=== PATIENT | male | born 1945 | race Caucasian/White ===

== ENCOUNTER → 2016-06-16 | Outpatient (CLI) | payer MEDICARE ==
[2016-06-16 16:15] LABS: HSV I IgG Interp POSITIVE (NEGATIVE); HSV II IgG Interp NEGATIVE (NEGATIVE)
== END | disposition home or self-care (01) ==
LOC: LABWHC1 08:23
PROVIDERS: ATTEND Internal Medicine Infectious Disease
DX: B02.31 Zoster conjunctivitis (principal)
CPT/HCPCS: 36415; 86644; 86645; 86695; 86696; 86787

== ENCOUNTER → 2018-08-13 | Outpatient (CLI) | payer MEDICARE ==
--- NOTE | 2018-08-13 22:18 | CT ---
EXAMINATION TYPE: CT abdomen pelvis w con DATE OF EXAM: 08/13/2018 COMPARISON: None. HISTORY: Epigastric pain. CT DLP: 1599 mGycm, Automated Exposure Control for Dose Reduction was Utilized. CONTRAST: CT scan of the abdomen and pelvis is performed with oral and with IV Contrast, patient injected with 80ml mL of Isovue 300. FINDINGS: LUNG BASES: There is patchy bibasilar linear scarring and/or atelectasis identified. There is small t o tiny pericardial effusion and cardiomegaly noted. LIVER/GB: Cholecystectomy clips are seen. PANCREAS: No significant abnormality is seen. SPLEEN: No significant abnormality is seen. ADRENALS: There is nonspecific 2.0 cm left adrenal mass axial image 31. This is noted stable in size from CT chest January 19, 2012 this presumed benign in etiology. KIDNEYS: There is a 8.4 cm simple appearing partially exophytic renal cyst lower pole of the left kid theo. Symmetric cortical medullary uptake and excretion from both kidneys are seen without hydronephro sis identified bilaterally. BOWEL: The oral contrast does not reach colonic level making evaluation of distal bowel suboptimal. T here are surgical sutures at the diaphragmatic hiatus redemonstrated. There is no suspicious small or large bowel dilatation seen. Normal-appearing appendix is seen from cecum. Some diverticula are seen in the left and sigmoid colon with redundant sigmoid colon into the abdomen. No CT evidence for acut e diverticulitis. PROSTATE/SEMINAL VESICLES: Enlarged prostate gland consistent with BPH is present. LYMPH NODES: No greater than 1cm abdominal or pelvic lymph nodes are appreciated. OSSEOUS STRUCTURES: Moderate narrowing of both hip joints. Levoconvex scoliosis centered at L3 level. Slight grade 1 retrolisthesis of L3 on L4 with moderate disc space narrowing. Multilevel facet arthr opathy in the lower lumbar spine is present. OTHER: Mild calcified plaque of the aorta extends into branch vessels. IMPRESSION: No significant finding is seen to account for patient's clinical symptoms of epigastric pain.
== END | disposition home or self-care (01) ==
LOC: RADCTMAIN 15:41
DX: R10.13 Epigastric pain (principal)
CPT/HCPCS: 82565; 84520; 74177; 36415; Q9967

== ENCOUNTER → 2018-10-25 | Day surgery (SDC) | payer MEDICARE ==
[2018-10-24 09:34] VITALS: BMI 29.5
[~2018-10-25] MED LIST: LIDOCAINE 1% 20 ML VIAL (10MG/ML) FOR IV START INTRADERMA ONE; LIDOCAINE 1% INJ 10MG/ML (20 ML MDV) ONE; PROPOFOL 10 MG/ML 20 ML VIAL IV ONE
[2018-10-25] MEDS: LACTATED RINGERS 1,000 ML IV SCH ×2 (11:31→11:54)
[2018-10-25 11:44] VITALS: TEMP 98.2
--- NOTE | 2018-10-25 12:52 | P.PCN ---
Date of Procedure: 10/25/18 Description of Procedure: Brief history: Patient is a pleasant scheduled for an elective upper endoscopy as well as colonoscopy as a part of evaluation of abdominal pain, GERD and history of colon polyps. Patient reports diffuse abdominal pain. He also has a history of vagotomy, pyloroplasty and hiatal hernia repair. Reports intermittent dysphagia at the level of the hiatal hernia repair. Previously underwent colonoscopies with Dr. Dawn with last in 2016 with polyps removed. Procedure performed: Esophagogastroduodenoscopy Colonoscopy Estimated blood loss: Minimal. Preoperative diagnosis: Abdominal pain, GERD, history of colon polyps, last colonoscopy 3 years ago significant for 3 polyps resected Anesthesia: [facility] – [place] Procedure: After informed consent was obtained from the patient was brought into the endoscopy unit and IV sedation was administered by anesthesia under continuous monitoring. Initially upper endoscopy was done. The Olympus GF 190 video endoscope was inserted inserted into the mouth and esophagus intubated without any difficulty and was gradually advanced into the stomach and duodenum and carefully examined. The small bowel appeared normal with biopsies taken. The scope was then withdrawn into the stomach which was adequately insufflated with air and carefully examined. Anatomy was consistent with prior history of pyloroplasty. There was some mild diffuse erythema which was randomly biopsied. The scope was then withdrawn into the esophagus. The GE junction was located at 44 cm from the incisors and biopsies were taken. The esophagus appeared normal ulcerations. Patient tolerated the procedure well.. The scope was then withdrawn into the stomach adequately insufflated with air and upon careful examination the antrum and body, cardia and fundus appeared normal. The scope was then withdrawn into the esophagus. The GE junction was located at 40 cm to the incisors. It appeared regular with no erythema erosions or ulcerations. Rest of the esophagus appeared normal. Patient tolerated the procedure well. At this time the patient continued to remain sedation. Initial digital rectal examination was normal. Olympus CF 190 video colonoscope was then inserted into the rectum and gradually advanced to the cecum without any difficulty. Careful examination was performed as the scope was gradually being withdrawn. The prep was excellent. The cecum, ascending colon, transverse colon, descending colon, sigmoid colon and rectum appeared normal. 2 sessile transverse colon polyps measuring 4 mm removed with cold snare polypectomy. One diminutive 1 mm descending colon polyp removed with cold forcep polypectomy. Mild left-sided d iverticulosis. Mild internal hemorrhoids. Retroflexion was performed in the rectum and no lesions were noted. Patient tolerated the procedure well. Impression: 1. Mild gastritis, biopsied. Pyloroplasty. Duodenal biopsies. GE junction biopsies. 2. 2 small polyps removed from transverse colon with cold snare. One diminutive descending polyp removed with cold forcep. Diverticulosis. Internal hemorrhoids. Recommendations: Findings of this examination were discussed with the patient as well as his . Okay to resume diet. Await pathology from polypectomy. Anticipate repeat colonoscopy in 3-5 years pending pathology from polypectomy.
[2018-10-25 13:07] VITALS: PULSE 56
[2018-10-25 13:22] VITALS: BP 182/71; RESP 16
== END | disposition home or self-care (01) ==
LOC: ORWHC2ENDO 11:09
PROVIDERS: ATTEND Internal Medicine
DX: K29.50 Unspecified chronic gastritis without bleeding (principal); Z12.11 Encounter for screening for malignant neoplasm of colon; K21.9 Gastro-esophageal reflux disease without esophagitis; D12.3 Benign neoplasm of transverse colon; D12.4 Benign neoplasm of descending colon; K57.30 Diverticulosis of large intestine without perforation or abscess without bleeding; K64.8 Other hemorrhoids; Z86.010 Personal history of colon polyps; Z88.1 Allergy status to other antibiotic agents; Z88.8 Allergy status to other drugs, medicaments and biological substances; Z91.048 Other nonmedicinal substance allergy status; I25.10 Atherosclerotic heart disease of native coronary artery without angina pectoris; Z95.5 Presence of coronary angioplasty implant and graft; Z85.6 Personal history of leukemia
CPT/HCPCS: 88305; 45385; 43239; J2001; J2704

== ENCOUNTER → 2019-08-19 | Outpatient (CLI) | payer MEDICARE ==
--- NOTE | 2019-08-19 12:03 | FL ---
EXAMINATION TYPE: FL barium swallow w video DATE OF EXAM: 08/19/2019 MODIFIED SWALLOW / DEGLUTITION STUDY CLINICAL HISTORY: Dysphagia. Throat discomfort. History of hiatal hernia repair surgery. TECHNIQUE: Deglutition study is performed utilizing thin liquid barium, honey and nectar thick liqui d barium, barium thick applesauce, and barium coated cracker. There is total of 1 minute 37 seconds o f fluoroscopic time utilized during procedure. Zero spot images saved to PACS. COMPARISON: None. FINDINGS: The oral and pharyngeal phases show satisfactory initiation and propagation with all modali ties tested. Satisfactory mastication is seen with solid modalities tested. There is no evidence of penetration or aspiration with any modality tested. No significant pharyngeal residue was appreciate d. IMPRESSION: No penetration or aspiration observed. Please refer to speech therapist notes for furthe r details if necessary.
== END | disposition home or self-care (01) ==
LOC: RADFLMAIN 10:24
PROVIDERS: ATTEND Otolaryngology Facial Plastic Surgery
DX: R07.0 Pain in throat (principal)
CPT/HCPCS: 74230

== ENCOUNTER → 2019-08-21 | Outpatient (CLI) | payer MEDICARE ==
--- NOTE | 2019-08-21 10:35 | FL ---
EXAMINATION TYPE: FL barium swallow DATE OF EXAM: 08/21/2019 CLINICAL INDICATION: 73-year-old male R07.0, throat pain and sensation of solid foods getting stuck i n the lower chest. Prior hiatal hernia repair in 1970. COMPARISON: Correlation CT 08/13/2018 Total Fluoroscopy Time: 2 minutes 9 seconds Total images: 38 FINDINGS: The swallowing mechanism is normal and hypopharyngeal anatomy is preserved. There is some anterior en dplate spondylosis at C5-C6 causing mild impression onto the posterior wall of the hypopharynx and up per cervical esophagus. The thoracic portion has a normal course and caliber. Moderate tertiary peristaltic contractions are demonstrated throughout. When the patient is supine, secondary stripping waves are blunted to absent resulting in prolonged pooling of contrast in the esophagus with episodes of intraesophageal reflux. The mucosa is normal and no persistent filling defect is encountered. Surgical clips are present at the GE junction with a recurrent small hiatal hernia. Only mild gastroe sophageal reflux could be elicited during the course of the exam. IMPRESSION: 1. Presbyesophagus with tertiary peristaltic contractions, blunted to absent secondary stripping wave s, and prolonged pooling of contrast in the esophagus when the patient is supine. Episodes of intraes ophageal reflux are demonstrated. 2. Prior surgical change but with a recurrent small hiatal hernia. Only mild gastroesophageal reflux was elicited during the course of the exam.
== END | disposition home or self-care (01) ==
LOC: RADUSWWP 09:37
PROVIDERS: ATTEND Otolaryngology Facial Plastic Surgery
DX: K22.8 Other specified diseases of esophagus (principal); K21.9 Gastro-esophageal reflux disease without esophagitis; K44.9 Diaphragmatic hernia without obstruction or gangrene
CPT/HCPCS: 74220

== ENCOUNTER → 2019-09-17 | Outpatient (CLI) | payer MEDICARE ==
--- NOTE | 2019-09-17 10:14 | CT ---
EXAMINATION TYPE: CT sinus wo con DATE OF EXAM: 09/17/2019 COMPARISON: None HISTORY: chronic sinus drainage, throat discomfort CT DLP: 705.9 mGycm. Automated Exposure Control for Dose Reduction was Utilized. TECHNIQUE: CT scan of the sinuses is performed without contrast, axial images are obtained, coronal r eformatted images are also reviewed. FINDINGS: The paranasal sinuses including the frontal, ethmoid, sphenoid, and maxillary sinuses bila terally are well-aerated without abnormal opacification. The prior antrostomy at the level of the un cinate processes of the maxillary sinuses. Mucoperiosteal thickening present within the ethmoid air c ells Visualized portion of mastoid air cells show no abnormal opacification. The globes are intact bilate rally. The calvarium shows lucent foci thought likely to be normal variants. IMPRESSION: The sinuses are remarkable for chronic sinusitis change in the ethmoid air cells. Lucent lesions within the calvarium show nonaggressive appearance, no cortical disruption.
== END | disposition home or self-care (01) ==
LOC: RADCTMAIN 08:05
PROVIDERS: ATTEND Otolaryngology Facial Plastic Surgery
DX: J32.9 Chronic sinusitis, unspecified (principal)
CPT/HCPCS: 70486

== ENCOUNTER → 2019-10-16 | Outpatient (CLI) | payer MEDICARE | END | disposition home or self-care (01) | LOC: CPPFTMAIN 11:48 | PROVIDERS: ATTEND Internal Medicine Critical Care Medicine | DX: R06.00 Dyspnea, unspecified (principal); R94.2 Abnormal results of pulmonary function studies | CPT/HCPCS: 94060; 94726; 94729 ==

== ENCOUNTER → 2020-03-13 | Outpatient (CLI) | payer MEDICARE ==
--- NOTE | 2020-03-13 18:42 | US ---
EXAMINATION TYPE: US groin LT DATE OF EXAM: 03/13/2020 COMPARISON: NONE CLINICAL HISTORY: R10.33 Periumbilical pain. Left groin pain. No ultrasound evidence of left groin hernia. IMPRESSION: 1. Ultrasound left groin demonstrates no diagnostic evidence of solid or cystic mass. No diagnostic e vidence of hernia.
--- NOTE | 2020-03-13 18:46 | US ---
EXAMINATION TYPE: US scrotum with doppler. Grayscale and color Doppler Duplex imaging performed of ramirez melgoza scrotum. DATE OF EXAM: 03/13/2020 COMPARISON: NONE CLINICAL HISTORY: N50.819 testicular pain. EXAM MEASUREMENTS: TESTICLES: Right Testicle: 2.8 x 1.6 x 2.1 cm Left Testicle: 2.9 x 2.1 x 2.6 cm EPIDIDYMIS HEAD: Right Epididymis: 0.8 cm Left Epididymis: 0.4 cm Doppler performed to assess for testicular vascularity; good bilateral color flow and waveforms are s een. There is no evidence of testicular torsion. Presence of hydroceles: left measuring 2.3 x 1.2 x 1.0 Presence of varicoceles: no IMPRESSION: 1. There is a small left hydrocele.
== END | disposition home or self-care (01) ==
LOC: RADUSWWP 15:27
PROVIDERS: ATTEND Family Medicine
DX: N43.3 Hydrocele, unspecified (principal); N50.819 Testicular pain, unspecified
CPT/HCPCS: 76870; 93975

== ENCOUNTER → 2020-06-04 | Outpatient (CLI) | payer MEDICARE ==
--- NOTE | 2020-06-04 15:47 | US ---
EXAMINATION TYPE: US venous doppler duplex LE LT DATE OF EXAM: 06/04/2020 3:31 PM COMPARISON: NONE CLINICAL HISTORY: LEFT LEG I80.9. Left leg swelling and Left lateral thigh pain 2 weeks post meniscus repair. SIDE PERFORMED: Left TECHNIQUE: The lower extremity deep venous system is examined utilizing real time linear array sonog damián with graded compression, doppler sonography and color-flow sonography. VESSELS IMAGED: Common Femoral Vein Deep Femoral Vein Greater Saphenous Vein * Femoral Vein Popliteal Vein Small Saphenous Vein * Proximal Calf Veins (* superficial vessels) Left Leg: Negative for DVT. Thin fluid area seen left lateral thigh at patient's area of pain size = 12.7 long x 0.6cm A/P. IMPRESSION: 1. Left lower extremity ultrasound negative for deep venous thrombosis. 2. Some superficial soft tissue edema is evident
== END | disposition home or self-care (01) ==
LOC: RADUSWWP 15:02
PROVIDERS: ATTEND Orthopaedic Surgery
DX: R60.0 Localized edema (principal)

== ENCOUNTER → 2020-09-23 | Outpatient (CLI) | payer MEDICARE ==
[2020-09-23 12:39] LABS: African American GFR (CKD) >90 (>60 ml/min/1.73 sqM); Blood Urea Nitrogen 24 mg/dL (9-20); Non-African American GFR(CKD) 79 (>60 ml/min/1.73 sqM)
--- NOTE | 2020-09-23 14:17 | CT ---
EXAMINATION TYPE: CT abdomen pelvis w con DATE OF EXAM: 09/23/2020 COMPARISON: 08/13/2018 HISTORY: Chronic abdominal pain CT DLP: 1242.90 mGycm CONTRAST: CT scan of the abdomen and pelvis is performed with Oral Contrast and with IV Contrast, patient injec tamela with 100 ml mL of Isovue 300. FINDINGS: LUNG BASES-: Pleural-based nodular density left lower lobe persists and appears slightly larger in si ze and currently measures 6.8 mm versus 6.7 mm. No infiltrate. There is evidence of cardiomegaly with small pericardial effusion. LIVER/GB: No calcified gallstones. No space occupying hepatic lesion. Biliary tree is of normal ca liber. PANCREAS: No inflammation. No distinct mass. SPLEEN: No splenic enlargement. No lesion seen. ADRENALS: Left adrenal nodule measuring 1.7 cm. No thickening. KIDNEYS/BLADDER: No hydronephrosis. No nephrolithiasis. Large cyst lower pole left kidney measuring 8.5 x 2.7 cm. Urinary bladder grossly unremarkable. BOWEL: Normal appendix. Normal bowel caliber. No inflammation. GENITAL ORGANS: No gross abnormality. LYMPH NODES: No greater than 1cm abdominal or pelvic lymph nodes are appreciated. AORTA: No significant abnormality. OSSEOUS STRUCTURES: No significant abnormality is seen. OTHER: No significant additional abnormality is seen. IMPRESSION: 1. No acute process to account for the patient's symptoms.
== END | disposition home or self-care (01) ==
LOC: RADCTMAIN 11:50
PROVIDERS: ATTEND Internal Medicine Hematology & Oncology
DX: G89.29 Other chronic pain (principal); R10.9 Unspecified abdominal pain; E27.8 Other specified disorders of adrenal gland
CPT/HCPCS: 82565; 84520; 74177; 36415; Q9967

== ENCOUNTER → 2020-10-20 | Outpatient (CLI) | payer MEDICARE ==
--- NOTE | 2020-10-21 06:48 | CT ---
EXAMINATION TYPE: CT chest wo con DATE OF EXAM: 10/20/2020 COMPARISON: Chest CT January 19, 2012. CT abdomen and pelvis September 23, 2020 HISTORY: f/u nodules, recent abnormal CT. CT DLP: 678 mGycm. Automated Exposure Control for Dose Reduction was Utilized. TECHNIQUE: CT scan of the thorax is performed without IV contrast. FINDINGS: LUNGS: Persistent mild to moderate posterolateral pleural thickening left lower lung with nodularity measuring up to 1.1 x 0.9 cm axial image 40 and 9 x 8 mm just inferior to this axial image 42. Mild t o moderate bibasilar linear scarring and/or atelectasis. All findings new from 2012 CT. Upper lungs r emain clear. No pleural effusion or pneumothorax seen bilaterally. MEDIASTINUM: Lack of IV contrast is noted to limit evaluation for mediastinal and especially hilar ad enopathy. There are no definitive greater than 1 cm mediastinal lymph nodes. At least moderate paiz ry artery calcification is present. Small to moderate size pericardial effusion redemonstrated measu ring up to 2.7 cm thickness axial image 45 for reference. Heart size less prominent on current study. OTHER: Surgical changes epigastric region redemonstrated. Scoliotic curvature with mild multilevel sp urring of the spine again seen. Cholecystectomy clips redemonstrated. IMPRESSION: 1. Persistent posterior lateral left basilar pleural thickening with nodularity could reflect rounded scarring, atelectasis, or nodular thickening however true pulmonary nodule not excluded. Consider PE T CT follow-up to further evaluate, findings new from 2012 study. 2. Small to moderate-sized pericardial effusion slightly more prominent than recent CT, clinical yoselyn elation is advised. Improved cardiomegaly noted.
== END | disposition home or self-care (01) ==
LOC: RADCTMAIN 16:03
PROVIDERS: ATTEND Family Medicine
DX: R91.1 Solitary pulmonary nodule (principal); J98.11 Atelectasis
CPT/HCPCS: 71250

== ENCOUNTER 2020-11-10 11:28 | Day surgery (SDC) | payer MEDICARE ==
[2020-11-05 12:15] VITALS: BMI 29.3
[~2020-11-10 11:28] MED LIST changes: +LACTATED RINGERS 1,000 ML IV SCH; -LIDOCAINE 1% 20 ML VIAL (10MG/ML) FOR IV START INTRADERMA ONE; -LIDOCAINE 1% INJ 10MG/ML (20 ML MDV) ONE; -PROPOFOL 10 MG/ML 20 ML VIAL IV ONE
[2020-11-10 12:27] VITALS: TEMP 97.6
[2020-11-10] MEDS ORDERED: LIDOCAINE 1% INJ 10MG/ML (20 ML MDV) ONE (12:30)
[2020-11-10] MEDS ORDERED: PROPOFOL 10 MG/ML 20 ML VIAL IV ONE (12:30)
[2020-11-10] MEDS ORDERED: LABETALOL 5 MG/ML VIAL MDV ONE (12:30)
--- NOTE | 2020-11-10 12:38 | P.GSHP ---
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 Patient has had upper abdominal and lower abdominal pain. Patient with increasing anemia recently. Last colonoscopy 9 years ago. No family history of colon cancer. No rectal bleeding or melena. No change in bowel habits. Past Medical History Past Medical History: Coronary Artery Disease (CAD), Cancer, GERD/Reflux, Hypertension, Skin Disorder Additional Past Medical History / Comment(s): Hx. of CML, Hx. of Shingles cornea L eye, Cysts L kidney. SOB, hiatal hernia, hx skin cancer History of Any Multi-Drug Resistant Organisms: None Reported Past Surgical History: Cholecystectomy, Heart Catheterization With Stent, Hernia Repair, Orthopedic Surgery Additional Past Surgical History / Comment(s): Thyroid surgery, Vasectomy, mult R ankle surgery, Sinus surgery, Basal cell R shoulder, Pyloroplasty & Vagotomy, Hemorrhoidectomy, left Cataract surgery , bx. of inner thigh, repair hiatal hernia, total 3 cardiac stents Past Anesthesia/Blood Transfusion Reactions: No Reported Reaction Date of Last Stent Placement:: 04/13/2005 Smoking Status: Never smoker - Past Family History Mother Family Medical History: Cancer, Pulmonary Embolus Father Family Medical History: Cancer Brother(s) Family Medical History: Cancer Medications and Allergies Home Medications Medication Instructions Recorded Confirmed Type Ascorbic Acid [Vitamin C] 1,000 mg PO DAILY 10/24/18 11/05/20 History Aspirin 81 mg PO DAILY 10/24/18 11/05/20 History Cholecalciferol (Vitamin D3) 2,000 unit PO DAILY 10/24/18 11/05/20 History [Vitamin D3] Cranberry Fruit Extract [Cranberry] 200 mg PO DAILY 10/24/18 11/05/20 History Fish Oil/Dha/Epa [Fish Oil 1,200 1 each PO DAILY 10/24/18 11/05/20 History mg Fish Oil] Losartan [Cozaar] 50 mg PO DAILY 10/24/18 11/05/20 History Metoprolol Tartrate [Lopressor] 25 mg PO BID 10/24/18 11/05/20 History Nitroglycerin Sl Tabs [Nitrostat] 0.4 mg SUBLINGUAL Q5M PRN 10/24/18 11/05/20 History Omeprazole [PriLOSEC] 40 mg PO DAILY 10/24/18 11/05/20 History Ubidecarenone [Co Q-10] 100 mg PO DAILY 10/24/18 11/05/20 History valACYclovir [Valtrex] 500 mg PO TID 10/24/18 11/05/20 History Cardiocentrum 2 tab PO DAILY 11/05/20 11/05/20 History Cetirizine HCl [Zyrtec] 10 mg PO DAILY 11/05/20 11/05/20 History Dasatinib [Sprycel] 100 mg PO 0300 11/05/20 11/05/20 History Dicyclomine [Bentyl] 10 mg PO BID 11/05/20 11/05/20 History Docusate [Colace] 100 mg PO BID 11/05/20 11/05/20 History Allergies Allergy/AdvReac Type Severity Reaction Status Date / Time adhesive tape Allergy Rash/Hives Verified 10/25/18 11:37 amoxicillin [From Augmentin] Allergy Rash/Hives Verified 10/25/18 11:37 budesonide [From Symbicort] Allergy Vision Verified 11/05/20 12:00 issues ciprofloxacin Allergy Muscle Verified 11/05/20 12:00 aches clavulanic acid Allergy Rash/Hives Verified 11/05/20 12:00 [From Augmentin] doxycycline Allergy Rectal Verified 11/05/20 12:00 Bleeding enalapril Allergy Cough Verified 11/05/20 12:00 fluticasone Allergy Irregular Verified 11/05/20 12:00 [From Advair Diskus] heart rate formoterol [From Symbicort] Allergy Vision Verified 11/05/20 12:00 issues mold Allergy Rash/Hives Verified 11/05/20 12:00 salmeterol Allergy Irregular Verified 11/05/20 12:00 [From Advair Diskus] heart rate [id number] Reductase Allergy Muscle Verified 11/05/20 12:00 Inhibitor aches Cotton material Allergy itching, Uncoded 11/05/20 12:00 hives tasinga Allergy pancreatiti Uncoded 11/05/20 12:00 s Surgical - Exam Vital Signs Temp Pulse Resp BP Pulse Ox 97.6 F 71 15 175/81 100 11/10/20 12:25 11/10/20 12:25 11/10/20 12:25 11/10/20 12:25 11/10/20 12:25 Physical exam: General: Well-developed, well-nourished HEENT: Normocephalic, sclerae nonicteric Abdomen: Nontender, nondistended Extremities: No edema Neuro: Alert and oriented Assessment and Plan (1) Colon cancer screening Narrative/Plan: Will proceed with upper and lower endoscopy Current Visit: Yes Status: Acute Code(s): Z12.11 - ENCOUNTER FOR SCREENING FOR MALIGNANT NEOPLASM OF COLON SNOMED Code(s): 256139487
--- NOTE | 2020-11-10 13:12 | P.PCN ---
Date of Procedure: 11/10/20 Procedure(s) Performed: PREOPERATIVE DIAGNOSIS: Anemia, pain, screening POSTOPERATIVE DIAGNOSIS: Gastritis PROCEDURE: 1. EGD with biopsy 2. Colonoscopy with snare polypectomy ANESTHESIA: MAC SURGEON: Sammy Mas M.D. SPECIMENS: Antrum ENDOSCOPIC PROCEDURE: The patient was on the endoscopy table in the left decubitus position. The Olympus gastroscope was inserted into the oropharynx and passed under direct visualization to the region of the third portion of the duodenum. From that point the scope was slowly withdrawn inspecting all surfaces carefully. There were no neoplastic inflammatory or polypoid lesions throughout the duodenum. The pylorus was widely patent. The stomach was carefully inspected. There was mild diffuse gastritis present. There was a small amount of old blood within the stomach however no identifiable source was seen. A biopsy of the antrum took place to rule out H. pylori. Retroflexion revealed a normal hiatus. The esophagus was then carefully examined. There were no neoplastic inflammatory or polypoid lesions throughout the visualized esophagus. The patient was kept on the endoscopy table in the left decubitus position. The Olympus colonoscope was inserted into the anus and passed under direct visualization to the base of the cecum. The appendiceal orifice was visualized. From that point the scope was slowly withdrawn inspecting all surfaces carefully. There were no neoplastic inflammatory or polypoid lesions throughout the cecum. In the ascending colon a small polyp was seen and removed using the snare with cautery technique. The remainder of the ascending transverse descending and sigmoid and rectum appeared normal. The patient's prep was slightly suboptimal limiting our visualization slightly. The patient had extensive diverticulosis throughout the colon. Digital rectal examination was normal. The patient was taken to the recovery room in stable condition per anesthesia guidelines. RECOMMENDATIONS: Resume diet. Await biopsy results. Definite etiology for pain not seen on today's study. Patient's gastritis could be partially explaining his pain and recent anemia.
[2020-11-10 13:18] VITALS: RESP 16
[2020-11-10 13:38] VITALS: BP 135/75; PULSE 73
== END 2020-11-10 14:17 | disposition home or self-care (01) ==
LOC: ORWHC2ENDO 11:28
PROVIDERS: ATTEND Surgery
DX: D12.2 Benign neoplasm of ascending colon (principal); D50.9 Iron deficiency anemia, unspecified; K57.30 Diverticulosis of large intestine without perforation or abscess without bleeding; I10 Essential (primary) hypertension; I25.10 Atherosclerotic heart disease of native coronary artery without angina pectoris; K21.9 Gastro-esophageal reflux disease without esophagitis; K29.50 Unspecified chronic gastritis without bleeding; Z79.82 Long term (current) use of aspirin; Z85.828 Personal history of other malignant neoplasm of skin; Z88.0 Allergy status to penicillin; Z88.1 Allergy status to other antibiotic agents; Z88.8 Allergy status to other drugs, medicaments and biological substances; Z90.49 Acquired absence of other specified parts of digestive tract; Z95.5 Presence of coronary angioplasty implant and graft; Z98.890 Other specified postprocedural states
CPT/HCPCS: 88305; 45385; 43239; J2001; J2704

== ENCOUNTER → 2020-12-25 | Outpatient (CLI) | payer MEDICARE ==
--- NOTE | 2020-12-25 15:32 | US ---
EXAMINATION TYPE: US scrotum with doppler. Grayscale and color Doppler Duplex imaging performed of t he scrotum. DATE OF EXAM: 12/25/2020 COMPARISON: NONE CLINICAL HISTORY: N50.819 Testicular pain, unspecified. Right Testicular pain for the past 2 years EXAM MEASUREMENTS: TESTICLES: Right Testicle: 3.1 x 2.1 x 1.3 cm Left Testicle: 3.5 x 2.3 x 1.2 cm EPIDIDYMIS HEAD: Right Epididymis: 0.8 x 0.8 x 0.4 cm Left Epididymis: 0.9 x 0.8 x 1.0 cm Doppler performed to assess for testicular vascularity; good bilateral color flow and waveforms are s een. There is no evidence of testicular torsion. Presence of hydroceles: Left Presence of varicoceles: No Left Epididymis: anchoic area 0.4 x 0.4 x 0.4cm IMPRESSION: Left epididymal head cyst. Small left hydrocele.
== END | disposition home or self-care (01) ==
LOC: RADUSWWP 14:32
PROVIDERS: ATTEND Family Medicine
DX: N50.811 Right testicular pain (principal); N43.3 Hydrocele, unspecified; N50.3 Cyst of epididymis
CPT/HCPCS: 76870; 93975

== ENCOUNTER → 2021-04-21 | Outpatient (CLI) | payer MEDICARE ==
--- NOTE | 2021-04-21 13:00 | CT ---
EXAMINATION TYPE: CT chest w con DATE OF EXAM: 04/21/2021 COMPARISON: CT dated 10/20/2020 HISTORY: Lung Nodule CT DLP: 564 mGycm Automated exposure control for dose reduction was used. TECHNIQUE: CT scan of the chest is performed with IV Contrast, patient injected with 100 ml mL of Isovue 300. FINDINGS: Redemonstration of the previously seen pleural-based nodules at the posterior aspect of the left lung base measuring 8 x 11 mm superiorly and 8 x 8 mm inferiorly, unchanged since August 2018 CT scan, cons istent with benign nodules and requiring no further follow-up. Newly seen cluster of faint groundglass micronodules at the posterior aspect of the right upper lobe, measuring up to 6 mm and predominantly centrilobular in location, probably inflammatory/infectious i n etiology. Stable bilateral basal minimal reticulations/subtle fibrotic changes and areas of septal thickening. Grossly unremarkable lungs otherwise. Patent central airways. No pleural effusion. No gross cardiomeg lani. Persistent moderate pericardial effusion not significantly improved compared to the previous CT scan. Persistent arterial atherosclerotic calcifications also including the coronary arteries. No pathologically enlarged lymph nodes in the chest. Surgical clips are seen at the gastroesophageal junction. Previous cholecystectomy. Stable tiny hypodensities in the left hepatic lobe likely represe nting cysts. Unchanged left adrenal lesion likely representing an adenoma. Demineralized bones. No ag gressive bone lesion. IMPRESSION: 1. Stable left lung base pleural-based nodules since 2019 CT scan consistent with benign nodules and requiring no further follow-up. 2. Newly seen cluster of faint micronodules measuring up to 6 mm at the posterior aspect of the right upper lobe as described above, possibly inflammatory/infectious in etiology, please correlate clinic ally. Precautionary follow-up CT scan in 2-3 months is advised. 3. Persistent moderate pericardial effusion, not improved compared to the previous CT scan. Other inc idental findings as described above.
== END | disposition home or self-care (01) ==
LOC: RADCTMAIN 09:46
PROVIDERS: ATTEND Internal Medicine Critical Care Medicine
DX: R91.8 Other nonspecific abnormal finding of lung field (principal); I31.3 Pericardial effusion (noninflammatory)
CPT/HCPCS: 82565; 84520; 71260; 36415; Q9967

== ENCOUNTER → 2021-12-06 | Outpatient (CLI) | payer MEDICARE ==
[2021-12-06 15:58] LABS: ALT 30 U/L (10-49); AST 28 U/L (14-35); Alkaline Phosphatase 69 U/L (41-126)
[2021-12-06 15:59] LABS: HCT 31.7 % (39.6-50.0); HGB 10.1 g/dL (13.0-17.0); MCH 32.9 pg (27.0-32.0); MCHC 31.9 g/dL (32.0-37.0); MCV 103.3 fL (80.0-97.0); Mean Platelet Volume 9.4 fL (9.5-12.2); NRBC Per 100 WBC 0 /100 WBCS (0.0-0.0); Platelet Count 218 X 10*3/uL (140-440); RBC 3.07 X 10*6/uL (4.40-5.60); WBC 8.31 X 10*3/uL (4.50-10.00)
== END | disposition home or self-care (01) ==
LOC: LABWHC1 09:04
PROVIDERS: ATTEND Internal Medicine Interventional Cardiology
DX: I10 Essential (primary) hypertension (principal); I25.10 Atherosclerotic heart disease of native coronary artery without angina pectoris
CPT/HCPCS: 36415; 84075; 84450; 84460; 85027

== ENCOUNTER → 2022-02-03 | Outpatient (CLI) | payer MEDICARE ==
[2022-02-03 15:09] LABS: HCT 29.6 % (39.6-50.0); HGB 9.7 g/dL (13.0-17.0); MCH 33.1 pg (27.0-32.0); MCHC 32.8 g/dL (32.0-37.0); NRBC Per 100 WBC 0 /100 WBCS (0.0-0.0); Platelet Count 282 X 10*3/uL (140-440); RBC 2.93 X 10*6/uL (4.40-5.60); RDW 14.9 % (11.5-14.5); WBC 7.68 X 10*3/uL (4.50-10.00)
[2022-02-03 15:41] LABS: African American GFR (CKD) 78.1 (60.0-200.0); Anion Gap 9.3 mmol/L (10.00-18.00); Carbon Dioxide 24.1 mmol/L (20.0-27.5); Non-African American GFR(CKD) 67.4 (60.0-200.0)
== END | disposition home or self-care (01) ==
LOC: LABPAT 10:53
PROVIDERS: ATTEND Internal Medicine Interventional Cardiology
DX: Z01.812 Encounter for preprocedural laboratory examination (principal); I35.0 Nonrheumatic aortic (valve) stenosis; I25.118 Atherosclerotic heart disease of native coronary artery with other forms of angina pectoris
CPT/HCPCS: 80051; 82565; 84443; 84520; 85027

== ENCOUNTER 2022-02-09 06:09 | Day surgery (SDC) | payer MEDICARE ==
[2022-02-04 15:06] VITALS: BMI 29.8
[~2022-02-09 06:09] MED LIST changes: +ALPRAZolam 0.25 MG TAB PO PRN; +ALPRAZolam 0.5 MG TAB PO PRN; -LACTATED RINGERS 1,000 ML IV SCH; +NITROGLYCERIN SL TABS 0.4 MG TAB SUBLINGUAL PRN; +SODIUM CHLORIDE 0.9% 1,000 ML in EMPTY BAG 1 BAG IV SCH
[2022-02-09 06:39] VITALS: TEMP 98.2
[2022-02-09] MEDS ORDERED: ASPIRIN 325 MG TAB PO ONE (07:00)
[2022-02-09] MEDS ORDERED: VERAPAMIL 2.5 MG/ML 2 ML AMP ONE (07:14)
[2022-02-09] MEDS ORDERED: HEPARIN SODIUM 1,000 UN/ML (10ML VL) ONE (07:33)
[2022-02-09] MEDS ORDERED: MIDAZOLAM 2 MG/2 ML VIAL IV ONE ×3 (07:39→12:47)
[2022-02-09] MEDS ORDERED: fentaNYL (PF) 50 MCG/ML 2 ML AMP ONE ×2 (07:40→12:30)
[2022-02-09] MEDS ORDERED: LIDOCAINE 1% INJ 10MG/ML (30 ML VIAL-PF) SQ ONE (07:41)
[2022-02-09] MEDS ORDERED: fentaNYL (PF) 50 MCG/ML 2 ML AMP IV ONE ×2 (07:42→12:47)
[2022-02-09] MEDS ORDERED: VERAPAMIL SYRINGE (5 MG/10 ML) INTRAARTER ONE (07:44)
[2022-02-09] MEDS ORDERED: HEPARIN SODIUM 1,000 UN/ML (10ML VL) IV ONE (07:47)
[2022-02-09] MEDS ORDERED: IOPAMIDOL-370 100ML BTL INJ ONE (08:01)
--- NOTE | 2022-02-09 09:06 | CC ---
CARDIAC CATHETERIZATION REPORT DATE OF PROCEDURE: 02/09/2022 PROCEDURE: Coronary angiography. PERFORMED BY: Dr. Artie Wells. Moderate conscious sedation time was 20 minutes. Patient was administered Versed. Oxygen saturation, hemodynamics, and EKG were monitored closely. CLINICAL INFORMATION: Mr. Ventura Miller is a 76-year-old gentleman with a history of CAD, prior PCI of LAD and circumflex in 2004 and 2005. He has aortic stenosis, moderate to severe with chronic myeloid leukemia, hypertension, hyperlipidemia, and also atqym-tz-mrmukrqe sized pericardial effusion. He is under the care of oncologist and hemoglobin runs about 9.5 to 10.5. He has been having symptoms of increasing shortness of breath with a worsening gradient across aortic valve and therefore he was brought in for a coronary angiography and also transesophageal echo. Risks, benefits, options, and rationale were explained. PROCEDURE NOTE: Under local anesthesia and strict aseptic precautions, a 6-Kyrgyz introducer was placed in the right radial artery. Using standard Lorraine catheters, I performed coronary angiography and I did not cross the aortic valve and left ventricular pressures were not measured. The sheath was taken out and TR band applied as per protocol with saturation in the fingers of the right hand of 96%. The patient tolerated the procedure well without complication. CORONARY ANGIOGRAPHY FINDINGS: RIGHT CORONARY ARTERY: Small nondominant vessel, minor irregularities, limited amount of myocardium being supplied by it, no significant disease. LEFT MAIN CORONARY ARTERY: Short, patent, disease-free vessel that bifurcates into LAD and circumflex. LEFT ANTERIOR DESCENDING CORONARY ARTERY: Good-caliber vessel extends along the anterior wall. The mid LAD at the site of stenting, in fact there were 2 stents. Both the areas look widely patent with brisk flow. No evidence of any significant stenosis. The flow appears to be brisk and it gives off septal and diagonal branches, runs all the way to the apex, curves over the apex to supply the inferoapical portion of left ventricle. The LAD therefore has [id number] calcification. Widely patent vessel at the site of stenting without any stenosis and opacified septal and diagonal branches have minor irregularities. LEFT POSTERIOR CIRCUMFLEX CORONARY ARTERY: This is technically a dominant vessel, has about a 40% stenosis in the proximal portion with calcification at the site of stenting, but the flow is brisk and it gives off an obtuse marginal branch that again subdivides into 2 branches, has minor irregularities, no more than 40% to 45% narrowing. The circumflex itself in the proximal portion of the site of stenting has some haziness calcification, but I do not think the narrowing is more than 50%. The obtuse marginal branch circumflex runs in the AV groove and distally it bifurcates into 2 branches. In between the 2 branches, there appears to be an area of about 40% to 45% narrowing of the circumflex. The PDA is of good caliber, fair distribution, no significant disease. PLV has mildly diffuse disease and is smaller. Circumflex therefore has about a 40% to 50% proximal lesion, distal branch lesion of about 40% to 50%, but no critical stenosis. Left ventriculogram was not performed and aortic valve was not crossed. FINAL IMPRESSION: This patient has a left-dominant system 40% to 45% circumflex disease in the proximal portion and another 40% in the distal portion. Obtuse marginal has a 40% narrowing. LAD that was stented before is widely patent with good flow. RCA is nondominant. RECOMMENDATIONS: Before coronary anatomy findings, no intervention is necessary. I will await the results of transesophageal echo and make further recommendations. If he does indeed have significant aortic stenosis, he will be a good candidate for percutaneous aortic valve implant. Discussed the findings and thoughts in detail with the patient and . He will be discharged after transesophageal echo, and I will see him in the office next week. JASWINDER / CORY: [id number] /
[2022-02-09] MEDS ORDERED: IV FLUID CONTINUATION 400 ML IV ONE (12:40)
[2022-02-09] MEDS ORDERED: BENZOCAINE SPRAY 1 CAN TOPICAL ONE (12:48)
[2022-02-09 12:57] VITALS: RESP 16
--- NOTE | 2022-02-09 13:36 | P.PCN ---
Date of Procedure: 02/09/22 Operative Findings: TRANSESOPHAGEAL ECHOCARDIOGRAM LICENSED NUCLEAR CONTROL ROOM OPERATOR: LIBRADO JOHNSON MD, RPVI INDICATION: Aortic stenosis SEDATION: Conscious sedation COMPLICATION: None LEVEL OF SEDATION Moderate to severe elevation of 15 minutes PROCEDURE DESCRIPTION: After obtaining an informed consent, the patient was brought to transesophageal echocardiogram room. Pulse oximetry and heart monitors were attached to the patient. The patient throat was sprayed using lidocaine. The patient was turned into left lateral position. After that a bite guard was placed. After an appropriate conscious sedation was initiated, the transesophageal echocardiogram was advanced through a bite guard into the mid esophagus. A 2-D echocardiogram images, color Doppler images, continuous wave images, pulse-wave images, of various cardiac structure were performed. After that the transesophageal echocardiogram probe was advanced into the stomach and fixed to obtain transgastric view was. The probe was brought into the mid esophagus. Inter-atrial septum was interrogated using 2D images, color Doppler images, and then contrast study. After that transesophageal echocardiogram was withdrawn out and upon withdrawing the descending thoracic aorta all the way up to the arch was evaluated. FINDING: The left ventricular dimension and systolic function appeared to be within normal limits. The right ventricular dimension and systolic function appeared to be within normal limits. Both atria are dilated. The left atrial appendage appeared to be free from any thrombus. The interatrial septum appears to be intact. The aortic valve is trileaflet valve and appeared to be thickened and calcified was evidence of severe aortic stenosis and mean gradient of 42 peak a 73 mmHg. The mitral valve appeared to be mildly thickened was moderate MR. There is mild tricuspid regurgitation seen. There is a small pericardial effusion identified as well. CONCLUSION: 1. Severe aortic stenosis with a mean gradient of 42 mmHg and peak systolic velocity of above 4 m/s. Aortic valve is trileaflet valve 2. Moderate mitral regurgitation with thickened anterior and posterior mitral leaflet 3. Normal left ventricular dimension and systolic from 4. Normal right ventricular dimension and systolic function 5. Intact interatrial septum. Intact left atrial appendage 6. Small pericardial effusion identified
[2022-02-09 14:21] VITALS: BP 116/60; PULSE 77
== END 2022-02-09 15:22 | disposition home or self-care (01) ==
LOC: CATHCVL 06:09
PROVIDERS: ATTEND Internal Medicine Interventional Cardiology
DX: I25.10 Atherosclerotic heart disease of native coronary artery without angina pectoris (principal); I08.0 Rheumatic disorders of both mitral and aortic valves; I31.39 Other pericardial effusion (noninflammatory); I10 Essential (primary) hypertension; E78.5 Hyperlipidemia, unspecified; C92.10 Chronic myeloid leukemia, BCR/ABL-positive, not having achieved remission; Z79.899 Other long term (current) drug therapy
CPT/HCPCS: 93312; 93320; 93325; 93454; C1769 ×2; C1894; J2250; J2001; J3010; J1644; Q9967

== ENCOUNTER 2022-02-13 19:48 | Inpatient (IN) | payer MEDICARE ==
[2022-02-13] MEDS ORDERED: ACETAMINOPHEN TAB 325 MG TAB PO STA (21:20)
--- NOTE | 2022-02-13 21:22 | ED ---
Fever HPI - General Chief Complaint: Fever Stated Complaint: Fever post heart cath Time Seen by Provider: 02/13/22 21:00 Source: patient, family, RN notes reviewed Mode of arrival: ambulatory Limitations: no limitations - History of Present Illness Initial Comments: This is a 76-year-old male who presents to the emergency department for a fever and weakness. 4 days ago, the patient had a cardiac catheterization, however no stents were placed. Additionally, the patient is being treated for CML with a daily chemotherapy pill (Sprycel). Dr. Arellano is his provider. His states that he does have a history of kidney stones, and several weeks ago when he provided a urine sample, the urine was the color of milk. He was subsequently put on an antibiotic, however his cannot recall the name of this. The fever and weakness largely started this morning. He has an associated cough and overall feels unwell. Denies any chest pain, difficulty breathing, or sick contacts. Also reports centralized abdominal pain but denies any nausea or vomiting. Denies any chills, sore throat, dyspnea, chest pain, palpitations, nausea, vomiting, diarrhea, back pain, or headaches. MD Complaint: fever, malaise Context: recent procedure, on immunosuppressant(s) Associated Symptoms: nasal congestion, cough, abdominal pain Treatments Prior to Arrival: Acetaminophen - Related Data Home Medications Medication Instructions Recorded Confirmed Ascorbic Acid [Vitamin C] 1,000 mg PO DAILY 10/24/18 02/09/22 Aspirin 81 mg PO DAILY 10/24/18 02/09/22 Cholecalciferol (Vitamin D3) 2,000 unit PO DAILY 10/24/18 02/09/22 [Vitamin D3] Cranberry Fruit Extract [Cranberry] 200 mg PO DAILY 10/24/18 02/09/22 Fish Oil/Dha/Epa [Fish Oil 1,200 1 each PO DAILY 10/24/18 02/09/22 mg Fish Oil] Losartan [Cozaar] 50 mg PO DAILY 10/24/18 02/09/22 Metoprolol Tartrate [Lopressor] 25 mg PO BID 10/24/18 02/09/22 Nitroglycerin Sl Tabs [Nitrostat] 0.4 mg SUBLINGUAL Q5M PRN 10/24/18 02/09/22 Omeprazole [PriLOSEC] 40 mg PO DAILY 10/24/18 02/09/22 Ubidecarenone [Co Q-10] 100 mg PO DAILY 10/24/18 02/09/22 valACYclovir HCL [Valtrex] 500 mg PO TID 10/24/18 02/09/22 Cardiocentrum 2 tab PO DAILY 11/05/20 02/09/22 Cetirizine HCl [Zyrtec] 10 mg PO DAILY 11/05/20 02/09/22 Dasatinib [Sprycel] 100 mg PO 0300 11/05/20 02/09/22 Dicyclomine [Bentyl] 10 mg PO BID 11/05/20 02/09/22 Docusate [Colace] 100 mg PO BID 11/05/20 02/09/22 Albuterol Inhaler [Ventolin Hfa 1 - 2 puff INHALATION Q6H PRN 02/09/22 02/09/22 Inhaler] Fluticasone/Vilanterol [Breo 1 inhalation INHALATION QID PRN 02/09/22 02/09/22 Ellipta 200-25 Mcg Inhaler] Allergies Allergy/AdvReac Type Severity Reaction Status Date / Time adhesive tape Allergy Rash/Hives,"paper Verified 02/13/22 19:57 tape is ok" amoxicillin [From Augmentin] Allergy Rash/Hives Verified 02/13/22 19:57 budesonide [From Symbicort] Allergy Vision Verified 02/13/22 19:57 issues ciprofloxacin Allergy Muscle Verified 02/13/22 19:57 aches clavulanic acid Allergy Rash/Hives Verified 02/13/22 19:57 [From Augmentin] doxycycline Allergy Rectal Verified 02/13/22 19:57 Bleeding enalapril Allergy Cough Verified 02/13/22 19:57 fluticasone Allergy Irregular Verified 02/13/22 19:57 [From Advair Diskus] heart rate formoterol [From Symbicort] Allergy Vision Verified 02/13/22 19:57 issues mold Allergy Rash/Hives Verified 02/13/22 19:57 salmeterol Allergy Irregular Verified 02/13/22 19:57 [From Advair Diskus] heart rate Gscjxcp-TDR-VdO Reductase Allergy Muscle Verified 02/13/22 19:57 Inhibitor aches [Ffbsncr-Irl-Scb Reductase Inhibitor] Cotton material Allergy itching, Uncoded 02/13/22 19:57 hives tasinga Allergy pancreatiti Uncoded 02/13/22 19:57 s Review of Systems ROS Statement: Those systems with pertinent positive or pertinent negative responses have been documented in the HPI. ROS Other: All systems not noted in ROS Statement are negative. Past Medical History Past Medical History: Coronary Artery Disease (CAD), Cancer, GERD/Reflux, Hypertension, Skin Disorder Additional Past Medical History / Comment(s): Hx. of CML, Hx. of Shingles L eye, Cysts on L kidney. History of Any Multi-Drug Resistant Organisms: None Reported Past Surgical History: Cholecystectomy, Heart Catheterization With Stent, Hernia Repair, Orthopedic Surgery Additional Past Surgical History / Comment(s): Thyroid surgery,Vasectomy, R ankle surgery, Sinus surgery, Basal cell R shoulder, Pyloroplasty & Vagotomy, Hemorrhoidectomy, Cataract surgery & bx. of inner thigh. Past Anesthesia/Blood Transfusion Reactions: No Reported Reaction Date of Last Stent Placement:: 2005 Past Psychological History: No Psychological Hx Reported Smoking Status: Former smoker Past Alcohol Use History: None Reported Past Drug Use History: None Reported - Past Family History Mother Family Medical History: Cancer, Pulmonary Embolus Father Family Medical History: Cancer Brother(s) Family Medical History: Cancer Son(s) Family Medical History: Cancer General Exam Limitations: no limitations General appearance: alert, other (drowsy) Head exam: Present: other (Ecchymosis to the nose and underneath the bilateral eyes due to recent biopsy on the nose.) ENT exam: Present: normal exam, mucous membranes moist, TM's normal bilaterally, normal external ear exam Neck exam: Present: normal inspection. Absent: tenderness, meningismus, lymphadenopathy Respiratory exam: Present: normal lung sounds bilaterally. Absent: respiratory distress, wheezes, rales, rhonchi, stridor Cardiovascular Exam: Present: regular rate, normal rhythm, normal heart sounds. Absent: systolic murmur, diastolic murmur, rubs, gallop, clicks GI/Abdominal exam: Present: soft, normal bowel sounds. Absent: distended, tenderness, guarding, rebound, rigid Back exam: Absent: CVA tenderness (R), CVA tenderness (L) Neurological exam: Present: alert, oriented X3, CN II-XII intact Psychiatric exam: Present: normal affect, normal mood Skin exam: Present: warm, dry, intact, normal color. Absent: rash Course Vital Signs 02/13/22 02/13/22 02/13/22 19:57 21:02 23:00 Temperature 100.3 F H 100 F H Pulse Rate 82 77 77 Respiratory 16 18 16 Rate Blood Pressure 139/69 153/64 136/70 O2 Sat by Pulse 98 98 98 Oximetry Medical Decision Making - Medical Decision Making This is a 76-year-old male who presents to the emergency department for fevers and weakness. Patient noted to be febrile on arrival and was subsequently given a dose of Tylenol. Lab work reveals a mildly elevated BNP and was otherwise nonactionable. Patient is negative for Covid, influenza, and RSV. Chest x-ray obtained, my interpretation reveals an opacity to the left lower lobe, suspicious of pneumonia. Due to the abdominal pain and history of kidney stones, computed tomography scan of the abdomen and pelvis was obtained. My interpretation of this reveals no ureteral calculi or bowel wall thickening. The radiologist makes note of bilateral perinephric fat stranding and minimal fat stranding around the mid and proximal sigmoid colon without a clear diagnosis of diverticulitis. Because the patient is immunocompromised with the CML and daily chemotherapy, will admit to medicine for management of the pneumonia. Pneumonia protocol initiated with ceftriaxone and azithromycin. Blood and sputum cultures obtained prior to medication administration. This case was discussed in detail with the attending ED physician. Presentation, findings, and treatment plan discussed in detail as well. - Lab Data Result diagrams: 02/13/22 21:20 02/13/22 21:20 Lab Results 02/13/22 02/13/22 02/13/22 Range/Units 21:20 21:20 21:20 WBC 6.1 (3.8-10.6) k/uL RBC 3.04 L (4.30-5.90) m/uL Hgb 10.6 L (13.0-17.5) gm/dL Hct 29.7 L (39.0-53.0) % MCV 97.7 (80.0-100.0) fL MCH 34.8 (25.0-35.0) pg MCHC 35.7 (31.0-37.0) g/dL RDW 15.0 (11.5-15.5) % Plt Count 217 (150-450) k/uL MPV 7.3 Neutrophils % 71 % Lymphocytes % 20 % Monocytes % 6 % Eosinophils % 1 % Basophils % 1 % Neutrophils # 4.4 (1.3-7.7) k/uL Lymphocytes # 1.2 (1.0-4.8) k/uL Monocytes # 0.4 (0-1.0) k/uL Eosinophils # 0.1 (0-0.7) k/uL Basophils # 0.0 (0-0.2) k/uL PT 10.8 (9.0-12.0) sec INR 1.0 (<1.2) APTT 24.2 (22.0-30.0) sec Sodium 138 (137-145) mmol/L Potassium 4.2 (3.5-5.1) mmol/L Chloride 109 H (98-107) mmol/L Carbon Dioxide 21 L (22-30) mmol/L Anion Gap 8 mmol/L BUN 18 (9-20) mg/dL Creatinine 1.00 (0.66-1.25) mg/dL Est GFR (CKD-EPI)AfAm 84 (>60 ml/min/1.73 sqM) Est GFR (CKD-EPI)NonAf 72 (>60 ml/min/1.73 sqM) Glucose 123 H (74-99) mg/dL Plasma Lactic Acid Quinton (0.7-2.0) mmol/L Calcium 9.0 (8.4-10.2) mg/dL Total Bilirubin 0.5 (0.2-1.3) mg/dL AST 32 (17-59) U/L ALT 26 (4-49) U/L Alkaline Phosphatase 86 (38-126) U/L Troponin I (0.000-0.034) ng/mL NT-Pro-B Natriuret Pep pg/mL Total Protein 7.0 (6.3-8.2) g/dL Albumin 4.1 (3.5-5.0) g/dL Amylase 43 (30-110) U/L Lipase 29 (23-300) U/L Urine Color Urine Appearance (Clear) Urine pH (5.0-8.0) Ur Specific [place] (1.001-1.035) Urine Protein (Negative) Urine Glucose (UA) (Negative) Urine Ketones (Negative) Urine Blood (Negative) Urine Nitrite (Negative) Urine Bilirubin (Negative) Urine Urobilinogen (<2.0) mg/dL Ur Leukocyte Esterase (Negative) Influenza Type A (PCR) (Not Detectd) Influenza Type B (PCR) (Not Detectd) RSV (PCR) (Not Detectd) SARS-CoV-2 (PCR) (Not Detectd) 02/13/22 02/13/22 02/13/22 Range/Units 21:20 21:20 21:20 WBC (3.8-10.6) k/uL RBC (4.30-5.90) m/uL Hgb (13.0-17.5) gm/dL Hct (39.0-53.0) % MCV (80.0-100.0) fL MCH (25.0-35.0) pg MCHC (31.0-37.0) g/dL RDW (11.5-15.5) % Plt Count (150-450) k/uL MPV Neutrophils % % Lymphocytes % % Monocytes % % Eosinophils % % Basophils % % Neutrophils # (1.3-7.7) k/uL Lymphocytes # (1.0-4.8) k/uL Monocytes # (0-1.0) k/uL Eosinophils # (0-0.7) k/uL Basophils # (0-0.2) k/uL PT (9.0-12.0) sec INR (<1.2) APTT (22.0-30.0) sec Sodium (137-145) mmol/L Potassium (3.5-5.1) mmol/L Chloride (98-107) mmol/L Carbon Dioxide (22-30) mmol/L Anion Gap mmol/L BUN (9-20) mg/dL Creatinine (0.66-1.25) mg/dL Est GFR (CKD-EPI)AfAm (>60 ml/min/1.73 sqM) Est GFR (CKD-EPI)NonAf (>60 ml/min/1.73 sqM) Glucose (74-99) mg/dL Plasma Lactic Acid Quinton 0.7 (0.7-2.0) mmol/L Calcium (8.4-10.2) mg/dL Total Bilirubin (0.2-1.3) mg/dL AST (17-59) U/L ALT (4-49) U/L Alkaline Phosphatase (38-126) U/L Troponin I <0.012 (0.000-0.034) ng/mL NT-Pro-B Natriuret Pep 1120 pg/mL Total Protein (6.3-8.2) g/dL Albumin (3.5-5.0) g/dL Amylase (30-110) U/L Lipase (23-300) U/L Urine Color Urine Appearance (Clear) Urine pH (5.0-8.0) Ur Specific [place] (1.001-1.035) Urine Protein (Negative) Urine Glucose (UA) (Negative) Urine Ketones (Negative) Urine Blood (Negative) Urine Nitrite (Negative) Urine Bilirubin (Negative) Urine Urobilinogen (<2.0) mg/dL Ur Leukocyte Esterase (Negative) Influenza Type A (PCR) (Not Detectd) Influenza Type B (PCR) (Not Detectd) RSV (PCR) (Not Detectd) SARS-CoV-2 (PCR) (Not Detectd) 02/13/22 02/13/22 Range/Units 21:29 23:13 WBC (3.8-10.6) k/uL RBC (4.30-5.90) m/uL Hgb (13.0-17.5) gm/dL Hct (39.0-53.0) % MCV (80.0-100.0) fL MCH (25.0-35.0) pg MCHC (31.0-37.0) g/dL RDW (11.5-15.5) % Plt Count (150-450) k/uL MPV Neutrophils % % Lymphocytes % % Monocytes % % Eosinophils % % Basophils % % Neutrophils # (1.3-7.7) k/uL Lymphocytes # (1.0-4.8) k/uL Monocytes # (0-1.0) k/uL Eosinophils # (0-0.7) k/uL Basophils # (0-0.2) k/uL PT (9.0-12.0) sec INR (<1.2) APTT (22.0-30.0) sec Sodium (137-145) mmol/L Potassium (3.5-5.1) mmol/L Chloride (98-107) mmol/L Carbon Dioxide (22-30) mmol/L Anion Gap mmol/L BUN (9-20) mg/dL Creatinine (0.66-1.25) mg/dL Est GFR (CKD-EPI)AfAm (>60 ml/min/1.73 sqM) Est GFR (CKD-EPI)NonAf (>60 ml/min/1.73 sqM) Glucose (74-99) mg/dL Plasma Lactic Acid Quinton (0.7-2.0) mmol/L Calcium (8.4-10.2) mg/dL Total Bilirubin (0.2-1.3) mg/dL AST (17-59) U/L ALT (4-49) U/L Alkaline Phosphatase (38-126) U/L Troponin I (0.000-0.034) ng/mL NT-Pro-B Natriuret Pep pg/mL Total Protein (6.3-8.2) g/dL Albumin (3.5-5.0) g/dL Amylase (30-110) U/L Lipase (23-300) U/L Urine Color Yellow Urine Appearance Clear (Clear) Urine pH 6.0 (5.0-8.0) Ur Specific [place] 1.019 (1.001-1.035) Urine Protein Trace H (Negative) Urine Glucose (UA) Negative (Negative) Urine Ketones Negative (Negative) Urine Blood Negative (Negative) Urine Nitrite Negative (Negative) Urine Bilirubin Negative (Negative) Urine Urobilinogen <2.0 (<2.0) mg/dL Ur Leukocyte Esterase Negative (Negative) Influenza Type A (PCR) Not Detected (Not Detectd) Influenza Type B (PCR) Not Detected (Not Detectd) RSV (PCR) Not Detected (Not Detectd) SARS-CoV-2 (PCR) Not Detected (Not Detectd) - EKG Data -: EKG Interpreted by Pa EKG Comments: Sinus rhythm with frequent PVCs. Ventricular rate 78 bpm, MT interval 193 ms, QRS duration 101 ms, QTC 387 ms. - Radiology Data Radiology results: report reviewed, image reviewed Disposition Clinical Impression: Pneumonia, Immunocompromised state, CML (chronic myeloid leukemia) Disposition: ADMITTED IP TO THIS HOSP Referrals: Rodolfo Healy MD [Primary Care Provider] - 1-2 days
[2022-02-13 21:33] LABS: Basophils % (A) 1 %; Eosinophils # (A) 0.1 k/uL (0-0.7); Eosinophils % (A) 1 %; HCT 29.7 % (39.0-53.0); HGB 10.6 gm/dL (13.0-17.5); Lymphocytes # (A) 1.2 k/uL (1.0-4.8); Lymphocytes % (A) 20 %; MCH 34.8 pg (25.0-35.0); MCHC 35.7 g/dL (31.0-37.0); MCV 97.7 fL (80.0-100.0); Mean Platelet Volume 7.3; Monocytes # (A) 0.4 k/uL (0-1.0); Monocytes % (A) 6 %; Neutrophils # (A) 4.4 k/uL (1.3-7.7); Neutrophils % (A) 71 %; Platelet Count 217 k/uL (150-450); RBC 3.04 m/uL (4.30-5.90); WBC 6.1 k/uL (3.8-10.6)
[2022-02-13 21:43] LABS: Albumin 4.1 g/dL (3.5-5.0); Potassium 4.2 mmol/L (3.5-5.1); Total Bilirubin 0.5 mg/dL (0.2-1.3)
[2022-02-13 21:48] LABS: Partial Thromboplastin Time 24.2 sec (22.0-30.0); Prothrombin Time 10.8 sec (9.0-12.0)
--- NOTE | 2022-02-13 21:58 | XR ---
EXAMINATION TYPE: XR chest 2V DATE OF EXAM: 02/13/2022 9:37 PM COMPARISON: CT chest 04/21/2021 TECHNIQUE: XR chest 2V . CLINICAL INDICATION:Male, 76 years old with history of Weakness; FINDINGS: Lungs/Pleura: Patchy airspace opacity in the medial left lower lobe. Right lung is clear. No pneumoth orax or sizable pleural effusion. Pulmonary vascularity: Mild pulmonary vascular congestion. Heart/mediastinum: Cardiomediastinal silhouette is enlarged and stable. Atherosclerotic calcificatio ns are seen in the aorta. Musculoskeletal: Multiple level degenerative disc disease changes seen throughout the spine. IMPRESSION: 1 Left lower lobe airspace opacity concerning for acute infectious process such as pneumonia. 2. Cardiomegaly with mild pulmonary vascular congestion.
--- NOTE | 2022-02-13 23:14 | CT ---
EXAMINATION TYPE: CT abdomen pelvis wo con DATE OF EXAM: 02/13/2022 COMPARISON: 09/23/2020 HISTORY: upper abd pain after heart cath CT DLP: 801.9 mGycm Automated exposure control for dose reduction was used. Images obtained from the diaphragm to the floor the pelvis without contrast. There is some mild subsegmental atelectasis at the posterior lung bases. There is some minimal nodula r infiltrate adjacent to the pleura in the left lower lobe. No pleural effusion. Heart size is enlarg ed. There is small pericardial effusion. There are clips from surgery at the gastroesophageal junctio n. The liver is intact. There are clips from cholecystectomy. Spleen is intact. No pancreatic mass. There is no adrenal mass. There is some bilateral perinephric fat stranding. There is 9 cm cortical c yst lower pole left kidney. No retroperitoneal adenopathy. Bladder distends smoothly. No inguinal her nikita. There are multiple sigmoid diverticula. There is minimal stranding around the mid sigmoid colon. Appendix is small and medial and appears normal. The lumbar vertebrae have fairly normal alignment. No compression fracture. There is disc space narro wing at L3-4 with spur formation. There is a slight lumbar levoscoliosis. The hip joints are intact. There is mild acetabular spurring. The ureters are not dilated. No hydronephrosis. IMPRESSION: Mild pericardial effusion without change. Mild subsegmental atelectasis at the lung bases which is mo stly new compared to old exam. Normal appendix. Minimal stranding around the mid and proximal sigmoid colon also present on the old exam and not brunilda rly sigmoid diverticulitis. No significant wall thickening. There is also some minimal fluid in the r ight side in the paracolic gutter. Bilateral perinephric fat stranding appears increased compared to old exam and could relate to previo us episode of obstruction or inflammation.
[2022-02-13 23:41] LABS: Appearance,Urine Clear (Clear); Bilirubin,Urine Negative (Negative); Blood,Urine Negative (Negative); Color,Urine Yellow; Glucose,Urine (UA) Negative (Negative); Ketones,Urine Negative (Negative); Leukocyte Esterase,Urine Negative (Negative); Nitrite,Urine Negative (Negative); Protein,Urine Trace (Negative); Specific Gravity,Urine 1.019 (1.001-1.035); Urobilinogen,Urine <2.0 mg/dL (<2.0)
[2022-02-13] MEDS ORDERED: PNEUMONIA PROTOCOL UTILIZED 1 EACH MISC PO PRN (23:56)
[2022-02-14] MEDS ORDERED: AZITHROMYCIN 500 MG in SODIUM CHLORIDE 0.9% 250 ML IVPB ONE ×2
[2022-02-14] MEDS ORDERED: NALOXONE 0.4 MG/ML 1 ML VIAL IV PRN (00:13)
--- NOTE | 2022-02-14 04:45 | P.HPIM ---
History of Present Illness H&P Date: 02/14/22 Chief Complaint: fever 76 year old male with CML , CAD , aortic valve stenosis patient coming in with complaint of fever and generalized weakness, he reports having left heart cath 4 days ago , no stents deployed , however he does have 3 stents in the past. he was also recently treated for UTI about a month ago . currently he reports unchanged cough productive of clear sputum, denies any runny nose, chest pain or SOB. he denies any changes in urinary or bowel habits. however he did report vague, dull achy abd pain extending across his upper abd. no recent travel , trauma , known sick contact. he recently had surgical removal of basal cell cancer over the left side of his nose. workup in the ED CT abd showig mild pericardial effusion unchanged , atelactesis CXR showed mild pulmonary vascular congestion , left lower lobe opacity blood work overall unremarkable subclinical fever in the ED Review of Systems Pertinent positives as noted in HPI. All other systems were reviewed and are negative Past Medical History Past Medical History: Coronary Artery Disease (CAD), Cancer, GERD/Reflux, Hypertension, Skin Disorder Additional Past Medical History / Comment(s): Hx. of CML, Hx. of Shingles L eye, Cysts on L kidney. History of Any Multi-Drug Resistant Organisms: None Reported Past Surgical History: Cholecystectomy, Heart Catheterization With Stent, Hernia Repair, Orthopedic Surgery Additional Past Surgical History / Comment(s): Thyroid surgery,Vasectomy, R ankle surgery, Sinus surgery, Basal cell R shoulder, Pyloroplasty & Vagotomy, Hemorrhoidectomy, Cataract surgery & bx. of inner thigh. Past Anesthesia/Blood Transfusion Reactions: No Reported Reaction Date of Last Stent Placement:: 2005 Past Psychological History: No Psychological Hx Reported Smoking Status: Former smoker Past Alcohol Use History: None Reported Past Drug Use History: None Reported - Past Family History Mother Family Medical History: Cancer, Pulmonary Embolus Father Family Medical History: Cancer Brother(s) Family Medical History: Cancer Son(s) Family Medical History: Cancer Medications and Allergies Home Medications Medication Instructions Recorded Confirmed Type Ascorbic Acid [Vitamin C] 1,000 mg PO DAILY 10/24/18 02/09/22 History Aspirin 81 mg PO DAILY 10/24/18 02/09/22 History Cholecalciferol (Vitamin D3) 2,000 unit PO DAILY 10/24/18 02/09/22 History [Vitamin D3] Cranberry Fruit Extract [Cranberry] 200 mg PO DAILY 10/24/18 02/09/22 History Fish Oil/Dha/Epa [Fish Oil 1,200 1 each PO DAILY 10/24/18 02/09/22 History mg Fish Oil] Losartan [Cozaar] 50 mg PO DAILY 10/24/18 02/09/22 History Metoprolol Tartrate [Lopressor] 25 mg PO BID 10/24/18 02/09/22 History Nitroglycerin Sl Tabs [Nitrostat] 0.4 mg SUBLINGUAL Q5M PRN 10/24/18 02/09/22 History Omeprazole [PriLOSEC] 40 mg PO DAILY 10/24/18 02/09/22 History Ubidecarenone [Co Q-10] 100 mg PO DAILY 10/24/18 02/09/22 History valACYclovir HCL [Valtrex] 500 mg PO TID 10/24/18 02/09/22 History Cardiocentrum 2 tab PO DAILY 11/05/20 02/09/22 History Cetirizine HCl [Zyrtec] 10 mg PO DAILY 11/05/20 02/09/22 History Dasatinib [Sprycel] 100 mg PO 0300 11/05/20 02/09/22 History Dicyclomine [Bentyl] 10 mg PO BID 11/05/20 02/09/22 History Docusate [Colace] 100 mg PO BID 11/05/20 02/09/22 History Albuterol Inhaler [Ventolin Hfa 1 - 2 puff INHALATION Q6H PRN 02/09/22 02/09/22 History Inhaler] Fluticasone/Vilanterol [Breo 1 inhalation INHALATION QID PRN 02/09/22 02/09/22 History Ellipta 200-25 Mcg Inhaler] Allergies Allergy/AdvReac Type Severity Reaction Status Date / Time adhesive tape Allergy Rash/Hives,"paper Verified 02/13/22 19:57 tape is ok" amoxicillin [From Augmentin] Allergy Rash/Hives Verified 02/13/22 19:57 budesonide [From Symbicort] Allergy Vision Verified 02/13/22 19:57 issues ciprofloxacin Allergy Muscle Verified 02/13/22 19:57 aches clavulanic acid Allergy Rash/Hives Verified 02/13/22 19:57 [From Augmentin] doxycycline Allergy Rectal Verified 02/13/22 19:57 Bleeding enalapril Allergy Cough Verified 02/13/22 19:57 fluticasone Allergy Irregular Verified 02/13/22 19:57 [From Advair Diskus] heart rate formoterol [From Symbicort] Allergy Vision Verified 02/13/22 19:57 issues mold Allergy Rash/Hives Verified 02/13/22 19:57 salmeterol Allergy Irregular Verified 02/13/22 19:57 [From Advair Diskus] heart rate Szicqhy-UVW-IwB Reductase Allergy Muscle Verified 02/13/22 19:57 Inhibitor aches [Jwgrqeb-Ypy-Qvb Reductase Inhibitor] Cotton material Allergy itching, Uncoded 02/13/22 19:57 hives tasinga Allergy pancreatiti Uncoded 02/13/22 19:57 s Physical Exam Vitals: Vital Signs Temp Pulse Resp BP Pulse Ox 02/14/22 04:00 76 16 123/60 98 02/14/22 02:00 16 02/13/22 23:00 100 F H 77 16 136/70 98 02/13/22 21:02 77 18 153/64 98 02/13/22 19:57 100.3 F H 82 16 139/69 98 Intake and Output 02/13/22 02/13/22 02/14/22 14:59 22:59 06:59 Other: Weight 96.162 kg Constitutional: No acute distress, conversant, pleasant Eyes: Anicteric sclerae, moist conjunctiva, Pupils equal round reactive to light ENMT: NC/ healing wound over left side of the nose, with echymosis over bilateral cheeks Oropharynx clear, no erythema, or exudates Neck: Supple, no masses, or JVD No carotid bruits No thyromegaly Lungs: Clear to auscultation Clear to percussion Normal respiratory effort, no accessory muscle use Cardiovascular: Heart regular in rate and rhythm, systolic murmurs, no gallops, or rubs No peripheral edema Abdominal: Soft Nontender, no guarding, rebound or rigidity Abdomen moving with respiration Normoactive bowel sounds No hepatomegaly, No splenomegaly No palpable mass No abdominal wall hernia noted Skin: Normal temperature, tone, texture, turgor No induration No subcutaneous nodules No rash, lesions No ulcers Extremities: No digital cyanosis No clubbing Pedal pulses intact and symmetrical Radial pulses intact and symmetrical No calf tenderness Psychiatric: Alert and oriented to person, place and time Appropriate affect fair judgement Neuro Muscles Strength 5/5 in all 4 extremities Sensation to light touch grossly present throughout Cranial nerves II-XII grossly intact Lymphatics: no palpable cervical or supraclavicular lymph nodes Results CBC & Chem 7: 02/13/22 21:20 02/13/22 21:20 Labs: Abnormal Lab Results - Last 24 Hours (Table) 02/13/22 02/13/22 02/13/22 Range/Units 21:20 21:20 23:13 RBC 3.04 L (4.30-5.90) m/uL Hgb 10.6 L (13.0-17.5) gm/dL Hct 29.7 L (39.0-53.0) % Chloride 109 H (98-107) mmol/L Carbon Dioxide 21 L (22-30) mmol/L Glucose 123 H (74-99) mg/dL Urine Protein Trace H (Negative) Assessment and Plan Assessment: community acquired pneumonia follow up cultures rocephine and azithro tylenol for fever follow up cultures urinary legionella ag respiratory viral panel negative CT chest abd, showed stable pericardial effusion , atelactesis , and perinephric fat stranding CXR mild pulmonary vascular congestion , left lower lobe opacity chronic conditions CML h/o CAD s/p 3 stents , recent left heart cath no stent needed recent removal of basal cell cancer left nose aortic valve stenosis , continue OP follow up with cardiology full code DVT PPX heparin sc tid
[2022-02-14] MEDS: HEPARIN SODIUM,PORCINE/PF 5,000 UNIT/0.5 ML SYRINGE SQ SCH ×2 (07:04→15:58)
[2022-02-14] MEDS: AZITHROMYCIN 500 MG TAB PO SCH (08:25)
[2022-02-14] MEDS: ACETAMINOPHEN TAB 325 MG TAB PO PRN ×2 (08:32→19:31)
[2022-02-14] MEDS ORDERED: PANTOPRAZOLE 40 MG/10 ML VIAL IV SCH (09:00)
[2022-02-14] MEDS: HYDROcodone/APAP 5-325MG 1 EACH TAB PO PRN (09:21)
[2022-02-14] MEDS: ONDANSETRON 4 MG/2 ML VIAL IVP PRN ×2 (09:21→19:27)
--- NOTE | 2022-02-14 12:19 | P.PN ---
Progress Note - Text Progress Note Date: 02/14/22 Hospitalist Interval Note Patient seen and examined at bedside. Vital signs reviewed General: non toxic, no distress, appears at stated age Derm: warm, dry Head: atraumatic, normocephalic, symmetric Eyes: EOMI, no lid lag, anicteric sclera Mouth: no lip lesion, mucus membranes moist Cardiovascular: S1S2 reg, no murmur, positive posterior tibial pulse bilateral, Lungs: CTA bilateral, no rhonchi, no rales , no accessory muscle use Abdominal: soft, mild tender to palpation in the epigastric region, no guarding, no appreciable organomegaly Ext: no gross muscle atrophy, no edema, no contractures Neuro: CN II-XI grossly intact, no focal neuro deficits Psych: Alert, oriented, appropriate affect Assessment/Plan: community acquired pneumonia follow up cultures rocephine and azithro tylenol for fever follow up cultures urinary legionella ag respiratory viral panel negative CT chest abd, showed stable pericardial effusion , atelactesis , and perinephric fat stranding CXR mild pulmonary vascular congestion , left lower lobe opacity chronic conditions CML h/o CAD s/p 3 stents , recent left heart cath no stent needed recent removal of basal cell cancer left nose aortic valve stenosis , continue OP follow up with cardiology full code DVT PPX heparin sc tid This is an update note for patient , for full note on 02/14/22 at 2:36. There is no charge associated with this note.
[2022-02-15] MEDS: HEPARIN SODIUM,PORCINE/PF 5,000 UNIT/0.5 ML SYRINGE SQ SCH ×4 (00:10→23:42)
[2022-02-15] MEDS ORDERED: VANCOMYCIN IV PER PHARMACY 1 EACH MISC MISCELLANE PRN (07:51)
[2022-02-15] MEDS ORDERED: ALBUTEROL NEBULIZED 2.5 MG/3 ML INHALATION PRN (07:55)
[2022-02-15] MEDS ORDERED: NON FORMULARY DRUG (Fluticasone/Vilanterol [Breo Ellipta 200-25 Mcg Inhaler] 1 EACH Blst.W INHALATION PRN (07:55)
[2022-02-15] MEDS ORDERED: VANCOMYCIN 1,750 MG in SODIUM CHLORIDE 0.9% 500 ML 500 ML IVPB ONE (08:30)
[2022-02-15] MEDS ORDERED: CHOLECALCIFEROL 25 MCG (1000 IU) TABLET PO SCH (09:00)
[2022-02-15] MEDS ORDERED: NON FORMULARY DRUG (Omeprazole 40 MG Capsule.Dr) PO SCH (09:00)
[2022-02-15] MEDS: CHOLECALCIFEROL 25 MCG (1000 IU) TABLET PO SCH (09:47)
[2022-02-15] MEDS: METOPROLOL TARTRATE 25 MG TAB PO SCH ×2 (09:47→20:37)
[2022-02-15] MEDS: DOCUSATE 100 MG CAP PO SCH ×2 (09:47→20:37)
[2022-02-15] MEDS: PANTOPRAZOLE 40 MG TABLET PO SCH (09:47)
[2022-02-15] MEDS: ASPIRIN 81 MG PO SCH (09:47)
[2022-02-15] MEDS: AZITHROMYCIN 500 MG TAB PO SCH (09:47)
[2022-02-15] MEDS: ACETAMINOPHEN TAB 325 MG TAB PO PRN (11:11)
--- NOTE | 2022-02-15 12:00 | P.PN ---
Subjective Progress Note Date: 02/15/22 Principal diagnosis: fevers Hospital Course: 76-year-old male with history of CML, coronary artery disease, aortic valve stenosis presented with fever and generalized weakness 4 days after left heart cath. He did not have any stents deployed during that time. In the ED, patient was febrile. CT abdomen and pelvis showed mild pericardial effusion with no scott nge, minimal stranding around mid and proximal sigmoid colon, Bilateral perinephric fat stranding. Chest x-ray showed left lower lobe opacity and concerning for pneumonia, mild vascular congestion. Blood cultures came back positive for MSSA. ID consulted, VICENTE ordered. Oncology and cardiology also consulted. Subjective: Patient seen and examined at bedside. No acute events overnight. He remains intermittently febrile. He denies any worsening chest pain, shortness of breath, abdominal pain, nausea, vomiting, diarrhea, constipation, or urinary complaints. He does have chills at the moment. Pertinent positives and negatives as discussed above, a complete review of systems was performed and all other systems are negative. Vitals Signs Reviewed. General: non toxic, no distress, appears at stated age Derm: warm, dry Head: atraumatic, normocephalic, symmetric Eyes: EOMI, no lid lag, anicteric sclera Mouth: no lip lesion, mucus membranes moist Cardiovascular: S1S2 reg, systolic murmur Lungs: CTA bilateral, no rhonchi, no rales , no accessory muscle use Abdominal: soft, mild tender to palpation in the epigastric region, no guarding, no appreciable organomegaly Ext: no gross muscle atrophy, no edema, no contractures Neuro: CN II-XI grossly intact, no focal neuro deficits Psych: Alert, oriented, appropriate affect Assessment and Plan: MSSA bacteremia Community acquired pneumonia -Repeat blood cultures pending -Continue ceftriaxone and azithromycin, ID consulted -Concern for endocarditis given recent heart cath -VICENTE pending, cardiology consulted Acute kidney injury, nonoliguric -Continue to monitor urine output -Likely prerenal -Echo pending, consider fluids if normal systolic function and worsening renal function Chronic conditions CML - oncology consulted, patient is currently on immunotherapy h/o CAD s/p 3 stents , recent left heart cath no stent needed recent removal of basal cell cancer left nose Aortic valve stenosis DVT PPX heparin sc tid Full code Anticipated discharge place: Pending clinical course Anticipated discharge time: Pending clinical course Objective - Vital Signs Vital signs: Vital Signs Temp 98.8 F 02/15/22 05:00 Pulse 74 02/15/22 05:00 Resp 16 02/15/22 05:00 BP 113/61 02/15/22 05:00 Pulse Ox 98 02/15/22 07:33 FiO2 Intake & Output 02/14/22 02/15/22 02/15/22 18:59 06:59 18:59 Intake Total 540 Balance 540 Weight 96.162 kg Intake: Oral 540 - Labs CBC & Chem 7: 02/13/22 21:20 02/15/22 08:22 Labs: Abnormal Lab Results - Last 24 Hours (Table) 02/15/22 Range/Units 08:22 Creatinine 1.42 H (0.66-1.25) mg/dL Microbiology - Last 24 Hours (Table) 02/14/22 00:15 Blood Culture Gram Stain - Preliminary Blood Blood Culture - Preliminary Presumptive Staph aureus 02/13/22 23:59 Blood Culture Gram Stain - Preliminary Blood Blood Culture - Preliminary Staphylococcus aureus 02/13/22 23:59 Blood Culture - Final Blood 02/14/22 00:15 Blood Culture - Final Blood
[2022-02-15 12:21] VITALS: BMI 29.5
--- NOTE | 2022-02-15 14:03 | P.CRDCN ---
History of Present Illness Consult date: 02/15/22 Reason for Consult (text): VICENTE History of present illness: History of present illness: This is a 76-year-old male patient of Dr. Wells with past medical history of coronary artery disease with previous PCI of the LAD and left circumflex in 200 5, aortic stenosis, chronic myeloleukemia, hypertension, hyperlipidemia, pericardial effusion and outflow tract obstruction. Patient was brought in the hospital February 09 and underwent cardiac catheterization with Dr. SUNI Wells which revealed left dominant system, 40-45% circumflex disease in the proximal portion and another 40% in the distal portion. Obtuse marginal has a 40% narrowing. LAD that was stented before is widely patent with good flow. RCA is nondominant. He subsequently underwent VICENTE with Dr. Morton which revealed severe aortic stenosis with mean gradient of 42 mmHg and peak systolic velocity of above 4M/S. Aortic valve trileaflet. Moderate mitral regurgitation. Patient was discharged home following procedures in stable condition. On 02/13, patient presented to the emergency center due to fever, weakness, fatigue and abdominal discomfort. Patient has been febrile up to 103.3 fever and found to be bacteremic and infectious disease is following. We have been asked to see the patient for VICENTE. EKG is sinus rhythm with frequent PVCs CT of the abdomen and pelvis without contrast revealed mild pericardial effusion without change. Mild subsegmental atelectasis at the lung bases mostly new. Minimal stranding around the mid and proximal sigmoid colon also present p reviously. Minimal perinephric fat stranding appears to be increased could relate to previous episode of obstruction or inflammation. Chest x-ray reveals left lower lobe airspace opacities concerning for infection. Cardiomegaly with mild pulmonary vascular congestion. WBC 6.1, hemoglobin 10.6, platelet count 217. Sodium 138, potassium 4.2, chloride 109, CO2 21, BUN 18 creatinine 1 and repeat creatinine today of 1.42. Liver function tests within normal limits. Troponin negative 1. ProBNP 1120. Influenza A, influenza B, RSV and Covid not detected. 2 blood cultures positive for staph aureus Echocardiogram 01/21/2022 revealed moderate to severe aortic stenosis with mean of 39, mild to moderate mitral regurgitation, moderate tricuspid regurgitation, RVSP 70. Lexiscan stress test 11/19/2021 shows revealed no ischemia Review Of Systems: Constitutional: Documented fever, reports chills. Reports weakness, Reports fatigue Reports lethargy. EENT: No headache. No dizziness. Lungs: No shortness of breath, cough, no sputum production. No wheezing. Cardiovascular: No chest pain, no lower extremity edema. No palpitations. No paroxysmal nocturnal dyspnea. No orthopnea. No lightheadedness or dizziness. No syncopal episodes. Abdominal: No abdominal pain. No nausea, vomiting. No diarrhea. No constipation. No bloody or tarry stools. Reports loss of appetite. Genitourinary: No dysuria.. No urinary retention. Musculoskeletal: No myalgias. Reports muscle weakness. Integumentary: No wounds, no lesions. No rash or pruritus. No unusual bruising. Neurologic: No aphasia. No facial droop. No change in mentation. No head injury. No headache. No paralysis. No paresthesia. Psychiatric: No depression. No anxiety. Endocrine: No abnormal blood sugars. Physical examination: Gen: This is a 76-year-old male. VS: Reviewed HEENT: Head is atraumatic, normocephalic. Pupils equal, round. Sclerae is anicteric. NECK: Supple. No JVD. No lymphadenopathy. No thyromegaly. LUNGS: Clear to auscultation. No wheezes or rhonchi. No intercostal retractions. HEART: Regular rate and rhythm. Systolic murmur right sternal border. ABDOMEN: Soft. Bowel sounds are present. No masses. No tenderness. EXTREMITIES: No pedal edema. No calf tenderness. NEUROLOGICAL: Patient is awake, alert and oriented x3. Cranial nerves 2 through 12 are grossly intact. Assessment: Sepsis secondary to Staph aureus bacteremia rule out endocarditis Possible left lower lobe pneumonia Acute kidney injury Known history of severe aortic stenosis Coronary artery disease status post PCI of the LAD and circumflex CML Hypertension Hyperlipidemia Chronic pericardial effusion Plan: Continue current treatment plan per infectious disease We will wait on the advice of infectious disease regarding scheduling patient for VICENTE. If Dr. Lynne believes this is necessary, VICENTE will be scheduled for tomorrow and patient will be made nothing by mouth tonight. Continue patient's cardiac medications including aspirin 81 mg daily, Lopressor 25 mg twice daily Losartan is on hold Further recommendations to follow based upon clinical course Thank you kindly for this consultation. Nurse practitioner note has been reviewed, I agree with documented findings and plan of care. Patient was seen and examined. Past Medical History Past Medical History: Coronary Artery Disease (CAD), Cancer, GERD/Reflux, Hypertension, Skin Disorder Additional Past Medical History / Comment(s): Hx. of CML, Hx. of Shingles L eye, Cysts on L kidney. History of Any Multi-Drug Resistant Organisms: None Reported Past Surgical History: Cholecystectomy, Heart Catheterization With Stent, Hernia Repair, Orthopedic Surgery Additional Past Surgical History / Comment(s): Thyroid surgery,Vasectomy, R ankle surgery, Sinus surgery, Basal cell R shoulder, Pyloroplasty & Vagotomy, Hemorrhoidectomy, Cataract surgery & bx. of inner thigh. Past Anesthesia/Blood Transfusion Reactions: No Reported Reaction Date of Last Stent Placement:: 2021 Past Psychological History: No Psychological Hx Reported Smoking Status: Former smoker Past Alcohol Use History: None Reported Additional Past Alcohol Use History / Comment(s): Quit in 1966 Past Drug Use History: None Reported - Past Family History Mother Family Medical History: Cancer, Pulmonary Embolus Father Family Medical History: Cancer Brother(s) Family Medical History: Cancer Son(s) Family Medical History: Cancer Medications and Allergies Home Medications Medication Instructions Recorded Confirmed Type Ascorbic Acid [Vitamin C] 1,000 mg PO DAILY 10/24/18 02/14/22 History Aspirin 81 mg PO DAILY 10/24/18 02/14/22 History Cholecalciferol (Vitamin D3) 2,000 unit PO DAILY 10/24/18 02/14/22 History [Vitamin D3] Losartan [Cozaar] 50 mg PO DAILY 10/24/18 02/14/22 History Metoprolol Tartrate [Lopressor] 25 mg PO BID 10/24/18 02/14/22 History Nitroglycerin Sl Tabs [Nitrostat] 0.4 mg SUBLINGUAL Q5M PRN 10/24/18 02/14/22 History Omeprazole [PriLOSEC] 40 mg PO DAILY 10/24/18 02/14/22 History Ubidecarenone [Co Q-10] 100 mg PO DAILY 10/24/18 02/14/22 History valACYclovir HCL [Valtrex] 500 mg PO TID 10/24/18 02/14/22 History Cardiocentrum 2 tab PO DAILY 11/05/20 02/14/22 History Dasatinib [Sprycel] 100 mg PO 0300 11/05/20 02/14/22 History Docusate [Colace] 100 mg PO BID 11/05/20 02/14/22 History Albuterol Inhaler [Ventolin Hfa 1 - 2 puff INHALATION Q6H PRN 02/09/22 02/14/22 History Inhaler] Fluticasone/Vilanterol [Breo 1 inhalation INHALATION QID PRN 02/09/22 02/14/22 History Ellipta 200-25 Mcg Inhaler] Cranberry Fruit [Cranberry] 465 mg PO DAILY 02/14/22 02/14/22 History Furosemide [Lasix] 40 mg PO DAILY PRN 02/14/22 02/14/22 History Prosymbiotic 1 tab PO BID 02/14/22 02/14/22 History Quercetin 800 mg PO BID 02/14/22 02/14/22 History Zinc Gluconate [Zinc] 50 mg PO DAILY 02/14/22 02/14/22 History Allergies Allergy/AdvReac Type Severity Reaction Status Date / Time adhesive tape Allergy Rash/Hives,"paper Verified 02/13/22 19:57 tape is ok" amoxicillin [From Augmentin] Allergy Rash/Hives Verified 02/13/22 19:57 atorvastatin [From Lipitor] Allergy Muscle Verified 02/14/22 08:22 Aches budesonide [From Symbicort] Allergy Vision Verified 02/13/22 19:57 issues ciprofloxacin Allergy Muscle Verified 02/13/22 19:57 aches clavulanic acid Allergy Rash/Hives Verified 02/13/22 19:57 [From Augmentin] doxycycline Allergy Rectal Verified 02/13/22 19:57 Bleeding enalapril Allergy Cough Verified 02/13/22 19:57 ezetimibe [From Vytorin] Allergy Muscle Verified 02/14/22 08:23 Aches fluticasone Allergy Irregular Verified 02/13/22 19:57 [From Advair Diskus] heart rate formoterol [From Symbicort] Allergy Vision Verified 02/13/22 19:57 issues mold Allergy Rash/Hives Verified 02/13/22 19:57 salmeterol Allergy Irregular Verified 02/13/22 19:57 [From Advair Diskus] heart rate simvastatin [From Vytorin] Allergy Muscle Verified 02/14/22 08:23 Aches Wzxdiqw-BVF-FpG Reductase Allergy Muscle Verified 02/13/22 19:57 Inhibitor aches [Xjmvowz-Bwp-Lwj Reductase Inhibitor] Cotton material Allergy itching, Uncoded 02/13/22 19:57 hives tasinga Allergy pancreatiti Uncoded 02/13/22 19:57 s Physical Exam Vitals: Vital Signs Temp Pulse Pulse Resp BP BP Pulse Ox 02/15/22 07:33 98 02/15/22 05:00 98.8 F 74 16 113/61 95 02/14/22 23:56 94 L 02/14/22 22:37 98.3 F 02/14/22 20:53 101.3 F H 69 16 107/53 94 L 02/14/22 20:28 103.3 F H 71 17 108/53 93 L 02/14/22 19:35 101.0 F H 75 18 116/73 94 L 02/14/22 14:27 73 18 123/67 99 02/14/22 12:38 100.6 F H 65 16 116/57 95 02/14/22 12:24 70 16 100 Intake and Output 02/14/22 02/15/22 02/15/22 22:59 06:59 14:59 Intake Total 540 Balance 540 Intake: Oral 540 Other: Weight 96.162 kg Results 02/13/22 21:20 02/15/22 08:22 Comprehensive Metabolic Panel 02/15/22 Range/Units 08:22 Creatinine 1.42 H (0.66-1.25) mg/dL Current Medications Generic Name Dose Route Start Last Admin Trade Name Freq PRN Reason Stop Dose Admin Acetaminophen 650 mg 02/14/22 00:13 02/15/22 11:11 Acetaminophen Tab 325 Mg Tab PO 650 mg Q6HR PRN Administration Mild Pain or Fever > 100.5 Hydrocodone Bitart/Acetaminophen 1 each 02/14/22 00:13 02/14/22 09:21 Hydrocodone/Apap 5-325mg 1 Each Tab PO 1 each Q4HR PRN Administration Moderate Pain (Scale 4 to 6) Albuterol Sulfate 2.5 mg 02/15/22 07:55 Albuterol Nebulized 2.5 Mg/3 Ml INHALATION RT-Q6H PRN Shortness Of Breath Aspirin 81 mg 02/15/22 09:00 02/15/22 09:47 Aspirin 81 Mg PO 81 mg DAILY JACOB Administration Cholecalciferol 50 mcg 12/13/22 10:00 02/15/22 09:47 Cholecalciferol 25 Mcg (1000 Iu) Tablet PO 50 mcg DAILY JACOB Administration Docusate Sodium 100 mg 02/15/22 09:00 02/15/22 09:47 Docusate 100 Mg Cap PO 100 mg BID AJCOB Administration Heparin Sodium (Porcine) 5,000 unit 02/14/22 08:00 02/15/22 09:46 Heparin Sodium,Porcine/Pf 5,000 Unit/0.5 Ml Syringe SQ 5,000 unit Q8HR JACOB Administration Ceftriaxone Sodium 2 gm/ 50 mls @ 100 mls/hr 02/14/22 09:00 02/14/22 08:25 Sodium Chloride IVPB 02/17/22 09:29 100 mls/hr Q24HR JACOB Administration Protocol Metoprolol Tartrate 25 mg 02/15/22 09:00 02/15/22 09:47 Metoprolol Tartrate 25 Mg Tab PO 25 mg BID JACOB Administration Miscellaneous Information 1 each 02/13/22 23:56 Pneumonia Protocol Utilized 1 Each Misc PO ONCE PRN Per Protocol Naloxone HCl 0.2 mg 02/14/22 00:13 Naloxone 0.4 Mg/Ml 1 Ml Vial IV Q2M PRN Opioid Reversal Non-Formulary Medication 1 inhalation 02/15/22 07:55 Fluticasone/Vilanterol [Breo Ellipta 200-25 Mcg Inhaler] INHALATION QID PRN Shortness Of Breath Ondansetron HCl 4 mg 02/14/22 00:13 02/14/22 19:27 Ondansetron 4 Mg/2 Ml Vial IVP 4 mg Q8HR PRN Administration Nausea And Vomiting Pantoprazole Sodium 40 mg 02/15/22 07:30 02/15/22 09:47 Pantoprazole 40 Mg Tablet PO 40 mg [id number] JACOB Administration Intake and Output 02/14/22 02/15/22 02/15/22 22:59 06:59 14:59 Intake Total 540 Balance 540 Intake: Oral 540 Other: Weight 96.162 kg 02/13/22 21:20 02/15/22 08:22
[2022-02-15] MEDS: ONDANSETRON 4 MG/2 ML VIAL IVP PRN (14:07)
[2022-02-15] MEDS: HYDROcodone/APAP 5-325MG 1 EACH TAB PO PRN (15:30)
--- NOTE | 2022-02-15 23:31 | P.CONS ---
History of Present Illness - Reason for Consult Consult date: 02/15/22 Staphylococcus aureus bacteremia Requesting physician: Titus Greene - Chief Complaint weakness and not feeling well x few days - History of Present Illness Patient is a 76-year-old male with multiple comorbidities including coronary artery disease CML cholecystitis patient was brought into the ER for evaluation of fever and generalized weakness in this patient who recently did have a heart cath for despite visiting his hospital but no stents were deployed patient has been complaining of generalized weakness predominantly no energy patient denies having any headache or URI symptoms no chest pain or shortness of breath he did have some occasional cough but no sputum production denies any choking on the food he did have some nausea but no vomiting no abdominal pain or any diarrhea with the symptoms the patient was evaluated by ER physician on arrival to the ER the patient did have a fever of 100.3 and subsequently he did spike a fever of 103.3 F patient was not hypoxic or need for supplemental oxygen he did have a normal white count kidney function has been normal liver enzymes are normal urine is negative influenza COVID and RSV PCR negative p atient did have a chest x-ray concerning for possible left lower lobe opacity he also have a CT of abdominal pelvis did not show any acute abnormality patient was started on Rocephin and Zithromax subsequently blood culture came back positive with gram-positive cocci vancomycin was added infectious disease was consulted for further management of antibiotic therapy Review of Systems Positive point has been mentioned in the HPI rest of the systems are negative Past Medical History Past Medical History: Coronary Artery Disease (CAD), Cancer, GERD/Reflux, Hypertension, Skin Disorder Additional Past Medical History / Comment(s): Hx. of CML, Hx. of Shingles L eye, Cysts on L kidney. History of Any Multi-Drug Resistant Organisms: None Reported Past Surgical History: Cholecystectomy, Heart Catheterization With Stent, Hernia Repair, Orthopedic Surgery Additional Past Surgical History / Comment(s): Thyroid surgery,Vasectomy, R ankle surgery, Sinus surgery, Basal cell R shoulder, Pyloroplasty & Vagotomy, Hemorrhoidectomy, Cataract surgery & bx. of inner thigh. Past Anesthesia/Blood Transfusion Reactions: No Reported Reaction Date of Last Stent Placement:: 2021 Past Psychological History: No Psychological Hx Reported Smoking Status: Former smoker Past Alcohol Use History: None Reported Additional Past Alcohol Use History / Comment(s): Quit in 1966 Past Drug Use History: None Reported - Past Family History Mother Family Medical History: Cancer, Pulmonary Embolus Father Family Medical History: Cancer Brother(s) Family Medical History: Cancer Son(s) Family Medical History: Cancer Medications and Allergies Home Medications Medication Instructions Recorded Confirmed Type Ascorbic Acid [Vitamin C] 1,000 mg PO DAILY 10/24/18 02/14/22 History Aspirin 81 mg PO DAILY 10/24/18 02/14/22 History Cholecalciferol (Vitamin D3) 2,000 unit PO DAILY 10/24/18 02/14/22 History [Vitamin D3] Losartan [Cozaar] 50 mg PO DAILY 10/24/18 02/14/22 History Metoprolol Tartrate [Lopressor] 25 mg PO BID 10/24/18 02/14/22 History Nitroglycerin Sl Tabs [Nitrostat] 0.4 mg SUBLINGUAL Q5M PRN 10/24/18 02/14/22 History Omeprazole [PriLOSEC] 40 mg PO DAILY 10/24/18 02/14/22 History Ubidecarenone [Co Q-10] 100 mg PO DAILY 10/24/18 02/14/22 History valACYclovir HCL [Valtrex] 500 mg PO TID 10/24/18 02/14/22 History Cardiocentrum 2 tab PO DAILY 11/05/20 02/14/22 History Docusate [Colace] 100 mg PO BID 11/05/20 02/14/22 History Albuterol Inhaler [Ventolin Hfa 1 - 2 puff INHALATION Q6H PRN 02/09/22 02/14/22 History Inhaler] Fluticasone/Vilanterol [Breo 1 inhalation INHALATION QID PRN 02/09/22 02/14/22 History Ellipta 200-25 Mcg Inhaler] Cranberry Fruit [Cranberry] 465 mg PO DAILY 02/14/22 02/14/22 History Furosemide [Lasix] 40 mg PO DAILY PRN 02/14/22 02/14/22 History Prosymbiotic 1 tab PO BID 02/14/22 02/14/22 History Quercetin 800 mg PO BID 02/14/22 02/14/22 History Zinc Gluconate [Zinc] 50 mg PO DAILY 02/14/22 02/14/22 History ceFAZolin [Kefzol] 2 gm IVP Q8HR #42 each 02/19/22 Rx Pantoprazole [Protonix] 40 mg PO DAILY #30 tab 02/22/22 Rx Allergies Allergy/AdvReac Type Severity Reaction Status Date / Time adhesive tape Allergy Rash/Hives,"paper Verified 02/13/22 19:57 tape is ok" amoxicillin [From Augmentin] Allergy Rash/Hives Verified 02/13/22 19:57 atorvastatin [From Lipitor] Allergy Muscle Verified 02/14/22 08:22 Aches budesonide [From Symbicort] Allergy Vision Verified 02/13/22 19:57 issues ciprofloxacin Allergy Muscle Verified 02/13/22 19:57 aches clavulanic acid Allergy Rash/Hives Verified 02/13/22 19:57 [From Augmentin] doxycycline Allergy Rectal Verified 02/13/22 19:57 Bleeding enalapril Allergy Cough Verified 02/13/22 19:57 ezetimibe [From Vytorin] Allergy Muscle Verified 02/14/22 08:23 Aches fluticasone Allergy Irregular Verified 02/13/22 19:57 [From Advair Diskus] heart rate formoterol [From Symbicort] Allergy Vision Verified 02/13/22 19:57 issues mold Allergy Rash/Hives Verified 02/13/22 19:57 salmeterol Allergy Irregular Verified 02/13/22 19:57 [From Advair Diskus] heart rate simvastatin [From Vytorin] Allergy Muscle Verified 02/14/22 08:23 Aches Hozaqij-[id number]-CxA Reductase Allergy Muscle Verified 02/13/22 19:57 Inhibitor aches [Lkfanoi-Taz-Rnb Reductase Inhibitor] nilotinib [From Tasigna] AdvReac Pancreatiti Verified 02/17/22 10:05 s Cotton material Allergy itching, Uncoded 02/13/22 19:57 hives Physical Exam Vitals: Vital Signs Temp Pulse Pulse Resp BP BP Pulse Ox 02/15/22 07:33 98 02/15/22 05:00 98.8 F 74 16 113/61 95 02/14/22 23:56 94 L 02/14/22 22:37 98.3 F 02/14/22 20:53 101.3 F H 69 16 107/53 94 L 02/14/22 20:28 103.3 F H 71 17 108/53 93 L 02/14/22 19:35 101.0 F H 75 18 116/73 94 L 02/14/22 14:27 73 18 123/67 99 02/14/22 12:38 100.6 F H 65 16 116/57 95 02/14/22 12:24 70 16 100 Intake and Output 02/14/22 02/15/22 02/15/22 22:59 06:59 14:59 Intake Total 540 Balance 540 Intake: Oral 540 Other: Weight 96.162 kg GENERAL DESCRIPTION: elderly male lying in bed, no distress. No tachypnea or accessory muscle of respiration use. HEENT: Shows Pallor , no scleral icterus. Oral mucous membrane is dry. No pharyngeal erythema or thrush NECK: Trachea central, no thyromegaly. LUNGS: Unlabored breathing. decreased breath sound at the base. No wheeze or crackle. HEART: S1, S2, regular rate and rhythm. No loud murmur ABDOMEN: Soft, no tenderness , guarding or rigidity, no organomegaly EXTREMITIES: No edema of feet. SKIN: No rash, no masses palpable. NEUROLOGICAL: The patient is awake, alert, oriented x3, mood and affect normal. Results CBC & Chem 7: 02/20/22 06:12 02/20/22 05:16 Labs: Abnormal Lab Results - Last 24 Hours (Table) 02/15/22 Range/Units 08:22 Creatinine 1.42 H (0.66-1.25) mg/dL Microbiology - Last 24 Hours (Table) 02/13/22 23:59 Blood Culture Gram Stain - Preliminary Blood Blood Culture - Preliminary Staphylococcus aureus 02/14/22 00:15 Blood Culture Gram Stain - Preliminary Blood 02/13/22 23:59 Blood Culture - Final Blood 02/14/22 00:15 Blood Culture - Final Blood Assessment and Plan (1) Bacteremia Status: Acute Code(s): R78.81 - BACTEREMIA SNOMED Code(s): 4567681 Plan: 1patient presented to hospital with fever and generalized weakness now with evidence of MSSA bacteremia question of endovascular source patient did have a loud systolic murmur, CT abdominal pelvis did not show significant intra abdominal pathology and did not mention any consolidation at the lung bases with the x-ray was suspicious of. 2patient benefit from VICENTE this was discussed with the cardiology team 3blood cultures will be repeated document clearance of bacteremia 4check inflammatory markers 5discontinue Rocephin and vancomycin 6start the patient on cefazolin 2 g every 8 hours patient to have a penicillin allergy cannot use naficillin We will follow on clinical condition and cultures to further adjust medication if needed Thank you for this consultation will follow this patient along with you Time with Patient: Greater than 30
[2022-02-16] MEDS: PANTOPRAZOLE 40 MG TABLET PO SCH (08:41)
[2022-02-16] MEDS: ASPIRIN 81 MG PO SCH (08:41)
[2022-02-16] MEDS: METOPROLOL TARTRATE 25 MG TAB PO SCH ×2 (08:41→21:43)
[2022-02-16] MEDS: DOCUSATE 100 MG CAP PO SCH ×2 (08:41→21:43)
[2022-02-16] MEDS: CHOLECALCIFEROL 25 MCG (1000 IU) TABLET PO SCH (08:41)
[2022-02-16] MEDS: HEPARIN SODIUM,PORCINE/PF 5,000 UNIT/0.5 ML SYRINGE SQ SCH ×3 (08:43→23:50)
[2022-02-16] MEDS ORDERED: VANCOMYCIN 1,500 MG in SODIUM CHLORIDE 0.9% 500 ML 500 ML IVPB SCH (09:00)
[2022-02-16 09:16] LABS: African American GFR (CKD) 67.2 (60.0-200.0); Anion Gap 7.7 mmol/L (10.00-18.00); BUN/Creat Ratio 24.83 Ratio (12.00-20.00); Blood Urea Nitrogen 29.8 mg/dL (9.0-27.0); Calcium 8.6 mg/dL (8.7-10.3); Carbon Dioxide 20.3 mmol/L (20.0-27.5); Potassium 4.3 mmol/L (3.5-5.5)
--- NOTE | 2022-02-16 09:26 | P.PN ---
Subjective Progress Note Date: 02/16/22 History of present illness: This is a 76-year-old male patient of Dr. Wells with past medical history of c oronary artery disease with previous PCI of the LAD and left circumflex in 2004, aortic stenosis, chronic myeloleukemia, hypertension, hyperlipidemia, pericardial effusion and outflow tract obstruction. Patient was brought in the hospital February 09 and underwent cardiac catheterization with Dr. SUNI Wells which revealed left dominant system, 40-45% circumflex disease in the proximal portion and another 40% in the distal portion. Obtuse marginal has a 40% narrowing. LAD that was stented before is widely patent with good flow. RCA is nondominant. He subsequently underwent VICENTE with Dr. Morton which revealed severe aortic stenosis with mean gradient of 42 mmHg and peak systolic velocity of abo ve 4M/S. Aortic valve trileaflet. Moderate mitral regurgitation. Patient was discharged home following procedures in stable condition. On 02/13, patient presented to the emergency center due to fever, weakness, fatigue and abdominal discomfort. Patient has been febrile up to 103.3 fever and found to be bacteremic and infectious disease is following. We have been asked to see the patient for VICENTE. EKG is sinus rhythm with frequent PVCs CT of the abdomen and pelvis without contrast revealed mild pericardial effusion without change. Mild subsegmental atelectasis at the lung bases mostly new. Minimal stranding around the mid and proximal sigmoid colon also present previously. Minimal perinephric fat stranding appears to be increased could relate to previous episode of obstruction or inflammation. Chest x-ray reveals left lower lobe airspace opacities concerning for infection. Cardiomegaly with mild pulmonary vascular congestion. WBC 6.1, hemoglobin 10.6, platelet count 217. Sodium 138, potassium 4.2, chloride 109, CO2 21, BUN 18 creatinine 1 and repeat creatinine today of 1.42. Liver function tests within normal limits. Troponin negative 1. ProBNP 1120. Influenza A, influenza B, RSV and Covid not detected. 2 blood cultures positive for staph aureus Echocardiogram 01/21/2022 revealed moderate to severe aortic stenosis with mean of 39, mild to moderate mitral regurgitation, moderate tricuspid regurgitation, RVSP 70. Lexiscan stress test 11/19/2021 shows revealed no ischemia 02/16 Patient states he is feeling a little bit better today. He states less fevers and chills. Patient states that he does not wanT to undergo VICENTE today. Discussed with patient that if he changes his mind, we will be available to perform a VICENTE when and if he is ready. Physical examination: Gen: This is a 76-year-old male. VS: Reviewed HEENT: Head is atraumatic, normocephalic. Pupils equal, round. Sclerae is anicteric. NECK: Supple. No JVD. No lymphadenopathy. No thyromegaly. LUNGS: Clear to auscultation. No wheezes or rhonchi. No intercostal retractions. HEART: Regular rate and rhythm. Systolic murmur right sternal border. ABDOMEN: Soft. Bowel sounds are present. No masses. No tenderness. EXTREMITIES: No pedal edema. No calf tenderness. NEUROLOGICAL: Patient is awake, alert and oriented x3. Cranial nerves 2 through 12 are grossly intact. Assessment: Sepsis secondary to Staph aureus bacteremia rule out endocarditis Possible left lower lobe pneumonia Acute kidney injury Known history of severe aortic stenosis Coronary artery disease status post PCI of the LAD and circumflex CML Hypertension Hyperlipidemia Chronic pericardial effusion Plan: Continue current treatment plan per infectious disease Patient refuses to undergo VICENTE at this time. Continue patient's cardiac medications including aspirin 81 mg daily, Lopressor 25 mg twice daily Losartan is on hold Cardiology we will sign off and follow on an as-needed basis. If placed stent changes his mind and would like to undergo VICENTE, please reconsult. Nurse practitioner note has been reviewed, I agree with documented findings and plan of care. Patient was seen and examined. Objective - Vital Signs Vital signs: Vital Signs Temp 97.9 F 02/16/22 05:47 Pulse 76 02/16/22 05:47 Resp 22 02/16/22 05:47 BP 111/47 02/16/22 05:47 Pulse Ox 95 02/16/22 05:47 FiO2 Intake & Output 02/15/22 02/16/22 02/16/22 18:59 06:59 18:59 Weight 96.162 kg Other: # Voids 2 - Labs CBC & Chem 7: 02/13/22 21:20 02/16/22 06:01 Labs: Abnormal Lab Results - Last 24 Hours (Table) 02/15/22 Range/Units 08:22 Creatinine 1.42 H (0.66-1.25) mg/dL Microbiology - Last 24 Hours (Table) 02/14/22 00:15 Blood Culture Gram Stain - Preliminary Blood Blood Culture - Preliminary Presumptive Staph aureus 02/13/22 23:59 Blood Culture Gram Stain - Preliminary Blood Blood Culture - Preliminary Staphylococcus aureus
[2022-02-16 09:52] LABS: Basophils # (A) 0.04 X 10*3/uL (0.00-0.10); Basophils % (A) 0.6 %; Eosinophils # (A) 0.01 X 10*3/uL (0.04-0.35); Eosinophils % (A) 0.1 %; HCT 24.6 % (39.6-50.0); HGB 8.5 g/dL (13.0-17.0); Immature Grans, Automated 0.3 %; Lymphocytes # (A) 2.24 X 10*3/uL (0.90-5.00); Lymphocytes % (A) 33.5 %; MCH 34.3 pg (27.0-32.0); MCHC 34.6 g/dL (32.0-37.0); MCV 99.2 fL (80.0-97.0); Mean Platelet Volume 10.1 fL (9.5-12.2); Monocytes # (A) 0.79 X 10*3/uL (0.20-1.00); Monocytes % (A) 11.8 %; NRBC Per 100 WBC 0 /100 WBCS (0.0-0.0); Neutrophils # (A) 3.58 X 10*3/uL (1.80-7.70); Neutrophils % (A) 53.7 %; Platelet Count 159 X 10*3/uL (140-440); RBC 2.48 X 10*6/uL (4.40-5.60); RDW 15.3 % (11.5-14.5); WBC 6.68 X 10*3/uL (4.50-10.00)
--- NOTE | 2022-02-16 17:45 | P.PN ---
Subjective Progress Note Date: 02/16/22 (delayed charting seen at approx 11:30) Patient is a 76-year-old male with history of CML, coronary artery disease, aortic valve stenosis presented with fever and generalized weakness 4 days after left heart cath. He did not have any stents deployed during that time. In the ED, his T-max was 100.3. CT abdomen and pelvis showed mild pericardial effusion with no change, minimal stranding around mid and proximal sigmoid colon, Bilateral perinephric fat stranding. Chest x-ray showed left lower lobe opacity and concerning for pneumonia, mild vascular congestion. He was admitted and was started on IV antibiotics. Blood cultures came back positive for MSSA. ID consulted and recommended starting patient on Cefazolin, and recommended VICENTE. Oncology and cardiology also consulted. Patient refused VICENTE as he just had one done and does not feel necessarily look at him at more risk secondary to his pneumonia. Patient seen and examined at bedside with present. He is feeling much bett er today. He denies any shortness of breath or cough. His fatigue and lower extremity cramping has gotten better. General: nontoxic, no distress, appears at stated age Derm: warm, dry Head: atraumatic, normocephalic, symmetric Eyes: EOMI, no lid lag, anicteric sclera Mouth: no lip lesion, mucus membranes moist Cardiovascular: S1S2 reg, grade 3 systolic ejection murmur, positive posterior tibial pulse bilateral, Lungs: CTA bilateral, no rhonchi, no rales , no accessory muscle use Abdominal: soft, nontender to palpation, no guarding, no appreciable organomegaly Ext: no gross muscle atrophy, trace edema, no contractures Neuro: CN II-XI grossly intact, no focal neuro deficits Psych: Alert, oriented, appropriate affect Assessment and Plan: MSSA bacteremia Community acquired pneumonia Severe aortic stenosis Small pericardial effusion -Repeat blood cultures negative to date -Infectious disease recommendations appreciated: Continue with cefalozin -Patient has refused VICENTE. Discussed with him and his that should his repeat blood cultures turn positive I would highly recommend this, they're willing to reconsider at that time -Cardiology signed off Acute kidney injury, nonoliguric, improved -Continue to monitor urine output -Likely prerenal Chronic conditions CML - oncology consulted, patient is currently on immunotherapy h/o CAD s/p 3 stents , recent left heart cath no stent needed recent removal of basal cell cancer left nose Aortic valve stenosis DVT PPX heparin sc tid Full code Anticipated discharge place: 1-2 days Anticipated discharge time: Home Active Medications Generic Name Dose Route Start Last Admin Trade Name Freq PRN Reason Stop Dose Admin Acetaminophen 650 mg 02/14/22 00:13 02/15/22 11:11 Acetaminophen Tab 325 Mg Tab PO 650 mg Q6HR PRN Administration Mild Pain or Fever > 100.5 Hydrocodone Bitart/Acetaminophen 1 each 02/14/22 00:13 02/15/22 15:30 Hydrocodone/Apap 5-325mg 1 Each Tab PO 1 each Q4HR PRN Administration Moderate Pain (Scale 4 to 6) Albuterol Sulfate 2.5 mg 02/15/22 07:55 Albuterol Nebulized 2.5 Mg/3 Ml INHALATION RT-Q6H PRN Shortness Of Breath Aspirin 81 mg 02/15/22 09:00 02/16/22 08:41 Aspirin 81 Mg PO 81 mg DAILY JACOB Administration Cholecalciferol 50 mcg 02/15/22 10:00 02/16/22 08:41 Cholecalciferol 25 Mcg (1000 Iu) Tablet PO 50 mcg DAILY JACOB Administration Docusate Sodium 100 mg 02/15/22 09:00 02/16/22 08:41 Docusate 100 Mg Cap PO 100 mg BID JACOB Administration Heparin Sodium (Porcine) 5,000 unit 02/14/22 08:00 02/16/22 16:30 Heparin Sodium,Porcine/Pf 5,000 Unit/0.5 Ml Syringe SQ 5,000 unit Q8HR JACOB Administration Cefazolin Sodium 2 gm/ Sodium 50 mls @ 100 mls/hr 02/15/22 16:00 02/16/22 16:31 Chloride IVPB 100 mls/hr Q8HR JACOB Administration Protocol Metoprolol Tartrate 25 mg 02/15/22 09:00 02/16/22 08:41 Metoprolol Tartrate 25 Mg Tab PO 25 mg BID JACOB Administration Miscellaneous Information 1 each 02/13/22 23:56 Pneumonia Protocol Utilized 1 Each Misc PO ONCE PRN Per Protocol Naloxone HCl 0.2 mg 02/14/22 00:13 Naloxone 0.4 Mg/Ml 1 Ml Vial IV Q2M PRN Opioid Reversal Non-Formulary Medication 1 inhalation 02/15/22 07:55 Fluticasone/Vilanterol [Breo Ellipta 200-25 Mcg Inhaler] INHALATION QID PRN Shortness Of Breath Ondansetron HCl 4 mg 02/14/22 00:13 02/15/22 14:07 Ondansetron 4 Mg/2 Ml Vial IVP 4 mg Q8HR PRN Administration Nausea And Vomiting Pantoprazole Sodium 40 mg 02/15/22 07:30 02/16/22 08:41 Pantoprazole 40 Mg Tablet PO 40 mg [id number] JACOB Administration Objective - Vital Signs Vital signs: Vital Signs Temp 97.7 F 02/16/22 11:28 Pulse 68 02/16/22 11:28 Resp 16 02/16/22 11:28 BP 119/63 02/16/22 11:28 Pulse Ox 98 02/16/22 11:28 FiO2 Intake & Output 02/15/22 02/16/22 02/16/22 18:59 06:59 18:59 Weight 96.162 kg Other: # Voids 2 - Labs CBC & Chem 7: 02/16/22 06:01 02/16/22 06:01 Labs: Abnormal Lab Results - Last 24 Hours (Table) 02/16/22 02/16/22 Range/Units 06:01 06:01 RBC 2.48 L (4.40-5.60) X 10*6/uL Hgb 8.5 L (13.0-17.0) g/dL Hct 24.6 L (39.6-50.0) % MCV 99.2 H (80.0-97.0) fL MCH 34.3 H (27.0-32.0) pg RDW 15.3 H (11.5-14.5) % Eosinophils # 0.01 L (0.04-0.35) X 10*3/uL Anion Gap 7.70 L (10.00-18.00) mmol/L BUN 29.8 H (9.0-27.0) mg/dL Est GFR (CKD-EPI)NonAf 58.0 L (60.0-200.0) BUN/Creatinine Ratio 24.83 H (12.00-20.00) Ratio Glucose 132 H (70-110) mg/dL Calcium 8.6 L (8.7-10.3) mg/dL Microbiology - Last 24 Hours (Table) 02/14/22 00:15 Blood Culture Gram Stain - Final Blood Blood Culture - Final Staphylococcus aureus 02/13/22 23:59 Blood Culture Gram Stain - Final Blood Blood Culture - Final Staphylococcus aureus 02/15/22 08:22 Blood Culture - Preliminary Blood No Growth after 24 hours 02/15/22 08:25 Blood Culture - Preliminary Blood No Growth after 24 hours
--- NOTE | 2022-02-16 19:33 | P.CONS ---
History of Present Illness - Reason for Consult Consult date: 02/15/22 CML, bacteremic Requesting physician: Titus Greene - Chief Complaint Fever, progressive weakness - History of Present Illness Mister Miller is a pleasant 76-year-old male patient of Dr. 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 Patient is currently admitted with fever post cardiac catheterization in the right wrist. His blood cultures are currently positive for staph aureus. Infectious diseases consult. Patient states he is feeling pretty terrible today. General complaints, denies nausea or vomiting but has no appetite, no chest pain cough or shortness of breath, in general he is weak. He has complaints of right hip pain, started this past week its progressive and down the leg, especially worse with flexion. He is also noted urinary incontinence for 2 days before admit. Below is hematological history. Pt initially seen at [facility] in 2010 for a mild anemia, with Hgb in the 13-14 range, w/u was negative, and he was followed with observation till 09/13, after which he continued f/u with his PCP, Dr Elkins. Since early 2014, it was noted that all his cell lines were showing an increase on serial blood draws. WBC/plt on 02/19/14 were 12.9/257, and on 04/23/14 were 25.3, and 446. His Hgb has been in the 14-15 range compared to his baseline of 13-13.5. 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 However the increase in counts was too persistent to be explained by the same. His WBC d ifferential had also shown a left shift. He was thus referred for further evaluation. 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 His BCR-ABL was positive, confirming CML. Started tasigna 06/10/14, but was admitted to [facility] on 06/17/14 with pancreatitis, that appeared to be drug induced. Tasigna was stopped, and he improved with co nservative management, with discharge on 06/19/14. He continued to have GI discomfort and nausea with slow resolution. His GI complaints did resolve. He was started on Sprycel in 08/18. BCR-ABL PCR had shown a slow upward trend early 2015, then stabilized by 02/18. PCR testing was consistently above 1% so, BM Bx done 03/09/16, revealed no evidence of progression. H ehas remained on sprycel since. Review of Systems 10 point review of systems is negative except as stated in HPI Past Medical History Past Medical History: Coronary Artery Disease (CAD), Cancer, GERD/Reflux, Hypertension, Skin Disorder Additional Past Medical History / Comment(s): Hx. of CML, Hx. of Shingles L eye, Cysts on L kidney. History of Any Multi-Drug Resistant Organisms: None Reported Past Surgical History: Cholecystectomy, Heart Catheterization With Stent, Hernia Repair, Orthopedic Surgery Additional Past Surgical History / Comment(s): Thyroid surgery,Vasectomy, R ankle surgery, Sinus surgery, Basal cell R shoulder, Pyloroplasty & Vagotomy, Hemorrhoidectomy, Cataract surgery & bx. of inner thigh. Past Anesthesia/Blood Transfusion Reactions: No Reported Reaction Date of Last Stent Placement:: 2021 Past Psychological History: No Psychological Hx Reported Smoking Status: Former smoker Past Alcohol Use History: None Reported Additional Past Alcohol Use History / Comment(s): Quit in 1966 Past Drug Use History: None Reported - Past Family History Mother Family Medical History: Cancer, Pulmonary Embolus Father Family Medical History: Cancer Brother(s) Family Medical History: Cancer Son(s) Family Medical History: Cancer Medications and Allergies Home Medications Medication Instructions Recorded Confirmed Type Ascorbic Acid [Vitamin C] 1,000 mg PO DAILY 10/24/18 02/14/22 History Aspirin 81 mg PO DAILY 10/24/18 02/14/22 History Cholecalciferol (Vitamin D3) 2,000 unit PO DAILY 10/24/18 02/14/22 History [Vitamin D3] Losartan [Cozaar] 50 mg PO DAILY 10/24/18 02/14/22 History Metoprolol Tartrate [Lopressor] 25 mg PO BID 10/24/18 02/14/22 History Nitroglycerin Sl Tabs [Nitrostat] 0.4 mg SUBLINGUAL Q5M PRN 10/24/18 02/14/22 History Omeprazole [PriLOSEC] 40 mg PO DAILY 10/24/18 02/14/22 History Ubidecarenone [Co Q-10] 100 mg PO DAILY 10/24/18 02/14/22 History valACYclovir HCL [Valtrex] 500 mg PO TID 10/24/18 02/14/22 History Cardiocentrum 2 tab PO DAILY 11/05/20 02/14/22 History Dasatinib [Sprycel] 100 mg PO 0300 11/05/20 02/14/22 History Docusate [Colace] 100 mg PO BID 11/05/20 02/14/22 History Albuterol Inhaler [Ventolin Hfa 1 - 2 puff INHALATION Q6H PRN 02/09/22 02/14/22 History Inhaler] Fluticasone/Vilanterol [Breo 1 inhalation INHALATION QID PRN 02/09/22 02/14/22 History Ellipta 200-25 Mcg Inhaler] Cranberry Fruit [Cranberry] 465 mg PO DAILY 02/14/22 02/14/22 History Furosemide [Lasix] 40 mg PO DAILY PRN 02/14/22 02/14/22 History Prosymbiotic 1 tab PO BID 02/14/22 02/14/22 History Quercetin 800 mg PO BID 02/14/22 02/14/22 History Zinc Gluconate [Zinc] 50 mg PO DAILY 02/14/22 02/14/22 History Allergies Allergy/AdvReac Type Severity Reaction Status Date / Time adhesive tape Allergy Rash/Hives,"paper Verified 02/13/22 19:57 tape is ok" amoxicillin [From Augmentin] Allergy Rash/Hives Verified 02/13/22 19:57 atorvastatin [From Lipitor] Allergy Muscle Verified 02/14/22 08:22 Aches budesonide [From Symbicort] Allergy Vision Verified 02/13/22 19:57 issues ciprofloxacin Allergy Muscle Verified 02/13/22 19:57 aches clavulanic acid Allergy Rash/Hives Verified 02/13/22 19:57 [From Augmentin] doxycycline Allergy Rectal Verified 02/13/22 19:57 Bleeding enalapril Allergy Cough Verified 02/13/22 19:57 ezetimibe [From Vytorin] Allergy Muscle Verified 02/14/22 08:23 Aches fluticasone Allergy Irregular Verified 02/13/22 19:57 [From Advair Diskus] heart rate formoterol [From Symbicort] Allergy Vision Verified 02/13/22 19:57 issues mold Allergy Rash/Hives Verified 02/13/22 19:57 salmeterol Allergy Irregular Verified 02/13/22 19:57 [From Advair Diskus] heart rate simvastatin [From Vytorin] Allergy Muscle Verified 02/14/22 08:23 Aches [id number]-ZPD-EuU Reductase Allergy Muscle Verified 02/13/22 19:57 Inhibitor aches [Psqxgzz-Opr-Rqn Reductase Inhibitor] Cotton material Allergy itching, Uncoded 02/13/22 19:57 hives tasinga Allergy pancreatiti Uncoded 02/13/22 19:57 s Physical Exam Vitals: Vital Signs Temp Pulse Pulse Resp BP BP Pulse Ox 02/15/22 16:00 97.8 F 02/15/22 12:49 100.3 F H 77 18 112/63 94 L 02/15/22 07:33 98 02/15/22 05:00 98.8 F 74 16 113/61 95 02/14/22 23:56 94 L 02/14/22 22:37 98.3 F 02/14/22 20:53 101.3 F H 69 16 107/53 94 L 02/14/22 20:28 103.3 F H 71 17 108/53 93 L 02/14/22 19:35 101.0 F H 75 18 116/73 94 L Intake and Output 02/15/22 02/15/22 02/15/22 06:59 14:59 22:59 Intake Total 540 Balance 540 Intake: Oral 540 Other: Weight 96.162 kg - Constitutional General appearance: average body habitus, cooperative, no acute distress - EENT Eyes: anicteric sclerae, EOMI ENT: hearing grossly normal, normal oropharynx - Neck Neck: no lymphadenopathy - Respiratory Respiratory: bilateral: CTA - Cardiovascular Rhythm: regular Heart sounds: normal: S1, S2 Abnormal Heart Sounds: no systolic murmur, no diastolic murmur, no rub, no S3 Gallop, no S4 Gallop, no click, no other leg Peripheral Edema: bilateral: None - Gastrointestinal General gastrointestinal: no absent bowel sounds, no decreased bowel sounds, no distended, no hepatomegaly, no hyperactive bowel sounds, normal bowel sounds, no organomegaly, no rigid, no scaphoid, soft, no splenomegaly, no tenderness, no umbilical hernia, no ventral hernia - Integumentary Integumentary: normal - Neurologic Neurologic: CNII-XII intact - Musculoskeletal Right lower extremity/Right hip pain reported, no pain with palpation of the superior iliac crest, sacrum or lumbar spine. Musculoskeletal: generalized weakness - Psychiatric Psychiatric: A&O x's 3, appropriate affect, intact judgment & insight Results CBC & Chem 7: 02/16/22 06:01 02/16/22 06:01 Labs: Abnormal Lab Results - Last 24 Hours (Table) 02/15/22 Range/Units 08:22 Creatinine 1.42 H (0.66-1.25) mg/dL Microbiology - Last 24 Hours (Table) 02/14/22 00:15 Blood Culture Gram Stain - Preliminary Blood Blood Culture - Preliminary Presumptive Staph aureus 02/13/22 23:59 Blood Culture Gram Stain - Preliminary Blood Blood Culture - Preliminary Staphylococcus aureus 02/13/22 23:59 Blood Culture - Final Blood 02/14/22 00:15 Blood Culture - Final Blood Chest x-ray: report reviewed CT scan - abdomen: report reviewed CT scan - pelvis: report reviewed Assessment and Plan (1) CML (chronic myeloid leukemia) Current Visit: Yes Status: Chronic Priority: Low Code(s): C92.10 - CHRONIC MYELOID LEUK, BCR/ABL-POSITIVE, NOT ACHIEVE REMIS SNOMED Code(s): 47611553 Plan: Agree with treatment of bacteremia. Hold Sprycel. Hold Sprycel until seen in the office by Dr. Arellano. Patient's verbalized understanding the plan. Doctor attests: I performed a history and physical examination of this patient, developed impression and plan of care. Discussed with dictator. I agree with dictators note, documented as a scribe.
[2022-02-17 09:04] LABS: African American GFR (CKD) >90 (>60 ml/min/1.73 sqM); Anion Gap 5 mmol/L; Blood Urea Nitrogen 21 mg/dL (9-20); Calcium 8.7 mg/dL (8.4-10.2); Carbon Dioxide 23 mmol/L (22-30); Chloride 110 mmol/L (98-107); Glucose 119 mg/dL (74-99); Non-African American GFR(CKD) 84 (>60 ml/min/1.73 sqM); Potassium 4.6 mmol/L (3.5-5.1); Sodium 138 mmol/L (137-145)
[2022-02-17 09:17] LABS: HCT 27.2 % (39.0-53.0); HGB 9.2 gm/dL (13.0-17.5); MCH 33.5 pg (25.0-35.0); MCV 98.6 fL (80.0-100.0); Macrocytosis Slight; Mean Platelet Volume 8.2; Platelet Count 200 k/uL (150-450); Poikilocytosis Slight; RBC 2.76 m/uL (4.30-5.90); RDW 15.3 % (11.5-15.5); WBC 4.1 k/uL (3.8-10.6)
[2022-02-17] MEDS: ACETAMINOPHEN TAB 325 MG TAB PO PRN (09:24)
[2022-02-17] MEDS: CHOLECALCIFEROL 25 MCG (1000 IU) TABLET PO SCH (09:25)
[2022-02-17] MEDS: METOPROLOL TARTRATE 25 MG TAB PO SCH ×2 (09:25→20:28)
[2022-02-17] MEDS: LOSARTAN 50 MG TAB PO SCH (09:25)
[2022-02-17] MEDS: HEPARIN SODIUM,PORCINE/PF 5,000 UNIT/0.5 ML SYRINGE SQ SCH ×3 (09:25→20:29)
[2022-02-17] MEDS: DOCUSATE 100 MG CAP PO SCH ×2 (09:25→20:28)
[2022-02-17] MEDS: PANTOPRAZOLE 40 MG TABLET PO SCH (09:25)
[2022-02-17] MEDS: ASPIRIN 81 MG PO SCH (09:25)
[2022-02-17 10:31] LABS: African American GFR (CKD) 91.8 (60.0-200.0); Non-African American GFR(CKD) 79.2 (60.0-200.0)
--- NOTE | 2022-02-17 13:35 | P.PN ---
Subjective Progress Note Date: 02/17/22 Patient is a 76-year-old male with history of CML, coronary artery disease, aortic valve stenosis presented with fever and generalized weakness 4 days after left heart cath. He did not have any stents deployed during that time. In the ED, his T-max was 100.3. CT abdomen and pelvis showed mild pericardial effusion with no change, minimal stranding around mid and proximal sigmoid colon, Bilate ral perinephric fat stranding. Chest x-ray showed left lower lobe opacity and concerning for pneumonia, mild vascular congestion. He was admitted and was started on IV antibiotics. Blood cultures came back positive for MSSA. ID consulted and recommended starting patient on Cefazolin, and recommended VICENTE. Oncology and cardiology also consulted. Patient refused VICENTE as he just had one done and does not feel necessarily as just had one completed and feel it is more risk secondary to his pneumonia. Patient seen and examined at bedside. No chest pain, no shortness of breath, feeling much better, eating and drinking well per son. General: nontoxic, no distress, appears at stated age Derm: warm, dry Head: atraumatic, normocephalic, symmetric Eyes: EOMI, no lid lag, anicteric sclera Mouth: no lip lesion, mucus membranes moist Cardiovascular: S1S2 reg, grade 3 systolic ejection murmur, positive posterior tibial pulse bilateral, Lungs: CTA bilateral, no rhonchi, no rales , no accessory muscle use Abdominal: soft, nontender to palpation, no guarding, no appreciable organomegaly Ext: no gross muscle atrophy, trace edema, no contractures Neuro: CN II-XI grossly intact, no focal neuro deficits Psych: Alert, oriented, appropriate affect Assessment and Plan: MSSA bacteremia Community acquired pneumonia Severe aortic stenosis Small pericardial effusion -Repeat blood cultures negative to date (48 hours) -Infectious disease recommendations appreciated: Continue with cefalozin, ? need for iV abx on discharge, awaiting call back from Dr. Bojorquez -Patient has refused VICENTE, doubt endocarditis with how rapidly blood cultures cleared. -Cardiology signed off Acute kidney injury, nonoliguric, improved -Continue to monitor urine output -Likely prerenal Chronic conditions CML - oncology consulted, patient is currently on immunotherapy, being held during treatment of infection h/o CAD s/p 3 stents , recent left heart cath no stent needed recent removal of basal cell cancer left nose Aortic valve stenosis DVT PPX heparin sc tid Full code Anticipated discharge place: in AM Anticipated discharge time: Home with home health Active Medications Acetaminophen (Acetaminophen Tab 325 Mg Tab) 650 mg PO Q6HR PRN PRN Reason: Mild Pain or Fever > 100.5 Last Admin: 02/17/22 09:24 Dose: 650 mg Hydrocodone Bitart/Acetaminophen (Hydrocodone/Apap 5-325mg 1 Each Tab) 1 each PO Q4HR PRN PRN Reason: Moderate Pain (Scale 4 to 6) Last Admin: 02/15/22 15:30 Dose: 1 each Albuterol Sulfate (Albuterol Nebulized 2.5 Mg/3 Ml) 2.5 mg INHALATION RT-Q6H PRN PRN Reason: Shortness Of Breath Aspirin (Aspirin 81 Mg) 81 mg PO DAILY [facility] Last Admin: 02/17/22 09:25 Dose: 81 mg Cholecalciferol (Cholecalciferol 25 Mcg (1000 Iu) Tablet) 50 mcg PO DAILY [facility] Last Admin: 02/17/22 09:25 Dose: 50 mcg Docusate Sodium (Docusate 100 Mg Cap) 100 mg PO BID [facility] Last Admin: 02/17/22 09:25 Dose: 100 mg Heparin Sodium (Porcine) (Heparin Sodium,Porcine/Pf 5,000 Unit/0.5 Ml Syringe) 5,000 unit SQ Q8HR [facility] Last Admin: 02/17/22 09:25 Dose: 5,000 unit Cefazolin Sodium 2 gm/ Sodium (Chloride) 50 mls @ 100 mls/hr IVPB Q8HR [facility]; Protocol Last Admin: 02/17/22 09:24 Dose: 100 mls/hr Losartan Potassium (Losartan 50 Mg Tab) 50 mg PO DAILY [facility] Last Admin: 02/17/22 09:25 Dose: 50 mg Metoprolol Tartrate (Metoprolol Tartrate 25 Mg Tab) 25 mg PO BID [facility] Last Admin: 02/17/22 09:25 Dose: 25 mg Miscellaneous Information (Pneumonia Protocol Utilized 1 Each Misc) 1 each PO ONCE PRN PRN Reason: Per Protocol Naloxone HCl (Naloxone 0.4 Mg/Ml 1 Ml Vial) 0.2 mg IV Q2M PRN PRN Reason: Opioid Reversal Non-Formulary Medication (Fluticasone/Vilanterol [Breo Ellipta 200-25 Mcg Inhaler]) 1 inhalation INHALATION QID PRN PRN Reason: Shortness Of Breath Ondansetron HCl (Ondansetron 4 Mg/2 Ml Vial) 4 mg IVP Q8HR PRN PRN Reason: Nausea And Vomiting Last Admin: 02/15/22 14:07 Dose: 4 mg Pantoprazole Sodium (Pantoprazole 40 Mg Tablet) 40 mg PO AC-[id number] JACOB Last Admin: 02/17/22 09:25 Dose: 40 mg Objective - Vital Signs Vital signs: Vital Signs Temp 97.8 F 02/17/22 11:09 Pulse 69 02/17/22 11:09 Resp 18 02/17/22 11:09 BP 140/73 02/17/22 11:09 Pulse Ox 98 02/17/22 11:09 FiO2 Intake & Output 02/16/22 02/17/22 02/17/22 18:59 06:59 18:59 Output Total 5 600 Balance -5 -600 Weight 96.162 kg Output: Urine 5 600 Other: Voiding Method Toilet Toilet # Bowel Movements 1 - Labs CBC & Chem 7: 02/17/22 08:23 02/17/22 08:23 Labs: Abnormal Lab Results - Last 24 Hours (Table) 02/17/22 02/17/22 Range/Units 08:23 08:23 RBC 2.76 L (4.30-5.90) m/uL Hgb 9.2 L (13.0-17.5) gm/dL Hct 27.2 L (39.0-53.0) % Chloride 110 H (98-107) mmol/L BUN 21 H (9-20) mg/dL Glucose 119 H (74-99) mg/dL Microbiology - Last 24 Hours (Table) 02/15/22 08:22 Blood Culture - Preliminary Blood No Growth after 48 hours 02/15/22 08:25 Blood Culture - Preliminary Blood No Growth after 48 hours 02/16/22 06:01 Blood Culture - Preliminary Blood No Growth after 24 hours 02/13/22 18:02 Sputum Culture - Preliminary Sputum 02/14/22 00:15 Blood Culture Gram Stain - Final Blood Blood Culture - Final Staphylococcus aureus 02/13/22 23:59 Blood Culture Gram Stain - Final Blood Blood Culture - Final Staphylococcus aureus
--- NOTE | 2022-02-17 16:53 | P.PN ---
Subjective Progress Note Date: 02/16/22 Principal diagnosis: MSSA bacteremia Patient is a 76-year-old male with multiple comorbidities including coronary artery disease CML cholecystitis patient was brought into the ER for evaluation of fever and generalized weakness, patient did have evidence of MSSA bacteremia. on today's evaluation that is 02/16/2022, the patient denies having any fever or chills, the patient is feeling better currently breathing comfortably. No chest pain or shortness of breath occasional cough no nausea no vomiting no abdominal pain or diarrhea Objective - Vital Signs Vital signs: Vital Signs Temp 97.7 F 02/16/22 11:28 Pulse 68 02/16/22 11:28 Resp 16 02/16/22 11:28 BP 119/63 02/16/22 11:28 Pulse Ox 98 02/16/22 11:28 FiO2 Intake & Output 02/15/22 02/16/22 02/16/22 18:59 06:59 18:59 Weight 96.162 kg Other: # Voids 2 - Exam GENERAL DESCRIPTION: An elderly male lying in bed in no distress RESPIRATORY SYSTEM: Unlabored breathing , decreased breath sounds at bases HEART: S1 S2 regular rate and rhythm , loud systolic murmur ABDOMEN: Soft , no tenderness EXTREMITIES: No edema feet - Labs CBC & Chem 7: 02/17/22 08:23 02/17/22 08:23 Labs: Abnormal Lab Results - Last 24 Hours (Table) 02/16/22 02/16/22 Range/Units 06:01 06:01 RBC 2.48 L (4.40-5.60) X 10*6/uL Hgb 8.5 L (13.0-17.0) g/dL Hct 24.6 L (39.6-50.0) % MCV 99.2 H (80.0-97.0) fL MCH 34.3 H (27.0-32.0) pg RDW 15.3 H (11.5-14.5) % Eosinophils # 0.01 L (0.04-0.35) X 10*3/uL Anion Gap 7.70 L (10.00-18.00) mmol/L BUN 29.8 H (9.0-27.0) mg/dL Est GFR (CKD-EPI)NonAf 58.0 L (60.0-200.0) BUN/Creatinine Ratio 24.83 H (12.00-20.00) Ratio Glucose 132 H (70-110) mg/dL Calcium 8.6 L (8.7-10.3) mg/dL Microbiology - Last 24 Hours (Table) 02/14/22 00:15 Blood Culture Gram Stain - Final Blood Blood Culture - Final Staphylococcus aureus 02/13/22 23:59 Blood Culture Gram Stain - Final Blood Blood Culture - Final Staphylococcus aureus 02/15/22 08:22 Blood Culture - Preliminary Blood No Growth after 24 hours 02/15/22 08:25 Blood Culture - Preliminary Blood No Growth after 24 hours Assessment and Plan (1) Bacteremia Current Visit: Yes Status: Acute Code(s): R78.81 - BACTEREMIA SNOMED Code(s): 8469393 Plan: 1patient presented to hospital with fever and generalized weakness now with evidence of MSSA bacteremia question of endovascular source patient did have a loud systolic murmur, CT abdominal pelvis did not show significant intra abdominal pathology and did not mention any consolidation at the lung bases with the x-ray was suspicious of. 2patient benefit from VICENTE however the patient has refused as he did have a VICENTE 3blood cultures has been repeated document clearance of bacteremia 4patient to continue with cefazolin 2 g every 8 hours patient to have a penicillin allergy cannot use naficillin Time with Patient: Less than 30
--- NOTE | 2022-02-17 16:55 | P.PN ---
Subjective Progress Note Date: 02/17/22 Principal diagnosis: MSSA bacteremia Patient is a 76-year-old male with multiple comorbidities including coronary artery disease CML cholecystitis patient was brought into the ER for evaluation of fever and generalized weakness, patient did have evidence of MSSA bacteremia. on today's evaluation that is 02/17/2022, the patient continues to be afebrile, the patient is breathing comfortably on room air. No chest pain or shortness of breath occasional cough no nausea no vomiting no abdominal pain or diarrhea, the patient did have hardware in his right ankle area currently no pain swelling or redness to the right ankle area patient denies having any pain to the c ervical thoracic or lumbar spine and currently with no open wound Objective - Vital Signs Vital signs: Vital Signs Temp 97.8 F 02/17/22 11:09 Pulse 69 02/17/22 11:09 Resp 18 02/17/22 11:09 BP 140/73 02/17/22 11:09 Pulse Ox 98 02/17/22 11:09 FiO2 Intake & Output 02/16/22 02/17/22 02/17/22 18:59 06:59 18:59 Output Total 5 600 Balance -5 -600 Weight 96.162 kg Output: Urine 5 600 Other: Voiding Method Toilet Toilet # Bowel Movements 1 - Exam GENERAL DESCRIPTION: An elderly male lying in bed in no distress RESPIRATORY SYSTEM: Unlabored breathing , decreased breath sounds at bases HEART: S1 S2 regular rate and rhythm , loud systolic murmur ABDOMEN: Soft , no tenderness EXTREMITIES: No edema feet, right ankle incision is intact and there is no swelling no redness no tenderness Patient did not have any tenderness to cervical thoracic or lumbar spine No open wound or cellulitis - Labs CBC & Chem 7: 02/17/22 08:23 02/17/22 08:23 Labs: Abnormal Lab Results - Last 24 Hours (Table) 02/17/22 02/17/22 Range/Units 08:23 08:23 RBC 2.76 L (4.30-5.90) m/uL Hgb 9.2 L (13.0-17.5) gm/dL Hct 27.2 L (39.0-53.0) % Chloride 110 H (98-107) mmol/L BUN 21 H (9-20) mg/dL Glucose 119 H (74-99) mg/dL Microbiology - Last 24 Hours (Table) 02/15/22 08:22 Blood Culture - Preliminary Blood No Growth after 48 hours 02/15/22 08:25 Blood Culture - Preliminary Blood No Growth after 48 hours 02/16/22 06:01 Blood Culture - Preliminary Blood No Growth after 24 hours 02/13/22 18:02 Sputum Culture - Preliminary Sputum 02/14/22 00:15 Blood Culture Gram Stain - Final Blood Blood Culture - Final Staphylococcus aureus 02/13/22 23:59 Blood Culture Gram Stain - Final Blood Blood Culture - Final Staphylococcus aureus Assessment and Plan (1) Bacteremia Current Visit: Yes Status: Acute Code(s): R78.81 - BACTEREMIA SNOMED Co de(s): 5942770 Plan: 1patient presented to hospital with fever and generalized weakness now with evidence of MSSA bacteremia question of endovascular source patient did have a loud systolic murmur, CT abdominal pelvis did not show significant intra abdominal pathology and did not mention any consolidation at the lung bases with the x-ray was suspicious of. 2patient recently did have VICENTE 3 days before this hospitalization and was negative 3blood cultures has been repeated which are negative so far, we will obtain a tagged WBC scan , to see it will localize at any spot that may need further workup for the source of infection 4patient to continue with cefazolin 2 g every 8 hours and monitor clinical course closely Time with Patient: Less than 30
[2022-02-18] MEDS: HEPARIN SODIUM,PORCINE/PF 5,000 UNIT/0.5 ML SYRINGE SQ SCH ×3 (07:59→20:06)
[2022-02-18] MEDS: LOSARTAN 50 MG TAB PO SCH (08:02)
[2022-02-18] MEDS: METOPROLOL TARTRATE 25 MG TAB PO SCH ×2 (08:02→20:05)
[2022-02-18] MEDS: ASPIRIN 81 MG PO SCH (08:02)
[2022-02-18] MEDS: DOCUSATE 100 MG CAP PO SCH ×2 (08:02→20:05)
[2022-02-18] MEDS: PANTOPRAZOLE 40 MG TABLET PO SCH (08:02)
[2022-02-18] MEDS: CHOLECALCIFEROL 25 MCG (1000 IU) TABLET PO SCH (08:02)
[2022-02-18 09:40] LABS: HCT 24.7 % (39.6-50.0); MCH 32.8 pg (27.0-32.0); MCHC 32.4 g/dL (32.0-37.0); MCV 101.2 fL (80.0-97.0); NRBC Per 100 WBC 0 /100 WBCS (0.0-0.0); Platelet Count 183 X 10*3/uL (140-440); RBC 2.44 X 10*6/uL (4.40-5.60); RDW 15.1 % (11.5-14.5); WBC 4.22 X 10*3/uL (4.50-10.00)
[2022-02-18 09:50] LABS: African American GFR (CKD) 83.8 (60.0-200.0); Anion Gap 9.7 mmol/L (10.00-18.00); BUN/Creat Ratio 21.6 Ratio (12.00-20.00); Blood Urea Nitrogen 21.6 mg/dL (9.0-27.0); Calcium 8.7 mg/dL (8.7-10.3); Carbon Dioxide 22.3 mmol/L (20.0-27.5); Non-African American GFR(CKD) 72.3 (60.0-200.0); Potassium 4.2 mmol/L (3.5-5.5)
--- NOTE | 2022-02-18 16:08 | P.PN ---
Subjective Progress Note Date: 02/18/22 (delayed charting ) Patient is a 76-year-old male with history of CML, coronary artery disease, a ortic valve stenosis presented with fever and generalized weakness 4 days after left heart cath. He did not have any stents deployed during that time. In the ED, his T-max was 100.3. CT abdomen and pelvis showed mild pericardial effusion with no change, minimal stranding around mid and proximal sigmoid colon, Bilateral perinephric fat stranding. Chest x-ray showed left lower lobe opacity and concerning for pneumonia, mild vascular congestion. He was admitted and was started on IV antibiotics. Blood cultures came back positive for MSSA. ID consulted and recommended starting patient on Cefazolin, and recommended VICENTE. Oncology and cardiology also consulted. Patient refused VICENTE as he just had one done and does not feel necessarily as just had one completed and feel it is more risk secondary to his pneumonia.Infectious disease recommend tagged WBC scan to rule out other sources of infection. Patient seen and examined at bedside. Feeling well. Has already received nuclear tracer. No complaints currently. The patient that he will be here through Monday to obtain insurance authorization for antibiotics and a termination of midline versus PICC line. General: nontoxic, no distress, appears at stated age Derm: warm, dry Head: atraumatic, normocephalic, symmetric Eyes: EOMI, no lid lag, anicteric sclera Mouth: no lip lesion, mucus membranes moist Cardiovascular: S1S2 reg, grade 3 systolic ejection murmur, positive posterior tibial pulse bilateral, Lungs: CTA bilateral, no rhonchi, no rales , no accessory muscle use Abdominal: soft, nontender to palpation, no guarding, no appreciable organomegaly Ext: no gross muscle atrophy, trace edema, no contractures Neuro: CN II-XI grossly intact, no focal neuro deficits Psych: Alert, oriented, appropriate affect Assessment and Plan: MSSA bacteremia Community acquired pneumonia Severe aortic stenosis Small pericardial effusion -Repeat blood cultures negative to date (>48 hours) -Infectious disease recommendations appreciated: Continue with cefalozin, Will need 2 or 6 weeks abx on discharge depending on results of tagged WBC scan -Patient has refused VICENTE, doubt endocarditis with how rapidly blood cultures cleared. -Cardiology signed off Acute kidney injury, nonoliguric, improved -Continue to monitor urine output -Likely prerenal Chronic conditions CML - oncology consulted, patient is currently on immunotherapy, being held during treatment of infection h/o CAD s/p 3 stents , recent left heart cath no stent needed recent removal of basal cell cancer left nose Aortic valve stenosis DVT prophylaxis: Heparin Discussed with: Patient, family, nursing Anticipated discharge: on 02/21/[address]: home A total of [35] minutes was spent on the care of this complex patient more than 50% of the time was spent in counseling and care coordination. Active Medications Generic Name Dose Route Start Last Admin Trade Name Freq PRN Reason Stop Dose Admin Acetaminophen 650 mg 02/14/22 00:13 02/17/22 09:24 Acetaminophen Tab 325 Mg Tab PO 650 mg Q6HR PRN Administration Mild Pain or Fever > 100.5 Hydrocodone Bitart/Acetaminophen 1 each 02/14/22 00:13 02/15/22 15:30 Hydrocodone/Apap 5-325mg 1 Each Tab PO 1 each Q4HR PRN Administration Moderate Pain (Scale 4 to 6) Albuterol Sulfate 2.5 mg 02/15/22 07:55 Albuterol Nebulized 2.5 Mg/3 Ml INHALATION RT-Q6H PRN Shortness Of Breath Aspirin 81 mg 02/15/22 09:00 02/18/22 08:02 Aspirin 81 Mg PO 81 mg DAILY JACOB Administration Cholecalciferol 50 mcg 02/15/22 10:00 02/18/22 08:02 Cholecalciferol 25 Mcg (1000 Iu) Tablet PO 50 mcg DAILY JACOB Administration Docusate Sodium 100 mg 02/15/22 09:00 02/18/22 08:02 Docusate 100 Mg Cap PO 100 mg BID JACOB Administration Heparin Sodium (Porcine) 5,000 unit 02/14/22 08:00 02/18/22 15:40 Heparin Sodium,Porcine/Pf 5,000 Unit/0.5 Ml Syringe SQ Not Given Q8HR JACOB Cefazolin Sodium 2 gm/ Sodium 50 mls @ 100 mls/hr 02/15/22 16:00 02/18/22 08:02 Chloride IVPB 100 mls/hr Q8HR JACOB Administration Protocol Losartan Potassium 50 mg 02/17/22 09:00 02/18/22 08:02 Losartan 50 Mg Tab PO 50 mg DAILY JACOB Administration Metoprolol Tartrate 25 mg 02/15/22 09:00 02/18/22 08:02 Metoprolol Tartrate 25 Mg Tab PO 25 mg BID JACOB Administration Miscellaneous Information 1 each 02/13/22 23:56 Pneumonia Protocol Utilized 1 Each Misc PO ONCE PRN Per Protocol Naloxone HCl 0.2 mg 02/14/22 00:13 Naloxone 0.4 Mg/Ml 1 Ml Vial IV Q2M PRN Opioid Reversal Non-Formulary Medication 1 inhalation 02/15/22 07:55 Fluticasone/Vilanterol [Breo Ellipta 200-25 Mcg Inhaler] INHALATION QID PRN Shortness Of Breath Ondansetron HCl 4 mg 02/14/22 00:13 02/15/22 14:07 Ondansetron 4 Mg/2 Ml Vial IVP 4 mg Q8HR PRN Administration Nausea And Vomiting Pantoprazole Sodium 40 mg 02/15/22 07:30 02/18/22 08:02 Pantoprazole 40 Mg Tablet PO 40 mg AC-BRKFST AJCOB Administration Objective - Vital Signs Vital signs: Vital Signs Temp 98.0 F 02/18/22 12:37 Pulse 63 02/18/22 12:37 Resp 18 02/18/22 12:37 BP 161/72 02/18/22 12:37 Pulse Ox 98 02/18/22 12:37 FiO2 Intake & Output 02/17/22 02/18/22 02/18/22 18:59 06:59 18:59 Intake Total 700 Balance 700 Weight 96.162 kg Intake: Intake, IV Titration 100 Amount ceFAZolin 2 gm In Sodium 100 Chloride 0.9% 50 ml @ 100 mls/hr IVPB Q8HR [facility] Rx# :[id number] Oral 600 Other: Voiding Method Toilet Toilet # Voids 4 3 # Bowel Movements 1 - Labs CBC & Chem 7: 02/18/22 05:09 02/18/22 05:09 Labs: Abnormal Lab Results - Last 24 Hours (Table) 02/18/22 02/18/22 Range/Units 05:09 05:09 WBC 4.22 L (4.50-10.00) X 10*3/uL RBC 2.44 L (4.40-5.60) X 10*6/uL Hgb 8.0 L (13.0-17.0) g/dL Hct 24.7 L (39.6-50.0) % MCV 101.2 H (80.0-97.0) fL MCH 32.8 H (27.0-32.0) pg RDW 15.1 H (11.5-14.5) % Anion Gap 9.70 L (10.00-18.00) mmol/L BUN/Creatinine Ratio 21.60 H (12.00-20.00) Ratio Microbiology - Last 24 Hours (Table) 02/15/22 08:25 Blood Culture - Preliminary Blood No Growth after 72 hours 02/15/22 08:22 Blood Culture - Preliminary Blood No Growth after 72 hours 02/13/22 18:02 Gram Stain - Preliminary Sputum Sputum Culture - Preliminary 02/16/22 06:01 Blood Culture - Preliminary Blood No Growth after 48 hours 02/17/22 05:32 Blood Culture - Preliminary Blood No Growth after 24 hours
--- NOTE | 2022-02-18 16:19 | NM ---
EXAMINATION TYPE: NM WBC whole body DATE OF EXAM: 02/18/2022 COMPARISON: 10/22/2021 HISTORY: Bacteremia TECHNIQUE: Following administration of 13.9 mCi Tc99m Ceretec. Images obtained 3 hours post injecti on. FINDINGS: Normal physiological tracer activity is noted in the liver and spleen and in the bone marrow of the a xial and appendicular skeleton. Injection site is noted on the left antecubital fossa. No abnormal radiotracer accumulation is evident. IMPRESSION: Normal white blood cell scan. No evidence for abnormal tracer activity.
--- NOTE | 2022-02-18 20:04 | P.PN ---
Subjective Progress Note Date: 02/18/22 Principal diagnosis: MSSA bacteremia Patient is a 76-year-old male with multiple comorbidities including coronary artery disease CML cholecystitis patient was brought into the ER for evaluation of fever and generalized weakness, patient did have evidence of MSSA bacteremia. on today's evaluation that is 02/18/2022, the patient remains to be afebrile, the patient is breathing comfortably on room air. No chest pain or shortness of breath occasional cough no nausea no vomiting no abdominal pain or diarrhea, overall feeling better no new symptoms Objective - Vital Signs Vital signs: Vital Signs Temp 97.6 F 02/18/22 04:27 Pulse 69 02/18/22 04:27 Resp 18 02/18/22 04:27 BP 129/75 02/18/22 04:27 Pulse Ox 95 02/18/22 04:27 FiO2 Intake & Output 02/17/22 02/18/22 02/18/22 18:59 06:59 18:59 Intake Total 700 Balance 700 Weight 96.162 kg Intake: Intake, IV Titration 100 Amount ceFAZolin 2 gm In Sodium 100 Chloride 0.9% 50 ml @ 100 mls/hr IVPB Q8HR [facility] Rx# :[id number] Oral 600 Other: Voiding Method Toilet Toilet # Voids 4 3 # Bowel Movements 1 - Exam GENERAL DESCRIPTION: An elderly male lying in bed in no distress RESPIRATORY SYSTEM: Unlabored breathing , decreased breath sounds at bases HEART: S1 S2 regular rate and rhythm , loud systolic murmur ABDOMEN: Soft , no tenderness EXTREMITIES: No edema feet, right ankle incision is intact and there is no swelling no redness no tenderness Patient did not have any tenderness to cervical thoracic or lumbar spine No open wound or cellulitis - Labs CBC & Chem 7: 02/18/22 05:09 02/18/22 05:09 Labs: Abnormal Lab Results - Last 24 Hours (Table) 02/18/22 02/18/22 Range/Units 05:09 05:09 WBC 4.22 L (4.50-10.00) X 10*3/uL RBC 2.44 L (4.40-5.60) X 10*6/uL Hgb 8.0 L (13.0-17.0) g/dL Hct 24.7 L (39.6-50.0) % MCV 101.2 H (80.0-97.0) fL MCH 32.8 H (27.0-32.0) pg RDW 15.1 H (11.5-14.5) % Anion Gap 9.70 L (10.00-18.00) mmol/L BUN/Creatinine Ratio 21.60 H (12.00-20.00) Ratio Microbiology - Last 24 Hours (Table) 02/15/22 08:25 Blood Culture - Preliminary Blood No Growth after 72 hours 02/15/22 08:22 Blood Culture - Preliminary Blood No Growth after 72 hours 02/13/22 18:02 Gram Stain - Preliminary Sputum Sputum Culture - Preliminary 02/16/22 06:01 Blood Culture - Preliminary Blood No Growth after 48 hours 02/17/22 05:32 Blood Culture - Preliminary Blood No Growth after 24 hours Assessment and Plan (1) Bacteremia Current Visit: Yes Status: Acute Code(s): R78.81 - BACTEREMIA SNOMED Code(s): 1963380 Plan: 1patient presented to hospital with fever and generalized weakness now with evidence of MSSA bacteremia question of endovascular source patient did have a loud systolic murmur, CT abdominal pelvis did not show significant intra abdominal pathology and did not mention any consolidation at the lung bases with the x-ray was suspicious of. 2patient recently did have VICENTE 3 days before this hospitalization and was negative 3blood cultures has been repeated which are negative so far, tagged WBC scan completed today 02/18/2022 and was normal 4patient to continue with cefazolin 2 g every 8 hours with a plan for midline 2 weeks of IV cefazolin and a close outpatient follow-up, will be planning on repeating his cultures after completion of his antibiotics to make sure no evidence of any recurrence of his bacteremia that may need further workup at that point Time with Patient: Less than 30
[2022-02-19] MEDS: CHOLECALCIFEROL 25 MCG (1000 IU) TABLET PO SCH (09:23)
[2022-02-19] MEDS: DOCUSATE 100 MG CAP PO SCH ×2 (09:23→19:47)
[2022-02-19] MEDS: HEPARIN SODIUM,PORCINE/PF 5,000 UNIT/0.5 ML SYRINGE SQ SCH ×3 (09:23→19:51)
[2022-02-19] MEDS: METOPROLOL TARTRATE 25 MG TAB PO SCH ×2 (09:23→19:47)
[2022-02-19] MEDS: PANTOPRAZOLE 40 MG TABLET PO SCH (09:23)
[2022-02-19] MEDS: ASPIRIN 81 MG PO SCH (09:23)
[2022-02-19] MEDS: LOSARTAN 50 MG TAB PO SCH (09:23)
--- NOTE | 2022-02-19 11:42 | P.PN ---
Subjective Progress Note Date: 02/19/22 Principal diagnosis: MSSA bacteremia Patient is a 76-year-old male with multiple comorbidities including coronary artery disease CML cholecystitis patient was brought into the ER for evaluation of fever and generalized weakness, patient did have evidence of MSSA bacteremia. on today's evaluation that is 02/19/2022, the patient continues to be afebrile, the patient is breathing comfortably on room air, the patient denies chest pain or shortness of breath , the patient did have occasional cough no nausea no vomiting no abdominal pain or diarrhea, Objective - Vital Signs Vital signs: Vital Signs Temp 97.6 F 02/19/22 08:40 Pulse 63 02/19/22 08:40 Resp 18 02/19/22 08:40 BP 157/74 02/19/22 08:40 Pulse Ox 98 02/19/22 08:40 FiO2 Intake & Output 02/18/22 02/19/22 02/19/22 18:59 06:59 18:59 Intake Total 650 Balance 650 Intake: Intake, IV Titration 50 Amount ceFAZolin 2 gm In Sodium 50 Chloride 0.9% 50 ml @ 100 mls/hr IVPB Q8HR [facility] Rx# :[id number] Oral 600 Other: Voiding Method Toilet # Voids 3 3 - Exam GENERAL DESCRIPTION: An elderly male lying in bed in no distress RESPIRATORY SYSTEM: Unlabored breathing , decreased breath sounds at bases HEART: S1 S2 regular rate and rhythm , loud systolic murmur ABDOMEN: Soft , no tenderness EXTREMITIES: No edema feet, right ankle incision is intact and there is no swelling no redness no tenderness Patient did not have any tenderness to cervical thoracic or lumbar spine No open wound or cellulitis - Labs CBC & Chem 7: 02/18/22 05:09 02/18/22 05:09 Labs: Abnormal Lab Results - Last 24 Hours (Table) 02/18/22 Range/Units 05:09 Anion Gap 9.70 L (10.00-18.00) mmol/L BUN/Creatinine Ratio 21.60 H (12.00-20.00) Ratio Microbiology - Last 24 Hours (Table) 02/13/22 18:02 Gram Stain - Final Sputum Sputum Culture - Final 02/16/22 06:01 Blood Culture - Preliminary Blood No Growth after 72 hours 02/17/22 05:32 Blood Culture - Preliminary Blood No Growth after 48 hours 02/15/22 08:25 Blood Culture - Preliminary Blood No Growth after 72 hours 02/15/22 08:22 Blood Culture - Preliminary Blood No Growth after 72 hours Assessment and Plan (1) Bacteremia Current Visit: Yes Status: Acute Code(s): R78.81 - BACTEREMIA SNOMED Code(s): 3123836 Plan: 1patient presented to hospital with fever and generalized weakness now with evidence of MSSA bacteremia question of endovascular source patient did have a loud systolic murmur, CT abdominal pelvis did not show significant intra abdomi nal pathology and did not mention any consolidation at the lung bases with the x-ray was suspicious of. 2patient recently did have VICENTE 3 days before this hospitalization and was negative 3blood cultures has been repeated which are negative so far, tagged WBC scan completed today 02/18/2022 and was normal 4patient to continue with cefazolin 2 g every 8 hours with a plan for midline and 2 weeks of IV cefazolin on discharge and close outpatient follow-up prescription was provided to the RN, once outpatient medical range he'll be able to go home from ID standpoint Time with Patient: Less than 30
--- NOTE | 2022-02-19 13:58 | P.PN ---
Subjective Progress Note Date: 02/19/22 Patient is a 76-year-old male with history of CML, coronary artery disease, aortic valve stenosis presented with fever and generalized weakness 4 days after left heart cath. He did not have any stents deployed during that time. In the ED, his T-max was 100.3. CT abdomen and pelvis showed mild pericardial effusion with no change, minimal stranding around mid and proximal sigmoid colon, Bilate ral perinephric fat stranding. Chest x-ray showed left lower lobe opacity and concerning for pneumonia, mild vascular congestion. He was admitted and was started on IV antibiotics. Blood cultures came back positive for MSSA. ID consulted and recommended starting patient on Cefazolin, and recommended VICENTE. Oncology and cardiology also consulted. Patient refused VICENTE as he just had one done and does not feel necessarily as just had one completed and feel it is more risk secondary to his pneumonia.Infectious disease recommend tagged WBC scan to rule out other sources of infection, which came back negative. Midline 2 weeks of IV abx. Patient seen and examined at bedside. Doing well, no diarrhea, at bedside and all questions answered. General: nontoxic, no distress, appears at stated age Derm: warm, dry Head: atraumatic, normocephalic, symmetric Eyes: EOMI, no lid lag, anicteric sclera Mouth: no lip lesion, mucus membranes moist Cardiovascular: S1S2 reg, grade 3 systolic ejection murmur, positive posterior tibial pulse bilateral, Lungs: CTA bilateral, no rhonchi, no rales , no accessory muscle use Abdominal: soft, nontender to palpation, no guarding, no appreciable organomegaly Ext: no gross muscle atrophy, trace edema, no contractures Neuro: CN II-XI grossly intact, no focal neuro deficits Psych: Alert, oriented, appropriate affect Assessment and Plan: MSSA bacteremia Community acquired pneumonia Severe aortic stenosis Small pericardial effusion -Repeat blood cultures negative to date (>48 hours) -Infectious disease recommendations appreciated: discussed with Dr. Bojorquez Continue with cefalozin, Will need 2 weeks abx on discharge depending on results of tagged WBC scan - midine on monday -Patient has refused VICENTE, doubt endocarditis with how rapidly blood cultures cleared. -Cardiology signed off Acute kidney injury, nonoliguric, improved -Continue to monitor urine output -Likely prerenal Chronic conditions CML - oncology consulted, patient is currently on immunotherapy, being held during treatment of infection h/o CAD s/p 3 stents , recent left heart cath no stent needed recent removal of basal cell cancer left nose Aortic valve stenosis DVT prophylaxis: Heparin Discussed with: Patient, family, nursing Anticipated discharge: on 02/21/[address]: home A total of 30 minutes was spent on the care of this complex patient more than 50% of the time was spent in counseling and care coordination. Active Medications Generic Name Dose Route Start Last Admin Trade Name Freq PRN Reason Stop Dose Admin Acetaminophen 650 mg 02/14/22 00:13 02/17/22 09:24 Acetaminophen Tab 325 Mg Tab PO 650 mg Q6HR PRN Administration Mild Pain or Fever > 100.5 Hydrocodone Bitart/Acetaminophen 1 each 02/14/22 00:13 02/15/22 15:30 Hydrocodone/Apap 5-325mg 1 Each Tab PO 1 each Q4HR PRN Administration Moderate Pain (Scale 4 to 6) Albuterol Sulfate 2.5 mg 02/15/22 07:55 Albuterol Nebulized 2.5 Mg/3 Ml INHALATION RT-Q6H PRN Shortness Of Breath Aspirin 81 mg 02/15/22 09:00 02/19/22 09:23 Aspirin 81 Mg PO 81 mg DAILY JACOB Administration Cholecalciferol 50 mcg 02/15/22 10:00 02/19/22 09:23 Cholecalciferol 25 Mcg (1000 Iu) Tablet PO 50 mcg DAILY JACOB Administration Docusate Sodium 100 mg 02/15/22 09:00 02/19/22 09:23 Docusate 100 Mg Cap PO 100 mg BID JACOB Administration Heparin Sodium (Porcine) 5,000 unit 02/14/22 08:00 02/19/22 09:23 Heparin Sodium,Porcine/Pf 5,000 Unit/0.5 Ml Syringe SQ Not Given Q8HR JACOB Cefazolin Sodium 2 gm/ Sodium 50 mls @ 100 mls/hr 02/15/22 16:00 02/19/22 09:23 Chloride IVPB 100 mls/hr Q8HR JACOB Administration Protocol Losartan Potassium 50 mg 02/17/22 09:00 02/19/22 09:23 Losartan 50 Mg Tab PO 50 mg DAILY JACOB Administration Metoprolol Tartrate 25 mg 02/15/22 09:00 02/19/22 09:23 Metoprolol Tartrate 25 Mg Tab PO 25 mg BID JACOB Administration Miscellaneous Information 1 each 02/13/22 23:56 Pneumonia Protocol Utilized 1 Each Misc PO ONCE PRN Per Protocol Naloxone HCl 0.2 mg 02/14/22 00:13 Naloxone 0.4 Mg/Ml 1 Ml Vial IV Q2M PRN Opioid Reversal Non-Formulary Medication 1 inhalation 02/15/22 07:55 Fluticasone/Vilanterol [Breo Ellipta 200-25 Mcg Inhaler] INHALATION QID PRN Shortness Of Breath Ondansetron HCl 4 mg 02/14/22 00:13 02/15/22 14:07 Ondansetron 4 Mg/2 Ml Vial IVP 4 mg Q8HR PRN Administration Nausea And Vomiting Pantoprazole Sodium 40 mg 02/15/22 07:30 02/19/22 09:23 Pantoprazole 40 Mg Tablet PO 40 mg AC-BRKFST JACOB Administration Objective - Vital Signs Vital signs: Vital Signs Temp 98.0 F 02/19/22 12:40 Pulse 61 02/19/22 12:40 Resp 16 02/19/22 12:40 BP 161/79 02/19/22 12:40 Pulse Ox 100 02/19/22 12:40 FiO2 Intake & Output 02/18/22 02/19/22 02/19/22 18:59 06:59 18:59 Intake Total 650 Balance 650 Intake: Intake, IV Titration 50 Amount ceFAZolin 2 gm In Sodium 50 Chloride 0.9% 50 ml @ 100 mls/hr IVPB Q8HR [facility] Rx# :[id number] Oral 600 Other: Voiding Method Toilet Toilet # Voids 3 3 - Labs CBC & Chem 7: 02/18/22 05:09 02/18/22 05:09 Labs: Microbiology - Last 24 Hours (Table) 02/15/22 08:22 Blood Culture - Preliminary Blood No Growth after 96 hours 02/15/22 08:25 Blood Culture - Preliminary Blood No Growth after 96 hours 02/13/22 18:02 Gram Stain - Final Sputum Sputum Culture - Final 02/16/22 06:01 Blood Culture - Preliminary Blood No Growth after 72 hours 02/17/22 05:32 Blood Culture - Preliminary Blood No Growth after 48 hours
[2022-02-20] MEDS: CHOLECALCIFEROL 25 MCG (1000 IU) TABLET PO SCH (09:18)
[2022-02-20] MEDS: PANTOPRAZOLE 40 MG TABLET PO SCH (09:18)
[2022-02-20] MEDS: METOPROLOL TARTRATE 25 MG TAB PO SCH ×2 (09:18→20:04)
[2022-02-20] MEDS: ASPIRIN 81 MG PO SCH (09:18)
[2022-02-20] MEDS: LOSARTAN 50 MG TAB PO SCH (09:18)
[2022-02-20] MEDS: DOCUSATE 100 MG CAP PO SCH ×2 (09:18→20:04)
[2022-02-20] MEDS: HEPARIN SODIUM,PORCINE/PF 5,000 UNIT/0.5 ML SYRINGE SQ SCH ×3 (09:19→20:04)
[2022-02-20 09:33] LABS: Basophils # (A) 0.04 X 10*3/uL (0.00-0.10); Basophils % (A) 0.8 %; Eosinophils # (A) 0.09 X 10*3/uL (0.04-0.35); Eosinophils % (A) 1.9 %; HGB 8.4 g/dL (13.0-17.0); Immature Grans, Automated 0.8 %; Lymphocytes # (A) 1.95 X 10*3/uL (0.90-5.00); Lymphocytes % (A) 41.2 %; MCH 33.5 pg (27.0-32.0); MCHC 32.3 g/dL (32.0-37.0); MCV 103.6 fL (80.0-97.0); Mean Platelet Volume 9.6 fL (9.5-12.2); Monocytes # (A) 0.45 X 10*3/uL (0.20-1.00); Monocytes % (A) 9.5 %; NRBC Per 100 WBC 0 /100 WBCS (0.0-0.0); Neutrophils # (A) 2.16 X 10*3/uL (1.80-7.70); Neutrophils % (A) 45.8 %; Platelet Count 250 X 10*3/uL (140-440); RBC 2.51 X 10*6/uL (4.40-5.60); Reticulocyte % 1.95 % (0.10-1.80); WBC 4.73 X 10*3/uL (4.50-10.00)
[2022-02-20 10:08] LABS: % Iron Saturation 22.54 (15.00-50.00); African American GFR (CKD) 96.8 (60.0-200.0); Albumin 3.5 g/dL (3.8-4.9); Albumin/Globulin Ratio 1.6 (1.60-3.17); BUN/Creat Ratio 15.28 Ratio (12.00-20.00); Blood Urea Nitrogen 13.2 mg/dL (9.0-27.0); Carbon Dioxide 23.8 mmol/L (20.0-27.5); Globulin 2.2 g/dL (1.6-3.3); Non-African American GFR(CKD) 83.5 (60.0-200.0); Potassium 4.6 mmol/L (3.5-5.5); Total Bilirubin 0.2 mg/dL (0.30-1.20); Total Protein 5.7 g/dL (6.2-8.2)
--- NOTE | 2022-02-20 11:22 | P.PN ---
Subjective Progress Note Date: 02/20/22 Patient is a 76-year-old male with history of CML, coronary artery disease, aortic valve stenosis presented with fever and generalized weakness 4 days after left heart cath. He did not have any stents deployed during that time. In the ED, his T-max was 100.3. CT abdomen and pelvis showed mild pericardial effusion with no change, minimal stranding around mid and proximal sigmoid colon, Bilate ral perinephric fat stranding. Chest x-ray showed left lower lobe opacity and concerning for pneumonia, mild vascular congestion. He was admitted and was started on IV antibiotics. Blood cultures came back positive for MSSA. ID consulted and recommended starting patient on Cefazolin, and recommended VICENTE. Oncology and cardiology also consulted. Patient refused VICENTE as he just had one done and does not feel necessarily as just had one completed and feel it is more risk secondary to his pneumonia.Infectious disease recommend tagged WBC scan to rule out other sources of infection, which came back negative. Midline 2 weeks of IV abx. Patient seen and examined at bedside. No complaints currently, other than recurrent blood draws. Denies any chest pain, shortness of breath. General: nontoxic, no distress, appears at stated age Derm: warm, dry Head: atraumatic, normocephalic, symmetric Eyes: EOMI, no lid lag, anicteric sclera Mouth: no lip lesion, mucus membranes moist Cardiovascular: S1S2 reg, grade 3 systolic ejection murmur, positive posterior tibial pulse bilateral, Lungs: CTA bilateral, no rhonchi, no rales , no accessory muscle use Neuro: CN II-XI grossly intact, no focal neuro deficits Psych: Alert, oriented, appropriate affect Assessment and Plan: MSSA bacteremia Community acquired pneumonia Severe aortic stenosis Small pericardial effusion -Repeat blood cultures negative to date -Infectious disease recommendations appreciated: dcefalozin, Will need 2 weeks abx on discharge - midine on monday -Patient has refused VICENTE, doubt endocarditis with how rapidly blood cultures cleared. -Cardiology signed off Acute kidney injury, nonoliguric, improved -Continue to monitor urine output -Likely prerenal Chronic conditions CML - oncology consulted, patient is currently on immunotherapy, being held during treatment of infection h/o CAD s/p 3 stents , recent left heart cath no stent needed recent removal of basal cell cancer left nose Aortic valve stenosis DVT prophylaxis: Heparin Discussed with: Patient, nursing Anticipated discharge: on 02/21/[address]: home A total of 30 minutes was spent on the care of this complex patient more than 50% of the time was spent in counseling and care coordination. Active Medications Generic Name Dose Route Start Last Admin Trade Name Freq PRN Reason Stop Dose Admin Acetaminophen 650 mg 02/14/22 00:13 02/17/22 09:24 Acetaminophen Tab 325 Mg Tab PO 650 mg Q6HR PRN Administration Mild Pain or Fever > 100.5 Hydrocodone Bitart/Acetaminophen 1 each 02/14/22 00:13 02/15/22 15:30 Hydrocodone/Apap 5-325mg 1 Each Tab PO 1 each Q4HR PRN Administration Moderate Pain (Scale 4 to 6) Albuterol Sulfate 2.5 mg 02/15/22 07:55 Albuterol Nebulized 2.5 Mg/3 Ml INHALATION RT-Q6H PRN Shortness Of Breath Aspirin 81 mg 02/15/22 09:00 02/20/22 09:18 Aspirin 81 Mg PO 81 mg DAILY JACOB Administration Cholecalciferol 50 mcg 02/15/22 10:00 02/20/22 09:18 Cholecalciferol 25 Mcg (1000 Iu) Tablet PO 50 mcg DAILY JACOB Administration Docusate Sodium 100 mg 02/15/22 09:00 02/20/22 09:18 Docusate 100 Mg Cap PO 100 mg BID JACOB Administration Heparin Sodium (Porcine) 5,000 unit 02/14/22 08:00 02/20/22 09:19 Heparin Sodium,Porcine/Pf 5,000 Unit/0.5 Ml Syringe SQ Not Given Q8HR JACOB Cefazolin Sodium 2 gm/ Sodium 50 mls @ 100 mls/hr 02/15/22 16:00 02/20/22 09:18 Chloride IVPB 100 mls/hr Q8HR JACOB Administration Protocol Losartan Potassium 50 mg 02/17/22 09:00 02/20/22 09:18 Losartan 50 Mg Tab PO 50 mg DAILY JACOB Administration Metoprolol Tartrate 25 mg 02/15/22 09:00 02/20/22 09:18 Metoprolol Tartrate 25 Mg Tab PO 25 mg BID JACOB Administration Miscellaneous Information 1 each 02/13/22 23:56 Pneumonia Protocol Utilized 1 Each Misc PO ONCE PRN Per Protocol Naloxone HCl 0.2 mg 02/14/22 00:13 Naloxone 0.4 Mg/Ml 1 Ml Vial IV Q2M PRN Opioid Reversal Non-Formulary Medication 1 inhalation 02/15/22 07:55 Fluticasone/Vilanterol [Breo Ellipta 200-25 Mcg Inhaler] INHALATION QID PRN Shortness Of Breath Ondansetron HCl 4 mg 02/14/22 00:13 02/15/22 14:07 Ondansetron 4 Mg/2 Ml Vial IVP 4 mg Q8HR PRN Administration Nausea And Vomiting Pantoprazole Sodium 40 mg 02/15/22 07:30 02/20/22 09:18 Pantoprazole 40 Mg Tablet PO 40 mg AC-BRKFST JACOB Administration Objective - Vital Signs Vital signs: Vital Signs Temp 97.7 F 02/20/22 08:17 Pulse 64 02/20/22 08:17 Resp 16 02/20/22 08:17 BP 151/75 02/20/22 08:17 Pulse Ox 99 02/20/22 08:17 FiO2 Intake & Output 02/19/22 02/20/22 02/20/22 18:59 06:59 18:59 Intake Total 100 650 Balance 100 650 Intake: Intake, IV Titration 100 50 Amount ceFAZolin 2 gm In Sodium 100 50 Chloride 0.9% 50 ml @ 100 mls/hr IVPB Q8HR [facility] Rx# :[id number] Oral 600 Other: Voiding Method Toilet Toilet # Voids 2 - Labs CBC & Chem 7: 02/20/22 06:12 02/20/22 05:16 Labs: Abnormal Lab Results - Last 24 Hours (Table) 02/19/22 02/20/22 02/20/22 Range/Units 05:09 05:16 06:12 RBC 2.51 L (4.40-5.60) X 10*6/uL Hgb 8.4 L (13.0-17.0) g/dL Hct 26.0 L (39.6-50.0) % MCV 103.6 H (80.0-97.0) fL MCH 33.5 H (27.0-32.0) pg RDW 15.0 H (11.5-14.5) % Retic Count 1.95 H (0.10-1.80) % Anion Gap 9.00 L (10.00-18.00) mmol/L Glucose 116 H (70-110) mg/dL Iron 59 L (65-175) ug/dL Transferrin 186.0 L (204.0-354.0) mg/dL Total Bilirubin 0.20 L (0.30-1.20) mg/dL AST 54 H (14-35) U/L C-Reactive Protein 4.20 H (0.00-0.80) mg/dL Total Protein 5.7 L (6.2-8.2) g/dL Albumin 3.5 L (3.8-4.9) g/dL Microbiology - Last 24 Hours (Table) 02/15/22 08:22 Blood Culture - Preliminary Blood No Growth after 120 hours 02/15/22 08:25 Blood Culture - Preliminary Blood No Growth after 120 hours 02/16/22 06:01 Blood Culture - Preliminary Blood No Growth after 96 hours 02/17/22 05:32 Blood Culture - Preliminary Blood No Growth after 72 hours 02/13/22 18:02 Gram Stain - Final Sputum Sputum Culture - Final
--- NOTE | 2022-02-20 21:39 | P.PN ---
Subjective Progress Note Date: 02/20/22 Principal diagnosis: MSSA bacteremia Patient is a 76-year-old male with multiple comorbidities including coronary artery disease CML cholecystitis patient was brought into the ER for evaluation of fever and generalized weakness, patient did have evidence of MSSA bacteremia. on today's evaluation that is 02/20/2022, the patient remains to be afebrile, the patient is breathing comfortably on room air, the patient denies chest pain or shortness of breath , the patient did have occasional cough but not bringing up any sputum, the patient denies nausea no vomiting no abdominal pain or diarrhea, Objective - Vital Signs Vital signs: Vital Signs Temp 97.7 F 02/20/22 08:17 Pulse 64 02/20/22 08:17 Resp 16 02/20/22 08:17 BP 151/75 02/20/22 08:17 Pulse Ox 99 02/20/22 08:17 FiO2 Intake & Output 02/19/22 02/20/22 02/20/22 18:59 06:59 18:59 Intake Total 100 650 Balance 100 650 Intake: Intake, IV Titration 100 50 Amount ceFAZolin 2 gm In Sodium 100 50 Chloride 0.9% 50 ml @ 100 mls/hr IVPB Q8HR [facility] Rx# :[id number] Oral 600 Other: Voiding Method Toilet Toilet # Voids 2 - Exam GENERAL DESCRIPTION: An elderly male lying in bed in no distress RESPIRATORY SYSTEM: Unlabored breathing , decreased breath sounds at bases HEART: S1 S2 regular rate and rhythm , loud systolic murmur ABDOMEN: Soft , no tenderness EXTREMITIES: No edema feet, right ankle incision is intact and there is no swelling no redness no tenderness Patient did not have any tenderness to cervical thoracic or lumbar spine No open wound or cellulitis - Labs CBC & Chem 7: 02/20/22 06:12 02/20/22 05:16 Labs: Abnormal Lab Results - Last 24 Hours (Table) 02/19/22 02/20/22 02/20/22 Range/Units 05:09 05:16 06:12 RBC 2.51 L (4.40-5.60) X 10*6/uL Hgb 8.4 L (13.0-17.0) g/dL Hct 26.0 L (39.6-50.0) % MCV 103.6 H (80.0-97.0) fL MCH 33.5 H (27.0-32.0) pg RDW 15.0 H (11.5-14.5) % Retic Count 1.95 H (0.10-1.80) % Anion Gap 9.00 L (10.00-18.00) mmol/L Glucose 116 H (70-110) mg/dL Iron 59 L (65-175) ug/dL Transferrin 186.0 L (204.0-354.0) mg/dL Total Bilirubin 0.20 L (0.30-1.20) mg/dL AST 54 H (14-35) U/L C-Reactive Protein 4.20 H (0.00-0.80) mg/dL Total Protein 5.7 L (6.2-8.2) g/dL Albumin 3.5 L (3.8-4.9) g/dL Microbiology - Last 24 Hours (Table) 02/15/22 08:22 Blood Culture - Preliminary Blood No Growth after 120 hours 02/15/22 08:25 Blood Culture - Preliminary Blood No Growth after 120 hours 02/16/22 06:01 Blood Culture - Preliminary Blood No Growth after 96 hours 02/17/22 05:32 Blood Culture - Preliminary Blood No Growth after 72 hours 02/13/22 18:02 Gram Stain - Final Sputum Sputum Culture - Final Assessment and Plan (1) Bacteremia Current Visit: Yes Status: Acute Code(s): R78.81 - BACTEREMIA SNOMED Code(s): 1368110 Plan: 1patient presented to hospital with fever and generalized weakness now with evidence of MSSA bacteremia question of endovascular source patient did have a loud systolic murmur, CT abdominal pelvis did not show significant intra abdominal pathology and did not mention any consolidation at the lung bases with the x-ray was suspicious of. 2patient recently did have VICENTE 3 days before this hospitalization and was negative 3blood cultures has been repeated which are negative so far, tagged WBC scan completed today 02/18/2022 and was normal 4patient has shown clinical improvement the patient will continue with cefazolin 2 g every 8 hours with a plan for midline and 2 weeks of IV cefazolin on discharge and close outpatient follow-up Time with Patient: Less than 30
[2022-02-21 04:14] VITALS: TEMP 97.6
[2022-02-21] MEDS: HEPARIN SODIUM,PORCINE/PF 5,000 UNIT/0.5 ML SYRINGE SQ SCH (09:07)
[2022-02-21] MEDS: DOCUSATE 100 MG CAP PO SCH (09:13)
[2022-02-21] MEDS: LOSARTAN 50 MG TAB PO SCH (09:13)
[2022-02-21] MEDS: CHOLECALCIFEROL 25 MCG (1000 IU) TABLET PO SCH (09:13)
[2022-02-21] MEDS: ACETAMINOPHEN TAB 325 MG TAB PO PRN (09:13)
[2022-02-21] MEDS: ASPIRIN 81 MG PO SCH (09:13)
[2022-02-21] MEDS: PANTOPRAZOLE 40 MG TABLET PO SCH (09:13)
[2022-02-21] MEDS: METOPROLOL TARTRATE 25 MG TAB PO SCH (09:13)
[2022-02-21 12:22] VITALS: BP 168/81; PULSE 55; RESP 16
--- NOTE | 2022-02-21 14:46 | P.DS ---
Providers Date of admission: 02/14/22 00:14 Expected date of discharge: 02/21/22 Attending physician: Esther Kitchen MD Consults: 02/15/22 07:54 Consult Physician Urgent Consulting Provider: Vangie Bojorquez Consult Reason/Comments: staph auerus bacterermia, recent cath Do you want consulting provider notified?: Yes 02/15/22 08:04 Consult Physician Routine Consulting Provider: Berto Arellano Consult Reason/Comments: CML on immunotherapy, now bacteremic Do you want consulting provider notified?: Yes 02/15/22 10:48 Consult Physician Routine Consulting Provider: Audie Monreal Consult Reason/Comments: VICENTE scheduled Do you want consulting provider notified?: Yes Primary care physician: Rodolfo Healy [facility] Course: Discharge Diagnosis: MSSA bacteremia Community acquired pneumonia Severe aortic stenosis Small pericardial effusion Acute kidney injury, nonoliguric, improved CML h/o CAD s/p 3 stents , recent left heart cath no stent needed Recent removal of basal cell cancer left nose Aortic valve stenosis Hospital Course: Patient is a 76-year-old male with history of CML, coronary artery disease, aortic valve stenosis presented with fever and generalized weakness 4 days after left heart cath. He did not have any stents deployed during that time. In the ED, his T-max was 100.3. CT abdomen and pelvis showed mild pericardial effusion with no change, minimal stranding around mid and proximal sigmoid colon, Bilateral perinephric fat stranding. Chest x-ray showed left lower lobe opacity and concerning for pneumonia, mild vascular congestion. He was admitted and was started on IV antibiotics. Blood cultures came back positive for MSSA. ID consulted and recommended starting patient on Cefazolin, and recommended VICENTE. Oncology and cardiology also consulted. Patient refused VICENTE as he just had one done and does not feel necessarily as just had one completed and feel it is more risk secondary to his pneumonia. Infectious disease recommend tagged WBC scan to rule out other sources of infection, which came back negative. Midline 2 weeks of IV abx. He continued to well. He was discharged home in stable condition. Follow-up: He will complete 2 additional weeks of cefazolin, Dr. Bojorquez in 1 week, Dr. Arellano on 03/01, Dr. Healy in week, stay on probiotic while taking IV abx, off Spycel until infection is cleared. Patient seen and examined at bedside. Doing well. No complaints. No chest pain or shortness of breath. Vital signs reviewed and stable. General: nontoxic, no distress, appears at stated age Derm: warm, dry Head: atraumatic, normocephalic, symmetric Eyes: EOMI, no lid lag, anicteric sclera Mouth: no lip lesion, mucus membranes moist Cardiovascular: S1S2 reg, no murmur, positive posterior tibial pulse bilateral, Lungs: CTA bilateral, no rhonchi, no rales , no accessory muscle use Abdominal: soft, nontender to palpation, no guarding, no appreciable organomegaly Ext: no gross muscle atrophy, no edema, no contractures Neuro: CN II-XI grossly intact, no focal neuro deficits Psych: Alert, oriented, appropriate affect A total of 37 minutes of time were spent preparing this complex discharge summary. Patient was discharged on 02/21/22. Patient Condition at Discharge: Stable Plan - Discharge Summary Discharge Rx Participant: Yes New Discharge Prescriptions: New RX: ceFAZolin [Kefzol] 2 gm IVP Q8HR #42 each RX: Pantoprazole [Protonix] 40 mg PO AC-BRKFST tab Continue RX: valACYclovir HCL [Valtrex] 500 mg PO TID RX: Nitroglycerin Sl Tabs [Nitrostat] 0.4 mg SUBLINGUAL Q5M PRN PRN Reason: Pain RX: Metoprolol Tartrate [Lopressor] 25 mg PO BID RX: Losartan [Cozaar] 50 mg PO DAILY RX: Aspirin 81 mg PO DAILY RX: Ubidecarenone [Co Q-10] 100 mg PO DAILY RX: Omeprazole [PriLOSEC] 40 mg PO DAILY RX: Cholecalciferol (Vitamin D3) [Vitamin D3] 2,000 unit PO DAILY RX: Ascorbic Acid [Vitamin C] 1,000 mg PO DAILY RX: Docusate [Colace] 100 mg PO BID Cardiocentrum 2 tab PO DAILY RX: Albuterol Inhaler [Ventolin Hfa Inhaler] 1 - 2 puff INHALATION Q6H PRN PRN Reason: Shortness Of Breath RX: Fluticasone/Vilanterol [Breo Ellipta 200-25 Mcg Inhaler] 1 inhalation INHALATION QID PRN PRN Reason: Shortness Of Breath Quercetin 800 mg PO BID RX: Zinc Gluconate [Zinc] 50 mg PO DAILY RX: Cranberry Fruit [Cranberry] 465 mg PO DAILY RX: Furosemide [Lasix] 40 mg PO DAILY PRN PRN Reason: fluid retention Prosymbiotic 1 tab PO BID Discontinued Dasatinib [Sprycel] 100 mg PO 0300 Discharge Medication List RX: Ascorbic Acid [Vitamin C] 1,000 mg PO DAILY 10/24/18 [History] RX: Aspirin 81 mg PO DAILY 10/24/18 [History] RX: Cholecalciferol (Vitamin D3) [Vitamin D3] 2,000 unit PO DAILY 10/24/18 [History] RX: Losartan [Cozaar] 50 mg PO DAILY 10/24/18 [History] RX: Metoprolol Tartrate [Lopressor] 25 mg PO BID 10/24/18 [History] RX: Nitroglycerin Sl Tabs [Nitrostat] 0.4 mg SUBLINGUAL Q5M PRN 10/24/18 [History] RX: Omeprazole [PriLOSEC] 40 mg PO DAILY 10/24/18 [History] RX: Ubidecarenone [Co Q-10] 100 mg PO DAILY 10/24/18 [History] RX: valACYclovir HCL [Valtrex] 500 mg PO TID 10/24/18 [History] Cardiocentrum 2 tab PO DAILY 11/05/20 [History] RX: Docusate [Colace] 100 mg PO BID 11/05/20 [History] RX: Albuterol Inhaler [Ventolin Hfa Inhaler] 1 - 2 puff INHALATION Q6H PRN 02/09/22 [History] RX: Fluticasone/Vilanterol [Breo Ellipta 200-25 Mcg Inhaler] 1 inhalation INHALATION QID PRN 02/09/22 [History] Prosymbiotic 1 tab PO BID 02/14/22 [History] Quercetin 800 mg PO BID 02/14/22 [History] RX: Cranberry Fruit [Cranberry] 465 mg PO DAILY 02/14/22 [History] RX: Furosemide [Lasix] 40 mg PO DAILY PRN 02/14/22 [History] RX: Zinc Gluconate [Zinc] 50 mg PO DAILY 02/14/22 [History] RX: ceFAZolin [Kefzol] 2 gm IVP Q8HR #42 each 02/19/22 [Rx] RX: Pantoprazole [Protonix] 40 mg PO AC-BRKFST tab 02/21/22 [Rx] Follow up Appointment(s)/Referral(s): Berto Arellano MD [STAFF PHYSICIAN] - 03/01/22 1:15 pm Rodolfo Healy MD [Primary Care Provider] - 1-2 days [facility], [NON-STAFF] - 02/22/22 8:00 am [facility], [REFERRING] - 02/22/22 8:00 am ($50 weekly for medications $120 weekly for supplies) Vangie Bojorquez MD [STAFF PHYSICIAN] - 1 Week Activity/Diet/Wound Care/Special Instructions: Activity: as tolerated Diet: heart healthy Special Instructions: Take probiotic daily for the next 2 weeks while on antibiotics Off Sprycel until cleared by Dr. Bojorquez, Dr. Arellano is aware. Call Dr. Bojorquez office or come to the emergency department if issue develop with midline. Discharge Disposition: HOME WITH HOME HEALTH SERVICES
--- NOTE | 2022-02-25 22:08 | P.PN ---
Subjective Progress Note Date: 02/21/22 Principal diagnosis: MSSA bacteremia Patient is a 76-year-old male with multiple comorbidities including coronary artery disease CML cholecystitis patient was brought into the ER for evaluation of fever and generalized weakness, patient did have evidence of MSSA bacteremia. on today's evaluation that is 02/21/2022, the patient denies any fever or any chills, the patient is breathing comfortably on room air, the patient denies chest pain or shortness of breath , the patient did have occasional dry cough, the patient denies nausea no vomiting no abdominal pain or diarrhea, Objective - Vital Signs Vital signs: Vital Signs Temp 97.6 F 02/21/22 12:21 Pulse 55 L 02/21/22 12:21 Resp 16 02/21/22 12:21 BP 168/81 02/21/22 12:21 Pulse Ox 98 02/21/22 12:21 FiO2 Intake & Output 02/20/22 02/21/22 02/21/22 18:59 06:59 18:59 Intake Total 100 650 180 Balance 100 650 180 Intake: Intake, IV Titration 100 50 Amount ceFAZolin 2 gm In Sodium 100 50 Chloride 0.9% 50 ml @ 100 mls/hr IVPB Q8HR [facility] Rx# :[id number] Oral 600 180 Other: Voiding Method Toilet Toilet # Voids 2 - Exam GENERAL DESCRIPTION: An elderly male lying in bed in no distress RESPIRATORY SYSTEM: Unlabored breathing , decreased breath sounds at bases HEART: S1 S2 regular rate and rhythm , loud systolic murmur ABDOMEN: Soft , no tenderness EXTREMITIES: No edema feet, right ankle incision is intact and there is no swelling no redness no tenderness Patient did not have any tenderness to cervical thoracic or lumbar spine No open wound or cellulitis - Labs CBC & Chem 7: 02/20/22 06:12 02/20/22 05:16 Labs: Microbiology - Last 24 Hours (Table) 02/15/22 08:22 Blood Culture - Final Blood No Growth after 144 hours 02/15/22 08:25 Blood Culture - Final Blood No Growth after 144 hours 02/16/22 06:01 Blood Culture - Preliminary Blood No Growth after 120 hours 02/17/22 05:32 Blood Culture - Preliminary Blood No Growth after 96 hours Assessment and Plan (1) Bacteremia Status: Acute Code(s): R78.81 - BACTEREMIA SNOMED Code(s): 8576742 Plan: 1patient presented to hospital with fever and generalized weakness now with evidence of MSSA bacteremia question of endovascular source patient did have a loud systolic murmur, CT abdominal pelvis did not show significant intra abdominal pathology and did not mention any consolidation at the lung bases with the x-ray was suspicious of. 2patient recently did have VICENTE 3 days before this hospitalization and was negative 3blood cultures has been repeated which are negative so far, tagged WBC scan completed today 02/18/2022 and was normal 4patient has shown clinical improvement, plan is to finish a two-week course of cefazolin 2 g every 8 hours and close outpatient follow-up Time with Patient: Less than 30
--- NOTE | 2022-03-01 19:37 | CDI ---
Documentation Clarification Form Date: 03/01/2022 06:56:30 PM From: Kerri Yi RN, CCDS Admit Date: 02/14/2022 12:14:00 AM Patient Name: Ventura Miller Visit Number: [id number] Discharge Date: 02/21/2022 06:22:00 PM ATTENTION: The Clinical Documentation Specialists (CDI) and [facility] Coding Staff appreciate your assistance in clarifying documentation. Please respond to the clarification below the line at the bottom and electronically sign. The CDI & [facility] Coding staff will review the response and follow-up if needed. Please note: Queries are made part of the Legal Health Record. If you have any questions, please contact the author of this message via ITS. Dr. Kacie Avitia There is documentation of bacteremia. Bacteremia is considered a lab finding. Additional clarification regarding bacteremia is requested. 02/15 Cardiology consult: Sepsis secondary to Staph aureus bacteremia rule out endocarditis. Patient history/risk factors: Coronary artery disease Hypertension Cancer, CML Clinical Indicators: 76-year-old male present with fever and weakness. He had a cardiac catheterization however no stents were placed. He is also being treated for CML with daily chemotherapy. 02/13 Vital signs: 139/69 82 16 100.3 98 % RA 02/14 108/53 71 103.3 93 % RA 02/13 Labs: WBC 6.1 02/13 CXR: Left lower lobe airspace opacity concerning for acute infectious process such as pneumonia 02/14 Blood Culture: Staphylococcus aureus 02/21 ID Progress: Fever and generalized weakness now with evidence of MSSA bacteremia, 3 repeat blood cultures have been negative, tagged WBC scan 6 was normal Treatment: Vancomycin 1750 MG IVPB 02/15 PTD 02/15-02/16 Rocephin 2 GM 02/14-02/15, Cefazolin 2 GM IVPB Q 8 HRS 02/15-02/21 Zithromax 500MG PO Daily 02/14-02/15 Please provide additional clarification regarding the etiology/cause and/or clinical significance of the bacteremia: [ ] Bacteremia is related to sepsis [ X] Bacteremia is due to infectious process, please specify: __Pneumonia___ [ ] Other, please specify [ ] Unable to determine (Template Last Revised: May 2020) MTDD
== END 2022-02-21 18:22 | disposition home health service (06) | DRG 194 ==
LOC: EC 19:48 → 5NMEDONC 02-14 00:14
PROVIDERS: ADMIT Internal Medicine; ATTEND Internal Medicine
PROC: 05HA33Z Insertion of Infusion Device into Left Brachial Vein, Percutaneous Approach (ICD-10-PCS; principal; 2022-02-19)
DX: J18.9 Pneumonia, unspecified organism (principal); C92.10 Chronic myeloid leukemia, BCR/ABL-positive, not having achieved remission; D84.821 Immunodeficiency due to drugs; N17.9 Acute kidney failure, unspecified; I31.39 Other pericardial effusion (noninflammatory); R78.81 Bacteremia; R32 Unspecified urinary incontinence; I25.10 Atherosclerotic heart disease of native coronary artery without angina pectoris; D64.9 Anemia, unspecified; E78.5 Hyperlipidemia, unspecified; A49.01 Methicillin susceptible Staphylococcus aureus infection, unspecified site; I10 Essential (primary) hypertension; K21.9 Gastro-esophageal reflux disease without esophagitis; Z20.822 Contact with and (suspected) exposure to COVID-19; I49.3 Ventricular premature depolarization; I08.3 Combined rheumatic disorders of mitral, aortic and tricuspid valves; Z95.5 Presence of coronary angioplasty implant and graft; Z87.891 Personal history of nicotine dependence; Z87.442 Personal history of urinary calculi; Z87.440 Personal history of urinary (tract) infections; Z86.19 Personal history of other infectious and parasitic diseases; Z79.899 Other long term (current) drug therapy; Z79.82 Long term (current) use of aspirin; Z91.048 Other nonmedicinal substance allergy status; Z88.0 Allergy status to penicillin; Z88.8 Allergy status to other drugs, medicaments and biological substances; Z88.1 Allergy status to other antibiotic agents; Z85.828 Personal history of other malignant neoplasm of skin
CPT/HCPCS: 36410; 36415; 71046; 74176; 76937; 78306; 80048; 80053; 81003; 82150; 82565; 82607; 82728; 82746; 83540; 83550; 83605; 83690; 83880; 83921; 84484; 85025; 85027; 85045; 85610; 85652; 85730; 86140; 87040; 87070; 87077; 87186; 87205; 87636; 93005; 94760; 96365; 96366; 96367; 96375; 96376; 99285

== ENCOUNTER 2022-03-02 06:17 | Inpatient (IN) | payer MEDICARE ==
[2022-03-02 07:58] LABS: ALT 9 U/L (4-49); AST 23 U/L (17-59); African American GFR (CKD) >90 (>60 ml/min/1.73 sqM); Albumin 3.9 g/dL (3.5-5.0); Alkaline Phosphatase 72 U/L (38-126); Anion Gap 7 mmol/L; Blood Urea Nitrogen 21 mg/dL (9-20); Carbon Dioxide 24 mmol/L (22-30); Chloride 109 mmol/L (98-107); Glucose 117 mg/dL (74-99); Non-African American GFR(CKD) 90 (>60 ml/min/1.73 sqM); Potassium 4.4 mmol/L (3.5-5.1); Sodium 140 mmol/L (137-145); Total Bilirubin 0.4 mg/dL (0.2-1.3)
[2022-03-02 08:15] LABS: Partial Thromboplastin Time 24.9 sec (22.0-30.0); Prothrombin Time 10.3 sec (9.0-12.0)
[2022-03-02 08:16] LABS: Basophils % (A) 1 %; Eosinophils # (A) 0.1 k/uL (0-0.7); Eosinophils % (A) 1 %; HCT 30.1 % (39.0-53.0); HGB 10.1 gm/dL (13.0-17.5); Lymphocytes # (A) 1.7 k/uL (1.0-4.8); Lymphocytes % (A) 24 %; MCH 32.6 pg (25.0-35.0); MCHC 33.7 g/dL (31.0-37.0); MCV 96.9 fL (80.0-100.0); Mean Platelet Volume 7.6; Monocytes # (A) 0.4 k/uL (0-1.0); Monocytes % (A) 5 %; Neutrophils % (A) 69 %; Platelet Count 309 k/uL (150-450); Poikilocytosis Slight; RBC 3.11 m/uL (4.30-5.90); RDW 14.8 % (11.5-15.5); WBC 7.2 k/uL (3.8-10.6)
--- NOTE | 2022-03-02 08:28 | US ---
EXAMINATION TYPE: US venous doppler duplex UE RT DATE OF EXAM: 03/02/2022 COMPARISON: NONE CLINICAL HISTORY: Right lower arm swelling and pain SIDE PERFORMED: Right Right Arm: Negative for DVT, Grayscale, color doppler, spectral doppler imaging performed of the deep veins of the upper extremities. There is normal flow, compressibility and vascular waveforms. IMPRESSION: No evidence of deep vein thrombosis in the right upper extremity.
[2022-03-02] MEDS ORDERED: VANCOMYCIN 1,750 MG in SODIUM CHLORIDE 0.9% 500 ML 500 ML IVPB STA (10:40)
[2022-03-02] MEDS ORDERED: KETOROLAC 15 MG/ML 1 ML VIAL IVP STA (10:53)
--- NOTE | 2022-03-02 10:53 | ED ---
General Adult HPI - General Chief complaint: Extremity Problem,Nontraumatic Stated complaint: RT HAND SWELLING,PAIN Time Seen by Provider: 03/02/22 10:12 Source: patient Mode of arrival: ambulatory - History of Present Illness Initial comments: Patient is a 76-year-old male who presents to the emergency department for evaluation of right wrist swelling and pain. Patient underwent a cardiac catheterization with Dr. Wells on 02/09. Patient was discharged home in stable condition however on 02/13 patient presented to the emergency department with weakness, fever, fatigue, and abdominal discomfort. 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 Blood cultures were positive for MSSA.Patient was evaluated by infectious disease and started on Cefazolin. They did recommend VICENTE which patient refused. Patient was discharged with a midline anterior weeks of IV Cefazolin TID which he has been taking as directed. Patient woke up yesterday with swelling, redness, and pain in his right wrist. There is radiation up the forearm. He denies injury. He reports fevers at home, max Temp 100.6F. Patient has been taking Tylenol. He denies nausea, vomiting, weakness. - Related Data Home Medications Medication Instructions Recorded Confirmed Ascorbic Acid [Vitamin C] 1,000 mg PO DAILY 10/24/18 03/02/22 Aspirin 81 mg PO DAILY 10/24/18 03/02/22 Losartan [Cozaar] 50 mg PO DAILY 10/24/18 03/02/22 Metoprolol Tartrate [Lopressor] 25 mg PO BID 10/24/18 03/02/22 Nitroglycerin Sl Tabs [Nitrostat] 0.4 mg SL Q5M PRN 10/24/18 03/02/22 Omeprazole [PriLOSEC] 40 mg PO HS 10/24/18 03/02/22 Ubidecarenone [Co Q-10] 100 mg PO DAILY 10/24/18 03/02/22 Docusate [Colace] 100 mg PO BID 11/05/20 03/02/22 Albuterol Inhaler [Ventolin Hfa 1 - 2 puff INHALATION RT-QID PRN 02/09/22 1 05/03/21 Inhaler] Fluticasone/Vilanterol [Breo 1 puff INHALATION RT-QID PRN 02/09/22 03/02/22 Ellipta 200-25 Mcg Inhaler] Cranberry Fruit [Cranberry] 465 mg PO DAILY 02/14/22 03/02/22 Furosemide [Lasix] 40 mg PO DAILY PRN 02/14/22 03/02/22 Quercetin 800 mg PO BID 02/14/22 03/02/22 Zinc Gluconate [Zinc] 50 mg PO DAILY 02/14/22 03/02/22 Centrum Cardio 2 tab PO DAILY 03/02/22 03/02/22 Cholecalciferol [Vitamin D3 (25 50 mcg PO DAILY 03/02/22 03/02/22 Mcg = 1000 Iu)] Prosynbiotic 1 tab PO BID 03/02/22 03/02/22 ceFAZolin [Kefzol] 2 gm IVP Q8H 03/02/22 03/02/22 Previous Rx's Medication Instructions Recorded Pantoprazole [Protonix] 40 mg PO DAILY #30 tab 02/22/22 Allergies Allergy/AdvReac Type Severity Reaction Status Date / Time adhesive tape Allergy Rash/Hives,"paper Verified 03/02/22 11:45 tape is ok" amoxicillin [From Augmentin] Allergy Rash/Hives Verified 03/02/22 11:45 atorvastatin [From Lipitor] Allergy Muscle Verified 03/02/22 11:45 Aches budesonide [From Symbicort] Allergy Vision Verified 03/02/22 11:45 issues ciprofloxacin Allergy Muscle Verified 03/02/22 11:45 aches clavulanic acid Allergy Rash/Hives Verified 03/02/22 11:45 [From Augmentin] doxycycline Allergy Rectal Verified 03/02/22 11:45 Bleeding enalapril Allergy Cough Verified 03/02/22 11:45 ezetimibe [From Vytorin] Allergy Muscle Verified 03/02/22 11:45 Aches fluticasone Allergy Irregular Verified 03/02/22 11:45 [From Advair Diskus] heart rate formoterol [From Symbicort] Allergy Vision Verified 03/02/22 11:45 issues mold Allergy Rash/Hives Verified 03/02/22 11:45 salmeterol Allergy Irregular Verified 03/02/22 11:45 [From Advair Diskus] heart rate simvastatin [From Vytorin] Allergy Muscle Verified 03/02/22 11:45 Aches Aidsfby-IDD-MpX Reductase Allergy Muscle Verified 03/02/22 11:45 Inhibitor aches [Lozirpa-Okr-Hze Reductase Inhibitor] nilotinib [From Tasigna] AdvReac Pancreatiti Verified 03/02/22 11:45 s Cotton material Allergy itching, Uncoded 03/02/22 11:45 hives Review of Systems ROS Statement: Those systems with pertinent positive or pertinent negative responses have been documented in the HPI. ROS Other: All systems not noted in ROS Statement are negative. Past Medical History Past Medical History: Coronary Artery Disease (CAD), Cancer, GERD/Reflux, Hypertension, Skin Disorder Additional Past Medical History / Comment(s): Hx. of CML, Hx. of Shingles L eye, Cysts on L kidney. History of Any Multi-Drug Resistant Organisms: None Reported Past Surgical History: Cholecystectomy, Heart Catheterization With Stent, Hernia Repair, Orthopedic Surgery Additional Past Surgical History / Comment(s): Thyroid surgery,Vasectomy, R ankle surgery, Sinus surgery, Basal cell R shoulder, Pyloroplasty & Vagotomy, Hemorrhoidectomy, Cataract surgery & bx. of inner thigh. Past Anesthesia/Blood Transfusion Reactions: No Reported Reaction Date of Last Stent Placement:: 2005 Past Psychological History: No Psychological Hx Reported Smoking Status: Former smoker Past Alcohol Use History: None Reported Past Drug Use History: None Reported - Past Family History Mother Family Medical History: Cancer, Pulmonary Embolus Father Family Medical History: Cancer Brother(s) Family Medical History: Cancer Son(s) Family Medical History: Cancer General Exam General appearance: alert, in no apparent distress Head exam: Present: atraumatic, normocephalic, normal inspection Eye exam: Present: normal appearance, PERRL, EOMI. Absent: scleral icterus, conjunctival injection, periorbital swelling Respiratory exam: Present: normal lung sounds bilaterally. Absent: respiratory distress, wheezes, rales, rhonchi, stridor Cardiovascular Exam: Present: regular rate, normal rhythm, normal heart sounds. Absent: systolic murmur, diastolic murmur, rubs, gallop, clicks Right Shoulder Exam: Present: normal inspection, full ROM. Absent: tenderness, swelling Upper Arm exam: Present: full ROM, ecchymosis (pt states this is from blood draws at prior hospitalization ). Absent: normal inspection, tenderness, swelling Elbow exam: Present: normal inspection, full ROM. Absent: tenderness, swelling Forearm Wrist exam: Present: other (tenderness, swelling of wrist. Warm and erythema on dorsal wrist. No wounds or abrasions noted) Course Vital Signs 03/02/22 03/02/22 06:33 07:35 Temperature 97.7 F 98.1 F Pulse Rate 77 73 Respiratory 18 16 Rate Blood Pressure 161/86 169/81 O2 Sat by Pulse 96 97 Oximetry Medical Decision Making - Medical Decision Making Was pt. sent in by a medical professional or institution? No Did you speak to anyone other than the patient for history? Yes, . Did you review nursing and triage notes? Yes, symptoms consistent with nursing and triage notes. Were old charts reviewed? Yes, patient recently admitted for pneumonia and sepsis. Course discussed in HPI Differential Diagnosis? Musculoskeletal injury, cellulitis, DVT EKG interpreted by me (3pts min.)? NA X-rays interpreted by me (1pt min.)? Yes, right wrist and hand x-ray obtained interpreted by me which shows no acute osseous abnormality the right wrist. There are degenerative joint changes at the first carpometacarpal junction. Patient does not have anatomical snuffbox tenderness CT interpreted by me (1pt min.)? NA U/S interpreted by me (1pt. min.)? Yes, right upper extremity venous Doppler shows no evidence of deep venous thrombosis or other acute process What testing was considered but not performed? (CT, X-rays, U/S, labs)? Why? None What meds were considered but not given? Why? None Did you discuss the management of the patient with other professionals? Yes, I discussed the case with my attending Dr. Martinez. Did you reconcile home meds? No, they were not verified by pharmacy. Was smoking cessation discussed for >3mins.? NA Was critical care preformed (if so, how long)? No Were there social determinants of health that impacted care today? How? (Homelessness, low income, unemployed, alcoholism, drug addiction, transportation, low edu. Level, literacy, decrease access to med. care, half-way, rehab)? No Was there de-escalation of care discussed even if they declined? (Discuss DNR or withdrawal of care, Hospice)? No What co-morbidities impacted this encounter? (DM, HTN, Smoking, COPD, CAD, Cancer, CVA, Hep., AIDS, mental health diagnosis, sleep apnea, morbid obesity)? CML Was patient admitted / discharged? This is a Undiagnosed new problem with uncertain prognosis? @ -[none] Drug Therapy requiring intensive monitoring for toxicity (Heparin, Nitro, Insulin, Cardizem)? No Were any procedures done? No Diagnosis/symptom? @ -[default] Acute, or Chronic, or Acute on Chronic? @ -[default] Uncomplicated (without systemic symptoms) or Complicated (systemic symptoms)? @ -[default] Side effects of treatment? @ -[none] Exacerbation, Progression, or Severe Exacerbation] NA Poses a threat to life or bodily function? No - Lab Data Result diagrams: 03/02/22 07:37 03/02/22 07:37 Lab Results 03/02/22 03/02/22 03/02/22 Range/Units 07:37 07:37 07:37 WBC 7.2 (3.8-10.6) k/uL RBC 3.11 L (4.30-5.90) m/uL Hgb 10.1 L (13.0-17.5) gm/dL Hct 30.1 L (39.0-53.0) % MCV 96.9 (80.0-100.0) fL MCH 32.6 (25.0-35.0) pg MCHC 33.7 (31.0-37.0) g/dL RDW 14.8 (11.5-15.5) % Plt Count 309 (150-450) k/uL MPV 7.6 Neutrophils % 69 % Lymphocytes % 24 % Monocytes % 5 % Eosinophils % 1 % Basophils % 1 % Neutrophils # 5.0 (1.3-7.7) k/uL Lymphocytes # 1.7 (1.0-4.8) k/uL Monocytes # 0.4 (0-1.0) k/uL Eosinophils # 0.1 (0-0.7) k/uL Basophils # 0.0 (0-0.2) k/uL Poikilocytosis Slight PT 10.3 (9.0-12.0) sec INR 1.0 (<1.2) APTT 24.9 (22.0-30.0) sec Sodium 140 (137-145) mmol/L Potassium 4.4 (3.5-5.1) mmol/L Chloride 109 H (98-107) mmol/L Carbon Dioxide 24 (22-30) mmol/L Anion Gap 7 mmol/L BUN 21 H (9-20) mg/dL Creatinine 0.72 (0.66-1.25) mg/dL Est GFR (CKD-EPI)AfAm >90 (>60 ml/min/1.73 sqM) Est GFR (CKD-EPI)NonAf 90 (>60 ml/min/1.73 sqM) Glucose 117 H (74-99) mg/dL Calcium 9.0 (8.4-10.2) mg/dL Total Bilirubin 0.4 (0.2-1.3) mg/dL AST 23 (17-59) U/L ALT 9 (4-49) U/L Alkaline Phosphatase 72 (38-126) U/L Total Protein 7.0 (6.3-8.2) g/dL Albumin 3.9 (3.5-5.0) g/dL Disposition Clinical Impression: Right wrist pain, Swelling of right wrist Disposition: ADMITTED IP TO THIS [facility] Condition: Good Referrals: None,Stated [REFERRING] - 1-2 days
--- NOTE | 2022-03-02 11:06 | XR ---
EXAMINATION TYPE: XR hand complete RT DATE OF EXAM: 03/02/2022 COMPARISON: None HISTORY: Pain, swelling TECHNIQUE: 3 view right hand FINDINGS: Some degenerative joint changes at the first carpal metacarpal junction. No acute fractures or dislocations evident. Soft tissues appear normal. Follow up exams can be performed as clinically indicated. IMPRESSION: 1. Degenerative joint changes at the carpal metacarpal junction first digit
--- NOTE | 2022-03-02 11:08 | XR ---
EXAMINATION TYPE: XR wrist complete RT DATE OF EXAM: 03/02/2022 COMPARISON: None HISTORY: Pain, swelling TECHNIQUE: 4 view right wrist FINDINGS: Degenerative joint changes are at the first carpal metacarpal junction. Scaphoid trapezium joint space also is degenerative change. No acute fractures are evident. The soft tissues appear normal. If there is pain at the anatomic snuff box, nuclear medicine bone scan could be performed for additio nal evaluation. IMPRESSION: 1. No acute osseous abnormality right wrist. 2. Degenerative joint changes first carpal metacarpal junction
[2022-03-02] MEDS ORDERED: NALOXONE 0.4 MG/ML 1 ML VIAL IV PRN (11:32)
[2022-03-02] MEDS: SODIUM CHLORIDE 0.9% 1,000 ML IV SCH ×2 (11:43→23:13)
[2022-03-02] MEDS ORDERED: VILANTEROL INHALATION PRN (14:52)
[2022-03-02] MEDS ORDERED: [UNRECOGNIZED DRUG - OTHER] INHALATION PRN (14:52)
[2022-03-02] MEDS ORDERED: ALBUTEROL NEBULIZED 2.5 MG/3 ML INHALATION PRN (14:52)
[2022-03-02] MEDS ORDERED: NON FORMULARY DRUG (Cefazolin 2 GM/20 ML Each) IVP SCH (15:00)
--- NOTE | 2022-03-02 15:01 | P.HPIM ---
History of Present Illness H&P Date: 03/02/22 Chief Complaint: Right wrist swelling Patient is a 76-year-old male with history of recent MSSA bacteremia discharged on IV antibiotics, CML, coronary artery disease, aortic valve stenosis presenting with right wrist swelling and pain. His recent cardiac ca theterization prior to bacteremia also had a radial axis through the right side. He claims that he has been doing okay on IV cefazolin. However, yesterday he woke up at swelling, redness, pain in his right wrist. The pain was radiating up the forearm. Denies any new mechanical injury. He has had some fevers at home. He denies any chest pain, shortness of breath, abdominal pain, nausea, vomiting, diarrhea, constipation, or urinary complaints. In the ED, he was afebrile. His white count was 7.2, hemoglobin 10.1, platelets 309. His electrolytes were unremarkable. Hand and wrist x-ray showed degenerative joint changes, but no acute process. He was given a dose of vancomycin in the ED, and admitted for further workup. Right upper extremity venous Doppler did not show any signs of DVT. Patient seen and examined at bedside. Pertinent positives and negatives as discussed in HPI, a complete review of systems was performed and all other systems are negative. Vital signs reviewed General: nontoxic, no distress, appears at stated age Derm: warm, dry Head: atraumatic, normocephalic, symmetric Eyes: EOMI, no lid lag, anicteric sclera, pupils equal round reactive to light ENT: Nose and ears atraumatic Neck: No thyromegaly, supple Mouth: no lip lesion, mucus membranes moist Cardiovascular: S1S2 reg, no murmur, trace peripheral edema Lungs: clear to auscultation bilateral, no rhonchi, no rales, no wheeze, no accessory muscle use Abdominal: soft, nontender to palpation, no guarding, no appreciable organomegaly Ext: Right wrist synovitis, no overlying erythema, limited range of motion due to edema Neuro: CN II-XII grossly intact Psych: Alert, oriented, appropriate affect Assessment/Plan: Right wrist swelling -Differential includes cellulitis, gout flare, pseudogout, septic arthritis -ID consulted -Likely cellulitis given patient was on cefazolin at home -Given history of CML, possibly gout -We'll treat with oral steroids -Orthopedic surgery consulted History of recent MSSA bacteremia History of CML -Continue cefazolin -Currently holding CML therapy per oncology Coronary artery disease Aortic valve stenosis Hypertension -Continue home medications The patient is admitted with an anticipated greater than 2 midnight stay for evaluation of right wrist swelling. Surrogate decision-maker: CODE STATUS: Full code DVT prophylaxis: Subcu heparin Anticipated discharge date: Pending clinical course Anticipated discharge place: pending clinical course A total of 65 minutes was spent on the care of this complex patient more than 50% of the time was spent in counseling and care coordination. Past Medical History Past Medical History: Coronary Artery Disease (CAD), Cancer, GERD/Reflux, Hypertension, Skin Disorder Additional Past Medical History / Comment(s): Hx. of CML, Hx. of Shingles L eye, Cysts on L kidney. History of Any Multi-Drug Resistant Organisms: None Reported Past Surgical History: Cholecystectomy, Heart Catheterization With Stent, Hernia Repair, Orthopedic Surgery Additional Past Surgical History / Comment(s): Thyroid surgery,Vasectomy, R ankle surgery, Sinus surgery, Basal cell R shoulder, Pyloroplasty & Vagotomy, Hemorrhoidectomy, Cataract surgery & bx. of inner thigh. Past Anesthesia/Blood Transfusion Reactions: No Reported Reaction Date of Last Stent Placement:: 2005 Past Psychological History: No Psychological Hx Reported Smoking Status: Former smoker Past Alcohol Use History: None Reported Past Drug Use History: None Reported - Past Family History Mother Family Medical History: Cancer, Pulmonary Embolus Father Family Medical History: Cancer Brother(s) Family Medical History: Cancer Son(s) Family Medical History: Cancer Medications and Allergies Home Medications Medication Instructions Recorded Confirmed Type Ascorbic Acid [Vitamin C] 1,000 mg PO DAILY 10/24/18 03/02/22 History Aspirin 81 mg PO DAILY 10/24/18 03/02/22 History Losartan [Cozaar] 50 mg PO DAILY 10/24/18 03/02/22 History Metoprolol Tartrate [Lopressor] 25 mg PO BID 10/24/18 03/02/22 History Nitroglycerin Sl Tabs [Nitrostat] 0.4 mg SL Q5M PRN 10/24/18 03/02/22 History Omeprazole [PriLOSEC] 40 mg PO HS 10/24/18 03/02/22 History Ubidecarenone [Co Q-10] 100 mg PO DAILY 10/24/18 03/02/22 History Docusate [Colace] 100 mg PO BID 11/05/20 03/02/22 History Albuterol Inhaler [Ventolin Hfa 1 - 2 puff INHALATION RT-QID PRN 02/09/22 03/02/22 History Inhaler] Fluticasone/Vilanterol [Breo 1 puff INHALATION RT-QID PRN 02/09/22 03/02/22 History Ellipta 200-25 Mcg Inhaler] Cranberry Fruit [Cranberry] 465 mg PO DAILY 02/14/22 03/02/22 History Furosemide [Lasix] 40 mg PO DAILY PRN 02/14/22 03/02/22 History Quercetin 800 mg PO BID 02/14/22 03/02/22 History Zinc Gluconate [Zinc] 50 mg PO DAILY 02/14/22 03/02/22 History Pantoprazole [Protonix] 40 mg PO DAILY #30 tab 02/22/22 03/02/22 Rx Centrum Cardio 2 tab PO DAILY 03/02/22 03/02/22 History Cholecalciferol [Vitamin D3 (25 50 mcg PO DAILY 03/02/22 03/02/22 History Mcg = 1000 Iu)] Prosynbiotic 1 tab PO BID 03/02/22 03/02/22 History ceFAZolin [Kefzol] 2 gm IVP Q8H 03/02/22 03/02/22 History Allergies Allergy/AdvReac Type Severity Reaction Status Date / Time adhesive tape Allergy Rash/Hives,"paper Verified 03/02/22 11:45 tape is ok" amoxicillin [From Augmentin] Allergy Rash/Hives Verified 03/02/22 11:45 atorvastatin [From Lipitor] Allergy Muscle Verified 03/02/22 11:45 Aches budesonide [From Symbicort] Allergy Vision Verified 03/02/22 11:45 issues ciprofloxacin Allergy Muscle Verified 03/02/22 11:45 aches clavulanic acid Allergy Rash/Hives Verified 03/02/22 11:45 [From Augmentin] doxycycline Allergy Rectal Verified 03/02/22 11:45 Bleeding enalapril Allergy Cough Verified 03/02/22 11:45 ezetimibe [From Vytorin] Allergy Muscle Verified 03/02/22 11:45 Aches fluticasone Allergy Irregular Verified 03/02/22 11:45 [From Advair Diskus] heart rate formoterol [From Symbicort] Allergy Vision Verified 03/02/22 11:45 issues mold Allergy Rash/Hives Verified 03/02/22 11:45 salmeterol Allergy Irregular Verified 03/02/22 11:45 [From Advair Diskus] heart rate simvastatin [From Vytorin] Allergy Muscle Verified 03/02/22 11:45 Aches Hklwxoi-FGX-HtD Reductase Allergy Muscle Verified 03/02/22 11:45 Inhibitor aches [Oykorrg-Obj-Okn Reductase Inhibitor] nilotinib [From Tasigna] AdvReac Pancreatiti Verified 03/02/22 11:45 s Cotton material Allergy itching, Uncoded 03/02/22 11:45 hives Physical Exam Vitals: Vital Signs Temp Pulse Resp BP Pulse Ox 03/02/22 07:35 98.1 F 73 16 169/81 97 03/02/22 06:33 97.7 F 77 18 161/86 96 Intake and Output 03/02/22 03/02/22 03/02/22 06:59 14:59 22:59 Other: Weight 97.522 kg Results CBC & Chem 7: 03/02/22 07:37 03/02/22 07:37 Labs: Abnormal Lab Results - Last 24 Hours (Table) 03/02/22 03/02/22 Range/Units 07:37 07:37 RBC 3.11 L (4.30-5.90) m/uL Hgb 10.1 L (13.0-17.5) gm/dL Hct 30.1 L (39.0-53.0) % Chloride 109 H (98-107) mmol/L BUN 21 H (9-20) mg/dL Glucose 117 H (74-99) mg/dL
[2022-03-02 15:39] LABS: C Reactive Protein 0.5 mg/dL (<1.0)
[2022-03-02] MEDS: predniSONE 20 MG TAB PO SCH (15:53)
--- NOTE | 2022-03-02 17:24 | P.CNOR ---
History of Present Illness - HPI Consult date: 03/02/22 Requesting physician: Titus Greene Consult reason: other (right wrist synovitis, concern for gout/pseudogout, may need tap) History of present illness: Patient is a 76-year-old male with a past medical history of MSSA bacteremia, CML, CAD who presents to the emergency department earlier today with right wrist swelling and pain. Patient did undergo a cardiac catheterization by Dr. Wells on 02/09/2022. Patient presented back to the hospital on 02/13/2022 and was diagnosed with pneumonia. Patient has been on IV cefazolin over the past couple weeks since being discharged from the hospital. Patient was seen at bedside this morning lying in the semirecumbent position and says yesterday he had increased swelling and pain in the right wrist. Patient says he has had fevers at home. Patient says he does have movement in his right wrist, although he feels that it is limited. He does also note he has some increased swelling over the right wrist the past few days. Patient denies any trauma/injury to the right wrist. Patient denies chest pain, increasing shortness breath, nausea, vomiting, change in vision, loss of bowel/bladder control. Past Medical History Past Medical History: Coronary Artery Disease (CAD), Cancer, GERD/Reflux, Hypertension, Skin Disorder Additional Past Medical History / Comment(s): Hx. of CML, Hx. of Shingles L eye, Cysts on L kidney. History of Any Multi-Drug Resistant Organisms: None Reported Past Surgical History: Cholecystectomy, Heart Catheterization With Stent, Hernia Repair, Orthopedic Surgery Additional Past Surgical History / Comment(s): Thyroid surgery,Vasectomy, R ankle surgery, Sinus surgery, Basal cell R shoulder, Pyloroplasty & Vagotomy, Hemorrhoidectomy, Cataract surgery & bx. of inner thigh. Past Anesthesia/Blood Transfusion Reactions: No Reported Reaction Date of Last Stent Placement:: 2005 Past Psychological History: No Psychological Hx Reported Smoking Status: Former smoker Past Alcohol Use History: None Reported Past Drug Use History: None Reported - Past Family History Mother Family Medical History: Cancer, Pulmonary Embolus Father Family Medical History: Cancer Brother(s) Family Medical History: Cancer Son(s) Family Medical History: Cancer Medications and Allergies Home Medications Medication Instructions Recorded Confirmed Type Ascorbic Acid [Vitamin C] 1,000 mg PO DAILY 10/24/18 03/02/22 History Aspirin 81 mg PO DAILY 10/24/18 03/02/22 History Losartan [Cozaar] 50 mg PO DAILY 10/24/18 03/02/22 History Metoprolol Tartrate [Lopressor] 25 mg PO BID 10/24/18 03/02/22 History Nitroglycerin Sl Tabs [Nitrostat] 0.4 mg SL Q5M PRN 10/24/18 03/02/22 History Omeprazole [PriLOSEC] 40 mg PO HS 10/24/18 03/02/22 History Ubidecarenone [Co Q-10] 100 mg PO DAILY 10/24/18 03/02/22 History Docusate [Colace] 100 mg PO BID 11/05/20 03/02/22 History Albuterol Inhaler [Ventolin Hfa 1 - 2 puff INHALATION RT-QID PRN 02/09/22 03/02/22 History Inhaler] Fluticasone/Vilanterol [Breo 1 puff INHALATION RT-QID PRN 02/09/22 03/02/22 History Ellipta 200-25 Mcg Inhaler] Cranberry Fruit [Cranberry] 465 mg PO DAILY 02/14/22 03/02/22 History Furosemide [Lasix] 40 mg PO DAILY PRN 02/14/22 03/02/22 History Quercetin 800 mg PO BID 02/14/22 03/02/22 History Zinc Gluconate [Zinc] 50 mg PO DAILY 02/14/22 03/02/22 History Pantoprazole [Protonix] 40 mg PO DAILY #30 tab 02/22/22 03/02/22 Rx Centrum Cardio 2 tab PO DAILY 03/02/22 03/02/22 History Cholecalciferol [Vitamin D3 (25 50 mcg PO DAILY 03/02/22 03/02/22 History Mcg = 1000 Iu)] Prosynbiotic 1 tab PO BID 03/02/22 03/02/22 History ceFAZolin [Kefzol] 2 gm IVP Q8H 03/02/22 03/02/22 History Allergies Allergy/AdvReac Type Severity Reaction Status Date / Time adhesive tape Allergy Rash/Hives,"paper Verified 03/02/22 11:45 tape is ok" amoxicillin [From Augmentin] Allergy Rash/Hives Verified 03/02/22 11:45 atorvastatin [From Lipitor] Allergy Muscle Verified 03/02/22 11:45 Aches budesonide [From Symbicort] Allergy Vision Verified 03/02/22 11:45 issues ciprofloxacin Allergy Muscle Verified 03/02/22 11:45 aches clavulanic acid Allergy Rash/Hives Verified 03/02/22 11:45 [From Augmentin] doxycycline Allergy Rectal Verified 03/02/22 11:45 Bleeding enalapril Allergy Cough Verified 03/02/22 11:45 ezetimibe [From Vytorin] Allergy Muscle Verified 03/02/22 11:45 Aches fluticasone Allergy Irregular Verified 03/02/22 11:45 [From Advair Diskus] heart rate formoterol [From Symbicort] Allergy Vision Verified 03/02/22 11:45 issues mold Allergy Rash/Hives Verified 03/02/22 11:45 salmeterol Allergy Irregular Verified 03/02/22 11:45 [From Advair Diskus] heart rate simvastatin [From Vytorin] Allergy Muscle Verified 03/02/22 11:45 Aches Pvwqmco-XTI-TxG Reductase Allergy Muscle Verified 03/02/22 11:45 Inhibitor aches [Oggcnnt-Kkg-Jlz Reductase Inhibitor] nilotinib [From Tasigna] AdvReac Pancreatiti Verified 03/02/22 11:45 s Cotton material Allergy itching, Uncoded 03/02/22 11:45 hives Physical Examination Osteopathic Statement: *. No significant issues noted on an osteopathic structural exam other than those noted in the History and Physical/Consult. Inspection: Swelling present over the right wrist at the dorsum. There is some very minimal erythema along the right wrist. Negative for any ecchymosis/ulce rs. There is a midline present on the left upper extremity. Negative for any open fractures. Sensation: Sensation is equal, symmetric, bilaterally intact throughout the upper and lower extremities. Palpation: There is some mild tenderness to palpation over the dorsum in the right wrist. Nontender to palpation throughout rest of exam Range of motion: There is limited range of motion in flexion/extension of the right wrist, however patient is able to flex and extend the right wrist. Full range of motion in left wrist and flexion/extension. Motor: 4/5 in resisted flexion/extension of the right wrist. 5/5 in resisted right elbow flexion/extension. 5/5 in left wrist flexion/extension and left elbow flexion and extension Neurovascular status: Radial pulses intact, 2+ bilaterally. Cap refill under 3 seconds in digits upper extremities. Results - Labs Labs: Abnormal Lab Results - Last 24 Hours (Table) 03/02/22 03/02/22 03/02/22 Range/Units 07:37 07:37 07:37 RBC 3.11 L (4.30-5.90) m/uL Hgb 10.1 L (13.0-17.5) gm/dL Hct 30.1 L (39.0-53.0) % ESR (0-15) mm/hr Chloride 109 H (98-107) mmol/L BUN 21 H (9-20) mg/dL Glucose 117 H (74-99) mg/dL Uric Acid 3.0 L (3.5-8.5) mg/dL 03/02/22 Range/Units 07:37 RBC (4.30-5.90) m/uL Hgb (13.0-17.5) gm/dL Hct (39.0-53.0) % ESR 28 H (0-15) mm/hr Chloride (98-107) mmol/L BUN (9-20) mg/dL Glucose (74-99) mg/dL Uric Acid (3.5-8.5) mg/dL H & H 03/02/22 Range/Units 07:37 Hgb 10.1 L (13.0-17.5) gm/dL Hct 30.1 L (39.0-53.0) % Coagulation 03/02/22 Range/Units 07:37 INR 1.0 (<1.2) Result Diagrams: 03/02/22 07:37 03/02/22 07:37 - Diagnostic results Wrist/Hand x-ray: report reviewed, image reviewed (x-ray of the right wrist and right hand have been reviewed. There is CMCJ arthritis in the 1st digit right hand. Negative for any fractures/dislocations) Assessment and Plan Assessment: 1. Osteoarthritis first Carpometacarpal joint, right hand; cellulitis right wrist Plan: 1. Osteoarthritis first Carpometacarpal joint, right hand; cellulitis right wrist - x-ray of the right wrist and right hand have been reviewed. There is CMCJ arthritis in the 1st digit right hand. Negative for any fractures. Patient does present with some swelling and minimal erythema on exam, and does have good, but limited range of motion in the right wrist. At this time there is low suspicion for septic arthritis in the right hand, likely early stages of cellulitis. At this time we do not recommend any emergent/urgent orthopedic surgical intervention. We have ordered ESR and CRP for further evaluation. We'll continue to follow patient during his stay in hospital. We do recommend patient to continue to be on antibiotics. Pain medication as needed. 2. Appreciate medical management 3. Pain management - tylenol prn 4. DVT prophylaxis - Lovenox; aspirin 5. GI prophylaxis - Protonix; Colace 6. PT/OT - weightbearing as tolerated 7. Appreciate consult Patient seen and examined at beside and I agree with above. Low concern for septic arthritis at this time, able to passively and actively move the wrist with minimal pain. He does have signs of early cellulitis which appear to originate around the site of the heart cath site on the volar wrist. Recommend ice, IV antibiotics. -Oscar Hughes DO Orthopedic Surgeon Time with Patient: Less than 30
[2022-03-02] MEDS: LACTOBACILLUS ACIDOPH & BULGAR 1 EACH PACKET PO SCH (19:50)
[2022-03-02] MEDS: DOCUSATE 100 MG CAP PO SCH (19:50)
[2022-03-02] MEDS: METOPROLOL TARTRATE 25 MG TAB PO SCH (19:50)
[2022-03-02] MEDS ORDERED: PANTOPRAZOLE 40 MG TABLET PO SCH (21:00)
[2022-03-02] MEDS ORDERED: VANCOMYCIN 1,500 MG in SODIUM CHLORIDE 0.9% 500 ML 500 ML IVPB SCH (22:00)
--- NOTE | 2022-03-02 23:07 | P.CONS ---
History of Present Illness - Reason for Consult Consult date: 03/02/22 Possible right wrist cellulitis Requesting physician: Jodie Scott - Chief Complaint Right wrist pain and swelling x one day - History of Present Illness Patient is a 76-year-old male who was recently admitted at this facility and did have MSSA bacteremia patient did have extensive work-up including a WBC scan that was negative patient did clear his bacteremia he did get a midline and is currently getting cefazolin 2 g every 8 hours at home patient now presenting back to the hospital concerning for right wrist and hand area swelling redness and pain that apparently started last night patient described the pain to be more of a sharp in nature almost 7-8 out of 10 and worse with movement of the wrist joint patient denies having significant radiation of the pain currently do not have an open wound or any drainage patient did have a low-grade fever 100.8 F at home with the symptom the patient was brought into the ER on arrival to the ER the patient has been afebrile and no fever has been recorded subsequently patient did have a normal white count c reatinine was normal liver enzymes are normal patient did have a venous Doppler no evidence of DVT in the right upper extremity x-ray of the wrist and hand area no acute abnormality degenerative joint changes patient has been continued on cefazolin he did receive a dose of vancomycin in the ER infectious disease was consulted for further management of antibiotic therapy Review of Systems Positive point has been mentioned in the HPI rest of the systems are negative Past Medical History Past Medical History: Coronary Artery Disease (CAD), Cancer, GERD/Reflux, Hypertension, Skin Disorder Additional Past Medical History / Comment(s): Hx. of CML, Hx. of Shingles L eye, Cysts on L kidney. History of Any Multi-Drug Resistant Organisms: None Reported Past Surgical History: Cholecystectomy, Heart Catheterization With Stent, Hernia Repair, Orthopedic Surgery Additional Past Surgical History / Comment(s): Thyroid surgery,Vasectomy, R ankle surgery, Sinus surgery, Basal cell R shoulder, Pyloroplasty & Vagotomy, Hemorrhoidectomy, Cataract surgery & bx. of inner thigh. Past Anesthesia/Blood Transfusion Reactions: No Reported Reaction Date of Last Stent Placement:: 2005 Past Psychological History: No Psychological Hx Reported Smoking Status: Former smoker Past Alcohol Use History: None Reported Past Drug Use History: None Reported - Past Family History Mother Family Medical History: Cancer, Pulmonary Embolus Father Family Medical History: Cancer Brother(s) Family Medical History: Cancer Son(s) Family Medical History: Cancer Medications and Allergies Home Medications Medication Instructions Recorded Confirmed Type Ascorbic Acid [Vitamin C] 1,000 mg PO DAILY 10/24/18 03/02/22 History Aspirin 81 mg PO DAILY 10/24/18 03/02/22 History Losartan [Cozaar] 50 mg PO DAILY 10/24/18 03/02/22 History Metoprolol Tartrate [Lopressor] 25 mg PO BID 10/24/18 03/02/22 History Nitroglycerin Sl Tabs [Nitrostat] 0.4 mg SL Q5M PRN 10/24/18 03/02/22 History Omeprazole [PriLOSEC] 40 mg PO HS 10/24/18 03/02/22 History Ubidecarenone [Co Q-10] 100 mg PO DAILY 10/24/18 03/02/22 History Docusate [Colace] 100 mg PO BID 11/05/20 03/02/22 History Albuterol Inhaler [Ventolin Hfa 1 - 2 puff INHALATION RT-QID PRN 02/09/22 03/02/22 History Inhaler] Fluticasone/Vilanterol [Breo 1 puff INHALATION RT-QID PRN 02/09/22 03/02/22 History Ellipta 200-25 Mcg Inhaler] Cranberry Fruit [Cranberry] 465 mg PO DAILY 02/14/22 03/02/22 History Furosemide [Lasix] 40 mg PO DAILY PRN 02/14/22 03/02/22 History Quercetin 800 mg PO BID 02/14/22 03/02/22 History Zinc Gluconate [Zinc] 50 mg PO DAILY 02/14/22 03/02/22 History Pantoprazole [Protonix] 40 mg PO DAILY #30 tab 02/22/22 03/02/22 Rx Centrum Cardio 2 tab PO DAILY 03/02/22 03/02/22 History Cholecalciferol [Vitamin D3 (25 50 mcg PO DAILY 03/02/22 03/02/22 History Mcg = 1000 Iu)] Prosynbiotic 1 tab PO BID 03/02/22 03/02/22 History ceFAZolin [Kefzol] 2 gm IVP Q8H 03/02/22 03/02/22 History Allergies Allergy/AdvReac Type Severity Reaction Status Date / Time adhesive tape Allergy Rash/Hives,"paper Verified 03/02/22 11:45 tape is ok" amoxicillin [From Augmentin] Allergy Rash/Hives Verified 03/02/22 11:45 atorvastatin [From Lipitor] Allergy Muscle Verified 03/02/22 11:45 Aches budesonide [From Symbicort] Allergy Vision Verified 03/02/22 11:45 issues ciprofloxacin Allergy Muscle Verified 03/02/22 11:45 aches clavulanic acid Allergy Rash/Hives Verified 03/02/22 11:45 [From Augmentin] doxycycline Allergy Rectal Verified 03/02/22 11:45 Bleeding enalapril Allergy Cough Verified 03/02/22 11:45 ezetimibe [From Vytorin] Allergy Muscle Verified 03/02/22 11:45 Aches fluticasone Allergy Irregular Verified 03/02/22 11:45 [From Advair Diskus] heart rate formoterol [From Symbicort] Allergy Vision Verified 03/02/22 11:45 issues mold Allergy Rash/Hives Verified 03/02/22 11:45 salmeterol Allergy Irregular Verified 03/02/22 11:45 [From Advair Diskus] heart rate simvastatin [From Vytorin] Allergy Muscle Verified 03/02/22 11:45 Aches Rmjftoh-JJL-HmA Reductase Allergy Muscle Verified 03/02/22 11:45 Inhibitor aches [Djzpvpe-Fmg-Ylj Reductase Inhibitor] nilotinib [From Tasigna] AdvReac Pancreatiti Verified 03/02/22 11:45 s Cotton material Allergy itching, Uncoded 03/02/22 11:45 hives Physical Exam Vitals: Vital Signs Temp Pulse Resp BP Pulse Ox 03/02/22 07:35 98.1 F 73 16 169/81 97 03/02/22 06:33 97.7 F 77 18 161/86 96 Intake and Output 03/01/22 03/02/22 03/02/22 22:59 06:59 14:59 Other: Weight 97.522 kg GENERAL DESCRIPTION: Elderly male lying in bed, no distress. No tachypnea or accessory muscle of respiration use. HEENT: Shows Pallor , no scleral icterus. Oral mucous membrane is dry. No pharyngeal erythema or thrush NECK: Trachea central, no thyromegaly. LUNGS: Unlabored breathing. Clear to auscultation anteriorly. No wheeze or crackle. HEART: S1, S2, regular rate and rhythm. No loud murmur ABDOMEN: Soft, no tenderness , guarding or rigidity, no organomegaly EXTREMITIES: Right wrist dorsum did have minimal swelling is very tender to touch especially at the wrist joint SKIN: No rash, no masses palpable. NEUROLOGICAL: The patient is awake, alert, oriented x3, mood and affect normal. Results CBC & Chem 7: 03/02/22 07:37 03/02/22 07:37 Labs: Abnormal Lab Results - Last 24 Hours (Table) 03/02/22 03/02/22 Range/Units 07:37 07:37 RBC 3.11 L (4.30-5.90) m/uL Hgb 10.1 L (13.0-17.5) gm/dL Hct 30.1 L (39.0-53.0) % Chloride 109 H (98-107) mmol/L BUN 21 H (9-20) mg/dL Glucose 117 H (74-99) mg/dL Assessment and Plan (1) Right wrist pain Status: Acute Code(s): M25.531 - PAIN IN RIGHT WRIST SNOMED Code(s): 01306295 (2) Swelling of right wrist Status: Acute Code(s): M25.431 - EFFUSION, RIGHT WRIST SNOMED Code(s): 221315059 Plan: 1patient presented to hospital with right wrist pain swelling redness question of possible inflammatory arthritis clinically not behaving as cellulitis with no significant redness was noticed patient not running any fever and white count is normal. 2we will obtain CRP sed rate and uric acid level. 3Marked area of the swelling and may benefit from light Hardeep wrap 4continue with the cefazolin 2 g every 8 hours while awaiting further work-up to be completed We will follow on clinical condition and cultures to further adjust medication if needed Thank you for this consultation will follow this patient along with you Time with Patient: Greater than 30
[2022-03-03 07:46] VITALS: RESP 18
[2022-03-03] MEDS: METOPROLOL TARTRATE 25 MG TAB PO SCH (07:59)
[2022-03-03] MEDS: predniSONE 20 MG TAB PO SCH (07:59)
[2022-03-03] MEDS: LACTOBACILLUS ACIDOPH & BULGAR 1 EACH PACKET PO SCH (08:00)
[2022-03-03] MEDS: DOCUSATE 100 MG CAP PO SCH (08:00)
[2022-03-03] MEDS ORDERED: ASPIRIN 81 MG PO SCH (09:00)
[2022-03-03] MEDS ORDERED: ASCORBIC ACID 500 MG TAB PO SCH (09:00)
[2022-03-03] MEDS ORDERED: LOSARTAN 50 MG TAB PO SCH (09:00)
[2022-03-03] MEDS ORDERED: CHOLECALCIFEROL 25 MCG (1000 IU) TABLET PO SCH (09:00)
[2022-03-03] MEDS ORDERED: ENOXAPARIN 40 MG/0.4 ML SYRINGE SQ SCH (09:00)
--- NOTE | 2022-03-03 09:14 | P.PN ---
Subjective Progress Note Date: 03/03/22 Principal diagnosis: right wrist synovitis concern for gout/pseudogout Patient seen and examined this morning. Patient was sitting at the edge of bed and had just finished his breakfast. Patient states that he is feeling great this morning, that there has been improvement in his range of motion of his right wrist. He is able to perform flexion and extension exercises with his wrist and hand. Patient does report that he has some weakness when picking up his coffee cup. He states that he notices since the dose of Daptomycin there has been decreased edema and redness to his right wrist. Patient has been afebrile, denies any nausea/vomiting, or chest pain. Objective - Vital Signs Vital signs: Vital Signs Temp 97.7 F 03/03/22 07:10 Pulse 53 L 03/03/22 07:10 Resp 18 03/03/22 07:10 BP 140/71 03/03/22 07:10 Pulse Ox 98 03/03/22 07:10 FiO2 Intake & Output 03/02/22 03/03/22 03/03/22 18:59 06:59 18:59 Intake Total 1550 Balance 1550 Weight 97.522 kg Intake: Intake, IV Titration 950 Amount Sodium Chloride 0.9% 1, 900 000 ml @ 75 mls/hr IV . [id number] JACOB Rx#:[id number] ceFAZolin 2 gm In Sodium 50 Chloride 0.9% 50 ml @ 100 mls/hr IVPB Q8HR JACOB Rx# :[id number] Oral 600 Other: Voiding Method Toilet # Voids 1 3 - Exam Physical Examination General: The patient is awake and alert, in no acute distress Skin: Skin is warm and dry with no obvious rashes or lesions. Edema and Erythema that was present to right wrist has improved. Eye: Pupils are equal, round and reactive to light, extra-ocular movements are intact; there is normal conjunctiva bilaterally. Neck: The neck is supple, there is no tenderness and ROM intact. Cardiovascular: There is a regular rate and rhythm. No murmur, rub or gallop is appreciated. Respiratory: Lungs are clear to auscultation, respirations are non-labored, breath sounds are equal. Gastrointestinal: Soft, non-distended, non-tender abdomen. Back: There is no tenderness to palpation in the midline, paralumbar, parathoracic or buttocks region. There is no obvious deformity . Musculoskeletal: FROM. Muscle strength in all major muscle groups of bilateral upper extremities 5/5, bilateral lower extremities 5/5. Neurological: CN 2-12 intact. There are no obvious motor or sensory deficits. Movement and coordination equal and intact. Sensory exam to light touch intact C5-T1 and intact from L2-S1. Reflexes 2/4 in bilateral upper and lower extremities. Negative Hoffmans, babinski, and clonus signs. Psychiatric: Cooperative, appropriate mood & affect, normal judgment. - Labs CBC & Chem 7: 03/02/22 07:37 03/02/22 07:37 Labs: Abnormal Lab Results - Last 24 Hours (Table) 03/02/22 03/02/22 Range/Units 07:37 07:37 ESR 28 H (0-15) mm/hr Uric Acid 3.0 L (3.5-8.5) mg/dL Assessment and Plan Assessment: Osteoarthritis first Carpometacarpal joint right hand Cellulitis right wrist Plan: Appreciate medical management Continue with antibiotic therapy Pain management - tylenol prn Ice and Elevate DVT prophylaxis - Lovenox; aspirin GI prophylaxis - Protonix; Colace PT/OT - weightbearing as tolerated Appreciate consult, we will be signing off at this time. Patient may follow up in office as needed. Please feel free to contact for any questions or concerns. *I reviewed and discussed this case with my attending Dr. Hughes, whom has reviewed this chart and films and is in agreement with assessment and plan of care as outlined above. I have personally seen and examined the patient, performed the documentation and the assessment and plan as written. Number of minutes spent on the visit: 15m.
[2022-03-03] MEDS: SODIUM CHLORIDE 0.9% 1,000 ML IV SCH (13:39)
[2022-03-03 14:20] VITALS: BP 152/76; PULSE 61; TEMP 97.6
--- NOTE | 2022-03-03 15:23 | P.DS ---
Providers Date of admission: 03/02/22 12:11 Expected date of discharge: 03/03/22 Attending physician: Kacie Avitia DO Consults: 03/02/22 12:08 Consult Physician Stat Consulting Provider: Vangie Bojorquez Consult Reason/Comments: possible right wrist cellulitis, on IV cefazolin at home for bacteremia Do you want consulting provider notified?: Yes 03/02/22 14:53 Consult Physician Urgent Consulting Provider: Oscar Hughes Consult Reason/Comments: right wrist synovitis, concern for gout/pseudogout, may need tap Do you want consulting provider notified?: Yes Primary care physician: [facility] Course: 76-year-old male with history of recent MSSA bacteremia with negative work up including WBC scan, was discharged on IV cefazolin, hx of CML, coronary artery disease, aortic valve stenosis and insufficiency presenting with right wrist redness, swelling and pain. He had recent cardiac catheterization prior to danial teremia through right radial axis. The pain was radiating up the forearm. Denies any new mechanical injury. He has had some fevers at home. He denies any chest pain, shortness of breath, abdominal pain, nausea, vomiting, diarrhea, constipation, or urinary complaints. In the ED, he was afebrile. His white count was 7.2, hemoglobin 10.1, platelets 309. His electrolytes were unremarkable. Hand and wrist x-ray showed degenerative joint changes, but no acute process. He was given a dose of vancomycin in the ED, and admitted for further workup. Right upper extremity venous Doppler did not show any signs of DVT. He was resumed on cefazolin upon admission, but continued to be afebrile, uric acid came back low. Redness, swelling and pain improved significantly. He will be discharged home in a stable condition. Patient was seen and examined on the day of discharge 03/03 Time for discharge 35 minutes. Patient Condition at Discharge: Good Plan - Discharge Summary Discharge Rx Participant: No New Discharge Prescriptions: No Action Nitroglycerin Sl Tabs [Nitrostat] 0.4 mg SL Q5M PRN PRN Reason: Pain Metoprolol Tartrate [Lopressor] 25 mg PO BID Losartan [Cozaar] 50 mg PO DAILY Aspirin 81 mg PO DAILY Ubidecarenone [Co Q-10] 100 mg PO DAILY Omeprazole [PriLOSEC] 40 mg PO HS Ascorbic Acid [Vitamin C] 1,000 mg PO DAILY Pantoprazole [Protonix] 40 mg PO DAILY #30 tab Prosynbiotic 1 tab PO BID ceFAZolin [Kefzol] 2 gm IVP Q8H Docusate [Colace] 100 mg PO BID Albuterol Inhaler [Ventolin Hfa Inhaler] 1 - 2 puff INHALATION RT-QID PRN PRN Reason: Shortness Of Breath Fluticasone/Vilanterol [Breo Ellipta 200-25 Mcg Inhaler] 1 puff INHALATION RT-QID PRN PRN Reason: Shortness Of Breath Quercetin 800 mg PO BID Zinc Gluconate [Zinc] 50 mg PO DAILY Cranberry Fruit [Cranberry] 465 mg PO DAILY Furosemide [Lasix] 40 mg PO DAILY PRN PRN Reason: fluid retention Cholecalciferol [Vitamin D3 (25 Mcg = 1000 Iu)] 50 mcg PO DAILY Centrum Cardio 2 tab PO DAILY Discharge Medication List Ascorbic Acid [Vitamin C] 1,000 mg PO DAILY 10/24/18 [History] Aspirin 81 mg PO DAILY 10/24/18 [History] Losartan [Cozaar] 50 mg PO DAILY 10/24/18 [History] Metoprolol Tartrate [Lopressor] 25 mg PO BID 10/24/18 [History] Nitroglycerin Sl Tabs [Nitrostat] 0.4 mg SL Q5M PRN 10/24/18 [History] Omeprazole [PriLOSEC] 40 mg PO HS 10/24/18 [History] Ubidecarenone [Co Q-10] 100 mg PO DAILY 10/24/18 [History] Docusate [Colace] 100 mg PO BID 11/05/20 [History] Albuterol Inhaler [Ventolin Hfa Inhaler] 1 - 2 puff INHALATION RT-QID PRN 02/09/22 [History] Fluticasone/Vilanterol [Breo Ellipta 200-25 Mcg Inhaler] 1 puff INHALATION RT- QID PRN 02/09/22 [History] Cranberry Fruit [Cranberry] 465 mg PO DAILY 02/14/22 [History] Furosemide [Lasix] 40 mg PO DAILY PRN 02/14/22 [History] Quercetin 800 mg PO BID 02/14/22 [History] Zinc Gluconate [Zinc] 50 mg PO DAILY 02/14/22 [History] Pantoprazole [Protonix] 40 mg PO DAILY #30 tab 02/22/22 [Rx] Centrum Cardio 2 tab PO DAILY 03/02/22 [History] Cholecalciferol [Vitamin D3 (25 Mcg = 1000 Iu)] 50 mcg PO DAILY 03/02/22 [History] Prosynbiotic 1 tab PO BID 03/02/22 [History] ceFAZolin [Kefzol] 2 gm IVP Q8H 03/02/22 [History] Follow up Appointment(s)/Referral(s): [facility], [NON-STAFF] - 1 Week None,Stated [REFERRING] - 1-2 days [facility], [REFERRING] - 1 Week
--- NOTE | 2022-03-03 19:58 | P.PN ---
Subjective Progress Note Date: 03/03/22 Principal diagnosis: Right wrist tenosynovitis Patient is a 76-year-old male who was recently admitted at this facility and did have MSSA bacteremia patient did have extensive work-up including a WBC scan that was negative patient did clear his bacteremia he did get a midline and is currently getting cefazolin 2 g every 8 hours at home patient now presenting back to the hospital concerning for right wrist and hand area swelling with initial concern for possible cellulitis. On today's evaluation that is 03/03/2022, the patient denies having any fever and oriented, patient right wrist pain and swelling has much improved almost resolved, patient denies having any chest pain or shortness of breath or cough no nausea no vomiting no abdominal pain no diarrhea feeling better wants to go home Objective - Vital Signs Vital signs: Vital Signs Temp 97.7 F 03/03/22 07:10 Pulse 53 L 03/03/22 07:10 Resp 18 03/03/22 07:10 BP 140/71 03/03/22 07:10 Pulse Ox 98 03/03/22 07:10 FiO2 Intake & Output 03/02/22 03/03/22 03/03/22 18:59 06:59 18:59 Intake Total 1550 Balance 1550 Weight 97.522 kg Intake: Intake, IV Titration 950 Amount Sodium Chloride 0.9% 1, 900 000 ml @ 75 mls/hr IV . [id number] [facility] Rx#:[id number] ceFAZolin 2 gm In Sodium 50 Chloride 0.9% 50 ml @ 100 mls/hr IVPB Q8HR JACOB Rx# :[id number] Oral 600 Other: Voiding Method Toilet # Voids 1 3 - Exam GENERAL DESCRIPTION: An elderly male lying in bed in no distress RESPIRATORY SYSTEM: Unlabored breathing , decreased breath sounds at bases HEART: S1 S2 regular rate and rhythm , ABDOMEN: Soft , no tenderness EXTREMITIES: Right wrist currently with no swelling redness or tenderness - Labs CBC & Chem 7: 03/02/22 07:37 03/02/22 07:37 Labs: Abnormal Lab Results - Last 24 Hours (Table) 03/02/22 03/02/22 Range/Units 07:37 07:37 ESR 28 H (0-15) mm/hr Uric Acid 3.0 L (3.5-8.5) mg/dL Microbiology - Last 24 Hours (Table) 03/02/22 07:30 Blood Culture - Preliminary Blood No Growth after 24 hours 03/02/22 07:20 Blood Culture - Preliminary Blood No Growth after 24 hours Assessment and Plan (1) Right wrist pain Status: Acute Code(s): M25.531 - PAIN IN RIGHT WRIST SNOMED Code(s): 99834437 Plan: 1patient presented to hospital with right wrist pain swelling redness question of possible inflammatory arthritis clinically not behaving as cellulitis with no significant redness was noticed patient not running any fever and white count is normal. Patient seemed to have shown significant improvement with steroids and should be continued in the outpatient setting 2patient tocontinue with the cefazolin 2 g every 8 hours to finish his course of treatment For his previous bacteremia and a close outpatient follow-up Time with Patient: Less than 30
== END 2022-03-03 17:09 | disposition home or self-care (01) | DRG 554 ==
LOC: SUPCPDRO 06:17 → EC 06:17 → 5NMEDONC 12:11
PROVIDERS: ADMIT Internal Medicine; ATTEND Internal Medicine
DX: M18.11 Unilateral primary osteoarthritis of first carpometacarpal joint, right hand (principal); L03.113 Cellulitis of right upper limb; C92.10 Chronic myeloid leukemia, BCR/ABL-positive, not having achieved remission; M65.841 Other synovitis and tenosynovitis, right hand; K21.9 Gastro-esophageal reflux disease without esophagitis; E11.9 Type 2 diabetes mellitus without complications; F10.20 Alcohol dependence, uncomplicated; F17.210 Nicotine dependence, cigarettes, uncomplicated; I10 Essential (primary) hypertension; I25.10 Atherosclerotic heart disease of native coronary artery without angina pectoris; Z79.82 Long term (current) use of aspirin; Z79.899 Other long term (current) drug therapy; Z86.19 Personal history of other infectious and parasitic diseases; Z88.1 Allergy status to other antibiotic agents; Z91.048 Other nonmedicinal substance allergy status; Z90.49 Acquired absence of other specified parts of digestive tract; Z98.49 Cataract extraction status, unspecified eye; Z87.19 Personal history of other diseases of the digestive system; Z87.01 Personal history of pneumonia (recurrent); Z88.8 Allergy status to other drugs, medicaments and biological substances
CPT/HCPCS: 36415; 80053; 84550; 85025; 85610; 85652; 85730; 86140; 87040; 96361; 96365; 96366; 96367; 96375; 99285

== ENCOUNTER 2022-03-06 20:06 | Emergency (ER) | payer MEDICARE ==
[2022-03-06 20:35] VITALS: BP 157/79; PULSE 78; RESP 18; TEMP 99.4
[2022-03-06 21:27] LABS: Basophils % (A) 1 %; Eosinophils # (A) 0.1 k/uL (0-0.7); Eosinophils % (A) 1 %; HCT 27.1 % (39.0-53.0); HGB 9.3 gm/dL (13.0-17.5); Lymphocytes # (A) 0.7 k/uL (1.0-4.8); Lymphocytes % (A) 17 %; MCH 33.1 pg (25.0-35.0); MCHC 34.2 g/dL (31.0-37.0); MCV 96.7 fL (80.0-100.0); Mean Platelet Volume 7.7; Monocytes # (A) 0.4 k/uL (0-1.0); Monocytes % (A) 9 %; Neutrophils # (A) 3.1 k/uL (1.3-7.7); Neutrophils % (A) 71 %; Platelet Count 197 k/uL (150-450); Poikilocytosis Slight; RDW 14.1 % (11.5-15.5); WBC 4.3 k/uL (3.8-10.6)
[2022-03-06 21:45] LABS: ALT 8 U/L (4-49); AST 22 U/L (17-59); African American GFR (CKD) >90 (>60 ml/min/1.73 sqM); Albumin 3.7 g/dL (3.5-5.0); Alkaline Phosphatase 65 U/L (38-126); Anion Gap 3 mmol/L; Blood Urea Nitrogen 18 mg/dL (9-20); Calcium 8.7 mg/dL (8.4-10.2); Carbon Dioxide 29 mmol/L (22-30); Chloride 107 mmol/L (98-107); Glucose 116 mg/dL (74-99); Magnesium 1.8 mg/dL (1.6-2.3); Non-African American GFR(CKD) 84 (>60 ml/min/1.73 sqM); Potassium 3.9 mmol/L (3.5-5.1); Sodium 139 mmol/L (137-145); Total Bilirubin 0.4 mg/dL (0.2-1.3); Total Protein 6.5 g/dL (6.3-8.2)
[2022-03-06 21:47] LABS: Partial Thromboplastin Time 24.9 sec (22.0-30.0); Prothrombin Time 10.9 sec (9.0-12.0)
--- NOTE | 2022-03-06 21:48 | XR ---
EXAMINATION TYPE: XR chest 2V DATE OF EXAM: 03/06/2022 COMPARISON: 02/13/2022 HISTORY: Weakness TECHNIQUE: FINDINGS: Heart is enlarged. No heart failure. Lungs are clear of consolidation. There are no hilar m asses. Costophrenic angles are clear. Bony thorax is intact. IMPRESSION: Cardiomegaly. No active cardiopulmonary disease.
[2022-03-06] MEDS ORDERED: OSELTAMIVIR 75 MG CAP PO STA (22:49)
--- NOTE | 2022-03-06 22:52 | ED ---
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 He has been hospitalized multiple times recently for fever. First time he was diagnosed with pneumonia and bacteremia. Patient then had a heart cath with VICENTE and required to be hospitalized again for right wrist swelling. He has a midline in his left arm and is on antibiotics for his bacteremia. reports that tomorrow is his last dose. Today the patient began developing sinus congestion and fevers. They're told that anytime the patient has fevers he needs to come into the emergency room. He denies any ear pain or sore throat. No chest pain. No cough. Denies rashes. Did take 2 Tylenol before coming into the emergency room. No other alleviating, filenet admin modifying factors - Related Data Home Medications Medication Instructions Recorded Confirmed Ascorbic Acid [Vitamin C] 1,000 mg PO DAILY 10/24/18 03/02/22 Aspirin 81 mg PO DAILY 10/24/18 03/02/22 Losartan [Cozaar] 50 mg PO DAILY 10/24/18 03/02/22 Metoprolol Tartrate [Lopressor] 25 mg PO BID 10/24/18 03/02/22 Nitroglycerin Sl Tabs [Nitrostat] 0.4 mg SL Q5M PRN 10/24/18 03/02/22 Omeprazole [PriLOSEC] 40 mg PO HS 10/24/18 03/02/22 Ubidecarenone [Co Q-10] 100 mg PO DAILY 10/24/18 03/02/22 Docusate [Colace] 100 mg PO BID 11/05/20 03/02/22 Albuterol Inhaler [Ventolin Hfa 1 - 2 puff INHALATION RT-QID PRN 02/09/22 03/02/22 Inhaler] Fluticasone/Vilanterol [Breo 1 puff INHALATION RT-QID PRN 02/09/22 03/02/22 Ellipta 200-25 Mcg Inhaler] Cranberry Fruit [Cranberry] 465 mg PO DAILY 02/14/22 03/02/22 Furosemide [Lasix] 40 mg PO DAILY PRN 02/14/22 03/02/22 Quercetin 800 mg PO BID 02/14/22 03/02/22 Zinc Gluconate [Zinc] 50 mg PO DAILY 02/14/22 03/02/22 Centrum Cardio 2 tab PO DAILY 03/02/22 03/02/22 Cholecalciferol [Vitamin D3 (25 50 mcg PO DAILY 03/02/22 03/02/22 Mcg = 1000 Iu)] Prosynbiotic 1 tab PO BID 03/02/22 03/02/22 ceFAZolin [Kefzol] 2 gm IVP Q8H 03/02/22 03/02/22 Previous Rx's Medication Instructions Recorded Pantoprazole [Protonix] 40 mg PO DAILY #30 tab 02/22/22 Oseltamivir [Tamiflu] 75 mg PO Q12HR #10 cap 03/06/22 Allergies Allergy/AdvReac Type Severity Reaction Status Date / Time adhesive tape Allergy Rash/Hives,"paper Verified 03/02/22 11:45 tape is ok" amoxicillin [From Augmentin] Allergy Rash/Hives Verified 03/02/22 11:45 atorvastatin [From Lipitor] Allergy Muscle Verified 03/02/22 11:45 Aches budesonide [From Symbicort] Allergy Vision Verified 03/02/22 11:45 issues ciprofloxacin Allergy Muscle Verified 03/02/22 11:45 aches clavulanic acid Allergy Rash/Hives Verified 03/06/22 20:35 [From Augmentin] doxycycline Allergy Rectal Verified 03/06/22 20:35 Bleeding enalapril Allergy Cough Verified 03/06/22 20:35 ezetimibe [From Vytorin] Allergy Muscle Verified 03/06/22 20:35 Aches fluticasone Allergy Irregular Verified 03/06/22 20:35 [From Advair Diskus] heart rate formoterol [From Symbicort] Allergy Vision Verified 03/06/22 20:35 issues mold Allergy Rash/Hives Verified 03/06/22 20:35 salmeterol Allergy Irregular Verified 03/06/22 20:35 [From Advair Diskus] heart rate simvastatin [From Vytorin] Allergy Muscle Verified 03/06/22 20:35 Aches [id number]-JsC Reductase Allergy Muscle Verified 03/06/22 20:35 Inhibitor aches [Syeaznm-Zfh-Loz Reductase Inhibitor] nilotinib [From Tasigna] AdvReac Pancreatiti Verified 03/02/22 11:45 s Cotton material Allergy itching, Uncoded 03/02/22 11:45 hives Review of Systems ROS Statement: Those systems with pertinent positive or pertinent negative responses have been documented in the HPI. ROS Other: All systems not noted in ROS Statement are negative. Past Medical History Past Medical History: Coronary Artery Disease (CAD), Cancer, GERD/Reflux, Hypertension, Skin Disorder Additional Past Medical History / Comment(s): Hx. of CML, Hx. of Shingles L eye, Cysts on L kidney. History of Any Multi-Drug Resistant Organisms: None Reported Past Surgical History: Cholecystectomy, Heart Catheterization With Stent, Hernia Repair, Orthopedic Surgery Additional Past Surgical History / Comment(s): Thyroid surgery,Vasectomy, R ankle surgery, Sinus surgery, Basal cell R shoulder, Pyloroplasty & Vagotomy, Hemorrhoidectomy, Cataract surgery & bx. of inner thigh. Past Anesthesia/Blood Transfusion Reactions: No Reported Reaction Date of Last Stent Placement:: 2005 Past Psychological History: No Psychological Hx Reported Smoking Status: Former smoker Past Alcohol Use History: None Reported Past Drug Use History: None Reported - Past Family History Mother Family Medical History: Cancer, Pulmonary Embolus Father Family Medical History: Cancer Brother(s) Family Medical History: Cancer Son(s) Family Medical History: Cancer General Exam Limitations: no limitations General appearance: alert, in no apparent distress Head exam: Present: atraumatic, normocephalic, normal inspection Eye exam: Present: normal appearance, PERRL, EOMI. Absent: scleral icterus, conjunctival injection, periorbital swelling ENT exam: Present: normal exam, mucous membranes moist Neck exam: Present: normal inspection. Absent: tenderness, meningismus, lymphadenopathy Respiratory exam: Present: normal lung sounds bilaterally. Absent: respiratory distress, wheezes, rales, rhonchi, stridor Cardiovascular Exam: Present: regular rate, normal rhythm, normal heart sounds. Absent: systolic murmur, diastolic murmur, rubs, gallop, clicks GI/Abdominal exam: Present: soft, normal bowel sounds. Absent: distended, tenderness, guarding, rebound, rigid Extremities exam: Present: full ROM, normal capillary refill, other (Some swelling to the right lower extremity which is chronic for the patient due to reconstruction of the ankle. He has a midline in the left upper extremity without redness, warmth or swelling). Absent: tenderness, pedal edema, joint swelling, calf tenderness Back exam: Present: normal inspection Neurological exam: Present: alert, oriented X3, CN II-XII intact Psychiatric exam: Present: normal affect, normal mood Skin exam: Present: warm, dry, intact, normal color. Absent: rash Course Vital Signs 03/06/22 20:30 Temperature 99.4 F Pulse Rate 78 Respiratory 18 Rate Blood Pressure 157/79 O2 Sat by Pulse 96 Oximetry EKG Findings - EKG Comments: EKG Findings:: EKG demonstrates sinus rhythm with a rate of 76. FL interval 182. QRS 99. QTC 399. No acute ST segment elevations or depressions. EKG interpreted by myself Medical Decision Making - Medical Decision Making Was pt. sent in by a medical professional or institution? @ -No Did you speak to anyone other than the patient for history? @ -No Did you review nursing and triage notes? @ -Yes and I agree Were old charts reviewed? @ -Reviewed the patient's previous inpatient admissions which include his diagnosis of bacteremia and infectious disease consults. Differential Diagnosis? @ -Differential Fever: Pneumonia, viral URI, endocarditis, myocarditis, pericarditis, otitis, sinusitis, peritonsillar Abscess, retropharyngeal Abscess, epiglottitis, peritonitis, appendicitis, Laya cystitis, diverticulitis, hepatitis, colitis, UTI, PID, TOA, pyelonephritis, prostatitis, epididymitis, meningitis, encephalitis, pulmonary embolism, CVA, thyroid storm, pancreatitis, adrenal crisis, cavernous sinus thrombosis, this is not meant to be an all-inclusive list. EKG interpreted by me (3pts min.)? @ -Yes X-rays interpreted by me (1pt min.)? @ -Yes CT interpreted by me (1pt min.)? @ -No U/S interpreted by me (1pt. min.)? @ -No What testing was considered but not performed? (CT, X-rays, U/S, labs)? Why? @None What meds were considered but not given? Why? @ -No Did you discuss the management of the patient with other professionals? @ No Did you reconcile home meds? @ No Was smoking cessation discussed for >3mins.? @ No Was critical care preformed (if so, how long)? @ No Were there social determinants of health that impacted care today? How? (Homelessness, low income, unemployed, alcoholism, drug addiction, transportation, low edu. Level, literacy, decrease access to med. care, fpc, rehab)? @No Was there de-escalation of care discussed even if they declined? (Discuss DNR or withdrawal of care, Hospice)? @ No What co-morbidities impacted this encounter? (DM, HTN, Smoking, COPD, CAD, Cancer, CVA, Hep., AIDS, mental health diagnosis, sleep apnea, morbid obesity)? @CML on chemotherapy Was patient admitted / discharged? @Discharged. Upon arrival patient was placed into room 26. A thorough history and physical exam was performed. IV access is established and laboratory studies are conducted. Patient reports to sinusitis and therefore I did swab him. Patient is positive for influenza A. As there is a reason for the patient to have a fever I feel that the patient is stable for discharge home on Tamiflu. He is to continue his remaining antibiotics as directed. Follow up with his doctor in the outpatient setting return for any new or worsening symptoms. Patient was discharged home in stable condition Undiagnosed new problem with uncertain prognosis? @ -No Drug Therapy requiring intensive monitoring for toxicity (Heparin, Nitro, Insulin, Cardizem)? @ -No Were any procedures done? @ -No Diagnosis/symptom? @ -Acute pyrexia due to influenza A Acute, or Chronic, or Acute on Chronic? @ -Acute Uncomplicated (without systemic symptoms) or Complicated (systemic symptoms)? @ -Complicated Side effects of treatment? @ -Nausea and vomiting Exacerbation, Progression, or Severe Exacerbation] @ -No Poses a threat to life or bodily function? @ -No - Lab Data Result diagrams: 03/06/22 21:11 03/06/22 21:11 Lab Results 03/06/22 03/06/22 03/06/22 Range/Units 21:11 21:11 21:11 WBC 4.3 (3.8-10.6) k/uL RBC 2.80 L (4.30-5.90) m/uL Hgb 9.3 L (13.0-17.5) gm/dL Hct 27.1 L (39.0-53.0) % MCV 96.7 (80.0-100.0) fL MCH 33.1 (25.0-35.0) pg MCHC 34.2 (31.0-37.0) g/dL RDW 14.1 (11.5-15.5) % Plt Count 197 (150-450) k/uL MPV 7.7 Neutrophils % 71 % Lymphocytes % 17 % Monocytes % 9 % Eosinophils % 1 % Basophils % 1 % Neutrophils # 3.1 (1.3-7.7) k/uL Lymphocytes # 0.7 L (1.0-4.8) k/uL Monocytes # 0.4 (0-1.0) k/uL Eosinophils # 0.1 (0-0.7) k/uL Basophils # 0.0 (0-0.2) k/uL Poikilocytosis Slight PT 10.9 (9.0-12.0) sec INR 1.0 (<1.2) APTT 24.9 (22.0-30.0) sec Sodium 139 (137-145) mmol/L Potassium 3.9 (3.5-5.1) mmol/L Chloride 107 (98-107) mmol/L Carbon Dioxide 29 (22-30) mmol/L Anion Gap 3 mmol/L BUN 18 (9-20) mg/dL Creatinine 0.86 (0.66-1.25) mg/dL Est GFR (CKD-EPI)AfAm >90 (>60 ml/min/1.73 sqM) Est GFR (CKD-EPI)NonAf 84 (>60 ml/min/1.73 sqM) Glucose 116 H (74-99) mg/dL Plasma Lactic Acid Quinton (0.7-2.0) mmol/L Calcium 8.7 (8.4-10.2) mg/dL Magnesium 1.8 (1.6-2.3) mg/dL Total Bilirubin 0.4 (0.2-1.3) mg/dL AST 22 (17-59) U/L ALT 8 (4-49) U/L Alkaline Phosphatase 65 (38-126) U/L Troponin I (0.000-0.034) ng/mL NT-Pro-B Natriuret Pep pg/mL Total Protein 6.5 (6.3-8.2) g/dL Albumin 3.7 (3.5-5.0) g/dL Urine Color Urine Appearance (Clear) Urine pH (5.0-8.0) Ur Specific Douglas (1.001-1.035) Urine Protein (Negative) Urine Glucose (UA) (Negative) Urine Ketones (Negative) Urine Blood (Negative) Urine Nitrite (Negative) Urine Bilirubin (Negative) Urine Urobilinogen (<2.0) mg/dL Ur Leukocyte Esterase (Negative) Coronavirus (PCR) (Not Detectd) Influenza Type A RNA (Not Detectd) Influenza Type B (PCR) (Not Detectd) 03/06/22 03/06/22 03/06/22 Range/Units 21:11 21:11 21:11 WBC (3.8-10.6) k/uL RBC (4.30-5.90) m/uL Hgb (13.0-17.5) gm/dL Hct (39.0-53.0) % MCV (80.0-100.0) fL MCH (25.0-35.0) pg MCHC (31.0-37.0) g/dL RDW (11.5-15.5) % Plt Count (150-450) k/uL MPV Neutrophils % % Lymphocytes % % Monocytes % % Eosinophils % % Basophils % % Neutrophils # (1.3-7.7) k/uL Lymphocytes # (1.0-4.8) k/uL Monocytes # (0-1.0) k/uL Eosinophils # (0-0.7) k/uL Basophils # (0-0.2) k/uL Poikilocytosis PT (9.0-12.0) sec INR (<1.2) APTT (22.0-30.0) sec Sodium (137-145) mmol/L Potassium (3.5-5.1) mmol/L Chloride (98-107) mmol/L Carbon Dioxide (22-30) mmol/L Anion Gap mmol/L BUN (9-20) mg/dL Creatinine (0.66-1.25) mg/dL Est GFR (CKD-EPI)AfAm (>60 ml/min/1.73 sqM) Est GFR (CKD-EPI)NonAf (>60 ml/min/1.73 sqM) Glucose (74-99) mg/dL Plasma Lactic Acid Quinton 0.7 (0.7-2.0) mmol/L Calcium (8.4-10.2) mg/dL Magnesium (1.6-2.3) mg/dL Total Bilirubin (0.2-1.3) mg/dL AST (17-59) U/L ALT (4-49) U/L Alkaline Phosphatase (38-126) U/L Troponin I <0.012 (0.000-0.034) ng/mL NT-Pro-B Natriuret Pep 897 pg/mL Total Protein (6.3-8.2) g/dL Albumin (3.5-5.0) g/dL Urine Color Urine Appearance (Clear) Urine pH (5.0-8.0) Ur Specific Douglas (1.001-1.035) Urine Protein (Negative) Urine Glucose (UA) (Negative) Urine Ketones (Negative) Urine Blood (Negative) Urine Nitrite (Negative) Urine Bilirubin (Negative) Urine Urobilinogen (<2.0) mg/dL Ur Leukocyte Esterase (Negative) Coronavirus (PCR) (Not Detectd) Influenza Type A RNA (Not Detectd) Influenza Type B (PCR) (Not Detectd) 03/06/22 03/06/22 03/06/22 Range/Units 21:11 21:11 22:40 WBC (3.8-10.6) k/uL RBC (4.30-5.90) m/uL Hgb (13.0-17.5) gm/dL Hct (39.0-53.0) % MCV (80.0-100.0) fL MCH (25.0-35.0) pg MCHC (31.0-37.0) g/dL RDW (11.5-15.5) % Plt Count (150-450) k/uL MPV Neutrophils % % Lymphocytes % % Monocytes % % Eosinophils % % Basophils % % Neutrophils # (1.3-7.7) k/uL Lymphocytes # (1.0-4.8) k/uL Monocytes # (0-1.0) k/uL Eosinophils # (0-0.7) k/uL Basophils # (0-0.2) k/uL Poikilocytosis PT (9.0-12.0) sec INR (<1.2) APTT (22.0-30.0) sec Sodium (137-145) mmol/L Potassium (3.5-5.1) mmol/L Chloride (98-107) mmol/L Carbon Dioxide (22-30) mmol/L Anion Gap mmol/L BUN (9-20) mg/dL Creatinine (0.66-1.25) mg/dL Est GFR (CKD-EPI)AfAm (>60 ml/min/1.73 sqM) Est GFR (CKD-EPI)NonAf (>60 ml/min/1.73 sqM) Glucose (74-99) mg/dL Plasma Lactic Acid Quinton (0.7-2.0) mmol/L Calcium (8.4-10.2) mg/dL Magnesium (1.6-2.3) mg/dL Total Bilirubin (0.2-1.3) mg/dL AST (17-59) U/L ALT (4-49) U/L Alkaline Phosphatase (38-126) U/L Troponin I (0.000-0.034) ng/mL NT-Pro-B Natriuret Pep pg/mL Total Protein (6.3-8.2) g/dL Albumin (3.5-5.0) g/dL Urine Color Yellow Urine Appearance Clear (Clear) Urine pH 6.5 (5.0-8.0) Ur Specific Douglas 1.020 (1.001-1.035) Urine Protein Trace H (Negative) Urine Glucose (UA) Negative (Negative) Urine Ketones Negative (Negative) Urine Blood Negative (Negative) Urine Nitrite Negative (Negative) Urine Bilirubin Negative (Negative) Urine Urobilinogen <2.0 (<2.0) mg/dL Ur Leukocyte Esterase Negative (Negative) Coronavirus (PCR) Not Detected (Not Detectd) Influenza Type A RNA Detected H (Not Detectd) Influenza Type B (PCR) Not Detected (Not Detectd) Disposition Clinical Impression: Fever, Influenza A Disposition: HOME SELF-CARE Condition: Stable Instructions (If sedation given, give patient instructions): Influenza (ED) Additional Instructions: Please take the Tamiflu as directed. Follow up with your primary care doctor and return for any new or worsening symptoms Prescriptions: Oseltamivir [Tamiflu] 75 mg PO Q12HR #10 cap Is patient prescribed a controlled substance at d/c from ED?: No Referrals: Rodolfo Healy MD [Primary Care Provider] - 1-2 days Time of Disposition: 23:05
[2022-03-06 23:01] LABS: Appearance,Urine Clear (Clear); Bilirubin,Urine Negative (Negative); Blood,Urine Negative (Negative); Color,Urine Yellow; Glucose,Urine (UA) Negative (Negative); Ketones,Urine Negative (Negative); Leukocyte Esterase,Urine Negative (Negative); Nitrite,Urine Negative (Negative); PH, Urine 6.5 (5.0-8.0); Protein,Urine Trace (Negative); Urobilinogen,Urine <2.0 mg/dL (<2.0)
== END 2022-03-06 23:26 | disposition home or self-care (01) ==
LOC: EC 20:06
DX: J10.1 Influenza due to other identified influenza virus with other respiratory manifestations (principal); I25.10 Atherosclerotic heart disease of native coronary artery without angina pectoris; K21.9 Gastro-esophageal reflux disease without esophagitis; I10 Essential (primary) hypertension; Z87.891 Personal history of nicotine dependence; Z91.048 Other nonmedicinal substance allergy status; Z88.0 Allergy status to penicillin; Z88.1 Allergy status to other antibiotic agents; Z88.8 Allergy status to other drugs, medicaments and biological substances; Z79.82 Long term (current) use of aspirin; Z79.899 Other long term (current) drug therapy; Z20.822 Contact with and (suspected) exposure to COVID-19
CPT/HCPCS: 36415; 71046; 80053; 81003; 83605; 83735; 83880; 84484; 85025; 85610; 85730; 87502; 87635; 93005; 99285

== ENCOUNTER → 2022-03-22 | Outpatient (CLI) | payer MEDICARE ==
[2022-03-22 10:35] LABS: Basophils # (A) 0.07 X 10*3/uL (0.00-0.10); Basophils % (A) 0.9 %; Eosinophils # (A) 0.09 X 10*3/uL (0.04-0.35); Eosinophils % (A) 1.1 %; HCT 33.7 % (39.6-50.0); HGB 10.7 g/dL (13.0-17.0); Immature Grans, Automated 0.4 %; Lymphocytes # (A) 4.64 X 10*3/uL (0.90-5.00); Lymphocytes % (A) 58.1 %; MCH 32.4 pg (27.0-32.0); MCHC 31.8 g/dL (32.0-37.0); MCV 102.1 fL (80.0-97.0); Mean Platelet Volume 9.8 fL (9.5-12.2); Monocytes # (A) 0.49 X 10*3/uL (0.20-1.00); Monocytes % (A) 6.1 %; NRBC Per 100 WBC 0 /100 WBCS (0.0-0.0); Neutrophils # (A) 2.67 X 10*3/uL (1.80-7.70); Neutrophils % (A) 33.4 %; Platelet Count 274 X 10*3/uL (140-440); WBC 7.99 X 10*3/uL (4.50-10.00)
[2022-03-22 12:12] LABS: Erythrocyte Sedimentation Rate 6 mm/Hr (0-20)
[2022-03-24 09:43] LABS: African American GFR (CKD) 74.7 (60.0-200.0); BUN/Creat Ratio 21.73 Ratio (12.00-20.00); Blood Urea Nitrogen 23.9 mg/dL (9.0-27.0); C Reactive Protein <0.30 mg/dL (0.00-0.80); Calcium 9.3 mg/dL (8.7-10.3); Carbon Dioxide 20.2 mmol/L (20.0-27.5); Chloride 108 mmol/L (96-109); Glucose 99 mg/dL (70-110); Non-African American GFR(CKD) 64.4 (60.0-200.0); Potassium 4.7 mmol/L (3.5-5.5); Sodium 143 mmol/L (135-145)
== END | disposition home or self-care (01) ==
LOC: LABWHC1 07:25
PROVIDERS: ATTEND Internal Medicine Infectious Disease
DX: B95.61 Methicillin susceptible Staphylococcus aureus infection as the cause of diseases classified elsewhere (principal); I50.9 Heart failure, unspecified
CPT/HCPCS: 36415; 80048; 85025; 85652; 86140; 87040

== ENCOUNTER 2022-06-23 17:40 | Emergency (ER) | payer MEDICARE ==
[2022-06-23 17:53] VITALS: TEMP 97.8
[2022-06-23] MEDS ORDERED: LABETALOL 5 MG/ML VIAL MDV IVP STA (19:22)
--- NOTE | 2022-06-23 19:27 | ED ---
Recheck HPI - General Chief Complaint: Recheck/Abnormal Lab/Rx Stated Complaint: High Blood Pressure Time Seen by Provider: 06/23/22 19:11 Source: patient, RN notes reviewed Mode of arrival: wheelchair Limitations: no limitations - History of Present Illness Initial Comments: This is a 76-year-old male who presents to the emergency department for concerns of elevated blood pressure. States that he had a TAVR at the [facility] 6 weeks ago. This was an experimental valve. Today, he started to notice that his blood pressure was elevated. It got as high as 193/105. States that his blood pressure is usually in the 130s to 150s systolically. He is currently taking metoprolol 25 mg twice daily and Cozaar once daily. He spoke with [facility] re etcher, who advised that if his blood pressure continues to remain elevated, that he should come to the emergency department. His local re etcher is Dr. Wells. He called the office, but is still waiting for a call back. Denies any chest pain, however he has started to develop a headache today. Also feels like when he walks he is leaning to the left. His any weakness, dizziness, chest pain, or shortness of breath. Denies any fevers, chills, sore throat, cough, dyspnea, chest pain, palpitations, abdominal pain, nausea, vomiting, diarrhea, or back pain. MD Complaint: other (Elevated BP) - Related Data Home Medications Medication Instructions Recorded Confirmed Ascorbic Acid [Vitamin C] 1,000 mg PO DAILY 10/24/18 06/23/22 Aspirin 81 mg PO DAILY 10/24/18 06/23/22 Losartan [Cozaar] 50 mg PO DAILY 10/24/18 06/23/22 Metoprolol Tartrate [Lopressor] 25 mg PO BID 10/24/18 06/23/22 Nitroglycerin Sl Tabs [Nitrostat] 0.4 mg SL Q5M PRN 10/24/18 06/23/22 Omeprazole [PriLOSEC] 40 mg PO HS 10/24/18 06/23/22 Ubidecarenone [Co Q-10] 100 mg PO DAILY 10/24/18 06/23/22 Docusate [Colace] 100 mg PO BID 11/05/20 06/23/22 Albuterol Inhaler [Ventolin Hfa 1 - 2 puff INHALATION RT-QID PRN 02/09/22 06/23/22 Inhaler] Fluticasone/Vilanterol [Breo 1 puff INHALATION RT-QID PRN 02/09/22 06/23/22 Ellipta 200-25 Mcg Inhaler] Cranberry Fruit [Cranberry] 465 mg PO DAILY 02/14/22 06/23/22 Furosemide [Lasix] 40 mg PO DAILY PRN 02/14/22 06/23/22 Quercetin 800 mg PO BID 02/14/22 06/23/22 Zinc Gluconate [Zinc] 50 mg PO DAILY 02/14/22 06/23/22 Centrum Cardio 2 tab PO DAILY 03/02/22 06/23/22 Cholecalciferol [Vitamin D3 (125 125 mcg PO DAILY 06/23/22 06/23/22 Mcg = 5000 Iu)] Clopidogrel [Plavix] 75 mg PO DAILY 06/23/22 06/23/22 Dasatinib [Sprycel] 100 mg PO DAILY 06/23/22 06/23/22 Prosymbiotic 1 tab PO BID 06/23/22 06/23/22 Sennosides/Docusate Sodium 1 tab PO BID 06/23/22 06/23/22 [Senna-S 8.6-50 mg Tablet] Tamsulosin HCl [Flomax] 0.4 mg PO DAILY 06/23/22 06/23/22 clindamycin HCL 300 mg PO TID 06/23/22 06/23/22 valACYclovir HCL [Valtrex] 1,000 mg PO TID 06/23/22 06/23/22 Previous Rx's Medication Instructions Recorded Pantoprazole [Protonix] 40 mg PO DAILY #30 tab 02/22/22 Allergies Allergy/AdvReac Type Severity Reaction Status Date / Time adhesive tape Allergy Rash/Hives,"paper Verified 06/23/22 20:20 tape is ok" amoxicillin [From Augmentin] Allergy Rash/Hives Verified 06/23/22 20:20 atorvastatin [From Lipitor] Allergy Muscle Verified 06/23/22 20:20 Aches budesonide [From Symbicort] Allergy Vision Verified 06/23/22 20:20 issues ciprofloxacin Allergy Muscle Verified 06/23/22 20:20 aches clavulanic acid Allergy Rash/Hives Verified 06/23/22 20:20 [From Augmentin] doxycycline Allergy Rectal Verified 06/23/22 20:20 Bleeding enalapril Allergy Cough Verified 06/23/22 20:20 ezetimibe [From Vytorin] Allergy Muscle Verified 06/23/22 20:20 Aches fluticasone Allergy Irregular Verified 06/23/22 20:20 [From Advair Diskus] heart rate formoterol [From Symbicort] Allergy Vision Verified 06/23/22 20:20 issues mold Allergy Rash/Hives Verified 06/23/22 20:20 salmeterol Allergy Irregular Verified 06/23/22 20:20 [From Advair Diskus] heart rate simvastatin [From Vytorin] Allergy Muscle Verified 06/23/22 20:20 Aches Vqhxsfi-IKN-DwK Reductase Allergy Muscle Verified 06/23/22 20:20 Inhibitor aches [Rtecdwm-Gtf-Bkg Reductase Inhibitor] nilotinib [From Tasigna] AdvReac Pancreatiti Verified 06/23/22 20:20 s Cotton material Allergy itching, Uncoded 06/23/22 20:20 hives Review of Systems ROS Statement: Those systems with pertinent positive or pertinent negative responses have been documented in the HPI. ROS Other: All systems not noted in ROS Statement are negative. Past Medical History Past Medical History: Coronary Artery Disease (CAD), Cancer, GERD/Reflux, Hypertension, Skin Disorder Additional Past Medical History / Comment(s): Hx. of CML, Hx. of Shingles L eye, Cysts on L kidney. History of Any Multi-Drug Resistant Organisms: None Reported Past Surgical History: Cholecystectomy, Heart Catheterization With Stent, Hernia Repair, Orthopedic Surgery Additional Past Surgical History / Comment(s): Thyroid surgery,Vasectomy, R ankle surgery, Sinus surgery, Basal cell R shoulder, Pyloroplasty & Vagotomy, Hemorrhoidectomy, Cataract surgery & bx. of inner thigh.aortic valve 04/29/22 Past Anesthesia/Blood Transfusion Reactions: No Reported Reaction Date of Last Stent Placement:: 2005 Past Psychological History: No Psychological Hx Reported Smoking Status: Former smoker Past Alcohol Use History: None Reported Past Drug Use History: None Reported - Past Family History Mother Family Medical History: Cancer, Pulmonary Embolus Father Family Medical History: Cancer Brother(s) Family Medical History: Cancer Son(s) Family Medical History: Cancer General Exam Limitations: no limitations General appearance: alert, in no apparent distress Head exam: Present: atraumatic, normocephalic, normal inspection Eye exam: Present: normal appearance, PERRL, EOMI. Absent: scleral icterus, conjunctival injection, periorbital swelling Respiratory exam: Present: normal lung sounds bilaterally. Absent: respiratory distress, wheezes, rales, rhonchi, stridor Cardiovascular Exam: Present: regular rate, normal rhythm, normal heart sounds. Absent: systolic murmur, diastolic murmur, rubs, gallop, clicks Neurological exam: Present: alert, oriented X3, CN II-XII intact Expanded Cerebellar function: Finger to Nose: Normal, Heel to [place]: Normal, Romberg: Normal Upper motor neuron: Sudeep Neglect: Normal, Pronator Drift: Normal Motor strength exam: RUE: 5, LUE: 5, RLE: 5, LLE: 5 Eye Response: (4) open spontaneously Motor Response: (6) obeys commands Verbal Response: (5) oriented Psychiatric exam: Present: normal affect, normal mood Skin exam: Present: warm, dry, intact, normal color. Absent: rash Course Vital Signs 06/23/22 06/23/22 06/23/22 17:48 19:27 20:00 Temperature 97.8 F Pulse Rate 70 65 66 Respiratory 20 20 20 Rate Blood Pressure 165/71 178/98 170/83 O2 Sat by Pulse 98 99 98 Oximetry 06/23/22 06/23/22 06/23/22 21:00 22:07 22:17 Temperature Pulse Rate 72 73 86 Respiratory 20 16 16 Rate Blood Pressure 162/76 163/80 163/86 O2 Sat by Pulse 97 98 98 Oximetry Medical Decision Making - Medical Decision Making This is a 76-year-old male who presents to the emergency department for headaches and elevated blood pressure. Was pt. sent in by a medical professional or institution? @ -No Did you speak to anyone other than the patient for history? @ -His Did you review nursing and triage notes? @ -I disagree with the aspect of dizziness, patient currently denies any dizziness. Were old charts reviewed? @ -No Differential Diagnosis? @ -Differential Headache: Migraine, tension, cluster, carbon monoxide, central venous thrombosis, pension karma temporal arteritis, acute closure glaucoma, intercranial hemorrhage, mastoiditis, sinusitis, head injury, this is not meant to be an all-inclusive list. EKG interpreted by me (3pts min.)? @ -Ventricular rate 73 beats per minute, NE interval 173 ms, QRS duration 122 ms, QTC 442 ms. X-rays interpreted by me (1pt min.)? @ -Chest x-ray obtained, my interpretation identifies cardiomegaly and trace bilateral pleural effusions. CT interpreted by me (1pt min.)? @ -Computed tomography scan of the brain without contrast and CT angiogram of the head and neck obtained. My interpretation identifies no is acute ischemic changes, evidence of an intracranial hemorrhage, or mass effect. What testing was considered but not performed? (CT, X-rays, U/S, labs)? Why? @ -None What meds were considered but not given? Why? @ -None Did you discuss the management of the patient with other professionals? @ -Yes, Dr. Estrada, cardiology at [facility], who accepts the patient for transfer. Did you reconcile home meds? @ -No Was smoking cessation discussed for >3mins.? @ -No Was critical care preformed (if so, how long)? @ -No Were there social determinants of health that impacted care today? How? (Homelessness, low income, unemployed, alcoholism, drug addiction, transportation, low edu. Level, literacy, decrease access to med. care, [place] [facility], rehab)? @ -No Was there de-escalation of care discussed even if they declined? (Discuss DNR or withdrawal of care, Hospice)? @ -No What co-morbidities impacted this encounter? (DM, HTN, Smoking, COPD, CAD, Cancer, CVA, Hep., AIDS, mental health diagnosis, sleep apnea, morbid obesity)? @ -CAD, HTN Was patient admitted / discharged? @ -Transferred to [facility]. Lab work obtained revealing an elevated troponin of 0.079. Blood pressure elevated at 178/89 on arrival. He was given 20 mg of IV labetalol. His blood pressure reduced to 170/83. He was then given a dose of hydralazine 10 mg, and BP improved to 163/80. Chest x-ray reveals possible CHF exacerbation with cardiomegaly and trace bilateral pleural effusions. Cardiomegaly is stable from prior x-rays. BNP checked and found to be negative for signs of CHF at a value of 826. CTA of the head and neck and computed tomography scan of the brain without contrast obtained as well. There is no evidence of any acute ischemic changes or intracranial hemorrhage. While the troponin is only mildly elevated and this is most likely a hypertensive urgency situation, there is concern about admission to our facility because the patient recently had an experiemental TAVR done at [facility]. Patient transferred to [facility] for further evaluation and management. Dr. Estrada, cardiology, is the accepting provider. Undiagnosed new problem with uncertain prognosis? @ -None Drug Therapy requiring intensive monitoring for toxicity (Heparin, Nitro, Insulin, Cardizem)? @ -None Were any procedures done? @ -None Diagnosis/symptom? @ -Hypertensive urgency, elevated troponin Acute, or Chronic, or Acute on Chronic? @ -Acute Uncomplicated (without systemic symptoms) or Complicated (systemic symptoms)? @ -Complicated Side effects of treatment? @ -None Exacerbation, Progression, or Severe Exacerbation] @ -Not applicable Poses a threat to life or bodily function? @ -Yes This case was discussed in detail with the attending ED physician, Dr. Bagley. Presentation, findings, and treatment plan discussed in detail as well. - Lab Data Result diagrams: 06/23/22 19:26 06/23/22 19:26 Lab Results 06/23/22 06/23/22 06/23/22 Range/Units 19:26 19:26 19:26 WBC 5.4 (3.8-10.6) k/uL RBC 2.84 L (4.30-5.90) m/uL Hgb 9.7 L (13.0-17.5) gm/dL Hct 27.1 L (39.0-53.0) % MCV 95.4 (80.0-100.0) fL MCH 34.2 (25.0-35.0) pg MCHC 35.8 (31.0-37.0) g/dL RDW 15.1 (11.5-15.5) % Plt Count 285 (150-450) k/uL MPV 6.8 Neutrophils % 57 % Lymphocytes % 30 % Monocytes % 8 % Eosinophils % 2 % Basophils % 1 % Neutrophils # 3.1 (1.3-7.7) k/uL Lymphocytes # 1.6 (1.0-4.8) k/uL Monocytes # 0.5 (0-1.0) k/uL Eosinophils # 0.1 (0-0.7) k/uL Basophils # 0.0 (0-0.2) k/uL Poikilocytosis Slight PT 10.5 (9.0-12.0) sec INR 1.0 (<1.2) APTT 23.0 (22.0-30.0) sec Sodium (137-145) mmol/L Potassium (3.5-5.1) mmol/L Chloride (98-107) mmol/L Carbon Dioxide (22-30) mmol/L Anion Gap mmol/L BUN (9-20) mg/dL Creatinine (0.66-1.25) mg/dL Est GFR (CKD-EPI)AfAm (>60 ml/min/1.73 sqM) Est GFR (CKD-EPI)NonAf (>60 ml/min/1.73 sqM) Glucose (74-99) mg/dL Calcium (8.4-10.2) mg/dL Magnesium (1.6-2.3) mg/dL Total Bilirubin (0.2-1.3) mg/dL AST (17-59) U/L ALT (4-49) U/L Alkaline Phosphatase (38-126) U/L Troponin I (0.000-0.034) ng/mL NT-Pro-B Natriuret Pep pg/mL Total Protein (6.3-8.2) g/dL Albumin (3.5-5.0) g/dL Urine Color Colorless Urine Appearance Clear (Clear) Urine pH 6.0 (5.0-8.0) Ur Specific [place] 1.004 (1.001-1.035) Urine Protein Trace H (Negative) Urine Glucose (UA) Negative (Negative) Urine Ketones Negative (Negative) Urine Blood Moderate H (Negative) Urine Nitrite Negative (Negative) Urine Bilirubin Negative (Negative) Urine Urobilinogen <2.0 (<2.0) mg/dL Ur Leukocyte Esterase Negative (Negative) Urine RBC 2 (0-5) /hpf Urine WBC 1 (0-5) /hpf Urine Bacteria Rare H (None) /hpf Urine Mucus Rare H (None) /hpf 06/23/22 06/23/22 06/23/22 Range/Units 19:26 19:26 20:54 WBC (3.8-10.6) k/uL RBC (4.30-5.90) m/uL Hgb (13.0-17.5) gm/dL Hct (39.0-53.0) % MCV (80.0-100.0) fL MCH (25.0-35.0) pg MCHC (31.0-37.0) g/dL RDW (11.5-15.5) % Plt Count (150-450) k/uL MPV Neutrophils % % Lymphocytes % % Monocytes % % Eosinophils % % Basophils % % Neutrophils # (1.3-7.7) k/uL Lymphocytes # (1.0-4.8) k/uL Monocytes # (0-1.0) k/uL Eosinophils # (0-0.7) k/uL Basophils # (0-0.2) k/uL Poikilocytosis PT (9.0-12.0) sec INR (<1.2) APTT (22.0-30.0) sec Sodium 140 (137-145) mmol/L Potassium 4.5 (3.5-5.1) mmol/L Chloride 105 (98-107) mmol/L Carbon Dioxide 27 (22-30) mmol/L Anion Gap 8 mmol/L BUN 18 (9-20) mg/dL Creatinine 1.03 (0.66-1.25) mg/dL Est GFR (CKD-EPI)AfAm 81 (>60 ml/min/1.73 sqM) Est GFR (CKD-EPI)NonAf 70 (>60 ml/min/1.73 sqM) Glucose 112 H (74-99) mg/dL Calcium 9.0 (8.4-10.2) mg/dL Magnesium 1.9 (1.6-2.3) mg/dL Total Bilirubin 0.5 (0.2-1.3) mg/dL AST 52 (17-59) U/L ALT 59 H (4-49) U/L Alkaline Phosphatase 100 (38-126) U/L Troponin I 0.079 H* (0.000-0.034) ng/mL NT-Pro-B Natriuret Pep 826 pg/mL Total Protein 7.0 (6.3-8.2) g/dL Albumin 4.0 (3.5-5.0) g/dL Urine Color Urine Appearance (Clear) Urine pH (5.0-8.0) Ur Specific [place] (1.001-1.035) Urine Protein (Negative) Urine Glucose (UA) (Negative) Urine Ketones (Negative) Urine Blood (Negative) Urine Nitrite (Negative) Urine Bilirubin (Negative) Urine Urobilinogen (<2.0) mg/dL Ur Leukocyte Esterase (Negative) Urine RBC (0-5) /hpf Urine WBC (0-5) /hpf Urine Bacteria (None) /hpf Urine Mucus (None) /hpf - Radiology Data Radiology results: report reviewed, image reviewed Disposition Clinical Impression: Hypertensive urgency, Elevated troponin, S/P TAVR (transcatheter aortic valve replacement) Disposition: OTHER INSTITUTION NOT DEFINED Referrals: Rodolfo Healy MD [Primary Care Provider] - 1-2 days - Out of Hospital Transfer - Req. Specs Out of Hospital Transfer - Requested Specifics: Other Emergency Center ([facility])
[2022-06-23 19:39] LABS: Basophils % (A) 1 %; Eosinophils # (A) 0.1 k/uL (0-0.7); Eosinophils % (A) 2 %; HCT 27.1 % (39.0-53.0); HGB 9.7 gm/dL (13.0-17.5); Lymphocytes # (A) 1.6 k/uL (1.0-4.8); Lymphocytes % (A) 30 %; MCH 34.2 pg (25.0-35.0); MCHC 35.8 g/dL (31.0-37.0); MCV 95.4 fL (80.0-100.0); Mean Platelet Volume 6.8; Monocytes # (A) 0.5 k/uL (0-1.0); Monocytes % (A) 8 %; Neutrophils # (A) 3.1 k/uL (1.3-7.7); Neutrophils % (A) 57 %; Platelet Count 285 k/uL (150-450); Poikilocytosis Slight; RBC 2.84 m/uL (4.30-5.90); RDW 15.1 % (11.5-15.5); WBC 5.4 k/uL (3.8-10.6)
[2022-06-23 19:55] LABS: Magnesium 1.9 mg/dL (1.6-2.3); Potassium 4.5 mmol/L (3.5-5.1); Total Bilirubin 0.5 mg/dL (0.2-1.3)
[2022-06-23 20:02] LABS: Appearance,Urine Clear (Clear); Bacteria,Urine Rare /hpf; Bilirubin,Urine Negative (Negative); Blood,Urine Moderate (Negative); Color,Urine Colorless; Glucose,Urine (UA) Negative (Negative); Ketones,Urine Negative (Negative); Leukocyte Esterase,Urine Negative (Negative); Mucus,Urine Rare /hpf; Nitrite,Urine Negative (Negative); Protein,Urine Trace (Negative); RBC,Urine 2 /hpf (0-5); Specific Gravity,Urine 1.004 (1.001-1.035); Urobilinogen,Urine <2.0 mg/dL (<2.0); WBC,Urine 1 /hpf (0-5)
[2022-06-23 20:03] LABS: Prothrombin Time 10.5 sec (9.0-12.0)
--- NOTE | 2022-06-23 20:17 | XR ---
EXAMINATION TYPE: XR chest 2V DATE OF EXAM: 06/23/2022 COMPARISON: Chest x-ray March 06, 2022 HISTORY: Chest pain TECHNIQUE: Frontal and lateral views of the chest are obtained. FINDINGS: Cardiomegaly is redemonstrated. New tiny bilateral pleural effusions with blunting of post erior costophrenic angles on lateral view. New metallic stent graft in the aortic root seen best on lateral view. The osseous structures are intact. Surgical clips in the epigastric region are again s een. IMPRESSION: Possible CHF exacerbation as detailed above. Correlate clinically..
--- NOTE | 2022-06-23 20:37 | CT ---
EXAMINATION TYPE: CT brain wo con DATE OF EXAM: 06/23/2022 HISTORY: Headache and ataxia CT DLP: 1206.6 mGycm. Automated Exposure Control for Dose Reduction was Utilized. TECHNIQUE: CT scan of the head is performed without contrast. COMPARISON: None. FINDINGS: There is no acute intracranial hemorrhage or midline shift identified. There is mild diff use ventricular and sulcal prominence consistent with diffuse age-related cerebral atrophy. There is mild to moderate low-attenuation in the periventricular white matter consistent with chronic small v essel ischemic change. Left-sided aphakia. Nasal septum deviated to right of midline. Visualized para nasal sinuses are clear. Dominant right vertebral artery incidentally noted. IMPRESSION: No acute intracranial hemorrhage or midline shift. There is mild diffuse age-related ce rebral atrophy and mild to moderate chronic small vessel ischemic change noted.
--- NOTE | 2022-06-23 20:53 | CT ---
EXAMINATION TYPE: CT angio head neck DATE OF EXAM: 06/23/2022 HISTORY: Headache and ataxia COMPARISON: None. CT DLP: 641 mGycm. Automated Exposure Control for Dose Reduction was Utilized. TECHNIQUE: CTA scan of the head and neck is performed with IV Contrast, patient injected with 65 mL of Isovue 370, axial images are obtained, coronal and sagittal reformatted images are reviewed. 3D re constructed images are created on an independent workstation and reviewed. FINDINGS: Carotid/Vascular Structures: Normal three-vessel origin from the aortic arch without significant plaq ue or stenosis. No significant plaque or stenosis in the common carotid arteries bilaterally. Mild ca lcified plaque in the proximal right internal carotid artery without significant stenosis. Mild calci fied plaque distal right internal carotid artery. No significant plaque or stenosis in the remainder of the internal carotid arteries bilaterally. Patent bilateral external carotid arteries without sign ificant stenosis. Vertebral arteries are patent to the basilar artery. Right-sided vertebral artery is dominant or larg er caliber. There are patent bilateral posterior communicating arteries. There is no significant foca l stenosis or aneurysm in the posterior circulation. Images of the anterior circulation show patent a nterior communicating artery. There is no significant focal stenosis or aneurysm. Other: Probable pericardial effusion is partially imaged. Moderate to severe spurring and disc space narrowing C5-C6 and C6-C7 levels is present. IMPRESSION: No significant stenosis in common or internal carotid arteries bilaterally. No significa nt stenosis or aneurysm at the level of the osage of Link. NASCET criteria was used in interpretation of this exam?
[2022-06-23] MEDS ORDERED: hydrALAZINE HCL 20 MG/ML 1 ML VIAL IVP STA (21:16)
[2022-06-23 22:07] VITALS: RESP 16
[2022-06-23 22:18] VITALS: BP 163/86; PULSE 86
== END 2022-06-23 22:30 | disposition other institution (70) ==
LOC: EC 17:40
DX: I16.0 Hypertensive urgency (principal); R74.8 Abnormal levels of other serum enzymes; I10 Essential (primary) hypertension; I25.10 Atherosclerotic heart disease of native coronary artery without angina pectoris; K21.9 Gastro-esophageal reflux disease without esophagitis; Z87.891 Personal history of nicotine dependence; Z79.82 Long term (current) use of aspirin; Z79.899 Other long term (current) drug therapy; Z95.4 Presence of other heart-valve replacement; Z88.0 Allergy status to penicillin; Z88.1 Allergy status to other antibiotic agents; Z88.8 Allergy status to other drugs, medicaments and biological substances; Z91.048 Other nonmedicinal substance allergy status
CPT/HCPCS: 36415; 93005; 83880; 80053; 83735; 84484; 85025; 85610; 85730; 81001; 71046; 70496; 70450; 70498; 99285; 96374; 96375; J0360; Q9967

== ENCOUNTER 2022-08-30 22:27 | Observation (INO) | payer MEDICARE ==
[2022-08-30] MEDS ORDERED: SODIUM CHLORIDE 0.9% 1,000 ML IV STA (22:44)
[2022-08-30] MEDS ORDERED: KETOROLAC 15 MG/ML 1 ML VIAL IVP STA (22:45)
[2022-08-30] MEDS ORDERED: MORPHINE SULFATE 2 MG/ML SYRINGE IVP STA (22:45)
--- NOTE | 2022-08-30 22:58 | ED ---
Back Pain HPI - General Chief Complaint: Back Pain/Injury Stated Complaint: back pain Time Seen by Provider: 08/30/22 22:34 Source: patient, EMS, RN notes reviewed Mode of arrival: EMS Limitations: physical limitation - History of Present Illness Initial Comments: This is a 76-year-old male who presents to the emergency department for right flank pain. States that this started 2-3 days ago. This is wrapping around into the abdomen. Denies any nausea or vomiting. Also denies any injuries. Reports a history of kidney stones many years ago, and states that it feels similar. Denies any loss of bowel/bladder control. He does self cath twice a day however and denies any urinary symptoms or changes. He follows with Dr. Scott, urology, and states that a cystoscopy is planned in October of this year. Denies any fevers, chills, sore throat, cough, dyspnea, chest pain, palpitations, nausea, vomiting, diarrhea, or headaches. MD Complaint: back pain Onset/Timin -: days(s) - Related Data Home Medications Medication Instructions Recorded Confirmed Ascorbic Acid [Vitamin C] 1,000 mg PO DAILY 10/24/18 06/23/22 Aspirin 81 mg PO DAILY 10/24/18 06/23/22 Losartan [Cozaar] 50 mg PO DAILY 10/24/18 06/23/22 Metoprolol Tartrate [Lopressor] 25 mg PO BID 10/24/18 06/23/22 Nitroglycerin Sl Tabs [Nitrostat] 0.4 mg SL Q5M PRN 10/24/18 06/23/22 Omeprazole [PriLOSEC] 40 mg PO HS 10/24/18 06/23/22 Ubidecarenone [Co Q-10] 100 mg PO DAILY 10/24/18 06/23/22 Docusate [Colace] 100 mg PO BID 11/05/20 06/23/22 Albuterol Inhaler [Ventolin Hfa 1 - 2 puff INHALATION RT-QID PRN 02/09/22 06/23/22 Inhaler] Fluticasone/Vilanterol [Breo 1 puff INHALATION RT-QID PRN 02/09/22 06/23/22 Ellipta 200-25 Mcg Inhaler] Cranberry Fruit [Cranberry] 465 mg PO DAILY 02/14/22 06/23/22 Furosemide [Lasix] 40 mg PO DAILY PRN 02/14/22 06/23/22 Quercetin 800 mg PO BID 02/14/22 06/23/22 Zinc Gluconate [Zinc] 50 mg PO DAILY 02/14/22 06/23/22 Centrum Cardio 2 tab PO DAILY 03/02/22 06/23/22 Cholecalciferol [Vitamin D3 (125 125 mcg PO DAILY 06/23/22 06/23/22 Mcg = 5000 Iu)] Clopidogrel [Plavix] 75 mg PO DAILY 06/23/22 06/23/22 Dasatinib [Sprycel] 100 mg PO DAILY 06/23/22 06/23/22 Prosymbiotic 1 tab PO BID 06/23/22 06/23/22 Sennosides/Docusate Sodium 1 tab PO BID 06/23/22 06/23/22 [Senna-S 8.6-50 mg Tablet] Tamsulosin HCl [Flomax] 0.4 mg PO DAILY 06/23/22 06/23/22 clindamycin HCL 300 mg PO TID 06/23/22 06/23/22 valACYclovir HCL [Valtrex] 1,000 mg PO TID 06/23/22 06/23/22 Previous Rx's Medication Instructions Recorded Pantoprazole [Protonix] 40 mg PO DAILY #30 tab 02/22/22 Allergies Allergy/AdvReac Type Severity Reaction Status Date / Time adhesive tape Allergy Rash/Hives,"paper Verified 08/30/22 22:31 tape is ok" amoxicillin [From Augmentin] Allergy Rash/Hives Verified 08/30/22 22:31 atorvastatin [From Lipitor] Allergy Muscle Verified 08/30/22 22:31 Aches budesonide [From Symbicort] Allergy Vision Verified 08/30/22 22:31 issues ciprofloxacin Allergy Muscle Verified 08/30/22 22:31 aches clavulanic acid Allergy Rash/Hives Verified 08/30/22 22:31 [From Augmentin] doxycycline Allergy Rectal Verified 08/30/22 22:31 Bleeding enalapril Allergy Cough Verified 08/30/22 22:31 ezetimibe [From Vytorin] Allergy Muscle Verified 08/30/22 22:31 Aches fluticasone Allergy Irregular Verified 08/30/22 22:31 [From Advair Diskus] heart rate formoterol [From Symbicort] Allergy Vision Verified 08/30/22 22:31 issues mold Allergy Rash/Hives Verified 08/30/22 22:31 salmeterol Allergy Irregular Verified 08/30/22 22:31 [From Advair Diskus] heart rate simvastatin [From Vytorin] Allergy Muscle Verified 08/30/22 22:31 Aches Aqbfzxc-QKI-PzT Reductase Allergy Muscle Verified 08/30/22 22:31 Inhibitor aches [Hitzfeg-Tje-Fkp Reductase Inhibitor] nilotinib [From Tasigna] AdvReac Pancreatiti Verified 08/30/22 22:31 s Cotton material Allergy itching, Uncoded 06/23/22 20:20 hives Review of Systems ROS Statement: Those systems with pertinent positive or pertinent negative responses have been documented in the HPI. ROS Other: All systems not noted in ROS Statement are negative. Past Medical History Past Medical History: Coronary Artery Disease (CAD), Cancer, GERD/Reflux, Hypertension, Skin Disorder Additional Past Medical History / Comment(s): Hx. of CML, Hx. of Shingles L eye, Cysts on L kidney. History of Any Multi-Drug Resistant Organisms: None Reported Past Surgical History: Cholecystectomy, Heart Catheterization With Stent, Hernia Repair, Orthopedic Surgery Additional Past Surgical History / Comment(s): Thyroid surgery,Vasectomy, R ankle surgery, Sinus surgery, Basal cell R shoulder, Pyloroplasty & Vagotomy, Hemorrhoidectomy, Cataract surgery & bx. of inner thigh.aortic valve 04/29/22 Past Anesthesia/Blood Transfusion Reactions: No Reported Reaction Date of Last Stent Placement:: 2005 Past Psychological History: No Psychological Hx Reported Smoking Status: Former smoker Past Alcohol Use History: None Reported Past Drug Use History: None Reported - Past Family History Mother Family Medical History: Cancer, Pulmonary Embolus Father Family Medical History: Cancer Brother(s) Family Medical History: Cancer Son(s) Family Medical History: Cancer General Exam Limitations: physical limitation General appearance: alert, in distress Head exam: Present: atraumatic, normocephalic, normal inspection Respiratory exam: Present: normal lung sounds bilaterally. Absent: respiratory distress, wheezes, rales, rhonchi, stridor Cardiovascular Exam: Present: regular rate, normal rhythm, normal heart sounds. Absent: systolic murmur, diastolic murmur, rubs, gallop, clicks GI/Abdominal exam: Present: soft, tenderness (Right mid to lower abdomen). Absent: distended Back exam: Present: CVA tenderness (R). Absent: CVA tenderness (L) Neurological exam: Present: alert, oriented X3, CN II-XII intact Psychiatric exam: Present: normal affect, normal mood Skin exam: Present: warm, dry, intact, normal color. Absent: rash Course Vital Signs 08/30/22 08/31/22 08/31/22 22:28 03:00 03:49 Temperature 97.0 F L 98.0 F 98.0 F Pulse Rate 86 91 91 Respiratory 18 20 20 Rate Blood Pressure 168/79 149/73 149/73 O2 Sat by Pulse 96 98 98 Oximetry Medical Decision Making - Medical Decision Making This is a 76-year-old male who presents to the emergency department for right flank pain. Was pt. sent in by a medical professional or institution? @ -No Did you speak to anyone other than the patient for history? @ -No Did you review nursing and triage notes? @ -Yes, and I agree, it is accurate with regards to the patient's symptoms. Were old charts reviewed? @ -No Differential Diagnosis? @ -Differential Back Pain: Strain, zoster, cauda equina syndrome, epidural abscess, vertebral o steomyelitis, discitis, fracture, subluxation, disc herniation, DJD, spinal stenosis, dissection, AAA, pancreatitis, peptic ulcer disease, pyelonephritis, kidney stone, this is not meant to be an all-inclusive list. EKG interpreted by me (3pts min.)? @ -Not obtained X-rays interpreted by me (1pt min.)? @ -Not obtained CT interpreted by me (1pt min.)? @ -Computed tomography scan of the abdomen and pelvis obtained. My interpretation identifies no evidence of a ureteral calculus. U/S interpreted by me (1pt. min.)? @ -Not obtained What testing was considered but not performed? (CT, X-rays, U/S, labs)? Why? @ -None What meds were considered but not given? Why? @ -None Did you discuss the management of the patient with other professionals? @ -Yes, Dr. Melgoza, who accepts the patient for admission. Did you reconcile home meds? @ -No Was smoking cessation discussed for >3mins.? @ -No Was critical care preformed (if so, how long)? @ -No Were there social determinants of health that impacted care today? How? (Homelessness, low income, unemployed, alcoholism, drug addiction, transportation, low edu. Level, literacy, decrease access to med. care, penitentiary, rehab)? @ -No Was there de-escalation of care discussed even if they declined? (Discuss DNR or withdrawal of care, Hospice)? @ -No What co-morbidities impacted this encounter? (DM, HTN, Smoking, COPD, CAD, Cancer, CVA, Hep., AIDS, mental health diagnosis, sleep apnea, morbid obesity)? @ -CAD, CML Was patient admitted / discharged? @ -Admitted. Lab work obtained and found to be nonactionable. Urinalysis consistent with infection. CT scan obtained revealing no evidence of a ureteral calculus or other acute process. His flank pain was very difficult to control and required multiple doses of pain medication. Unclear if this is related to the infection or also a possible musculoskeletal process. While there is no evidence of leukocytosis and the patient is afebrile, the patient has been admitted for infections and found to be bacteremic, even in the absence of a white count and fever. Given the level of patient's pain and the fact that he is immunocompromised on oral chemotherapy, patient admitted to medicine for further management of the UTI and pain control. He was given a dose of ceftria xone with blood and urine cultures obtained prior. Undiagnosed new problem with uncertain prognosis? @ -None Drug Therapy requiring intensive monitoring for toxicity (Heparin, Nitro, Insulin, Cardizem)? @ -None Were any procedures done? @ -None Diagnosis/symptom? @ -UTI, right flank pain Acute, or Chronic, or Acute on Chronic? @ -Acute Uncomplicated (without systemic symptoms) or Complicated (systemic symptoms)? @ -Complicated Side effects of treatment? @ -None Exacerbation, Progression, or Severe Exacerbation] @ -Not applicable Poses a threat to life or bodily function? @ -Yes This case was discussed in detail with the attending ED physician, Dr. Simpson. Presentation, findings, and treatment plan discussed in detail as well. - Lab Data Result diagrams: 08/30/22 22:52 08/30/22 22:52 Lab Results 08/30/22 08/30/2223 Range/Units 01:04 22:52 22:52 WBC 9.0 (3.8-10.6) k/uL RBC 2.82 L (4.30-5.90) m/uL Hgb 9.7 L (13.0-17.5) gm/dL Hct 28.0 L (39.0-53.0) % MCV 99.3 (80.0-100.0) fL MCH 34.2 (25.0-35.0) pg MCHC 34.4 (31.0-37.0) g/dL RDW 15.0 (11.5-15.5) % Plt Count 201 (150-450) k/uL MPV 7.9 Neutrophils % 64 % Lymphocytes % 26 % Monocytes % 7 % Eosinophils % 1 % Basophils % 1 % Neutrophils # 5.8 (1.3-7.7) k/uL Lymphocytes # 2.4 (1.0-4.8) k/uL Monocytes # 0.6 (0-1.0) k/uL Eosinophils # 0.1 (0-0.7) k/uL Basophils # 0.0 (0-0.2) k/uL Macrocytosis Slight Sodium 138 (137-145) mmol/L Potassium 4.3 (3.5-5.1) mmol/L Chloride 111 H (98-107) mmol/L Carbon Dioxide 19 L (22-30) mmol/L Anion Gap 8 mmol/L BUN 30 H (9-20) mg/dL Creatinine 0.82 (0.66-1.25) mg/dL Est GFR (CKD-EPI)AfAm >90 (>60 ml/min/1.73 sqM) Est GFR (CKD-EPI)NonAf 85 (>60 ml/min/1.73 sqM) Glucose 114 H (74-99) mg/dL Plasma Lactic Acid Quinton (0.7-2.0) mmol/L Calcium 8.5 (8.4-10.2) mg/dL Total Bilirubin 0.6 (0.2-1.3) mg/dL AST 25 (17-59) U/L ALT 20 (4-49) U/L Alkaline Phosphatase 71 (38-126) U/L Total Protein 6.4 (6.3-8.2) g/dL Albumin 3.6 (3.5-5.0) g/dL Amylase 46 (30-110) U/L Lipase 36 (23-300) U/L Urine Color Yellow Urine Appearance Clear (Clear) Urine pH 5.5 (5.0-8.0) Ur Specific [place] 1.022 (1.001-1.035) Urine Protein Trace H (Negative) Urine Glucose (UA) Negative (Negative) Urine Ketones 1+ H (Negative) Urine Blood Negative (Negative) Urine Nitrite Positive (Negative) Urine Bilirubin Negative (Negative) Urine Urobilinogen <2.0 (<2.0) mg/dL Ur Leukocyte Esterase Large H (Negative) Urine RBC 5 (0-5) /hpf Urine WBC 50 H (0-5) /hpf Ur Squamous Epith Cells 2 (0-4) /hpf Amorphous Sediment Occasional H (None) /hpf Urine Bacteria Many H (None) /hpf Hyaline Casts 1 (0-2) /lpf Urine Mucus Occasional H (None) /hpf 08/30/22 Range/Units 22:52 WBC (3.8-10.6) k/uL RBC (4.30-5.90) m/uL Hgb (13.0-17.5) gm/dL Hct (39.0-53.0) % MCV (80.0-100.0) fL MCH (25.0-35.0) pg MCHC (31.0-37.0) g/dL RDW (11.5-15.5) % Plt Count (150-450) k/uL MPV Neutrophils % % Lymphocytes % % Monocytes % % Eosinophils % % Basophils % % Neutrophils # (1.3-7.7) k/uL Lymphocytes # (1.0-4.8) k/uL Monocytes # (0-1.0) k/uL Eosinophils # (0-0.7) k/uL Basophils # (0-0.2) k/uL Macrocytosis Sodium (137-145) mmol/L Potassium (3.5-5.1) mmol/L Chloride (98-107) mmol/L Carbon Dioxide (22-30) mmol/L Anion Gap mmol/L BUN (9-20) mg/dL Creatinine (0.66-1.25) mg/dL Est GFR (CKD-EPI)AfAm (>60 ml/min/1.73 sqM) Est GFR (CKD-EPI)NonAf (>60 ml/min/1.73 sqM) Glucose (74-99) mg/dL Plasma Lactic Acid Quinton 0.6 L (0.7-2.0) mmol/L Calcium (8.4-10.2) mg/dL Total Bilirubin (0.2-1.3) mg/dL AST (17-59) U/L ALT (4-49) U/L Alkaline Phosphatase (38-126) U/L Total Protein (6.3-8.2) g/dL Albumin (3.5-5.0) g/dL Amylase (30-110) U/L Lipase (23-300) U/L Urine Color Urine Appearance (Clear) Urine pH (5.0-8.0) Ur Specific [place] (1.001-1.035) Urine Protein (Negative) Urine Glucose (UA) (Negative) Urine Ketones (Negative) Urine Blood (Negative) Urine Nitrite (Negative) Urine Bilirubin (Negative) Urine Urobilinogen (<2.0) mg/dL Ur Leukocyte Esterase (Negative) Urine RBC (0-5) /hpf Urine WBC (0-5) /hpf Ur Squamous Epith Cells (0-4) /hpf Amorphous Sediment (None) /hpf Urine Bacteria (None) /hpf Hyaline Casts (0-2) /lpf Urine Mucus (None) /hpf - Radiology Data Radiology results: report reviewed, image reviewed Disposition Clinical Impression: UTI (urinary tract infection), Right flank pain, Immunocompromised state Disposition: ADMITTED IP TO THIS HOSP
[2022-08-30 23:21] LABS: Basophils % (A) 1 %; Eosinophils # (A) 0.1 k/uL (0-0.7); Eosinophils % (A) 1 %; HGB 9.7 gm/dL (13.0-17.5); Lymphocytes # (A) 2.4 k/uL (1.0-4.8); Lymphocytes % (A) 26 %; MCH 34.2 pg (25.0-35.0); MCHC 34.4 g/dL (31.0-37.0); MCV 99.3 fL (80.0-100.0); Macrocytosis Slight; Mean Platelet Volume 7.9; Monocytes # (A) 0.6 k/uL (0-1.0); Monocytes % (A) 7 %; Neutrophils # (A) 5.8 k/uL (1.3-7.7); Neutrophils % (A) 64 %; Platelet Count 201 k/uL (150-450); RBC 2.82 m/uL (4.30-5.90)
[2022-08-30 23:40] LABS: ALT 20 U/L (4-49); AST 25 U/L (17-59); African American GFR (CKD) >90 (>60 ml/min/1.73 sqM); Albumin 3.6 g/dL (3.5-5.0); Alkaline Phosphatase 71 U/L (38-126); Amylase 46 U/L (30-110); Anion Gap 8 mmol/L; Blood Urea Nitrogen 30 mg/dL (9-20); Calcium 8.5 mg/dL (8.4-10.2); Carbon Dioxide 19 mmol/L (22-30); Chloride 111 mmol/L (98-107); Glucose 114 mg/dL (74-99); Lipase 36 U/L (23-300); Non-African American GFR(CKD) 85 (>60 ml/min/1.73 sqM); Potassium 4.3 mmol/L (3.5-5.1); Sodium 138 mmol/L (137-145); Total Bilirubin 0.6 mg/dL (0.2-1.3); Total Protein 6.4 g/dL (6.3-8.2)
[2022-08-30] MEDS ORDERED: ACETAMINOPHEN TAB 325 MG TAB PO STA (23:41)
--- NOTE | 2022-08-30 23:46 | CT ---
EXAMINATION TYPE: CT abdomen pelvis wo con DATE OF EXAM: 08/30/2022 COMPARISON: 02/13/2022 HISTORY: BACK PAIN WORSENING OVER THE LAST SEVERAL DAYS CT DLP: 770.6 mGycm Examination of the solid and hollow viscera is limited given the lack of contrast. FINDINGS: LUNG BASES: No evidence for nodule. No evidence for infiltrate. Cardiomegaly with pericardial effusio n measuring 5.4 mm. LIVER/GB: Gallbladder surgically absent. No space-occupying hepatic lesion. PANCREAS: No pancreatic mass identified. No inflammatory process seen. SPLEEN: No evidence for splenomegaly. No intrasplenic lesions seen. ADRENALS: No adrenal nodules identified. No evidence for thickening. KIDNEYS: Cystic lesion lower pole left kidney measures 8.3 cm. Additional hypoattenuating lesion mid pole right kidney measures 1.8 cm. No evidence for nephrolithiasis. No evidence for hydronephrosis. U rinary bladder wall thickening may reflect cystitis. BOWEL: Nonvisualization of the appendix. No evidence of bowel obstruction. No inflammatory process. M oderate fecal stasis right hemicolon. Moderate sigmoid diverticulosis without diverticulitis. Lymph nodes: No evidence for adenopathy greater than 1 cm. Abdominal aorta: Atheromatous changes seen. No evidence for aneurysm. Genital organs: No significant abnormality. Other: No significant abnormality. IMPRESSION: 1.Urinary bladder wall thickening may reflect cystitis. 2. Cardiomegaly with pericardial effusion. 3. Renal cystic changes. 4. Nonvisualization of the appendix.
[2022-08-31] MEDS ORDERED: HYDROmorphone 1 MG/ML 1 ML SYRINGE IVP STA (00:16)
[2022-08-31 01:20] LABS: Amorphous Sediment,Urine Occasional /hpf; Appearance,Urine Clear (Clear); Bacteria,Urine Many /hpf; Bilirubin,Urine Negative (Negative); Blood,Urine Negative (Negative); Color,Urine Yellow; Glucose,Urine (UA) Negative (Negative); Hyaline Casts,Urine 1 /lpf (0-2); Ketones,Urine 1+ (Negative); Leukocyte Esterase,Urine Large (Negative); Mucus,Urine Occasional /hpf; Nitrite,Urine Positive (Negative); PH, Urine 5.5 (5.0-8.0); Protein,Urine Trace (Negative); RBC,Urine 5 /hpf (0-5); Specific Gravity,Urine 1.022 (1.001-1.035); Squamous Epithelial Cell,Urine 2 /hpf (0-4); Urobilinogen,Urine <2.0 mg/dL (<2.0); WBC,Urine 50 /hpf (0-5)
[2022-08-31] MEDS ORDERED: cefTRIAXone IN SWFI 1,000 MG/10 ML SYRINGE IVP STA (01:46)
[2022-08-31] MEDS ORDERED: NALOXONE 0.4 MG/ML 1 ML VIAL IV PRN (02:41)
[2022-08-31] MEDS ORDERED: ACETAMINOPHEN TAB 325 MG TAB PO PRN (02:41)
[2022-08-31] MEDS ORDERED: DOCUSATE 100 MG CAP PO PRN (02:58)
[2022-08-31] MEDS ORDERED: ALPRAZolam 0.25 MG TAB PO PRN (02:58)
--- NOTE | 2022-08-31 03:02 | P.HPIM ---
History of Present Illness H&P Date: 08/31/22 Chief Complaint: flank pain 77 year old male with h/o CML, hypertension , CAD s/p stents coming in today with 2-3 days history of flank pain , severe , improves with rest, 10/10 in severity off/on , and got worse today , denies fever, chills, denies nausea or vomiting, denies diarrhea or changes in urinary habits, denies any bleeding. he does have difficulties emptying his bladder , and does self cath couple times a day. he noticed no changes in his urinary habits. review of systems Pertinent positives as noted in HPI. All other systems were reviewed and are negative on exam Constitutional: No acute distress, conversant, pleasant Eyes: Anicteric sclerae, moist conjunctiva, Pupils equal round reactive to light ENMT: NC/AT Oropharynx clear, no erythema, or exudates Neck: Supple, no masses, or JVD No carotid bruits No thyromegaly Lungs: Clear to auscultation Clear to percussion Normal respiratory effort, no accessory muscle use Cardiovascular: Heart regular in rate and rhythm, No murmurs, gallops, or rubs No peripheral edema Abdominal: Soft Nontender, no guarding, rebound or rigidity Abdomen moving with respiration Normoactive bowel sounds No hepatomegaly, No splenomegaly No palpable mass No abdominal wall hernia noted Skin: Normal temperature, tone, texture, turgor Extremities: No digital cyanosis No clubbing Pedal pulses intact and symmetrical Radial pulses intact and symmetrical No calf tenderness Psychiatric: Alert and oriented to person, place and time Neuro Muscles Strength 4/5 in all 4 extremities Sensation to light touch grossly present throughout Cranial nerves II-XII grossly intact Lymphatics: no palpable cervical or supraclavicular lymph nodes Past Medical History Past Medical History: Coronary Artery Disease (CAD), Cancer, GERD/Reflux, Hypertension, Skin Disorder Additional Past Medical History / Comment(s): Hx. of CML, Hx. of Shingles L eye, Cysts on L kidney. History of Any Multi-Drug Resistant Organisms: None Reported Past Surgical History: Cholecystectomy, Heart Catheterization With Stent, Hernia Repair, Orthopedic Surgery Additional Past Surgical History / Comment(s): Thyroid surgery,Vasectomy, R ankle surgery, Sinus surgery, Basal cell R shoulder, Pyloroplasty & Vagotomy, Hemorrhoidectomy, Cataract surgery & bx. of inner thigh.aortic valve 04/29/22 Past Anesthesia/Blood Transfusion Reactions: No Reported Reaction Date of Last Stent Placement:: 2005 Past Psychological History: No Psychological Hx Reported Smoking Status: Former smoker Past Alcohol Use History: None Reported Past Drug Use History: None Reported - Past Family History Mother Family Medical History: Cancer, Pulmonary Embolus Father Family Medical History: Cancer Brother(s) Family Medical History: Cancer Son(s) Family Medical History: Cancer Medications and Allergies Home Medications Medication Instructions Recorded Confirmed Type Ascorbic Acid [Vitamin C] 1,000 mg PO DAILY 10/24/18 06/23/22 History Aspirin 81 mg PO DAILY 10/24/18 06/23/22 History Losartan [Cozaar] 50 mg PO DAILY 10/24/18 06/23/22 History Metoprolol Tartrate [Lopressor] 25 mg PO BID 10/24/18 06/23/22 History Nitroglycerin Sl Tabs [Nitrostat] 0.4 mg SL Q5M PRN 10/24/18 06/23/22 History Omeprazole [PriLOSEC] 40 mg PO HS 10/24/18 06/23/22 History Ubidecarenone [Co Q-10] 100 mg PO DAILY 10/24/18 06/23/22 History Docusate [Colace] 100 mg PO BID 11/05/20 06/23/22 History Albuterol Inhaler [Ventolin Hfa 1 - 2 puff INHALATION RT-QID PRN 02/09/2206/05 History Inhaler] Fluticasone/Vilanterol [Breo 1 puff INHALATION RT-QID PRN 02/09/22 06/23/22 History Ellipta 200-25 Mcg Inhaler] Cranberry Fruit [Cranberry] 465 mg PO DAILY 02/14/22 06/23/22 History Furosemide [Lasix] 40 mg PO DAILY PRN 02/14/22 06/23/22 History Quercetin 800 mg PO BID 02/14/22 06/23/22 History Zinc Gluconate [Zinc] 50 mg PO DAILY 02/14/22 06/23/22 History Pantoprazole [Protonix] 40 mg PO DAILY #30 tab 02/22/22 06/23/22 Rx Centrum Cardio 2 tab PO DAILY 03/02/22 06/23/22 History Cholecalciferol [Vitamin D3 (125 125 mcg PO DAILY 06/23/22 06/23/22 History Mcg = 5000 Iu)] Clopidogrel [Plavix] 75 mg PO DAILY 06/23/22 06/23/22 History Dasatinib [Sprycel] 100 mg PO DAILY 06/23/22 06/23/22 History Prosymbiotic 1 tab PO BID 06/23/22 06/23/22 History Sennosides/Docusate Sodium 1 tab PO BID 06/23/22 06/23/22 History [Senna-S 8.6-50 mg Tablet] Tamsulosin HCl [Flomax] 0.4 mg PO DAILY 06/23/22 06/23/22 History clindamycin HCL 300 mg PO TID 06/23/22 06/23/22 History valACYclovir HCL [Valtrex] 1,000 mg PO TID 06/23/22 06/23/22 History Allergies Allergy/AdvReac Type Severity Reaction Status Date / Time adhesive tape Allergy Rash/Hives,"paper Verified 08/30/22 22:31 tape is ok" amoxicillin [From Augmentin] Allergy Rash/Hives Verified 08/30/22 22:31 atorvastatin [From Lipitor] Allergy Muscle Verified 08/30/22 22:31 Aches budesonide [From Symbicort] Allergy Vision Verified 08/30/22 22:31 issues ciprofloxacin Allergy Muscle Verified 08/30/22 22:31 aches clavulanic acid Allergy Rash/Hives Verified 08/30/22 22:31 [From Augmentin] doxycycline Allergy Rectal Verified 08/30/22 22:31 Bleeding enalapril Allergy Cough Verified 08/30/22 22:31 ezetimibe [From Vytorin] Allergy Muscle Verified 08/30/22 22:31 Aches fluticasone Allergy Irregular Verified 08/30/22 22:31 [From Advair Diskus] heart rate formoterol [From Symbicort] Allergy Vision Verified 08/30/22 22:31 issues mold Allergy Rash/Hives Verified 08/30/22 22:31 salmeterol Allergy Irregular Verified 08/30/22 22:31 [From Advair Diskus] heart rate simvastatin [From Vytorin] Allergy Muscle Verified 08/30/22 22:31 Aches Zxwhyxl-SDO-UvU Reductase Allergy Muscle Verified 08/30/22 22:31 Inhibitor aches [Imxumpo-Ywn-Lts Reductase Inhibitor] nilotinib [From Tasigna] AdvReac Pancreatiti Verified 08/30/22 22:31 s Cotton material Allergy itching, Uncoded 06/23/22 20:20 hives Physical Exam Vitals: Vital Signs Temp Pulse Resp BP Pulse Ox 08/30/22 22:28 97.0 F L 86 18 168/79 96 Intake and Output 08/30/22 08/30/22 08/31/22 14:59 22:59 06:59 Other: Weight 93.44 kg Results CBC & Chem 7: 08/30/22 22:52 08/30/22 22:52 Labs: Abnormal Lab Results - Last 24 Hours (Table) 08/30/22 08/30/22 08/30/22 Range/Units 01:04 22:52 22:52 RBC 2.82 L (4.30-5.90) m/uL Hgb 9.7 L (13.0-17.5) gm/dL Hct 28.0 L (39.0-53.0) % Chloride 111 H (98-107) mmol/L Carbon Dioxide 19 L (22-30) mmol/L BUN 30 H (9-20) mg/dL Glucose 114 H (74-99) mg/dL Plasma Lactic Acid [place] (0.7-2.0) mmol/L Urine Protein Trace H (Negative) Urine Ketones 1+ H (Negative) Ur Leukocyte Esterase Large H (Negative) Urine WBC 50 H (0-5) /hpf Amorphous Sediment Occasional H (None) /hpf Urine Bacteria Many H (None) /hpf Urine Mucus Occasional H (None) /hpf 08/30/22 Range/Units 22:52 RBC (4.30-5.90) m/uL Hgb (13.0-17.5) gm/dL Hct (39.0-53.0) % Chloride (98-107) mmol/L Carbon Dioxide (22-30) mmol/L BUN (9-20) mg/dL Glucose (74-99) mg/dL Plasma Lactic Acid [place] 0.6 L (0.7-2.0) mmol/L Urine Protein (Negative) Urine Ketones (Negative) Ur Leukocyte Esterase (Negative) Urine WBC (0-5) /hpf Amorphous Sediment (None) /hpf Urine Bacteria (None) /hpf Urine Mucus (None) /hpf Assessment and Plan Assessment: 77 year old male with h/o CML , CAD s/p stents, coming in with abd pain , I discussed the case with ED doc, suspected UTI, I accepted the admission for IV antibiotics treatment of suspected UTI and further workup of infectious process, with anticipated length of stay < 2 midnights UTI , 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
[2022-08-31] MEDS: SODIUM CHLORIDE 0.9% 1,000 ML IV SCH ×4 (03:09→23:04)
[2022-08-31] MEDS: HYDROmorphone 1 MG/ML 1 ML SYRINGE IVP PRN ×2 (04:28→09:29)
[2022-08-31] MEDS ORDERED: SYMBICORT 160-4.5 MCG INHALER INHALATION PRN (09:00)
[2022-08-31] MEDS: ENOXAPARIN 40 MG/0.4 ML SYRINGE SQ SCH (09:32)
[2022-08-31] MEDS: LOSARTAN 50 MG TAB PO SCH (09:32)
[2022-08-31] MEDS: TAMSULOSIN 0.4 MG CAP.ER.24H PO SCH (09:32)
[2022-08-31] MEDS: ASPIRIN 81 MG PO SCH (09:32)
[2022-08-31] MEDS: CLOPIDOGREL 75 MG TAB PO SCH (09:32)
[2022-08-31] MEDS: HYDROmorphone 0.5 MG/0.5 ML SYRINGE IVP PRN ×2 (17:31→20:57)
[2022-08-31] MEDS: PANTOPRAZOLE 40 MG TABLET PO SCH (20:07)
[2022-09-01] MEDS: HYDROmorphone 1 MG/ML 1 ML SYRINGE IVP PRN ×5 (01:18→20:21)
[2022-09-01] MEDS: SODIUM CHLORIDE 0.9% 1,000 ML IV SCH ×3 (05:45→22:11)
[2022-09-01] MEDS: LOSARTAN 50 MG TAB PO SCH (07:55)
[2022-09-01] MEDS: ASPIRIN 81 MG PO SCH (07:55)
[2022-09-01] MEDS: CLOPIDOGREL 75 MG TAB PO SCH (07:55)
[2022-09-01] MEDS: TAMSULOSIN 0.4 MG CAP.ER.24H PO SCH (07:55)
[2022-09-01] MEDS: ENOXAPARIN 40 MG/0.4 ML SYRINGE SQ SCH (07:55)
[2022-09-01] MEDS: KETOROLAC 15 MG/ML 1 ML VIAL IVP PRN ×2 (10:29→17:00)
--- NOTE | 2022-09-01 11:48 | P.PN ---
Subjective Progress Note Date: 09/01/22 Hospital course: Patient is a very pleasant 69-year-old male with a past medical history is CAD with stents, aortic valve replacement, hypertension, hyperlipidemia, and CML. Labs completed and reviewed. CBC showing normocytic anemia with hemoglobin of 9.7. BMP revealing hyperchloremia with chloride of 111 and hypocarbia with bicarb of 19 along with prerenal azotemia with BUN of 30, creatinine 0.82, and GFR of 85. Urinalysis was positive for an infection. CT abdomen and pelvis showing urinary bladder with thickening consistent with cystitis and cardiomegaly with pericardial effusion, Physical exam: Vital signs reviewed and stable. General: Nontoxic, no distress and appears stated age. Derm: Skin warm and dry, normal coloration for ethnicity. Head: Atraumatic, normocephalic and symmetric. Eyes: EOMs intact, no lid lag, and anicteric sclera Mouth: no lip lesions, mucus membranes moist Cardiovascular: regular rate and rhythm with normal S1S2, no murmur, positive posterior tibial pulses bilaterally, and cap refill < 2 seconds. Lungs: Respirations even, regular, and unlabored on room air. Lungs CTA bilaterally, no rhonchi, no rales, no wheezing, and no accessory muscle usage. GI/: soft, nontender to palpation, no guarding, no appreciable organomegaly. Patient with left testicular pain and tenderness. No swelling or redness noted. Ext: ROM intact. No gross muscle atrophy, no edema, no contractures Neuro: Speech clear, face symmetrical and CN II-XII grossly intact with no noted focal neuro deficits Psych: Alert and oriented to person, place, time, and situation. Appropriate and pleasant affect. Assessment and Plan of Care: Complex cystitis Testicular pain, suspect orchitis -Continuous IV antibiotic Rocephin 1 g IVPB daily pending further results. -Symptomatic care and pain management. -Order placed for testicular ultrasound secondary to left testicular pain. -Consult placed to urology secondary to testicular pain. History of CAD with stents History of aortic valve replacement Hypertension Hyperlipidemia History CML -CT revealing cardiomegaly with pericardial effusion. Patient reports being 3 months out status post TAVR and both he and his are aware of cardiomegally and follow closely with accountant clerk. -Patient currently free from cardiac complaints. -Patient to continue cardiac medication regimen consisting of aspirin, Plavix, losartan, and metoprolol. CODE STATUS: Full code DVT prophylaxis: Lovenox Discussed with: Patient, patient's and RN Anticipated discharge date: Clinical course to determine Anticipated discharge place: Home Patient was seen independently by Nurse Pracitioner. This document was prepared using [employer] dictation software. Please allow for errors in reimbursement spec, while rare they do occur. Burak Sibley NP rendered care for this patient independently, reviewed the findings and plan as documented in the note above. I did not physically speak with or examine the patient on this date. Objective - Vital Signs Vital signs: Vital Signs Temp 98.0 F 09/01/22 07:00 Pulse 73 09/01/22 08:00 Resp 16 09/01/22 08:00 BP 156/66 09/01/22 07:00 Pulse Ox 99 09/01/22 07:00 FiO2 Intake & Output 08/31/22 09/01/22 09/01/22 18:59 06:59 18:59 Output Total 500 1200 200 Balance -500 -1200 -200 Output: Urine 500 1200 200 Straight 300 Other: Voiding Method Urinal Urinal Urinal Self-Catheterization Self-Catheterization Self-Catheterization - Labs CBC & Chem 7: 08/30/22 22:52 08/30/22 22:52
--- NOTE | 2022-09-01 14:02 | US ---
EXAMINATION TYPE: US scrotum with doppler. Grayscale and color Doppler Duplex imaging performed of ramirez melgoza scrotum. DATE OF EXAM: 09/01/2022 COMPARISON: US CLINICAL INDICATION: Male, 77 years old with history of left testicular pain; Left testicle pain EXAM MEASUREMENTS: TESTICLES: Right Testicle: 3.0 x 1.6 x 2.4 cm Left Testicle: 3.3 x 1.5 x 2.2 cm EPIDIDYMIS HEAD: Right Epididymis: 1.0 cm Left Epididymis: 1.0 cm Left epi head cyst= 0.4 x 0.4 x 0.3 cm Doppler performed to assess for testicular vascularity; good bilateral color flow and waveforms are s een. There is no evidence of testicular torsion. Presence of hydroceles: No Presence of varicoceles: No Bilateral testicles heterogeneous with increased blood flow bilaterally IMPRESSION: Increased vascularity to the testes correlate for epididymoorchitis. No evidence for mass.
--- NOTE | 2022-09-01 16:58 | P.GSCN ---
History of Present Illness Consult date: 09/01/22 Reason for Consult: Cystitis, testicular pain History of present illness: This is a 77-year-old male admitted to the hospital with flank pain and cystitis. Urology is consulted for recurrent UTIs and testicular pain. Patient does have history of urinary retention, and I'll CICX2 . He is able to void but not completely empty his bladder.. He underwent a CT abdomen and pelvis on presentation showed no evidence of any stones or renal abnormality. Of note there was stranding around the bladder and kidney . Urine analysis on presentation was concerning for UTI, does not appear that her urine culture was obtained is currently on ceftriaxone. He's also been having bilateral testicular pain, underwent a scrotal ultrasound which was consistent with epididymoorchitis Review of Systems - Constitutional Denies chills, Denies fever - EENT Ears, nose, mouth and throat: Denies dysphagia - Cardiovascular Denies chest pain, Denies shortness of breath - Respiratory Denies cough, Denies 7 - Gastrointestinal Reports as per HPI, Reports abdominal pain - Genitourinary Reports flank pain, Reports testicular pain - Integumentary Denies rash, Denies unusual bruising - Neurological Denies headaches, Denies syncope Past Medical History Past Medical History: Coronary Artery Disease (CAD), Cancer, GERD/Reflux, Hypertension, Skin Disorder Additional Past Medical History / Comment(s): Hx. of CML, Hx. of Shingles L eye, Cysts on L kidney. History of Any Multi-Drug Resistant Organisms: None Reported Past Surgical History: Cholecystectomy, Heart Catheterization With Stent, Hernia Repair, Orthopedic Surgery Additional Past Surgical History / Comment(s): Thyroid surgery,Vasectomy, R ankle surgery, Sinus surgery, Basal cell R shoulder, Pyloroplasty & Vagotomy, Hemorrhoidectomy, Cataract surgery & bx. of inner thigh.aortic valve 04/29/22 Past Anesthesia/Blood Transfusion Reactions: No Reported Reaction Date of Last Stent Placement:: 2005 Past Psychological History: No Psychological Hx Reported Smoking Status: Former smoker Past Alcohol Use History: None Reported Past Drug Use History: None Reported - Past Family History Mother Family Medical History: Cancer, Pulmonary Embolus Father Family Medical History: Cancer Brother(s) Family Medical History: Cancer Son(s) Family Medical History: Cancer Medications and Allergies Home Medications Medication Instructions Recorded Confirmed Type Ascorbic Acid [Vitamin C] 1,000 mg PO DAILY 08/21/19 06/28/23 History Aspirin 81 mg PO DAILY 10/24/18 08/31/22 History Losartan [Cozaar] 50 mg PO DAILY 10/24/18 08/31/22 History Metoprolol Tartrate [Lopressor] 25 mg PO BID 10/24/18 08/31/22 History Nitroglycerin Sl Tabs [Nitrostat] 0.4 mg SL Q5M PRN 10/24/18 08/31/22 History Omeprazole [PriLOSEC] 40 mg PO HS 10/24/18 08/31/22 History Ubidecarenone [Co Q-10] 100 mg PO DAILY 10/24/18 08/31/22 History Docusate [Colace] 100 mg PO BID 11/05/20 08/31/22 History Albuterol Inhaler [Ventolin Hfa 1 - 2 puff INHALATION RT-QID PRN 02/09/22 08/31/22 History Inhaler] Fluticasone/Vilanterol [Breo 1 puff INHALATION RT-QID PRN 02/09/22 08/31/22 His tory Ellipta 200-25 Mcg Inhaler] Cranberry Fruit [Cranberry] 465 mg PO DAILY 02/14/22 08/31/22 History Furosemide [Lasix] 40 mg PO DAILY PRN 02/14/22 08/31/22 History Quercetin 800 mg PO BID 02/14/22 08/31/22 History Zinc Gluconate [Zinc] 50 mg PO DAILY 02/14/22 08/31/22 History Centrum Cardio 2 tab PO DAILY 03/02/22 08/31/22 History Cholecalciferol [Vitamin D3 (125 125 mcg PO DAILY 06/23/22 08/31/22 History Mcg = 5000 Iu)] Clopidogrel [Plavix] 75 mg PO DAILY 06/23/22 08/31/22 History Dasatinib [Sprycel] 100 mg PO DAILY 06/23/22 08/31/22 History Prosymbiotic 1 tab PO BID 06/23/22 08/31/22 History Sennosides/Docusate Sodium 1 tab PO BID 06/23/22 08/31/22 History [Senna-S 8.6-50 mg Tablet] Tamsulosin HCl [Flomax] 0.4 mg PO DAILY 06/23/22 08/31/22 History valACYclovir HCL [Valtrex] 1,000 mg PO TID 06/23/22 08/31/22 History Alfuzosin HCl [Alfuzosin HCl ER] 10 mg PO DAILY 08/31/22 08/31/22 History Allergies Allergy/AdvReac Type Severity Reaction Status Date / Time adhesive tape Allergy Rash/Hives,"paper Verified 08/31/22 09:49 tape is ok" amoxicillin [From Augmentin] Allergy Rash/Hives Verified 08/31/22 09:49 atorvastatin [From Lipitor] Allergy Muscle Verified 08/31/22 09:49 Aches budesonide [From Symbicort] Allergy Vision Verified 08/31/22 09:49 issues ciprofloxacin Allergy Muscle Verified 08/31/22 09:49 aches clavulanic acid Allergy Rash/Hives Verified 08/31/22 09:49 [From Augmentin] mold Allergy Rash/Hives Verified 08/31/22 09:49 doxycycline AdvReac Rectal Verified 08/31/22 09:49 Bleeding enalapril AdvReac Cough Verified 08/31/22 09:49 ezetimibe [From Vytorin] AdvReac Muscle Verified 08/31/22 09:49 Aches fluticasone AdvReac Irregular Verified 08/31/22 09:49 [From Advair Diskus] heart rate formoterol [From Symbicort] AdvReac Vision Verified 08/31/22 09:49 issues nilotinib [From Tasigna] AdvReac Pancreatiti Verified 08/31/22 09:49 s salmeterol AdvReac Irregular Verified 08/31/22 09:49 [From Advair Diskus] heart rate simvastatin [From Vytorin] AdvReac Muscle Verified 08/31/22 09:49 Aches Dejnacn-VXY-LtB Reductase AdvReac Muscle Verified 08/31/22 09:49 Inhibitor aches [Veitlsa-Dsu-Rwq Reductase Inhibitor] Cotton material Allergy itching, Uncoded 06/23/22 20:20 hives Surgical - Exam Vital Signs Temp Pulse Resp BP Pulse Ox 97.0 F L 86 18 168/79 96 08/30/22 22:28 08/30/22 22:28 08/30/22 22:28 08/30/22 22:28 08/30/22 22:28 - General no distress, no pain - Eyes normal ocular movement, no pale - ENT normal nares, normal mucosa - Respiratory normal expansion, normal respiratory effort - Abdomen Abdomen: soft, tender (Right flank), no distended - Genitourinary normal penis with no external lesions bilateral: tender (No induration, or fluctuance appreciated) - Psychiatric oriented to time, oriented to person, oriented to place Results - Labs 08/30/22 22:52 08/30/22 22:52 Microbiology - Last 24 Hours (Table) 08/31/22 02:22 Blood Culture - Preliminary Blood 08/31/22 02:17 Blood Culture - Preliminary Blood Assessment and Plan Assessment: 77-year-old male admitted to the hospital with UTI and flank pain. I reviewed the CT I don't see any evidence of obstructive stones or hydronephrosis. His exam and ultrasound was consistent with epididymoorchitis -Toradol PRN for pain -Recommend 14 days of antibiotics is currently on ceftriaxone, does not appear urine culture was obtained. From urology standpoint can be switched to Cipro as an outpatient once stable for discharge -Continue CIC -Follow-up and has not outpatient with urology in 2-3 weeks
--- NOTE | 2022-09-01 17:37 | P.CONS ---
History of Present Illness - Reason for Consult Consult date: 09/01/22 CML, on sprycel Requesting physician: Myranda Coto - Chief Complaint rt flank and lt groin pain - History of Present Illness Mister Miller is very well-known try practice, long history of CML and treatment for the same. Malignancy history is as below. Patient is currently admitted for severe right-sided pain, persistent over the last week, progressive over the last several days, associated with constipation, left groin pain. Hasn't been able to eat much because of the pain, he is not able to move because of the pain. No fevers, chills, nausea or vomiting, notable abdominal distention. He has not had a bowel movement in at least 4-5 days, he self catheterizes himself, been doing this for over a month. CT AP impression: urinary bladder wall thickening, possible cystitis, renal cystic changes, cardiomegaly with pericardial effusion, nonvisualization of the appendix, no significant abnormality of the genitals. Testicular ultrasound, increased vascularity to the testes, correlate for epididymoorchitis, no evidence of mass. WBC 9, hemoglobin 9.7, normocytic, normochromic, platelet count 201,000 CML Hx: Pt initially seen at [facility] in 2010 for a mild anemia, Hgb in the 13-14 range, w/u was negative, and he was followed with observation till 09/13, after which he continued f/u with his PCP, Dr Elkins. Since early 2014, it was noted that all his cell lines were showing an increase on serial blood draws. WBC/plt on 02/19/14 were 12.9/257, and on 04/23/14 were 25.3, and 446, Hgb 14-15 range compared to his baseline of 13-13.5. 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 However the increase in counts was too persistent to be explained by the same. His WBC differential had also shown a left shift. He was thus referred for further evaluation. 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 BCR-ABL was positive, confirming CML. Started tasigna 06/10/14, but was admitted to [facility] on 06/17/14 with pancreatitis, that appeared to be drug induced. Tasigna was stopped, and he improved with conservative management, with discharge on 06/19/14. He continued to have GI discomfort and nausea with slow resolution. His GI complaints ultimately did resolve. He was started on Sprycel in 08/18. BCR-ABL PCR had shown a slow upward trend early 2015, then stabilized by 02/18. PCR testing was consistently above 1% so, BM Bx done 03/09/16, revealed no evidence of progression. He has remained on sprycel since. He was admitted Feb 2023 for bactremia s/p catherization. He was having some urinary incontinence at that time. He was in ER in Mar for weakness. He had TVAR on clinical trial at [facility] and was in ER in early June, transferred to [facility]. He was seen by Urology for anuria, he has been straight catherizing himself for about 1-2 mo, has f/u with Urology in October. Review of Systems 10 point ROS is negative except as stated in HPI Past Medical History Past Medical History: Coronary Artery Disease (CAD), Cancer, GERD/Reflux, Hypertension, Skin Disorder Additional Past Medical History / Comment(s): Hx. of CML, Hx. of Shingles L eye, Cysts on L kidney. History of Any Multi-Drug Resistant Organisms: None Reported Past Surgical History: Cholecystectomy, Heart Catheterization With Stent, Hernia Repair, Orthopedic Surgery Additional Past Surgical History / Comment(s): Thyroid surgery,Vasectomy, R ankle surgery, Sinus surgery, Basal cell R shoulder, Pyloroplasty & Vagotomy, Hemorrhoidectomy, Cataract surgery & bx. of inner thigh.aortic valve 04/29/22 Past Anesthesia/Blood Transfusion Reactions: No Reported Reaction Date of Last Stent Placement:: 2005 Past Psychological History: No Psychological Hx Reported Smoking Status: Former smoker Past Alcohol Use History: None Reported Past Drug Use History: None Reported - Past Family History Mother Family Medical History: Cancer, Pulmonary Embolus Father Family Medical History: Cancer Brother(s) Family Medical History: Cancer Son(s) Family Medical History: Cancer Medications and Allergies Home Medications Medication Instructions Recorded Confirmed Type Ascorbic Acid [Vitamin C] 1,000 mg PO DAILY 10/24/18 08/31/22 History Aspirin 81 mg PO DAILY 10/24/18 08/31/22 History Losartan [Cozaar] 50 mg PO DAILY 10/24/18 08/31/22 History Metoprolol Tartrate [Lopressor] 25 mg PO BID 10/24/18 08/31/22 History Nitroglycerin Sl Tabs [Nitrostat] 0.4 mg SL Q5M PRN 10/24/18 08/31/22 History Omeprazole [PriLOSEC] 40 mg PO HS 10/24/18 08/31/22 History Ubidecarenone [Co Q-10] 100 mg PO DAILY 10/24/18 08/31/22 History Docusate [Colace] 100 mg PO BID 11/05/20 08/31/22 History Albuterol Inhaler [Ventolin Hfa 1 - 2 puff INHALATION RT-QID PRN 02/09/22 08/31/22 History Inhaler] Fluticasone/Vilanterol [Breo 1 puff INHALATION RT-QID PRN 02/09/22 08/31/22 History Ellipta 200-25 Mcg Inhaler] Cranberry Fruit [Cranberry] 465 mg PO DAILY 02/14/22 08/31/22 History Furosemide [Lasix] 40 mg PO DAILY PRN 02/14/22 08/31/22 History Quercetin 800 mg PO BID 02/14/22 08/31/22 History Zinc Gluconate [Zinc] 50 mg PO DAILY 02/14/22 08/31/22 History Centrum Cardio 2 tab PO DAILY 03/02/22 08/31/22 History Cholecalciferol [Vitamin D3 (125 125 mcg PO DAILY 06/23/22 08/31/22 History Mcg = 5000 Iu)] Clopidogrel [Plavix] 75 mg PO DAILY 06/23/22 08/31/22 History Dasatinib [Sprycel] 100 mg PO DAILY 06/23/22 08/31/22 History Prosymbiotic 1 tab PO BID 06/23/22 08/31/22 History Sennosides/Docusate Sodium 1 tab PO BID 06/23/22 08/31/22 History [Senna-S 8.6-50 mg Tablet] Tamsulosin HCl [Flomax] 0.4 mg PO DAILY 06/23/22 08/31/22 History valACYclovir HCL [Valtrex] 1,000 mg PO TID 06/23/22 08/31/22 History Alfuzosin HCl [Alfuzosin HCl ER] 10 mg PO DAILY 08/31/22 08/31/22 History Allergies Allergy/AdvReac Type Severity Reaction Status Date / Time adhesive tape Allergy Rash/Hives,"paper Verified 08/31/22 09:49 tape is ok" amoxicillin [From Augmentin] Allergy Rash/Hives Verified 08/31/22 09:49 atorvastatin [From Lipitor] Allergy Muscle Verified 08/31/22 09:49 Aches budesonide [From Symbicort] Allergy Vision Verified 08/31/22 09:49 issues ciprofloxacin Allergy Muscle Verified 08/31/22 09:49 aches clavulanic acid Allergy Rash/Hives Verified 08/31/22 09:49 [From Augmentin] mold Allergy Rash/Hives Verified 08/31/22 09:49 doxycycline AdvReac Rectal Verified 08/31/22 09:49 Bleeding enalapril AdvReac Cough Verified 08/31/22 09:49 ezetimibe [From Vytorin] AdvReac Muscle Verified 08/31/22 09:49 Aches fluticasone AdvReac Irregular Verified 08/31/22 09:49 [From Advair Diskus] heart rate formoterol [From Symbicort] AdvReac Vision Verified 08/31/22 09:49 issues nilotinib [From Tasigna] AdvReac Pancreatiti Verified 08/31/22 09:49 s salmeterol AdvReac Irregular Verified 08/31/22 09:49 [From Advair Diskus] heart rate simvastatin [From Vytorin] AdvReac Muscle Verified 08/31/22 09:49 Aches Wvhzscw-PMK-OkW Reductase AdvReac Muscle Verified 08/31/22 09:49 Inhibitor aches [Gnppexq-Pui-Qpd Reductase Inhibitor] Cotton material Allergy itching, Uncoded 06/23/22 20:20 hives Physical Exam Vitals: Vital Signs Temp Pulse Resp BP BP Pulse Ox 09/01/22 08:00 73 16 09/01/22 07:00 98.0 F 73 16 156/66 99 09/01/22 02:00 98.7 F 76 16 143/78 96 08/31/22 20:00 98.7 F 73 17 156/71 95 08/31/22 14:30 98 F 65 16 146/64 98 Intake and Output 08/31/22 09/01/22 09/01/22 22:59 06:59 14:59 Output Total 627 518 5864 Balance -800 -400 -1150 Output: Urine 983 805 7499 Straight 300 Other: Voiding Method Urinal Urinal Self-Catheterization Self-Catheterization - Constitutional General appearance: average body habitus, cooperative, no acute distress - EENT Eyes: anicteric sclerae, EOMI ENT: hearing grossly normal, normal oropharynx - Neck Neck: no lymphadenopathy - Respiratory Respiratory: bilateral: CTA - Cardiovascular Rhythm: regular Heart sounds: normal: S1, S2 Abnormal Heart Sounds: no systolic murmur, no diastolic murmur, no rub, no S3 Gallop, no S4 Gallop, no click, no other leg Peripheral Edema: bilateral: Trace - Gastrointestinal General gastrointestinal: decreased bowel sounds, distended, tenderness (garding) Localized gastrointestinal: tender: RUQ, RLQ - Integumentary Integumentary: normal - Neurologic Neurologic: CNII-XII intact - Musculoskeletal Musculoskeletal: generalized weakness - Psychiatric Psychiatric: A&O x's 3, appropriate affect, intact judgment & insight Results CBC & Chem 7: 08/30/22 22:52 08/30/22 22:52 CT scan - abdomen: report reviewed CT scan - pelvis: report reviewed Assessment and Plan (1) Right flank pain Current Visit: Yes Status: Acute Priority: High Code(s): R10.9 - UNSPECIFIED ABDOMINAL PAIN SNOMED Code(s): 544425724 (2) CML (chronic myeloid leukemia) Current Visit: No Status: Chronic Priority: Low Code(s): C92.10 - CHRONIC MYELOID LEUK, BCR/ABL-POSITIVE, NOT ACHIEVE REMIS SNOMED Code(s): 73453048 Plan: Right flank pain -No reported bowel movement for at least 4 days -Remote history of kidney stones -Recent oliguria, patient has been self catheterizing himself -Urology consulted -Antibiotics started for suspicions of the UTI, [employer] pending CML -Been on Sprycel for several years, good disease control -Hold during acute illness. Patient will be instructed when to resume by Oncology -Nothing in the literature to suggest flank pain is r/t sprycel. -Patient is due to follow-up with Dr. Arellano this week. CBC and CMP Are not showing anything concerning in regards to patient's CML. We will await follow-up appointment to send out for BCR ABL testing -Follow-up appointment will be placed in DC plan attests: I have seen and examined patient, performed H&P, developed impression and plan of care. Discussed with dictator. Agree with documentation, dictated as a scribe
[2022-09-01] MEDS: PANTOPRAZOLE 40 MG TABLET PO SCH (20:20)
[2022-09-01] MEDS: METOPROLOL TARTRATE 25 MG TAB PO SCH (20:20)
[2022-09-02] MEDS: KETOROLAC 15 MG/ML 1 ML VIAL IVP PRN ×2 (00:39→08:19)
[2022-09-02] MEDS: SODIUM CHLORIDE 0.9% 1,000 ML IV SCH ×3 (00:39→17:24)
[2022-09-02] MEDS: HYDROmorphone 1 MG/ML 1 ML SYRINGE IVP PRN ×3 (02:04→12:48)
[2022-09-02] MEDS: ONDANSETRON 4 MG/2 ML VIAL IVP PRN ×2 (06:46→13:12)
[2022-09-02] MEDS: TAMSULOSIN 0.4 MG CAP.ER.24H PO SCH (08:18)
[2022-09-02] MEDS: METOPROLOL TARTRATE 25 MG TAB PO SCH (08:18)
[2022-09-02] MEDS: ASPIRIN 81 MG PO SCH (08:18)
[2022-09-02] MEDS: LOSARTAN 50 MG TAB PO SCH (08:19)
[2022-09-02] MEDS: CLOPIDOGREL 75 MG TAB PO SCH (08:19)
[2022-09-02] MEDS: ENOXAPARIN 40 MG/0.4 ML SYRINGE SQ SCH (08:23)
[2022-09-02 09:01] VITALS: PULSE 71
--- NOTE | 2022-09-02 09:34 | P.DS ---
Providers Date of admission: 08/31/22 02:42 Expected date of discharge: 09/02/22 Attending physician: Nadeen Melgoza MD Consults: 08/31/22 11:39 Consult Physician Routine Consulting Provider: Berto Arellano Consult Reason/Comments: Hx CML Do you want consulting provider notified?: Yes 09/01/22 11:49 Consult Physician Routine Consulting Provider: Lavon Scott Consult Reason/Comments: Recurrent cystitis and left testicular pain Do you want consulting provider notified?: Yes Primary care physician: Rodolfo Modi [facility] Course: Discharge Diagnosis: Complex cystitis with Epididymo-orchitis. Neurology evaluated and recommending discharge home on ciprofloxacin 500 mg twice a day 14 days. Patient to follow- up outpatient with PCP in 1-2 days and urologist in 1 week. History of CAD with stents. Patient to continue cardiac medication regimen consisting of aspirin, Plavix, losartan, and metoprolol. History of aortic valve replacement. Continue to follow up outpatient with chemical compounder helper and continue current medication regimen with aspirin, Plavix, losartan, metoprolol. Hypertension. Monitor vital signs and continue daily medication regimen with metoprolol. Hyperlipidemia. Continue to follow heart healthy diet. CML. Follow up outpatient with hematology/oncology as scheduled on 09/12/22 at 9:45 AM. Hospital Course: Patient is a very pleasant 69-year-old male with a past medical history is CAD with stents, aortic valve replacement, hypertension, hyperlipidemia, and CML. He presented to the emergency department on 08/30/22 with a chief complaint of lower back pain/flank pain, urinary retention having to straight cath self multiple times daily, and left testicular pain. Pt underwent full evaluation in the emergency department. Labs completed and reviewed. CBC showing normocytic anemia with hemoglobin of 9.7. BMP revealing hyperchloremia with chloride of 11 1 and hypocarbia with bicarb of 19 along with prerenal azotemia with BUN of 30, creatinine 0.82, and GFR of 85. Urinalysis was positive for an infection. CT abdomen and pelvis showing urinary bladder with thickening consistent with cystitis and cardiomegaly with pericardial effusion. Patient was started on IV antibiotics with Rocephin. He was admitted under services of consultation to urology. Scrotal ultrasound was completed secondary to left testicular pain, scrotal ultrasound reporting increased vascularity to the testes correlating for epididymoorchitis with no evidence of mass. Patient was evaluated by urologist who is recommending discontinuation of IV antibiotics and discharging patient home on ciprofloxacin 500 mg every 12 hours 14 days. Medically, patient is stable at this time. Patient being discharged home on ciprofloxacin 500 mg twice daily 14 days along with Smock 5/325 mg tablet for pain management. Patient to continue to self catheterize as needed for urinary retention. He is to follow up outpatient with PCP in 1-2 days, urology in 1 week, and hematology/oncology as scheduled on 09/12/22. Patient being discharged home with [facility]. Physical exam: Vital signs reviewed and stable. General: Nontoxic, no distress and appears stated age. Derm: Skin warm and dry, normal coloration for ethnicity. Head: Atraumatic, normocephalic and symmetric. Eyes: EOMs intact, no lid lag, and anicteric sclera Mouth: no lip lesions, mucus membranes moist Cardiovascular: regular rate and rhythm with normal S1S2, no murmur, positive posterior tibial pulses bilaterally, and cap refill < 2 seconds. Lungs: Respirations even, regular, and unlabored on room air. Lungs CTA bilaterally, no rhonchi, no rales, no wheezing, and no accessory muscle usage. GI/: soft, nontender to palpation, no guarding, no appreciable organomegaly. Patient with left testicular pain and tenderness. No swelling or redness noted. Ext: ROM intact. No gross muscle atrophy, no edema, no contractures Neuro: Speech clear, face symmetrical and CN II-XII grossly intact with no noted focal neuro deficits Psych: Alert and oriented to person, place, time, and situation. Appropriate and pleasant affect. A total of 33 minutes of time were spent preparing this complex discharge summary. Pt was discharged on 09/02/22 at 9:32 AM. Patient was seen independently by Nurse Practitioner. This document was prepared using [email or web address] dictation software. Please allow for errors in condenser operator while rare they do occur. Burak Sibley NP rendered care for this patient independently, reviewed the findings and plan as documented in the note above. I did not physically speak with or examine the patient on this date. Patient Condition at Discharge: Stable Plan - Discharge Summary New Discharge Prescriptions: New Ciprofloxacin HCl [Cipro] 500 mg PO Q12HR 14 Days #28 tab HYDROcodone/APAP 5-325MG [Smock 5-325] 1 - 2 tab PO Q6HR PRN #18 tab PRN Reason: Pain Continue Nitroglycerin Sl Tabs [Nitrostat] 0.4 mg SL Q5M PRN PRN Reason: Pain Metoprolol Tartrate [Lopressor] 25 mg PO BID Losartan [Cozaar] 50 mg PO DAILY Aspirin 81 mg PO DAILY Ubidecarenone [Co Q-10] 100 mg PO DAILY Omeprazole [PriLOSEC] 40 mg PO HS Ascorbic Acid [Vitamin C] 1,000 mg PO DAILY valACYclovir HCL [Valtrex] 1,000 mg PO TID Dasatinib [Sprycel] 100 mg PO DAILY Alfuzosin HCl [Alfuzosin HCl ER] 10 mg PO DAILY Docusate [Colace] 100 mg PO BID Albuterol Inhaler [Ventolin Hfa Inhaler] 1 - 2 puff INHALATION RT-QID PRN PRN Reason: Shortness Of Breath Fluticasone/Vilanterol [Breo Ellipta 200-25 Mcg Inhaler] 1 puff INHALATION RT-QID PRN PRN Reason: Shortness Of Breath Quercetin 800 mg PO BID Zinc Gluconate [Zinc] 50 mg PO DAILY Cranberry Fruit [Cranberry] 465 mg PO DAILY Furosemide [Lasix] 40 mg PO DAILY PRN PRN Reason: fluid retention Centrum Cardio 2 tab PO DAILY Prosymbiotic 1 tab PO BID Cholecalciferol [Vitamin D3 (125 Mcg = 5000 Iu)] 125 mcg PO DAILY Sennosides/Docusate Sodium [Senna-S 8.6-50 mg Tablet] 1 tab PO BID Clopidogrel [Plavix] 75 mg PO DAILY Tamsulosin HCl [Flomax] 0.4 mg PO DAILY Discharge Medication List Ascorbic Acid [Vitamin C] 1,000 mg PO DAILY 10/24/18 [History] Aspirin 81 mg PO DAILY 10/24/18 [History] Losartan [Cozaar] 50 mg PO DAILY 10/24/18 [History] Metoprolol Tartrate [Lopressor] 25 mg PO BID 10/24/18 [History] Nitroglycerin Sl Tabs [Nitrostat] 0.4 mg SL Q5M PRN 10/24/18 [History] Omeprazole [PriLOSEC] 40 mg PO HS 10/24/18 [History] Ubidecarenone [Co Q-10] 100 mg PO DAILY 10/24/18 [History] Docusate [Colace] 100 mg PO BID 11/05/20 [History] Albuterol Inhaler [Ventolin Hfa Inhaler] 1 - 2 puff INHALATION RT-QID PRN 02/09/22 [History] Fluticasone/Vilanterol [Breo Ellipta 200-25 Mcg Inhaler] 1 puff INHALATION RT- QID PRN 02/09/22 [History] Cranberry Fruit [Cranberry] 465 mg PO DAILY 02/14/22 [History] Furosemide [Lasix] 40 mg PO DAILY PRN 02/14/22 [History] Quercetin 800 mg PO BID 02/14/22 [History] Zinc Gluconate [Zinc] 50 mg PO DAILY 02/14/22 [History] Centrum Cardio 2 tab PO DAILY 03/02/22 [History] Cholecalciferol [Vitamin D3 (125 Mcg = 5000 Iu)] 125 mcg PO DAILY 06/23/22 [History] Clopidogrel [Plavix] 75 mg PO DAILY 06/23/22 [History] Dasatinib [Sprycel] 100 mg PO DAILY 06/23/22 [History] Prosymbiotic 1 tab PO BID 06/23/22 [History] Sennosides/Docusate Sodium [Senna-S 8.6-50 mg Tablet] 1 tab PO BID 06/23/22 [History] Tamsulosin HCl [Flomax] 0.4 mg PO DAILY 06/23/22 [History] valACYclovir HCL [Valtrex] 1,000 mg PO TID 06/23/22 [History] Alfuzosin HCl [Alfuzosin HCl ER] 10 mg PO DAILY 08/31/22 [History] Ciprofloxacin HCl [Cipro] 500 mg PO Q12HR 14 Days #28 tab 09/02/22 [Rx] HYDROcodone/APAP 5-325MG [Smock 5-325] 1 - 2 tab PO Q6HR PRN #18 tab 09/02/22 [Rx] Follow up Appointment(s)/Referral(s): Berto Arellano MD [STAFF PHYSICIAN] - 09/12/22 9:45 am [facility], [NON-STAFF] - 1 Week Lavon Scott MD [STAFF PHYSICIAN] - 1 Week Rodolfo Healy MD [Primary Care Provider] - 1-2 days Patient Instructions/Handouts: Epididymo-Orchitis (GEN), Urinary Retention in Men (ED), Flank Pain (ED) Activity/Diet/Wound Care/Special Instructions: Activity: As tolerated. Take breaks as needed. Diet: Heart healthy and carb consistent diet. Avoid salts, or foods with hidden salts such as canned or boxed foods and frozen dinners. Extra salt makes your heart work harder and traps the fluid in your body for longer. Special Instructions: Take all of your medications as directed and remember to keep all of your doctor's appointments and follow-up as needed. You may resume Sprycel when directed by your carbide powder processor/oncologist to resume. Thank you for allowing us to participate in your care, it was truly a pleasure having you for our patient!!! Discharge Disposition: HOME SELF-CARE
[2022-09-02] MEDS ORDERED: bisacodyL 10 MG SUPP RECTAL STA (09:57)
[2022-09-02 15:40] VITALS: BP 150/75; RESP 18; TEMP 98.4
== END 2022-09-02 17:18 | disposition home or self-care (01) ==
LOC: EC 22:27 → 6NMEDSUR 08-31 02:42
PROVIDERS: ADMIT Internal Medicine; ATTEND Internal Medicine
DX: N30.90 Cystitis, unspecified without hematuria (principal); N45.3 Epididymo-orchitis; D84.9 Immunodeficiency, unspecified; D64.9 Anemia, unspecified; I25.10 Atherosclerotic heart disease of native coronary artery without angina pectoris; K21.9 Gastro-esophageal reflux disease without esophagitis; I10 Essential (primary) hypertension; C92.10 Chronic myeloid leukemia, BCR/ABL-positive, not having achieved remission; E78.5 Hyperlipidemia, unspecified; Z87.440 Personal history of urinary (tract) infections; Z87.442 Personal history of urinary calculi; Z87.891 Personal history of nicotine dependence; Z95.2 Presence of prosthetic heart valve; Z95.5 Presence of coronary angioplasty implant and graft; Z79.82 Long term (current) use of aspirin; Z79.899 Other long term (current) drug therapy; Z79.02 Long term (current) use of antithrombotics/antiplatelets; Z88.0 Allergy status to penicillin; Z88.1 Allergy status to other antibiotic agents
CPT/HCPCS: 96361 ×4; 96365; 96366; 96375 ×3; 96376 ×4; 96374; 99285; 36415; 80053; 82150; 83605; 83690; 85025; 81001; 87040; 87086; 87077; 87186; 93975; 76870; 74176; G0378 ×3; J3360; J2405; J0696 ×3; J2270; J1170 ×4; J1885 ×3

== ENCOUNTER → 2022-10-24 | Outpatient (CLI) | payer MEDICARE ==
--- NOTE | 2022-10-24 17:50 | XR ---
EXAMINATION TYPE: XR KUB DATE OF EXAM: 10/24/2022 Comparison: None Clinical History: 77-year-old male N20.0 CALCULUS OF KIDNEY Findings: Gassy bowel loops throughout the abdomen. Moderate stool in the ascending colon. Surgical clips in th e upper abdomen. No dilated small bowel. Suspect a redundant sigmoid colon. Bowel content largely obs cures the renal shadows. Impression: Gassy bowel. Moderate stool in the ascending colon. Suspect a redundant sigmoid colon. Overall nonobs tructive bowel gas pattern.
--- NOTE | 2022-10-24 20:36 | US ---
EXAMINATION TYPE: US kidneys/renal and bladder DATE OF EXAM: 10/24/2022 COMPARISON: NONE CLINICAL INDICATION: Male, 77 years old with history of N20.0 CALCULUS OF KIDNEYS; Hx renal cysts EXAM MEASUREMENTS: Right Kidney: 10.6 x 5.2 x 4.3 cm Left Kidney: 11.6 x 4.3 x 5.3 cm Right Kidney: wnl Left Kidney: Lateral cyst 0.8 x 0.9 x 0.9 cm; medial cyst 8.3 x 6.9 x 7.8 cm Bladder: Debris within; patient self caths and unable to cath currently Bilateral Jets seen: Yes IMPRESSION: 1. Large medial left renal cyst measuring 8 cm. 2. Some mild debris within urinary bladder.
== END | disposition home or self-care (01) ==
LOC: RADUSWWP 14:39
PROVIDERS: ATTEND Urology
DX: N20.0 Calculus of kidney (principal); N28.1 Cyst of kidney, acquired
CPT/HCPCS: 74018; 76770

== ENCOUNTER → 2023-02-02 | Outpatient (CLI) | payer MEDICARE ==
--- NOTE | 2023-02-03 09:12 | CA ---
Transthoracic Echo Report Name: Ventura Miller Age: 77 Gender: M : 1945 Exam Date: 02/02/2023 14:51 Exam Location: [place] [facility] Ht (in): 71 Wt (lb): 206 Ordering Physician: Rodolfo Healy MD Attending/Referring Phys: Alcira Wells MD ([id number]) Metal Bonding Crib Attendant Crystal Levin [facility] Procedure CPT: Indications: I25.9 CHRONIC ISCHEMIC HEART DISEASE, Cardiac Hx: Technical Quality: Fair Contrast 1: Total Dose (mL): Contrast 2: Total Dose (mL): MEASUREMENTS (Male / Female) Normal Values 2D ECHO LV Diastolic Diameter PLAX 5.9 cm 4.2 - 5.9 / 3.9 - 5.3 cm LV Systolic Diameter PLAX 3.7 cm IVS Diastolic Thickness 1.0 cm 0.6 - 1.0 / 0.6 - 0.9 cm LVPW Diastolic Thickness 1.1 cm 0.6 - 1.0 / 0.6 - 0.9 cm LV Relative Wall Thickness 0.4 Ascending Aorta Diameter 2.8 cm DOPPLER AV Peak Velocity 267.9 cm/s AV Peak Gradient 28.7 mmHg AV Mean Velocity 203.2 cm/s AV Mean Gradient 18.2 mmHg AV Velocity Time Integral 58.1 cm LVOT Peak Velocity 146.2 cm/s LVOT Peak Gradient 8.6 mmHg LVOT Velocity Time Integral 34.4 cm Mitral E Point Velocity 75.7 cm/s Mitral A Point Velocity 103.1 cm/s Mitral E to A Ratio 0.7 MV Deceleration Time 351.1 ms TR Peak Velocity 260.9 cm/s TR Peak Gradient 27.2 mmHg Right Atrial Pressure 8.0 mmHg Pulmonary Artery Systolic Pressu 35.2 mmHg Right Ventricular Systolic Press 35.2 mmHg FINDINGS Left Ventricle Left ventricular cavity size at the upper limits of normal. Left ventricular wall thickness at upper limits of normal. Normal left ventricular systolic function with no obvious regional wall motion abnormalities. Left ventricular ejection fraction is estimated at 55-60%. Right Ventricle Mild right ventricular dilatation. Mild pulmonary hypertension. Right Atrium Mild right atrial dilatation. Left Atrium Severe left atrial dilatation. Mitral Valve Mitral valve thickened. Moderate mitral regurgitation. Aortic Valve Normally functioning bioprosthetic aortic valve without stenosis with a peak gradient 28.70 mmHg, mean gradient 18.20 mmHg. Trace prosthetic aortic valve regurgitation. Tricuspid Valve Structurally normal tricuspid valve. Mild tricuspid regurgitation. Pulmonic Valve Structurally normal pulmonic valve. Mild pulmonic regurgitation. Pericardium Small pericardial effusion. Aorta Normal size aortic root and proximal ascending aorta. CONCLUSIONS Normal LV function Normally functioning bioprosthetic valve in aortic position Previewed by: Dr. Audie Monreal MD (Electronically Signed) Final Date: 03 February 2023 09:11
== END | disposition home or self-care (01) ==
LOC: RADECHMAIN 14:31
PROVIDERS: ATTEND Family Medicine
DX: I25.9 Chronic ischemic heart disease, unspecified (principal)
CPT/HCPCS: 93306

== ENCOUNTER → 2023-02-06 | Outpatient (CLI) | payer MEDICARE ==
[2023-02-07 04:11] LABS: Appearance,Urine Clear (Clear); Bilirubin,Urine Negative (Negative); Blood,Urine Negative (Negative); Color,Urine Yellow (Yellow); Ketones,Urine Negative (Negative); Nitrite,Urine Negative (Negative); PH, Urine 5.5; Specific Gravity,Urine 1.021 (1.001-1.030); Urobilinogen,Urine 0.2 E.U./DL
[2023-02-07 04:28] LABS: Bacteria,Urine Trace
== END | disposition home or self-care (01) ==
LOC: LABWHC1 15:00
PROVIDERS: ATTEND Internal Medicine Infectious Disease
DX: N39.0 Urinary tract infection, site not specified (principal)
CPT/HCPCS: 81001; 87086

== ENCOUNTER → 2023-03-01 | Outpatient (CLI) | payer MEDICARE ==
--- NOTE | 2023-03-01 07:45 | US ---
EXAMINATION TYPE: US scrotum with doppler. Grayscale and color Doppler Duplex imaging performed of ramirez melgoza scrotum. DATE OF EXAM: 03/01/2023 COMPARISON: 08/23/2022 CLINICAL INDICATION: Male, 77 years old with history of N50.819 TESTICULAR PAIN, UNSPECIFIED; ongoing bilateral pain for over 1 year, was on antibiotics over the summer, US in August EXAM MEASUREMENTS: TESTICLES: Right Testicle: 2.7 x 2.4 x 1.5 cm Left Testicle: 2.8 x 2.3 x 1.6 cm EPIDIDYMIS HEAD: Right Epididymis: 0.5 cm Left Epididymis: 1.1cm - 2 anechoic cysts, largest = 0.5cm , and second = 0.3cm Doppler performed to assess for testicular vascularity; good bilateral color flow and waveforms are s een. There is no evidence of testicular torsion. Presence of hydroceles: mild adjacent to left epididymis Presence of varicoceles: no testicles bilaterally have heterogeneous echotexture IMPRESSION: 1. Heterogenous bilateral testis appearance with increased texture and increased flow which is symme tric. Correlate for signs and symptoms of epididymoorchitis otherwise no evidence for acute process. 2. No evidence for intratesticular mass. 3. Appropriate arterial and venous spectral waveforms bilaterally.
== END | disposition home or self-care (01) ==
LOC: RADUSWWP 06:48
PROVIDERS: ATTEND Family Medicine
DX: N50.89 Other specified disorders of the male genital organs (principal); N50.811 Right testicular pain; N50.812 Left testicular pain
CPT/HCPCS: 76870; 93975

== ENCOUNTER → 2023-04-12 | Outpatient (CLI) | payer MEDICARE ==
--- NOTE | 2023-04-12 10:24 | CT ---
EXAMINATION TYPE: CT lumbar spine wo con DATE OF EXAM: 04/12/2023 10:17 AM COMPARISON: None HISTORY: back pain CT DLP: 1000 mGycm Automated exposure control for dose reduction was used. Unenhanced CT of the lumbar spine was performed. Bone and soft tissue window settings are submitted as well as coronal and sagittal reconstructions. L1-L2: Mild degenerative disc space narrowing. Left paracentral disc bulge or small herniation appear s to result in left lateral recess stenosis. Left foraminal encroachment noted. Definite central sten osis L2-L3: Vacuum disc with severe degenerative disc space narrowing. Grade 1 retrolisthesis of L2 on L3 of 4 mm. Moderate posterior disc bulge. Hypertrophy of ligamentum flavum and facet joint arthropathy resulting in moderate central stenosis. Moderate right greater than left foraminal encroachment. L3-L4: Vacuum disc with severe degenerative disc space narrowing. Grade 1 retrolisthesis of L2 on L3 of 4 mm. Moderate posterior disc bulge. Hypertrophy of ligamentum flavum and facet joint arthropathy resulting in moderate central stenosis. Severe right greater than left foraminal encroachment. L4-L5: [id number] degenerative disc space narrowing. Posterior disc bulges partially encapsulat ing spur resulting in disc endplate complex. At least moderate central stenosis noted. Mild to modera te bilateral foraminal encroachment. Severe facet joint arthropathy. L5-S1: Mild degenerative disc space narrowing. Right paracentral disc bulge with right lateral recess stenosis and right foraminal encroachment. No central stenosis seen. Severe facet joint arthropathy. No paraspinal masses are identified. Lumbar segments are intact. IMPRESSION: 1. Multilevel degenerative disc disease with multilevel central stenosis and foraminal encroachment a s outlined above.
--- NOTE | 2023-04-12 10:29 | CT ---
EXAMINATION TYPE: CT hip RT wo con DATE OF EXAM: 04/12/2023 COMPARISON: None HISTORY: right hip pain CT DLP: 523 mGycm Automated exposure control for dose reduction was used. Unenhanced CT of the right hip was performed with bone and soft tissue window settings obtained in the axial, coronal and sagittal planes. FINDINGS: There is no evidence of fracture or dislocation. No soft tissue mass seen. No bony destructive proces s evident. Mild degenerative narrowing right hip joint space. Pelvic masses identified. IMPRESSION: MILD DEGENERATIVE NARROWING RIGHT HIP JOINT SPACE.
== END | disposition home or self-care (01) ==
LOC: RADCTMAIN 09:42
PROVIDERS: ATTEND Family Medicine
DX: M51.16 Intervertebral disc disorders with radiculopathy, lumbar region (principal); M48.061 Spinal stenosis, lumbar region without neurogenic claudication; M99.73 Connective tissue and disc stenosis of intervertebral foramina of lumbar region; M79.651 Pain in right thigh
CPT/HCPCS: 72131

== ENCOUNTER 2023-11-26 17:20 | Emergency (ER) | payer MEDICARE ==
[2023-11-26 17:24] VITALS: RESP 18
--- NOTE | 2023-11-26 17:50 | ED ---
General Adult HPI - General Chief complaint: Recheck/Abnormal Lab/Rx Stated complaint: Urogenital Time Seen by Provider: 11/26/23 17:40 Source: patient, RN notes reviewed Mode of arrival: wheelchair Limitations: no limitations - History of Present Illness Initial comments: 69-year-old male presenting with for right foot pain x 1 day. Describes a sharp pain on the bottom of his foot radiating to the top of his foot that began last night. Denies trauma or injury. Denies swelling or redness. Denies fever or chills. States he went to his PCPs clinic this morning where they diagnosed him with cellulitis of the right foot and prescribed Keflex and told him to come to the ER if symptoms worsen. Patient states he has taken 2 of the Keflex, ho wever is still having pain in his right foot. He is able to ambulate. He reports he was also told he had a UTI at the clinic however denies any new urinary symptoms. Denies blood thinners. Denies heart failure or kidney issues. Denies recent surgeries, travel, history of DVT, patient is a non-s moker. Denies calf pain. - Related Data Home Medications Medication Instructions Recorded Confirmed Ascorbic Acid [Vitamin C] 1,000 mg PO DAILY 10/24/18 08/31/22 Aspirin 81 mg PO DAILY 10/24/18 08/31/22 Losartan [Cozaar] 50 mg PO DAILY 10/24/18 08/31/22 Metoprolol Tartrate [Lopressor] 25 mg PO BID 10/24/18 08/31/22 Nitroglycerin Sl Tabs [Nitrostat] 0.4 mg SL Q5M PRN 10/24/18 08/31/22 Omeprazole [PriLOSEC] 40 mg PO HS 10/24/18 08/31/22 Ubidecarenone [Co Q-10] 100 mg PO DAILY 10/24/18 08/31/22 Docusate [Colace] 100 mg PO BID 11/05/20 08/31/22 Albuterol Inhaler [Ventolin Hfa 1 - 2 puff INHALATION RT-QID PRN 02/09/22 08/31/22 Inhaler] Fluticasone/Vilanterol [Breo 1 puff INHALATION RT-QID PRN 02/09/22 08/31/22 Ellipta 200-25 Mcg Inhaler] Cranberry Fruit [Cranberry] 465 mg PO DAILY 02/14/22 08/31/22 Furosemide [Lasix] 40 mg PO DAILY PRN 02/14/22 08/31/22 Quercetin 800 mg PO BID 02/14/22 08/31/22 Zinc Gluconate [Zinc] 50 mg PO DAILY 02/14/22 08/31/22 Centrum Cardio 2 tab PO DAILY 03/02/22 08/31/22 Cholecalciferol [Vitamin D3 (125 125 mcg PO DAILY 06/23/22 08/31/22 Mcg = 5000 Iu)] Clopidogrel [Plavix] 75 mg PO DAILY 06/23/22 08/31/22 Dasatinib [Sprycel] 100 mg PO DAILY 06/23/22 08/31/22 Prosymbiotic 1 tab PO BID 06/23/22 08/31/22 Sennosides/Docusate Sodium 1 tab PO BID 06/23/22 08/31/22 [Senna-S 8.6-50 mg Tablet] Tamsulosin HCl [Flomax] 0.4 mg PO DAILY 06/23/22 08/31/22 valACYclovir HCL [Valtrex] 1,000 mg PO TID 06/23/22 08/31/22 Alfuzosin HCl [Alfuzosin HCl ER] 10 mg PO DAILY 08/31/22 08/31/22 Previous Rx's Medication Instructions Recorded Ciprofloxacin HCl [Cipro] 500 mg PO Q12HR 14 Days #28 tab 09/02/22 HYDROcodone/APAP 5-325MG [[place] 1 - 2 tab PO Q6HR PRN #18 tab 09/02/22 5-325] Allergies Allergy/AdvReac Type Severity Reaction Status Date / Time adhesive tape Allergy Rash/Hives,"paper Verified 11/26/23 17:24 tape is ok" amoxicillin [From Augmentin] Allergy Rash/Hives Verified 11/26/23 17:24 atorvastatin [From Lipitor] Allergy Muscle Verified 11/26/23 17:24 Aches budesonide [From Symbicort] Allergy Vision Verified 11/26/23 17:24 issues ciprofloxacin Allergy Muscle Verified 11/26/23 17:24 aches clavulanic acid Allergy Rash/Hives Verified 11/26/23 17:24 [From Augmentin] mold Allergy Rash/Hives Verified 11/26/23 17:24 doxycycline AdvReac Rectal Verified 11/26/23 17:24 Bleeding enalapril AdvReac Cough Verified 11/26/23 17:24 ezetimibe [From Vytorin] AdvReac Muscle Verified 11/26/23 17:24 Aches fluticasone AdvReac Irregular Verified 11/26/23 17:24 [From Advair Diskus] heart rate formoterol [From Symbicort] AdvReac Vision Verified 11/26/23 17:24 issues nilotinib [From Tasigna] AdvReac Pancreatiti Verified 11/26/23 17:24 s salmeterol AdvReac Irregular Verified 11/26/23 17:24 [From Advair Diskus] heart rate simvastatin [From Vytorin] AdvReac Muscle Verified 11/26/23 17:24 Aches Zvovrho-BSM-LmK Reductase AdvReac Muscle Verified 11/26/23 17:24 Inhibitor aches [Cbmnbei-Cuz-Sxa Reductase Inhibitor] Cotton material Allergy itching, Uncoded 11/26/23 17:24 hives Review of Systems ROS Statement: Those systems with pertinent positive or pertinent negative responses have been documented in the HPI. ROS Other: All systems not noted in ROS Statement are negative. Past Medical History Past Medical History: Coronary Artery Disease (CAD), Cancer, GERD/Reflux, Hypertension, Skin Disorder Additional Past Medical History / Comment(s): Hx. of CML, Hx. of Shingles L eye, Cysts on L kidney. History of Any Multi-Drug Resistant Organisms: None Reported Past Surgical History: Cholecystectomy, Heart Catheterization With Stent, Hernia Repair, Orthopedic Surgery Additional Past Surgical History / Comment(s): Thyroid surgery,Vasectomy, R ankle surgery, Sinus surgery, Basal cell R shoulder, Pyloroplasty & Vagotomy, Hemorrhoidectomy, Cataract surgery & bx. of inner thigh.aortic valve 04/29/22 Past Anesthesia/Blood Transfusion Reactions: No Reported Reaction Date of Last Stent Placement:: 2005 Past Psychological History: No Psychological Hx Reported Smoking Status: Former smoker Past Alcohol Use History: None Reported Past Drug Use History: None Reported - Past Family History Mother Family Medical History: Cancer, Pulmonary Embolus Father Family Medical History: Cancer Brother(s) Family Medical History: Cancer Son(s) Family Medical History: Cancer General Exam Limitations: no limitations General appearance: alert, in no apparent distress Head exam: Present: atraumatic, normocephalic, normal inspection Right Knee exam: Present: normal inspection, full ROM. Absent: tenderness, swelling, abrasion, laceration Lower Leg exam: Present: normal inspection, full ROM. Absent: tenderness, swelling, abrasion Ankle exam: Present: normal inspection, full ROM, swelling (Mild edema). Absent: tenderness Foot/Toe exam: Present: normal inspection, full ROM, tenderness (Diffuse mild tenderness and edema to ventral and dorsal aspect of right foot without overlying skin changes, erythema, or purulence. Full range of motion of ankle and digits), swelling (Mild diffuse edema of right foot) Neurovascular tendon exam: Present: no vascular compromise. Absent: pulse deficit, abnormal cap refill, sensory deficit Neurological exam: Present: alert, oriented X3 Psychiatric exam: Present: normal affect, normal mood Skin exam: Present: warm, dry, intact, normal color. Absent: rash Course Vital Signs 11/26/23 11/26/23 17:21 18:24 Temperature 97.7 F 98 F Pulse Rate 78 73 Respiratory 18 18 Rate Blood Pressure 148/77 145/73 O2 Sat by Pulse 99 99 Oximetry Medical Decision Making - Medical Decision Making Was pt. sent in by a medical professional or institution (, PA, SAS DEVELOPER, urgent care, hospital, or alf...) When possible be specific @ -No Did you speak to anyone other than the patient for history (EMS, parent, family, police, friend...)? What history was obtained from this source @ - supplemented history Did you review nursing and triage notes (agree or disagree)? Why? @ -I reviewed and agree with nursing and triage notes Were old charts reviewed (outside hosp., previous admission, EMS record, old EKG, old radiological studies, urgent care reports/EKG's, alf records)? Report findings @ -No old charts were reviewed Differential Diagnosis (chest pain, altered mental status, abdominal pain women, abdominal pain men, vaginal bleeding, weakness, fever, dyspnea, syncope, headache, dizziness, GI bleed, back pain, seizure, CVA, palpatations, mental health, musculoskeletal)? @ -Differential Musculoskeletal Muscular strain, contusion, ligament sprain, fracture, arthritis, septic arthritis, bursitis, cellulitis, muscle spasm, nerve compression, DVT, arterial occlusion, herpes zoster, electrolyte abnormality, tumor.... This is not meant to be in all inclusive list EKG interpreted by me (3pts min.). @ -None X-rays interpreted by me (1pt min.). @ -X-ray right foot reveals no acute process CT interpreted by me (1pt min.). @ -None done U/S interpreted by me (1pt. min.). @ -None done What testing was considered but not performed or refused? (CT, X-rays, U/S, labs)? Why? @ -None What meds were considered but not given or refused? Why? @ -None Did you discuss the management of the patient with other professionals (professionals i.e. , PA, SAS DEVELOPER, lab, RT, psych nurse, certified social workers in health care, anesthesia assistant, te acher, chief client officer, top case assembler)? Give summary @ -No Was smoking cessation discussed for >3mins.? @ -No Was critical care preformed (if so, how long)? @ -No Were there social determinants of health that impacted care today? How? (Homelessness, low income, unemployed, alcoholism, drug addiction, transportation, low edu. Level, literacy, decrease access to med. care, custodial, rehab)? @ -No Was there de-escalation of care discussed even if they declined (Discuss DNR or withdrawal of care, Hospice)? DNR status @ -No What co-morbidities impacted this encounter? (DM, HTN, Smoking, COPD, CAD, Cancer, CVA, ARF, Chemo, Hep., AIDS, mental health diagnosis, sleep apnea, morbid obesity)? @ -None Was patient admitted / discharged? Hospital course, mention meds given and route, prescriptions, significant lab abnormalities, going to OR and other pertinent info. @ -Patient was discharged. This is a 78-year-old male presenting with right foot pain x 1 day. Patient was diagnosed with cellulitis earlier today at clinic and prescribed Keflex. Patient states pain is worsening. Vital signs within normal limits. Neurovascularly intact. Patient has full range of motion, there is minimal erythema and edema. Lab including CBC, CMP, CRP, lactic acid obtained and unremarkable. X-ray of right foot reveals no acute process. Discussed negative findings with patient. Advised patient to continue Keflex as prescribed for right foot cellulitis and return to the emergency department with new or worsening symptoms. Patient is agreeable to plan. Case was discussed with my ED attending Dr. Mccarthy. Patient discharged in stable condition. Undiagnosed new problem with uncertain prognosis? @ -No Drug Therapy requiring intensive monitoring for toxicity (Heparin, Nitro, Insulin, Cardizem)? @ -No Were any procedures done? @ -No Diagnosis/symptom? @ -Right foot cellulitis Acute, or Chronic, or Acute on Chronic? @ -Acute Uncomplicated (without systemic symptoms) or Complicated (systemic symptoms)? @ -Uncomplicated Side effects of treatment? @ -No Exacerbation, Progression, or Severe Exacerbation? @ -No Poses a threat to life or bodily function? How? (Chest pain, [place], AL, pneumonia, PE, COPD, DKA, ARF, appy, cholecystitis, CVA, Diverticulitis, Homicidal, Suicidal, threat to staff... and all critical care pts) @ -Not at this time - Lab Data Result diagrams: 11/26/23 18:22 11/26/23 18:22 Lab Results 11/26/23 11/26/23 11/26/23 Range/Units 18:22 18:22 18:22 WBC 6.7 (3.8-10.6) k/uL RBC 2.63 L (4.30-5.90) m/uL Hgb 9.4 L (13.0-17.5) gm/dL Hct 28.3 L (39.0-53.0) % MCV 107.9 H (80.0-100.0) fL MCH 35.6 H (25.0-35.0) pg MCHC 33.0 (31.0-37.0) g/dL RDW 13.8 (11.5-15.5) % Plt Count 258 (150-450) k/uL MPV 7.1 Neutrophils % 48 % Lymphocytes % 40 % Monocytes % 8 % Eosinophils % 1 % Basophils % 1 % Neutrophils # 3.3 (1.3-7.7) k/uL Lymphocytes # 2.7 (1.0-4.8) k/uL Monocytes # 0.6 (0-1.0) k/uL Eosinophils # 0.1 (0-0.7) k/uL Basophils # 0.0 (0-0.2) k/uL Macrocytosis Moderate Sodium 138 (137-145) mmol/L Potassium 4.1 (3.5-5.1) mmol/L Chloride 108 H (98-107) mmol/L Carbon Dioxide 23 (22-30) mmol/L Anion Gap 7 mmol/L BUN 23 H (9-20) mg/dL Creatinine 1.19 (0.66-1.25) mg/dL Est GFR (CKD-EPI)AfAm 67 (>60 ml/min/1.73 sqM) Est GFR (CKD-EPI)NonAf 58 (>60 ml/min/1.73 sqM) Glucose 110 H (74-99) mg/dL Plasma Lactic Acid [place] 1.1 (0.7-2.0) mmol/L Calcium 9.2 (8.4-10.2) mg/dL Total Bilirubin 0.5 (0.2-1.3) mg/dL AST 30 (17-59) U/L ALT 18 (4-49) U/L Alkaline Phosphatase 56 (38-126) U/L C-Reactive Protein <0.5 (<1.0) mg/dL Total Protein 6.5 (6.3-8.2) g/dL Albumin 4.0 (3.5-5.0) g/dL Disposition Clinical Impression: Cellulitis of foot, right Disposition: HOME SELF-CARE Condition: Stable Instructions (If sedation given, give patient instructions): Cellulitis (ED) Additional Instructions: Continue Keflex as prescribed. Elevate right foot. Please return to the Emergency Department if symptoms worsen or any other concerns. Is patient prescribed a controlled substance at d/c from ED?: No Referrals: Rodolfo Healy MD [Primary Care Provider] - 1-2 days Time of Disposition: 21:47
--- NOTE | 2023-11-26 18:16 | XR ---
EXAMINATION TYPE: XR foot complete RT DATE OF EXAM: 11/26/2023 COMPARISON: None HISTORY: Right foot pain and cellulitis TECHNIQUE: 3 view right foot FINDINGS: No acute fracture or dislocation is evident. Joint spaces within the foot appear preserved. The tibial tarsal junction appears to have fusion. Soft tissues appear normal. Small plantar calcane al heel spur is present. No suspicious air within the soft tissues is evident. No suspicious cortical erosions evident IMPRESSION: 1. No acute osseous abnormality right foot [facility], Workstation: [facility], 11/26/2023 6:14 PM
[2023-11-26 19:24] LABS: ALT 18 U/L (4-49); AST 30 U/L (17-59); African American GFR (CKD) 67 (>60 ml/min/1.73 sqM); Alkaline Phosphatase 56 U/L (38-126); Anion Gap 7 mmol/L; Blood Urea Nitrogen 23 mg/dL (9-20); Calcium 9.2 mg/dL (8.4-10.2); Carbon Dioxide 23 mmol/L (22-30); Chloride 108 mmol/L (98-107); Glucose 110 mg/dL (74-99); Non-African American GFR(CKD) 58 (>60 ml/min/1.73 sqM); Potassium 4.1 mmol/L (3.5-5.1); Sodium 138 mmol/L (137-145); Total Bilirubin 0.5 mg/dL (0.2-1.3); Total Protein 6.5 g/dL (6.3-8.2)
[2023-11-26 19:25] LABS: Basophils % (A) 1 %; Eosinophils # (A) 0.1 k/uL (0-0.7); Eosinophils % (A) 1 %; HCT 28.3 % (39.0-53.0); HGB 9.4 gm/dL (13.0-17.5); Lymphocytes # (A) 2.7 k/uL (1.0-4.8); Lymphocytes % (A) 40 %; MCH 35.6 pg (25.0-35.0); MCV 107.9 fL (80.0-100.0); Macrocytosis Moderate; Mean Platelet Volume 7.1; Monocytes # (A) 0.6 k/uL (0-1.0); Monocytes % (A) 8 %; Neutrophils # (A) 3.3 k/uL (1.3-7.7); Neutrophils % (A) 48 %; Platelet Count 258 k/uL (150-450); RBC 2.63 m/uL (4.30-5.90); RDW 13.8 % (11.5-15.5); WBC 6.7 k/uL (3.8-10.6)
[2023-11-26 21:27] LABS: C Reactive Protein <0.5 mg/dL (<1.0)
[2023-11-26 22:33] VITALS: BP 145/86; PULSE 88; TEMP 98.3
== END 2023-11-26 22:33 | disposition home or self-care (01) ==
LOC: EC 17:20
CPT/HCPCS: 36415; 80053; 83605; 85025; 86140; 99283

== ENCOUNTER 2023-11-27 07:00 | Observation (INO) | payer MEDICARE ==
--- NOTE | 2023-11-27 07:44 | ED ---
Extremity Problem HPI - General Chief complaint: Extremity Problem,Nontraumatic Stated complaint: Foot & Groin Pain Time Seen by Provider: 11/27/23 07:41 Source: patient, family, RN notes reviewed, old records reviewed Mode of arrival: wheelchair Limitations: no limitations - History of Present Illness Initial comments: 78-year-old male presented the ER with a chief complaint of right lower extremity pain. Patient was seen by urgent care yesterday and started on Keflex for concern of cellulitis. Patient states he started to have worsening of symptoms including swelling and erythema to right lower extremity which brought him to the ER last night. Patient had laboratory studies drawn which were negative for acute process. X-rays were also negative. Patient was instructed to continue taking Keflex as prescribed and follow-up with PCP. Patient states since discharge from ER he has been having difficulty ambulating due to pain and increase in pain to his right groin. No new injuries or traumas. , at bedside, states patient had a fever of 100.4 last night. He has been taking [id number] Tylenol for symptom control. Patient denies headache, cough, congestion, shortness of breath, chest pain, abdominal pain, constipation/diar gustavo. Patient does state he currently has UTI and states he self catheterizes himself. No history of DVT or blood thinner use. No new urinary complaints. - Related Data Home Medications Medication Instructions Recorded Confirmed Ascorbic Acid [Vitamin C] 1,000 mg PO DAILY 10/24/18 08/31/22 Aspirin 81 mg PO DAILY 10/24/18 08/31/22 Losartan [Cozaar] 50 mg PO DAILY 10/24/18 08/31/22 Metoprolol Tartrate [Lopressor] 25 mg PO BID 10/24/18 08/31/22 Nitroglycerin Sl Tabs [Nitrostat] 0.4 mg SL Q5M PRN 10/24/18 08/31/22 Omeprazole [PriLOSEC] 40 mg PO HS 10/24/18 08/31/22 Ubidecarenone [Co Q-10] 100 mg PO DAILY 10/24/18 08/31/22 Docusate [Colace] 100 mg PO BID 11/05/20 08/31/22 Albuterol Inhaler [Ventolin Hfa 1 - 2 puff INHALATION RT-QID PRN 02/09/22 08/31/22 Inhaler] Fluticasone/Vilanterol [Breo 1 puff INHALATION RT-QID PRN 02/09/22 08/31/22 Ellipta 200-25 Mcg Inhaler] Cranberry Fruit [Cranberry] 465 mg PO DAILY 02/14/22 08/31/22 Furosemide [Lasix] 40 mg PO DAILY PRN 02/14/22 08/31/22 Quercetin 800 mg PO BID 02/14/22 08/31/22 Zinc Gluconate [Zinc] 50 mg PO DAILY 02/14/22 08/31/22 Centrum Cardio 2 tab PO DAILY 03/02/22 08/31/22 Cholecalciferol [Vitamin D3 (125 125 mcg PO DAILY 06/23/22 08/31/22 Mcg = 5000 Iu)] Clopidogrel [Plavix] 75 mg PO DAILY 06/23/22 08/31/22 Dasatinib [Sprycel] 100 mg PO DAILY 06/23/22 08/31/22 Prosymbiotic 1 tab PO BID 06/23/22 08/31/22 Sennosides/Docusate Sodium 1 tab PO BID 06/23/22 08/31/22 [Senna-S 8.6-50 mg Tablet] Tamsulosin HCl [Flomax] 0.4 mg PO DAILY 06/23/22 08/31/22 valACYclovir HCL [Valtrex] 1,000 mg PO TID 06/23/22 08/31/22 Alfuzosin HCl [Alfuzosin HCl ER] 10 mg PO DAILY 08/31/22 08/31/22 Previous Rx's Medication Instructions Recorded Ciprofloxacin HCl [Cipro] 500 mg PO Q12HR 14 Days #28 tab 09/02/22 HYDROcodone/APAP 5-325MG [[place] 1 - 2 tab PO Q6HR PRN #18 tab 09/02/22 5-325] Allergies Allergy/AdvReac Type Severity Reaction Status Date / Time adhesive tape Allergy Rash/Hives,"paper Verified 11/27/23 07:04 tape is ok" amoxicillin [From Augmentin] Allergy Rash/Hives Verified 11/27/23 07:04 atorvastatin [From Lipitor] Allergy Muscle Verified 11/27/23 07:04 Aches budesonide [From Symbicort] Allergy Vision Verified 11/27/23 07:04 issues ciprofloxacin Allergy Muscle Verified 11/27/23 07:04 aches clavulanic acid Allergy Rash/Hives Verified 11/27/23 07:04 [From Augmentin] mold Allergy Rash/Hives Verified 11/27/23 07:04 doxycycline AdvReac Rectal Verified 11/27/23 07:04 Bleeding enalapril AdvReac Cough Verified 11/27/23 07:04 ezetimibe [From Vytorin] AdvReac Muscle Verified 11/27/23 07:04 Aches fluticasone AdvReac Irregular Verified 11/27/23 07:04 [From Advair Diskus] heart rate formoterol [From Symbicort] AdvReac Vision Verified 11/27/23 07:04 issues nilotinib [From Tasigna] AdvReac Pancreatiti Verified 11/27/23 07:04 s salmeterol AdvReac Irregular Verified 11/27/23 07:04 [From Advair Diskus] heart rate simvastatin [From Vytorin] AdvReac Muscle Verified 11/27/23 07:04 Aches Twoihby-KWQ-GaT Reductase AdvReac Muscle Verified 11/27/23 07:04 Inhibitor aches [Ixzxjqm-Sly-Dow Reductase Inhibitor] Cotton material Allergy itching, Uncoded 11/27/23 07:04 hives Review of Systems ROS Statement: Those systems with pertinent positive or pertinent negative responses have been documented in the HPI. ROS Other: All systems not noted in ROS Statement are negative. Past Medical History Past Medical History: Coronary Artery Disease (CAD), Cancer, GERD/Reflux, Hypertension, Skin Disorder Additional Past Medical History / Comment(s): Hx. of CML, Hx. of Shingles L eye, Cysts on L kidney. History of Any Multi-Drug Resistant Organisms: None Reported Past Surgical History: Cholecystectomy, Heart Catheterization With Stent, Hernia Repair, Orthopedic Surgery Additional Past Surgical History / Comment(s): Thyroid surgery,Vasectomy, R ankle surgery, Sinus surgery, Basal cell R shoulder, Pyloroplasty & Vagotomy, Hemorrhoidectomy, Cataract surgery & bx. of inner thigh.aortic valve 04/29/22 Past Anesthesia/Blood Transfusion Reactions: No Reported Reaction Date of Last Stent Placement:: 2005 Past Psychological History: No Psychological Hx Reported Smoking Status: Former smoker Past Alcohol Use History: None Reported Past Drug Use History: None Reported - Past Family History Mother Family Medical History: Cancer, Pulmonary Embolus Father Family Medical History: Cancer Brother(s) Family Medical History: Cancer Son(s) Family Medical History: Cancer General Exam Limitations: no limitations General appearance: alert, in no apparent distress Respiratory exam: Present: normal lung sounds bilaterally. Absent: respiratory distress, wheezes, rales, rhonchi, stridor Cardiovascular Exam: Present: regular rate, normal rhythm, normal heart sounds. Absent: systolic murmur, diastolic murmur, rubs, gallop, clicks Extremities exam: Present: tenderness (Right ankle and calf. 2+ pitting edema right lower extremity. No overlying erythema. Patient has full active range of motion. Healed surgical incision to anterior aspect. Sensation intact.) Neurological exam: Present: alert, oriented X3, CN II-XII intact Skin exam: Present: warm, dry, intact, normal color. Absent: rash Course Vital Signs 11/27/23 11/27/23 11/27/23 07:03 07:46 08:55 Temperature 99.8 F H 99.2 F 99.1 F Pulse Rate 72 77 Respiratory 18 20 Rate Blood Pressure 149/71 150/75 O2 Sat by Pulse 99 99 Oximetry - Reevaluation(s) Reevaluation #1: 11/27/23 11:51 Case discussed with sound physician, Dr. Coto for admission. Medical Decision Making - Medical Decision Making Was pt. sent in by a medical professional or institution (, PA, FORENSIC DOCUMENT EXAMINER, urgent care, hospital, or fpc...) When possible be specific @ -No Did you speak to anyone other than the patient for history (EMS, parent, family, police, friend...)? What history was obtained from this source @ -, at bedside, aiding in HPI and past medical history. Did you review nursing and triage notes (agree or disagree)? Why? @ -I reviewed and agree with nursing and triage notes Were old charts reviewed (outside hosp., previous admission, EMS record, old EKG, old radiological studies, urgent care reports/EKG's, fpc records)? Report findings @ -Yes I reviewed ER visit from 11-27-2023. Patient seen here for similar complaint. Laboratory studies obtained unremarkable. X-ray negative. Patient discharged and told to continue taking Keflex as prescribed. Differential Diagnosis (chest pain, altered mental status, abdominal pain women, abdominal pain men, vaginal bleeding, weakness, fever, dyspnea, syncope, headache, dizziness, GI bleed, back pain, seizure, CVA, palpatations, mental health, musculoskeletal)? @ -Differential Musculoskeletal Muscular strain, contusion, ligament sprain, fracture, arthritis, septic arthritis, bursitis, cellulitis, muscle spasm, nerve compression, DVT, arterial occlusion, herpes zoster, electrolyte abnormality, tumor.... This is not meant to be in all inclusive list EKG interpreted by me (3pts min.). @ -None done X-rays interpreted by me (1pt min.). @ -Chest x-ray interpreted by me negative for acute cardiopulmonary process. CT interpreted by me (1pt min.). @ -None done U/S interpreted by me (1pt. min.). @ -Ultrasound venous Doppler right lower extremity negative for acute evidence of DVT. What testing was considered but not performed or refused? (CT, X-rays, U/S, labs)? Why? @ -None What meds were considered but not given or refused? Why? @ -None Did you discuss the management of the patient with other professionals (professionals i.e. , PA, FORENSIC DOCUMENT EXAMINER, lab, RT, psych nurse, certified social workers in health care, consumer insights intern, teacher, police patrol officer, case management rn)? Give summary @ -Case discussed with sound physician, Dr. Coto for admission. Was smoking cessation discussed for >3mins.? @ -No Was critical care preformed (if so, how long)? @ -No Were there social determinants of health that impacted care today? How? (Homelessness, low income, unemployed, alcoholism, drug addiction, transportation, low edu. Level, literacy, decrease access to med. care, [facility], rehab)? @ -No Was there de-escalation of care discussed even if they declined (Discuss DNR or withdrawal of care, Hospice)? DNR status @ -No What co-morbidities impacted this encounter? (DM, HTN, Smoking, COPD, CAD, Cancer, CVA, ARF, Chemo, Hep., AIDS, mental health diagnosis, sleep apnea, morbid obesity)? @ -CML Was patient admitted / discharged? Hospital course, mention meds given and route, prescriptions, significant lab abnormalities, going to OR and other pertinent info. @ -Admitted. 78-year-old male presented to ER with a chief complaint of right foot pain and swelling. History and physical exam completed. Vitals within normal limits. Patient had no signs of acute distress and resting comfortably in exam room. Exam remarkable for 2+ pitting edema to pretibial right. 2+ right dorsalis pedis pulses. No overlying skin changes or wounds. Ultrasound initially obtained to rule out DVT which is negative. Laboratory studies obtained to rule out heart failure exacerbation. 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 CMP showing sodium 135, potassium 4.3, chloride 111, carbon dioxide 23. BNP 1120. Chest x- ray interpreted by me negative for acute cardiopulmonary process. Upon reevaluation, patient resting comfortably in exam room no signs of acute distress. Results discussed with patient and , at bedside. All questions answered. Admission considered for heart failure workup and intractable pain. Case discussed with Sound physician, Dr. Coto for admission. Patient agreeable for admission. Patient admitted in stable condition for further evaluation and treatment. Case discussed with ED attending, Dr. Simpson. Undiagnosed new problem with uncertain prognosis? @ -No Drug Therapy requiring intensive monitoring for toxicity (Heparin, Nitro, Insulin, Cardizem)? @ -No Were any procedures done? @ -No Diagnosis/symptom? @ -Right lower extremity edema/CML/elevated BNP Acute, or Chronic, or Acute on Chronic? @ -Acute Uncomplicated (without systemic symptoms) or Complicated (systemic symptoms)? @ -Complicated Side effects of treatment? @ -No Exacerbation, Progression, or Severe Exacerbation? @ -No Poses a threat to life or bodily function? How? (Chest pain, [place], GA, pneumonia, PE, COPD, DKA, ARF, appy, cholecystitis, CVA, Diverticulitis, Homicidal, Suicidal, threat to staff... and all critical care pts) @ -Yes, fluid retention can lead to hypoxia which is life-threatening. - Lab Data Result diagrams: 11/27/23 09:00 11/27/23 09:00 Lab Results 11/27/23 11/27/23 Range/Units 09:00 09:00 WBC 9.5 (3.8-10.6) k/uL RBC 2.70 L (4.30-5.90) m/uL Hgb 9.7 L (13.0-17.5) gm/dL Hct 29.0 L (39.0-53.0) % MCV 107.4 H (80.0-100.0) fL MCH 35.9 H (25.0-35.0) pg MCHC 33.4 (31.0-37.0) g/dL RDW 13.7 (11.5-15.5) % Plt Count 233 (150-450) k/uL MPV 7.6 Neutrophils % 52 % Lymphocytes % 40 % Monocytes % 6 % Eosinophils % 0 % Basophils % 0 % Neutrophils # 5.0 (1.3-7.7) k/uL Lymphocytes # 3.8 (1.0-4.8) k/uL Monocytes # 0.6 (0-1.0) k/uL Eosinophils # 0.0 (0-0.7) k/uL Basophils # 0.0 (0-0.2) k/uL Macrocytosis Moderate Sodium 135 L (137-145) mmol/L Potassium 4.3 (3.5-5.1) mmol/L Chloride 111 H (98-107) mmol/L Carbon Dioxide 23 (22-30) mmol/L Anion Gap 1 mmol/L BUN 21 H (9-20) mg/dL Creatinine 1.13 (0.66-1.25) mg/dL Est GFR (CKD-EPI)AfAm 71 (>60 ml/min/1.73 sqM) Est GFR (CKD-EPI)NonAf 62 (>60 ml/min/1.73 sqM) Glucose 105 H (74-99) mg/dL Calcium 9.3 (8.4-10.2) mg/dL Total Bilirubin 0.7 (0.2-1.3) mg/dL AST 30 (17-59) U/L ALT 18 (4-49) U/L Alkaline Phosphatase 62 (38-126) U/L NT-Pro-B Natriuret Pep 1120 pg/mL Total Protein 6.7 (6.3-8.2) g/dL Albumin 4.3 (3.5-5.0) g/dL - Radiology Data Radiology results: report reviewed, image reviewed Disposition Clinical Impression: Immunocompromised state, Edema of right lower extremity, Elevated brain natriuretic peptide (BNP) level Disposition: ADMITTED IP TO THIS [facility] Condition: Stable Time of Disposition: 11:51
--- NOTE | 2023-11-27 08:38 | US ---
EXAMINATION TYPE: US venous doppler duplex LE RT DATE OF EXAM: 11/27/2023 8:25 AM COMPARISON: NONE CLINICAL INDICATION: Male, 78 years old with history of swelling; Groin pain x 3 weeks and foot pain x 1 day. No redness. On baby aspirin. No injury. Hx cellulitis. SIDE PERFORMED: Right TECHNIQUE: The lower extremity deep venous system is examined utilizing real time linear array sonog damián with graded compression, doppler sonography and color-flow sonography. VESSELS IMAGED: Common Femoral Vein Deep Femoral Vein Greater Saphenous Vein * Femoral Vein Popliteal Vein Small Saphenous Vein * Proximal Calf Veins (* superficial vessels) Right Leg: Negative for DVT IMPRESSION: 1. Right lower extremity ultrasound negative for deep venous thrombosis. [facility], , 11/27/2023 8:35 AM
[2023-11-27 09:26] LABS: Basophils % (A) 0 %; Eosinophils % (A) 0 %; HGB 9.7 gm/dL (13.0-17.5); Lymphocytes # (A) 3.8 k/uL (1.0-4.8); Lymphocytes % (A) 40 %; MCH 35.9 pg (25.0-35.0); MCHC 33.4 g/dL (31.0-37.0); MCV 107.4 fL (80.0-100.0); Macrocytosis Moderate; Mean Platelet Volume 7.6; Monocytes # (A) 0.6 k/uL (0-1.0); Monocytes % (A) 6 %; Neutrophils % (A) 52 %; Platelet Count 233 k/uL (150-450); RDW 13.7 % (11.5-15.5); WBC 9.5 k/uL (3.8-10.6)
[2023-11-27 09:55] LABS: ALT 18 U/L (4-49); AST 30 U/L (17-59); African American GFR (CKD) 71 (>60 ml/min/1.73 sqM); Albumin 4.3 g/dL (3.5-5.0); Alkaline Phosphatase 62 U/L (38-126); Anion Gap 1 mmol/L; Blood Urea Nitrogen 21 mg/dL (9-20); Calcium 9.3 mg/dL (8.4-10.2); Carbon Dioxide 23 mmol/L (22-30); Chloride 111 mmol/L (98-107); Glucose 105 mg/dL (74-99); Non-African American GFR(CKD) 62 (>60 ml/min/1.73 sqM); Potassium 4.3 mmol/L (3.5-5.1); Sodium 135 mmol/L (137-145); Total Bilirubin 0.7 mg/dL (0.2-1.3); Total Protein 6.7 g/dL (6.3-8.2)
[2023-11-27 09:58] LABS: NT-Pro-B-Type Natriuretic Pept 1120 pg/mL
--- NOTE | 2023-11-27 09:58 | XR ---
EXAMINATION TYPE: XR chest 2V DATE OF EXAM: 11/27/2023 COMPARISON: 06/23/2022 INDICATION: Dyspnea, leg pain TECHNIQUE: Frontal and lateral views of the chest are obtained. FINDINGS: The heart size is enlarged. The pulmonary vasculature is normal. The lungs are clear. IMPRESSION: 1. No acute pulmonary process. 2. Cardiomegaly [facility], , 11/27/2023 9:56 AM
[2023-11-27] MEDS ORDERED: NALOXONE 0.4 MG/ML 1 ML VIAL IV PRN (11:22)
[2023-11-27] MEDS ORDERED: ONDANSETRON 4 MG/2 ML VIAL IVP PRN (11:22)
[2023-11-27] MEDS ORDERED: HYDROmorphone 1 MG/ML 1 ML SYRINGE IVP PRN (11:22)
[2023-11-27] MEDS: ACETAMINOPHEN TAB 500 MG TAB PO STA (12:00)
[2023-11-27] MEDS ORDERED: ALBUTEROL NEBULIZED 2.5 MG/3 ML INHALATION PRN (15:37)
[2023-11-27] MEDS ORDERED: NITROGLYCERIN SL TABS 0.4 MG TAB SUBLINGUAL PRN (15:38)
[2023-11-27] MEDS: LORATADINE 10 MG TAB PO SCH (15:45)
[2023-11-27] MEDS: ASPIRIN 81 MG PO SCH (15:45)
[2023-11-27] MEDS: CEPHALEXIN 500 MG CAP PO SCH (16:47)
[2023-11-27] MEDS: FUROSEMIDE 10 MG/ML 4 ML VIAL IV STA (16:48)
[2023-11-27] MEDS: LOSARTAN 50 MG TAB PO SCH (16:50)
[2023-11-27] MEDS: ENOXAPARIN 40 MG/0.4 ML SYRINGE SQ SCH (18:17)
--- NOTE | 2023-11-27 18:24 | CT ---
CT right foot. HISTORY: Ankle pain COMPARISON: None. TECHNIQUE: Oblique axial images are obtained to the right foot. FINDINGS: There is no acute fracture or dislocation. There is no cortical disruption or periosteal reaction. There is marked osteopenia of the distal right tibia and fibula. There are postsurgical changes of pr evious screw placement within the tibia and fibula and there is partial fusion of the distal fibula w ith the tibia. There are mild degenerative changes of the talonavicular articulation where there is mild hypertrophi c spurring but no significant joint space narrowing. IMPRESSION: 1. No acute fracture of the right foot. 2. Remote trauma and prior fusion of the right ankle joint as described above. 3. Diffuse osteopenia of the distal right tibia and fibula. [facility], , 11/27/2023 6:22 PM
--- NOTE | 2023-11-27 18:58 | P.HPIM ---
History of Present Illness H&P Date: 11/27/23 History of present illness; Ventura Miller 78-year-old male presented the right lower extremity pain. Patient was seen by urgent care yesterday and started on Keflex for concern of cellulitis. Patient states he started to have worsening of symptoms including swelling and erythema to right lower extremity which brought him to the ER last night. Patient had laboratory studies drawn which were negative for acute process. Patient was instructed to continue taking Keflex as prescribed and follow-up with PCP. He states since discharge from ER he has been having difficulty ambulating due to pain in his right foot and increase in pain to his right groin. No new injuries or traumas. He attest to fever overnight of 100.4. He has been taking zwkw-szw-[id number] Tylenol for symptom control. Susan schmid denies chest pain, palpitations, abdominal pain, nausea, vomiting, constipation/diarrhea. Patient does state he currently has UTI and states he self catheterizes himself. No history of DVT or blood thinner use. No new urinary complaints. Initial lab work done in the ER showed WBC 9.5, hemoglobin 9.7, platelets 233, sodium 135, potassium 4.3, chloride 111, BUN 21, creatinine 1.13, glucose 105. Chest x-ray done in the ER with cardiomegaly Venous Doppler study of the right leg with no DVT Right foot CT with no acute fracture of right foot Patient admitted to internal medicine service REVIEW OF SYSTEMS: CONSTITUTIONAL: No fever, no malaise, no fatigue. HEENT: No recent visual problems or hearing problems. Denied any sore throat. CARDIOVASCULAR: No chest pain, orthopnea, PND, no palpitations, no syncope. PULMONARY: No shortness of breath, no cough, no hemoptysis. GASTROINTESTINAL: No diarrhea, no nausea, no vomiting, no abdominal pain. NEUROLOGICAL: No headaches, no weakness, no numbness. HEMATOLOGICAL: Denies any bleeding or petechiae. GENITOURINARY: Groin pain associated with urination MUSCULOSKELETAL/RHEUMATOLOGICAL: Denies any joint pain, swelling, or any muscle pain. ENDOCRINE: Denies any polyuria or polydipsia. The rest of the 14-point review of systems is negative. PHYSICAL EXAMINATION: GENERAL: The patient is alert and oriented x3, not in any acute distress. Well developed, well nourished. HEENT: Pupils are round and equally reacting to light. EOMI. No scleral icterus. No conjunctival pallor. Normocephalic, atraumatic. No pharyngeal erythema. No thyromegaly. CARDIOVASCULAR: S1 and S2 present. No murmurs, rubs, or gallops. PULMONARY: Chest is clear to auscultation, no wheezing or crackles. ABDOMEN: Soft, nontender, nondistended, normoactive bowel sounds. No palpable organomegaly. Suprapubic tenderness. MUSCULOSKELETAL: No joint swelling or deformity. EXTREMITIES: No cyanosis, clubbing, 2+ pedal edema. NEUROLOGICAL: Gross neurological examination did not reveal any focal deficits. SKIN: No rashes. Assessment and plan #Bilateral lower extremity edema Ultrasound and CT of foot, no DVT, no acute fracture Echo ordered Increased dose of Lasix 40 mg IV push twice daily Monitor BMP #UTI afebrile Order UA Plan to continue antibiotics Chronic Medical Conditions -Will continue home meds Monitor vital signs Monitor CBC Monitor CMP Labs and medication were reviewed.. Continue with symptomatic treatment. Resume home medication. Monitor labs and vitals. DVT prophylaxis. Further re commendations as per clinical course of the patient Dictation was produced using [employer] dictation software. please excuse any grammatical, word or spelling errors. I saw and evaluated the patient during the aguilar and critical portions of this encounter, and discussed the case in detail with the resident author of this note, I agree with the Assessment and Plan, and my changes, if any, are highlig hted in blue. Past Medical History Past Medical History: Coronary Artery Disease (CAD), Cancer, GERD/Reflux, Hypertension, Skin Disorder Additional Past Medical History / Comment(s): Hx. of CML, Hx. of Shingles L eye, Cysts on L kidney. History of Any Multi-Drug Resistant Organisms: None Reported Past Surgical History: Cholecystectomy, Heart Catheterization With Stent, Hernia Repair, Orthopedic Surgery Additional Past Surgical History / Comment(s): Thyroid surgery,Vasectomy, R ankle surgery, Sinus surgery, Basal cell R shoulder, Pyloroplasty & Vagotomy, Hemorrhoidectomy, Cataract surgery & bx. of inner thigh.aortic valve 04/29/22 Past Anesthesia/Blood Transfusion Reactions: No Reported Reaction Date of Last Stent Placement:: 2005 Past Psychological History: No Psychological Hx Reported Smoking Status: Former smoker Past Alcohol Use History: None Reported Past Drug Use History: None Reported - Past Family History Mother Family Medical History: Cancer, Pulmonary Embolus Father Family Medical History: Cancer Brother(s) Family Medical History: Cancer Son(s) Family Medical History: Cancer Medications and Allergies Home Medications Medication Instructions Recorded Confirmed Type Ascorbic Acid [Vitamin C] 1,000 mg PO DAILY 10/24/18 11/27/23 History Aspirin 81 mg PO DAILY 10/24/18 11/27/23 History Losartan [Cozaar] 75 mg PO DAILY 10/24/18 11/27/23 History Metoprolol Tartrate [Lopressor] 25 mg PO BID 10/24/18 11/27/23 History Nitroglycerin Sl Tabs [Nitrostat] 0.4 mg SL Q5M PRN 10/24/18 11/27/23 History Ubidecarenone [Co Q-10] 100 mg PO DAILY 10/24/18 11/27/23 History Docusate [Colace] 100 mg PO BID 11/05/20 11/27/23 History Albuterol Inhaler [Ventolin Hfa 1 - 2 puff INHALATION RT-QID PRN 02/09/22 11/27/23 History Inhaler] Fluticasone/Vilanterol [Breo 1 puff INHALATION RT-QID PRN 02/09/22 11/27/23 History Ellipta 200-25 Mcg Inhaler] Cranberry Fruit [Cranberry] 465 mg PO DAILY 02/14/22 11/27/23 History Furosemide [Lasix] 40 mg PO DAILY PRN 02/14/22 11/27/23 History Quercetin 800 mg PO BID 02/14/22 11/27/23 History Zinc Gluconate [Zinc] 50 mg PO DAILY 02/14/22 11/27/23 History Cholecalciferol [Vitamin D3 (125 125 mcg PO DAILY 06/23/22 11/27/23 History Mcg = 5000 Iu)] Dasatinib [Sprycel] 100 mg PO DAILY@0300 06/23/22 11/27/23 History Cephalexin [Keflex] 500 mg PO TID 11/27/23 11/27/23 History Cetirizine HCl [Zyrtec] 10 mg PO DAILY 11/27/23 11/27/23 History L.acidoph,Paracasei, B.lactis 1 cap PO TID 11/27/23 11/27/23 History [Probiotic] Multivitamin/Iron/Folic Acid 1 tab PO DAILY 11/27/23 11/27/23 History [Centrum Adults Tablet] Turmeric Root Extract [Turmeric] 500 mg PO DAILY 11/27/23 11/27/23 History valACYclovir HCL [Valtrex] 1,000 mg PO TID 11/27/23 11/27/23 History Allergies Allergy/AdvReac Type Severity Reaction Status Date / Time adhesive tape Allergy Rash/Hives,"paper Verified 11/27/23 13:40 tape is ok" amoxicillin [From Augmentin] Allergy Rash/Hives Verified 11/27/23 13:40 atorvastatin [From Lipitor] Allergy Muscle Verified 11/27/23 13:40 Aches budesonide [From Symbicort] Allergy Vision Verified 11/27/23 13:40 issues ciprofloxacin Allergy Muscle Verified 11/27/23 13:40 aches clavulanic acid Allergy Rash/Hives Verified 11/27/23 13:40 [From Augmentin] mold Allergy Rash/Hives Verified 11/27/23 13:40 doxycycline AdvReac Rectal Verified 11/27/23 13:40 Bleeding enalapril AdvReac Cough Verified 11/27/23 13:40 ezetimibe [From Vytorin] AdvReac Muscle Verified 11/27/23 13:40 Aches fluticasone AdvReac Irregular Verified 11/27/23 13:40 [From Advair Diskus] heart rate formoterol [From Symbicort] AdvReac Vision Verified 11/27/23 13:40 issues nilotinib [From Tasigna] AdvReac Pancreatiti Verified 11/27/23 13:40 s salmeterol AdvReac Irregular Verified 11/27/23 13:40 [From Advair Diskus] heart rate simvastatin [From Vytorin] AdvReac Muscle Verified 11/27/23 13:40 Aches Fvyjrqs-ASK-WaB Reductase AdvReac Muscle Verified 11/27/23 13:40 Inhibitor aches [Acarmhm-Idq-Fha Reductase Inhibitor] Cotton material Allergy itching, Uncoded 11/27/23 13:40 hives Physical Exam Osteopathic Statement: *. No significant issues noted on an osteopathic structural exam other than those noted in the History and Physical/Consult. Vitals: Vital Signs Temp Pulse Resp BP Pulse Ox 11/27/23 08:55 99.1 F 77 20 150/75 99 11/27/23 07:46 99.2 F 11/27/23 07:03 99.8 F H 72 18 149/71 99 Intake and Output 11/27/23 11/27/23 11/27/23 06:59 14:59 22:59 Other: Weight 97.069 kg Results CBC & Chem 7: 11/27/23 09:00 11/27/23 09:00 Labs: Abnormal Lab Results - Last 24 Hours (Table) 11/27/23 11/27/23 Range/Units 09:00 09:00 RBC 2.70 L (4.30-5.90) m/uL Hgb 9.7 L (13.0-17.5) gm/dL Hct 29.0 L (39.0-53.0) % MCV 107.4 H (80.0-100.0) fL MCH 35.9 H (25.0-35.0) pg Sodium 135 L (137-145) mmol/L Chloride 111 H (98-107) mmol/L BUN 21 H (9-20) mg/dL Glucose 105 H (74-99) mg/dL
[2023-11-27] MEDS: SYMBICORT 160-4.5 MCG INHALER INHALATION SCH (20:53)
[2023-11-27] MEDS: DOCUSATE 100 MG CAP PO SCH (21:23)
[2023-11-27] MEDS: METOPROLOL TARTRATE 25 MG TAB PO SCH (21:27)
[2023-11-27] MEDS: FUROSEMIDE 10 MG/ML 4 ML VIAL IV SCH (21:28)
[2023-11-27] MEDS: valACYclovir HCL 500 MG TAB PO SCH (21:34)
[2023-11-28] MEDS: DASATINIB 100 MG PO SCH (03:23)
[2023-11-28] MEDS: ACETAMINOPHEN TAB 325 MG TAB PO PRN (07:57)
[2023-11-28 08:53] LABS: HCT 26.9 % (39.6-50.0); HGB 9.1 g/dL (13.0-17.0); MCH 36.5 pg (27.0-32.0); MCHC 33.8 g/dL (32.0-37.0); Mean Platelet Volume 9.4 FL (9.5-12.2); NRBC Per 100 WBC 0 X 10*3/uL (0.00-0.01); Platelet Count 208 X 10*3/uL (140-440); RBC 2.49 X 10*6/uL (4.40-5.60); RDW 13.9 % (11.5-14.5); WBC 6.27 X 10*3/uL (4.50-10.00)
[2023-11-28 09:22] LABS: BUN/Creat Ratio 16.73 Ratio (12.00-20.00); Blood Urea Nitrogen 18.4 mg/dL (9.0-27.0); Calcium 8.9 mg/dL (8.7-10.3); Carbon Dioxide 22.1 mmol/L (21.6-31.8); Chloride 107 mmol/L (96-109); Glucose 115 mg/dL (70-110); Potassium 3.7 mmol/L (3.5-5.5); Sodium 142 mmol/L (135-145)
[2023-11-28 10:31] LABS: Basophils # (A) 0.05 X 10*3/uL (0.00-0.10); Basophils % (A) 0.8 %; Eosinophils # (A) 0.07 X 10*3/uL (0.04-0.35); Eosinophils % (A) 1.1 %; Lymphocytes % (A) 38.3 %; Monocytes % (A) 11.2 %; Neutrophils # (A) 3.03 X 10*3/uL (1.80-7.70); Neutrophils % (A) 48.3 %; RBC Morphology Normal (Normal)
[2023-11-28] MEDS: COLCHICINE 0.6 MG EACH PO SCH (10:54)
[2023-11-28] MEDS: COLCHICINE 0.6 MG EACH PO ONE (13:42)
[2023-11-28 15:39] VITALS: RESP 18
--- NOTE | 2023-11-28 17:50 | P.PN ---
Subjective Progress Note Date: 11/28/23 Ventura Miller 78-year-old male presented the right lower extremity pain. Patient was seen by urgent care yesterday and started on Keflex for concern of cellulitis. Patient states he started to have worsening of symptoms including swelling and erythema to right lower extremity which brought him to the ER last night. Patient had laboratory studies drawn which were negative for acute process. Patient was instructed to continue taking Keflex as prescribed and follow-up with PCP. He states since discharge from ER he has been having difficulty ambulating due to pain in his right foot and increase in pain to his right groin. No new injuries or traumas. He attest to fever overnight of 100.4. He has been taking [id number]-[id number] Tylenol for symptom control. Patient denies chest pain, palpitations, abdominal pain, nausea, vomiting, constipation/diarrhea. Patient does state he currently has UTI and states he self catheterizes himself. No history of DVT or blood thinner use. No new urinary complaints. Initial lab work done in the ER showed WBC 9.5, hemoglobin 9.7, platelets 233, sodium 135, potassium 4.3, chloride 111, BUN 21, creatinine 1.13, glucose 105. Chest x-ray done in the ER with cardiomegaly Venous Doppler study of the right leg with no DVT Right foot CT with no acute fracture of right foot Patient admitted to internal medicine service Progress note 11/28/2023 Patient seen and examined at bedside. No events overnight patient was afebrile. Patient stated continued pain in the right big toe and he stated that the swelling seems the same as yesterday. Fluid balance -1999, white blood cells are within normal limits, hemoglobin 9.[address] right foot unremarkable. Pending echo, urinalysis. patient has no other complaints at this time. PHYSICAL EXAMINATION: GENERAL: The patient is alert and oriented x3, not in any acute distress. Well developed, well nourished. HEENT: Pupils are round and equally reacting to light. EOMI. No scleral icterus. No conjunctival pallor. Normocephalic, atraumatic. No pharyngeal erythema. No thyromegaly. CARDIOVASCULAR: S1 and S2 present. No murmurs, rubs, or gallops. PULMONARY: Chest is clear to auscultation, no wheezing or crackles. ABDOMEN: Soft, nontender, nondistended, normoactive bowel sounds. No palpable organomegaly. Suprapubic tenderness. MUSCULOSKELETAL: No joint swelling or deformity. EXTREMITIES: Right big toe showed warmth swelling and tenderness to touch. No cyanosis, clubbing, 2+ pedal edema. NEUROLOGICAL: Gross neurological examination did not reveal any focal deficits. SKIN: No rashes. Assessment and plan #Bilateral lower extremity edema Ultrasound and CT of foot, no DVT, no acute fracture Echo pending Increased dose of Lasix 40 mg IV push twice daily Monitor BMP #Acute Gout flare Patient with inflamed, warm right big toe CRP 5.80 begin colchicine 1.2mg once, then 0.6mg BID until 2 days after flare has r esolved Plan outpatient follow-up with PCP to begin allopurinol, anticipate discharge tomorrow #UTI, complicated, recurrent Diagnosed outpatient and started on abx, will continue for total 7 days between IV and PO Urinalysis pending continue antibiotics day 2 inpatient #Macrocytic anemia Hemoglobin 9.1, MCV 108.0 Labs B12 and folate ordered Pending result consider vitamin supplementation Chronic Medical Conditions -Will continue home meds Monitor vital signs Monitor CBC Monitor CMP Labs and medication were reviewed.. Continue with symptomatic treatment. Resume home medication. Monitor labs and vitals. DVT prophylaxis. Further recommendations as per clinical course of the patient Dictation was produced using [employer] dictation software. please excuse any grammatical, word or spelling errors. I saw and evaluated the patient during the aguilar and critical portions of this encounter, and discussed the case in detail with the resident author of this note, I agree with the Assessment and Plan, and my changes, if any, are highlighted in blue. Objective - Vital Signs Vital signs: Vital Signs Temp 98.9 F 11/28/23 07:00 Pulse 66 11/28/23 08:00 Resp 16 11/28/23 08:00 BP 150/76 11/28/23 07:00 Pulse Ox 100 11/28/23 07:00 FiO2 Intake & Output 11/27/23 11/28/23 11/28/23 18:59 06:59 18:59 Intake Total 240 240 Output Total 300 300 Balance -60 -60 Weight 97.069 kg 97.069 kg Intake: Oral 240 240 Output: Urine 300 300 Other: Voiding Method Indwelling Catheter Indwelling Catheter - Labs CBC & Chem 7: 11/28/23 02:49 11/28/23 02:49 Labs: Abnormal Lab Results - Last 24 Hours (Table) 11/28/23 11/28/23 Range/Units 02:49 02:49 RBC 2.49 L (4.40-5.60) X 10*6/uL Hgb 9.1 L (13.0-17.0) g/dL Hct 26.9 L (39.6-50.0) % MCV 108.0 H (80.0-97.0) FL MCH 36.5 H (27.0-32.0) pg MPV 9.4 L (9.5-12.2) FL Anion Gap 12.90 H (4.00-12.00) mmol/L Glucose 115 H (70-110) mg/dL C-Reactive Protein 5.80 H (0.00-0.80) mg/dL
[2023-11-29 07:23] VITALS: BP 128/64; PULSE 68; TEMP 98
[2023-11-29] MEDS: COLCHICINE 0.6 MG EACH PO SCH (08:27)
[2023-11-29] MEDS ORDERED: COLCHICINE 0.6 MG EACH PO SCH (09:00)
--- NOTE | 2023-11-29 09:16 | CA ---
Transthoracic Echo Report Name: Ventura Miller Age: 78 Gender: M : 1945 Exam Date: 11/28/2023 13:55 Exam Location: [facility] Ht (in): 71 Wt (lb): 214 Ordering Physician: Robb Beckford MD Attending/Referring Phys: Broadcast Engineer Paz Omalley RDCS Procedure CPT: Indications: Slurred speech, CVA Cardiac Hx: Technical Quality: Fair Contrast 1: Total Dose (mL): Contrast 2: Total Dose (mL): MEASUREMENTS (Male / Female) Normal Values 2D ECHO LV Diastolic Diameter PLAX 5.5 cm 4.2 - 5.9 / 3.9 - 5.3 cm LV Systolic Diameter PLAX 2.7 cm IVS Diastolic Thickness 1.2 cm 0.6 - 1.0 / 0.6 - 0.9 cm LVPW Diastolic Thickness 1.1 cm 0.6 - 1.0 / 0.6 - 0.9 cm LV Relative Wall Thickness 0.4 RV Internal Dim ED PLAX 5.1 cm LVOT Diameter 1.7 cm LA Volume 106.2 cm??? 18 - 58 / 22 - 52 cm??? LA Volume Index 47.7 cm???/m??? 16 - 28 cm???/m??? DOPPLER AV Peak Velocity 261.4 cm/s AV Peak Gradient 27.3 mmHg AV Mean Velocity 175.5 cm/s AV Mean Gradient 13.7 mmHg AV Velocity Time Integral 53.4 cm LVOT Peak Velocity 155.6 cm/s LVOT Peak Gradient 9.7 mmHg LVOT Velocity Time Integral 35.7 cm LVOT Stroke Volume 84.4 cm??? LVOT Stroke Volume Index 38.9 ml/m??? LVOT Cardiac Index 2839.9 cm???/min???m??? AV Area Cont Eq vti 1.6 cm??? AV Area Cont Eq pk 1.4 cm??? MV Area PHT 3.1 cm??? Mitral E Point Velocity 98.4 cm/s Mitral A Point Velocity 129.2 cm/s Mitral E to A Ratio 0.8 MV Deceleration Time 247.0 ms MV E' Velocity 10.4 cm/s Mitral E to MV E' Ratio 9.4 TR Peak Velocity 249.3 cm/s TR Peak Gradient 24.9 mmHg Right Ventricular Systolic Press 29.9 mmHg FINDINGS Left Ventricle Mildly increased left ventricular wall thickness. Left ventricular cavity size normal. Normal left ventricular systolic function with no obvious regional wall motion abnormalities. Left ventricular ejection fraction is estimated at 55-60 %. Right Ventricle Normal right ventricular size and function. Right ventricular systolic pressure within normal limits. Right Atrium Normal right atrial size. Left Atrium Severely increased left atrial volume. Moderately increased left atrial area. Mitral Valve Structurally normal mitral valve. Mitral annular calcification. Moderate mitral regurgitation. Posteriorly directed mitral regurgitation jet. Aortic Valve Normally functioning bioprosthetic aortic valve without stenosis with a peak velocity of 2.6 m/s, peak gradient 27 mmHg, mean gradient 14 mmHg, and estimated aortic valve area of 1.6 cm???. Tricuspid Valve Structurally normal tricuspid valve. Mild tricuspid regurgitation. Pulmonic Valve Structurally normal pulmonic valve. Trace pulmonic regurgitation. Pericardium Small pericardial effusion. Aorta Normal size aortic root and proximal ascending aorta. CONCLUSIONS Normal biventricular systolic function Poorly visualized aortic valve. Transcatheter aortic valve with a mean gradient of 14 mmHg and no regurgitation Small circumferential pericardial effusion Previewed by: Dr. Braxton Morton MD (Electronically Signed) Final Date: 29 November 2023 09:16
[2023-11-29 09:21] LABS: HCT 26.3 % (39.6-50.0); HGB 8.9 g/dL (13.0-17.0); MCH 36.3 pg (27.0-32.0); MCHC 33.8 g/dL (32.0-37.0); MCV 107.3 FL (80.0-97.0); Mean Platelet Volume 9.4 FL (9.5-12.2); NRBC Per 100 WBC 0.05 X 10*3/uL (0.00-0.01); Platelet Count 179 X 10*3/uL (140-440); RBC 2.45 X 10*6/uL (4.40-5.60); RDW 13.6 % (11.5-14.5); WBC 9.96 X 10*3/uL (4.50-10.00)
[2023-11-29 10:14] LABS: Blood Urea Nitrogen 27.6 mg/dL (9.0-27.0); Carbon Dioxide 21.8 mmol/L (21.6-31.8); Chloride 105 mmol/L (96-109); Glucose 107 mg/dL (70-110); Potassium 3.6 mmol/L (3.5-5.5); Sodium 139 mmol/L (135-145)
[2023-11-29 10:15] LABS: Calcium 8.6 mg/dL (8.7-10.3)
[2023-11-29 11:05] LABS: Lymphocytes # (M) 5.38 X 10*3/uL (0.90-5.00); Neutrophils # (M) 3.69 X 10*3/uL (1.80-7.70); Neutrophils % (M) 37 %; RBC Morphology Normal (Normal)
--- NOTE | 2023-11-29 15:40 | P.DS ---
Providers Date of admission: 11/27/23 11:25 Expected date of discharge: 11/29/23 Attending physician: Myranda Coto MD Primary care physician: Rodolfo Healy [facility] Course: Discharge diagnoses; #Bilateral lower extremity edema, likely venous insufficiency #Acute Gout flare #UTI, complicated, recurrent Chronic urinary retention #Macrocytic anemia History of CML Hypertension Hospital course; Ventura Miller 78-year-old male presented the right lower extremity pain. Patient was seen by urgent care yesterday and started on Keflex for concern of cellulitis. Patient states he started to have worsening of symptoms including swelling and erythema to right lower extremity which brought him to the ER last night. Patient had laboratory studies drawn which were negative for acute process. Patient was instructed to continue taking Keflex as prescribed and follow-up with PCP. He states since discharge from ER he has been having difficulty ambulating due to pain in his right foot and increase in pain to his right groin. No new injuries or traumas. He attest to fever overnight of 100.4. He has been taking [id number]-asm-zzmpmue Tylenol for symptom control. Patient denies chest pain, palpitations, abdominal pain, nausea, vomiting, constipation/diarrhea. Patient does state he currently has UTI and states he self catheterizes himself. No history of DVT or blood thinner use. No new urinary complaints. Initial lab work done in the ER showed WBC 9.5, hemoglobin 9.7, platelets 233, sodium 135, potassium 4.3, chloride 111, BUN 21, creatinine 1.13, glucose 105. Chest x-ray done in the ER with cardiomegaly, Venous Doppler study of the right leg with no DVT, Right foot CT with no acute fracture of right foot. Echocardiogram normal left ventricular systolic dysfunction estimated ejection fraction 55 to 60% During hospital stay patient was found to have bilateral lower extremity edema and was started on Lasix, and had 2 L deficit. After edema was reduced it was apparent that patient had acute gout flare, CRP 5.80, and began treatment with colchicine. He was diagnosed outpatient with a UTI and continued his antibiotic regiment. Also, diagnosed with macrocytic anemia, Hemoglobin 9.1, MCV 108.0. Patient to be discharged in stable condition. Continue Lasix 40 mg as needed. Discharged with colchicine 0.6mg BID until 2 days after flare has resolve. Plan outpatient follow-up with PCP to begin long-term treatment of gout with allopurinol, and follow-up of macrocytic anemia. Consider discontinuing oral Lasix outpatient, as it can increase risk for gout flare. GENERAL: The patient is alert, and follow-up of macrocytic anemia and oriented x3, not in any acute distress. Well developed, well nourished. HEENT: Pupils are round and equally reacting to light. EOMI. No scleral icterus. No conjunctival pallor. Normocephalic, atraumatic. No pharyngeal erythema. No thyromegaly. CARDIOVASCULAR: S1 and S2 present. No murmurs, rubs, or gallops. PULMONARY: Chest is clear to auscultation, no wheezing or crackles. ABDOMEN: Soft, nontender, nondistended, normoactive bowel sounds. No palpable organomegaly. Suprapubic tenderness. MUSCULOSKELETAL: No joint swelling or deformity. EXTREMITIES: Right big toe showed warmth swelling and tenderness to touch. No cyanosis, clubbing, 2+ pedal edema. NEUROLOGICAL: Gross neurological examination did not reveal any focal deficits. SKIN: No rashes. Dictation was produced using [employer] dictation software. please excuse any grammatical, word or spelling errors. A total of 33 minutes of time were spent preparing this complex discharge summary. Patient was discharged on 11/29/2023 at 953. I have seen and evaluated the patient today. Discussed with the resident and agree with the residents finding and plan as documented in the resident's note. Changes highlighted in blue font. Patient Condition at Discharge: Stable Plan - Discharge Summary New Discharge Prescriptions: New Colchicine [Colcrys] 0.6 mg PO BID #14 each Continue Nitroglycerin Sl Tabs [Nitrostat] 0.4 mg SL Q5M PRN PRN Reason: Pain Metoprolol Tartrate [Lopressor] 25 mg PO BID Losartan [Cozaar] 75 mg PO DAILY Aspirin 81 mg PO DAILY Ubidecarenone [Co Q-10] 100 mg PO DAILY Ascorbic Acid [Vitamin C] 1,000 mg PO DAILY Dasatinib [Sprycel] 100 mg PO DAILY@0300 Cephalexin [Keflex] 500 mg PO TID Turmeric Root Extract [Turmeric] 500 mg PO DAILY L.acidoph,Paracasei, B.lactis [Probiotic] 1 cap PO TID valACYclovir HCL [Valtrex] 1,000 mg PO TID Docusate [Colace] 100 mg PO BID Albuterol Inhaler [Ventolin Hfa Inhaler] 1 - 2 puff INHALATION RT-QID PRN PRN Reason: Shortness Of Breath Fluticasone/Vilanterol [Breo Ellipta 200-25 Mcg Inhaler] 1 puff INHALATION RT-QID PRN PRN Reason: Shortness Of Breath Quercetin 800 mg PO BID Zinc Gluconate [Zinc] 50 mg PO DAILY Cranberry Fruit [Cranberry] 465 mg PO DAILY Furosemide [Lasix] 40 mg PO DAILY PRN PRN Reason: fluid retention Cholecalciferol [Vitamin D3 (125 Mcg = 5000 Iu)] 125 mcg PO DAILY Multivitamin/Iron/Folic Acid [Centrum Adults Tablet] 1 tab PO DAILY Cetirizine HCl [Zyrtec] 10 mg PO DAILY Discharge Medication List Ascorbic Acid [Vitamin C] 1,000 mg PO DAILY 10/24/18 [History] Aspirin 81 mg PO DAILY 10/24/18 [History] Losartan [Cozaar] 75 mg PO DAILY 10/24/18 [History] Metoprolol Tartrate [Lopressor] 25 mg PO BID 10/24/18 [History] Nitroglycerin Sl Tabs [Nitrostat] 0.4 mg SL Q5M PRN 10/24/18 [History] Ubidecarenone [Co Q-10] 100 mg PO DAILY 10/24/18 [History] Docusate [Colace] 100 mg PO BID 11/05/20 [History] Albuterol Inhaler [Ventolin Hfa Inhaler] 1 - 2 puff INHALATION RT-QID PRN 02/09/22 [History] Fluticasone/Vilanterol [Breo Ellipta 200-25 Mcg Inhaler] 1 puff INHALATION RT- QID PRN 02/09/22 [History] Cranberry Fruit [Cranberry] 465 mg PO DAILY 02/14/22 [History] Furosemide [Lasix] 40 mg PO DAILY PRN 02/14/22 [History] Quercetin 800 mg PO BID 02/14/22 [History] Zinc Gluconate [Zinc] 50 mg PO DAILY 02/14/22 [History] Cholecalciferol [Vitamin D3 (125 Mcg = 5000 Iu)] 125 mcg PO DAILY 06/23/22 [History] Dasatinib [Sprycel] 100 mg PO DAILY@0300 06/23/22 [History] Cephalexin [Keflex] 500 mg PO TID 11/27/23 [History] Cetirizine HCl [Zyrtec] 10 mg PO DAILY 11/27/23 [History] L.acidoph,Paracasei, B.lactis [Probiotic] 1 cap PO TID 11/27/23 [History] Multivitamin/Iron/Folic Acid [Centrum Adults Tablet] 1 tab PO DAILY 11/27/23 [History] Turmeric Root Extract [Turmeric] 500 mg PO DAILY 11/27/23 [History] valACYclovir HCL [Valtrex] 1,000 mg PO TID 11/27/23 [History] Colchicine [Colcrys] 0.6 mg PO BID #14 each 11/29/23 [Rx] Follow up Appointment(s)/Referral(s): Rodolfo Healy MD [Primary Care Provider] - 1-2 days Patient Instructions/Handouts: Low Purine Diet (DC), Gout (GEN) Activity/Diet/Wound Care/Special Instructions: Please see your PCP. You may need to be started on gout medication outpatient. Continue colchicine till 24 hours after your flare resolves. Please also follow up with PCP with regards to low blood count. Discharge Disposition: HOME SELF-CARE
== END 2023-11-29 11:37 | disposition home or self-care (01) ==
LOC: EC 07:00 → 6NMEDSUR 11:25
PROVIDERS: ADMIT Internal Medicine; ATTEND Internal Medicine
DX: R60.0 Localized edema (principal); M10.9 Gout, unspecified; N39.0 Urinary tract infection, site not specified; D53.9 Nutritional anemia, unspecified; I11.9 Hypertensive heart disease without heart failure; R10.30 Lower abdominal pain, unspecified; M79.604 Pain in right leg; Z79.82 Long term (current) use of aspirin; Z79.899 Other long term (current) drug therapy; Z79.02 Long term (current) use of antithrombotics/antiplatelets; I25.10 Atherosclerotic heart disease of native coronary artery without angina pectoris; K21.9 Gastro-esophageal reflux disease without esophagitis; L98.9 Disorder of the skin and subcutaneous tissue, unspecified; Z87.891 Personal history of nicotine dependence
CPT/HCPCS: 36415; 94640 ×2; 93306; 97161; 82747; 83880; 80053; 80048 ×2; 82607; 85025 ×3; 86140; 71046; 93971; 73701; G0378 ×3; J1940 ×3; J1650 ×2; Q9967; 96372; 96374; 96376; 99285

== ENCOUNTER → 2024-01-16 | Outpatient (CLI) | payer MEDICARE ==
[2024-01-16 11:39] LABS: BUN/Creat Ratio 20.31 Ratio (12.00-20.00); Blood Urea Nitrogen 26.4 mg/dL (9.0-27.0); Calcium 9.2 mg/dL (8.7-10.3); Carbon Dioxide 22.7 mmol/L (21.6-31.8); Chloride 109 mmol/L (96-109); Glucose 120 mg/dL (70-110); Potassium 5.5 mmol/L (3.5-5.5); Sodium 141 mmol/L (135-145)
== END | disposition home or self-care (01) ==
LOC: LABWHC1 07:34
PROVIDERS: ATTEND Internal Medicine Interventional Cardiology
DX: I10 Essential (primary) hypertension (principal)
CPT/HCPCS: 36415; 80048

== ENCOUNTER 2024-05-11 17:02 | Emergency (ER) | payer MEDICARE ==
[2024-05-11 17:37] LABS: Glucose,Whole Blood 131 mg/dL (70-110)
--- NOTE | 2024-05-11 17:39 | ED ---
Weakness HPI - General Chief complaint: Weakness Stated complaint: Fever Time Seen by Provider: 05/11/24 17:15 Source: patient, family, RN notes reviewed Mode of arrival: ambulatory Limitations: no limitations - History of Present Illness Initial comments: This is a 78-year-old male with history of CAD, CML and coronary stents presenting with for changes in health starting this morning. states patient was brought to ER due to PCP advising patient be immediately evaluated if he should develop a fever due to history of CML. Endorses fever, dizziness and increased fatigue/lethargy. Patient states he does self cath. Denies recent sick contact. Patient denies chest pain, dyspnea, abdominal pain, N/V/D, headache, weakness, paresthesia. MD Complaint: generalized weakness Onset/Timin -: days(s) Associated Symptoms: fever/chills - Related Data Home Medications Medication Instructions Recorded Confirmed Ascorbic Acid [Vitamin C] 1,000 mg PO DAILY 10/24/18 11/27/23 Aspirin 81 mg PO DAILY 10/24/18 11/27/23 Losartan [Cozaar] 75 mg PO DAILY 10/24/18 11/27/23 Metoprolol Tartrate [Lopressor] 25 mg PO BID 10/24/18 11/27/23 Nitroglycerin Sl Tabs [Nitrostat] 0.4 mg SL Q5M PRN 10/24/18 11/27/23 Ubidecarenone [Co Q-10] 100 mg PO DAILY 10/24/18 11/27/23 Docusate [Colace] 100 mg PO BID 11/05/20 11/27/23 Albuterol Inhaler [Ventolin Hfa 1 - 2 puff INHALATION RT-QID PRN 02/09/22 11/27/23 Inhaler] Fluticasone/Vilanterol [Breo 1 puff INHALATION RT-QID PRN 02/09/22 11/27/23 Ellipta 200-25 Mcg Inhaler] Cranberry Fruit [Cranberry] 465 mg PO DAILY 02/14/22 11/27/23 Furosemide [Lasix] 40 mg PO DAILY PRN 02/14/22 11/27/23 Quercetin 800 mg PO BID 02/14/22 11/27/23 Zinc Gluconate [Zinc] 50 mg PO DAILY 02/14/22 11/27/23 Cholecalciferol [Vitamin D3 (125 125 mcg PO DAILY 06/23/22 11/27/23 Mcg = 5000 Iu)] Dasatinib [Sprycel] 100 mg PO DAILY@0300 06/23/22 11/27/23 Cephalexin [Keflex] 500 mg PO TID 11/27/23 11/27/23 Cetirizine HCl [Zyrtec] 10 mg PO DAILY 11/27/23 11/27/23 L.acidoph,Paracasei, B.lactis 1 cap PO TID 11/27/23 11/27/23 [Probiotic] Multivitamin/Iron/Folic Acid 1 tab PO DAILY 11/27/23 11/27/23 [Centrum Adults Tablet] Turmeric Root Extract [Turmeric] 500 mg PO DAILY 11/27/23 11/27/23 valACYclovir HCL [Valtrex] 1,000 mg PO TID 11/27/23 11/27/23 Previous Rx's Medication Instructions Recorded Colchicine [Colcrys] 0.6 mg PO BID #14 each 11/29/23 Cephalexin [Keflex] 500 mg PO Q8HR 1 Days #30 cap 05/11/24 Allergies Allergy/AdvReac Type Severity Reaction Status Date / Time adhesive tape Allergy Rash/Hives,"paper Verified 05/11/24 17:24 tape is ok" amoxicillin [From Augmentin] Allergy Rash/Hives Verified 05/11/24 17:24 atorvastatin [From Lipitor] Allergy Muscle Verified 05/11/24 17:24 Aches budesonide [From Symbicort] Allergy Vision Verified 05/11/24 17:24 issues ciprofloxacin Allergy Muscle Verified 05/11/24 17:24 aches clavulanic acid Allergy Rash/Hives Verified 05/11/24 17:24 [From Augmentin] mold Allergy Rash/Hives Verified 05/11/24 17:24 doxycycline AdvReac Rectal Verified 05/11/24 17:24 Bleeding enalapril AdvReac Cough Verified 05/11/24 17:24 ezetimibe [From Vytorin] AdvReac Muscle Verified 05/11/24 17:24 Aches fluticasone AdvReac Irregular Verified 05/11/24 17:24 [From Advair Diskus] heart rate formoterol [From Symbicort] AdvReac Vision Verified 05/11/24 17:24 issues nilotinib [From Tasigna] AdvReac Pancreatiti Verified 05/11/24 17:24 s salmeterol AdvReac Irregular Verified 05/11/24 17:24 [From Advair Diskus] heart rate simvastatin [From Vytorin] AdvReac Muscle Verified 05/11/24 17:24 Aches Gogdisx-[id number]-HzU Reductase AdvReac Muscle Verified 05/11/24 17:24 Inhibitor aches [Feqzkdf-Vdv-Fey Reductase Inhibitor] Cotton material Allergy itching, Uncoded 05/11/24 17:24 hives Review of Systems ROS Statement: Those systems with pertinent positive or pertinent negative responses have been documented in the HPI. ROS Other: All systems not noted in ROS Statement are negative. Past Medical History Past Medical History: Coronary Artery Disease (CAD), Cancer, GERD/Reflux, Hypertension, Skin Disorder Additional Past Medical History / Comment(s): Hx. of CML, Hx. of Shingles L eye, Cysts on L kidney. History of Any Multi-Drug Resistant Organisms: None Reported Past Surgical History: Cholecystectomy, Heart Catheterization With Stent, Hernia Repair, Orthopedic Surgery Additional Past Surgical History / Comment(s): Thyroid surgery,Vasectomy, R ankle surgery, Sinus surgery, Basal cell R shoulder, Pyloroplasty & Vagotomy, Hemorrhoidectomy, Cataract surgery & bx. of inner thigh.aortic valve 04/29/22 Past Anesthesia/Blood Transfusion Reactions: No Reported Reaction Date of Last Stent Placement:: 2005 Past Psychological History: No Psychological Hx Reported Smoking Status: Former smoker Past Alcohol Use History: None Reported Past Drug Use History: None Reported - Past Family History Mother Family Medical History: Cancer, Pulmonary Embolus Father Family Medical History: Cancer Brother(s) Family Medical History: Cancer Son(s) Family Medical History: Cancer General Exam Limitations: no limitations General appearance: alert, in no apparent distress Head exam: Present: atraumatic, normocephalic, normal inspection Eye exam: Present: normal appearance, PERRL, EOMI. Absent: scleral icterus, conjunctival injection, periorbital swelling ENT exam: Present: normal exam, mucous membranes moist Neck exam: Present: normal inspection. Absent: tenderness, meningismus, lymphadenopathy Respiratory exam: Present: normal lung sounds bilaterally. Absent: respiratory distress, wheezes, rales, rhonchi, stridor Cardiovascular Exam: Present: regular rate, normal rhythm, normal heart sounds. Absent: systolic murmur, diastolic murmur, rubs, gallop, clicks GI/Abdominal exam: Present: soft, normal bowel sounds. Absent: distended, tenderness, guarding, rebound, rigid Extremities exam: Present: normal inspection, full ROM, normal capillary refill, pedal edema (Positive BLE pitting edema extending to knee. Bilateral posterior tibialis pulse +2). Absent: tenderness, joint swelling, calf tenderness Back exam: Present: normal inspection. Absent: CVA tenderness (R), CVA tenderness (L) Neurological exam: Present: alert, oriented X3, CN II-XII intact Psychiatric exam: Present: normal affect, normal mood Skin exam: Present: warm, dry, intact, normal color. Absent: rash Course Vital Signs 05/11/24 17:21 Temperature 98.5 F Pulse Rate 71 Respiratory 16 Rate Blood Pressure 123/57 O2 Sat by Pulse 98 Oximetry Medical Decision Making - Medical Decision Making Was pt. sent in by a medical professional or institution (, PA, MINIATURE SET DESIGNER, urgent care, hospital, or [facility]...) When possible be specific @ -[No] Did you speak to anyone other than the patient for history (EMS, parent, family, police, friend...)? What history was obtained from this source @ - provided majority of HPI Did you review nursing and triage notes (agree or disagree)? Why? @ -[I reviewed and agree with nursing and triage notes] Were old charts reviewed (outside hosp., previous admission, EMS record, old EKG, old radiological studies, urgent care reports/EKG's, [facility] records)? Report findings @ -[No old charts were reviewed] Differential Diagnosis (chest pain, altered mental status, abdominal pain women, abdominal pain men, vaginal bleeding, weakness, fever, dyspnea, syncope, headache, dizziness, GI bleed, back pain, seizure, CVA, palpatations, mental health, musculoskeletal)? @ -Differential Fever: Pneumonia, viral URI, endocarditis, myocarditis, pericarditis, otitis, sinusitis, peritonsillar Abscess, retropharyngeal Abscess, epiglottitis, peritonitis, appendicitis, Laya cystitis, diverticulitis, hepatitis, colitis, UTI, PID, TOA, pyelonephritis, prostatitis, epididymitis, meningitis, encephalitis, pulmonary embolism, CVA, thyroid storm, pancreatitis, adrenal crisis, cavernous sinus thrombosis, this is not meant to be an all-inclusive list. Differential Dizziness: Benign paroxysmal positional Vertigo, Meniere's disease, otitis media, acoustic neuroma, vertebrobasilar insufficiency, cerebellar stroke, encephalitis, hypovolemic, arrhythmia, coronary artery syndrome, anemia, this is not meant to be an all-inclusive list EKG interpreted by me (3pts min.). @ -Sinus rhythm without ST deviation or T wave inversion. Ventricular rate 71 bpm, BO 195 ms, QRS 106 ms, QTc 420 ms. X-rays interpreted by me (1pt min.). @ -[None done] CT interpreted by me (1pt min.). @ -[None done] U/S interpreted by me (1pt. min.). @ -[None done] What testing was considered but not performed or refused? (CT, X-rays, U/S, labs)? Why? @ -[None] What meds were considered but not given or refused? Why? @ -[None] Did you discuss the management of the patient with other professionals (professionals i.e. , PA, MINIATURE SET DESIGNER, lab, RT, psych nurse, social services specialist, enterprise resource planning consultant, teacher, staff mine warfare officer, skilled nursing case manager)? Give summary @ -[No] Was smoking cessation discussed for >3mins.? @ -[No] Was critical care preformed (if so, how long)? @ -[No] Were there social determinants of health that impacted care today? How? (Homelessness, low income, unemployed, alcoholism, drug addiction, transportation, low edu. Level, literacy, decrease access to med. care, skilled nursing, rehab)? @ -[No] Was there de-escalation of care discussed even if they declined (Discuss DNR or withdrawal of care, Hospice)? DNR status @ -[No] What co-morbidities impacted this encounter? (DM, HTN, Smoking, COPD, CAD, Cancer, CVA, ARF, Chemo, Hep., AIDS, mental health diagnosis, sleep apnea, morbid obesity)? @ -CML, CAD Was patient admitted / discharged? Hospital course, mention meds given and route, prescriptions, significant lab abnormalities, going to OR and other pertinent info. @ -[hospital course] Undiagnosed new problem with uncertain prognosis? @ -[No] Drug Therapy requiring intensive monitoring for toxicity (Heparin, Nitro, Insulin, Cardizem)? @ -[No] Were any procedures done? @ -[No] Diagnosis/symptom? @ -[default] Acute, or Chronic, or Acute on Chronic? @ -Acute Uncomplicated (without systemic symptoms) or Complicated (systemic symptoms)? @ -Complicated Side effects of treatment? @ -[No] Exacerbation, Progression, or Severe Exacerbation? @ -[No] Poses a threat to life or bodily function? How? (Chest pain, [place], [place], pneumonia, PE, COPD, DKA, ARF, appy, cholecystitis, CVA, Diverticulitis, Homicidal, Suicidal, threat to staff... and all critical care pts) @ -[No] - Lab Data Result diagrams: 05/11/24 18:11 05/11/24 18:11 Lab Results 05/11/24 05/11/24 05/11/24 Range/Units 17:34 18:11 18:11 WBC 10.6 (3.8-10.6) k/uL RBC 2.10 L (4.30-5.90) m/uL Hgb 8.0 L (13.0-17.5) gm/dL Hct 24.2 L (39.0-53.0) % MCV 115.0 H (80.0-100.0) fL MCH 37.9 H (25.0-35.0) pg MCHC 33.0 (31.0-37.0) g/dL RDW 13.6 (11.5-15.5) % Plt Count 240 (150-450) k/uL MPV 7.1 Neutrophils % 66 % Lymphocytes % 27 % Monocytes % 6 % Eosinophils % 1 % Basophils % 0 % Neutrophils # 6.9 (1.3-7.7) k/uL Lymphocytes # 2.8 (1.0-4.8) k/uL Monocytes # 0.6 (0-1.0) k/uL Eosinophils # 0.1 (0-0.7) k/uL Basophils # 0.0 (0-0.2) k/uL Manual Slide Review Performed Hypochromasia Slight Macrocytosis Marked A PT 10.8 (10.0-12.5) sec INR 1.0 (<1.2) APTT 22.8 (22.0-30.0) sec Sodium (137-145) mmol/L Potassium (3.5-5.1) mmol/L Chloride (98-107) mmol/L Carbon Dioxide (22-30) mmol/L Anion Gap mmol/L BUN (9-20) mg/dL Creatinine (0.66-1.25) mg/dL Est GFR (CKD-EPI)AfAm (>60 ml/min/1.73 sqM) Est GFR (CKD-EPI)NonAf (>60 ml/min/1.73 sqM) Glucose (74-99) mg/dL POC Glucose (mg/dL) 131 H (70-110) mg/dL POC Glu [employer] ID [facility] Plasma Lactic Acid [place] (0.7-2.0) mmol/L Calcium (8.4-10.2) mg/dL Total Bilirubin (0.2-1.3) mg/dL AST (17-59) U/L ALT (4-49) U/L Alkaline Phosphatase (38-126) U/L Troponin I (0.000-0.034) ng/mL Total Protein (6.3-8.2) g/dL Albumin (3.5-5.0) g/dL Urine Color Urine Appearance (Clear) Urine pH (5.0-8.0) Ur Specific [place] (1.001-1.035) Urine Protein (Negative) Urine Glucose (UA) (Negative) Urine Ketones (Negative) Urine Blood (Negative) Urine Nitrite (Negative) Urine Bilirubin (Negative) Urine Urobilinogen (<2.0) mg/dL Ur Leukocyte Esterase (Negative) Urine RBC (0-5) /hpf Urine WBC (0-5) /hpf Urine WBC Clumps (None) /hpf Ur Squamous Epith Cells (0-4) /hpf Urine Bacteria (None) /hpf Hyaline Casts (0-2) /lpf Influenza Type A (PCR) (Not Detectd) Influenza Type B (PCR) (Not Detectd) RSV (PCR) (Not Detectd) SARS-CoV-2 (PCR) (Not Detectd) 05/11/24 05/11/24 05/11/24 Range/Units 18:11 18:11 18:11 WBC (3.8-10.6) k/uL RBC (4.30-5.90) m/uL Hgb (13.0-17.5) gm/dL Hct (39.0-53.0) % MCV (80.0-100.0) fL MCH (25.0-35.0) pg MCHC (31.0-37.0) g/dL RDW (11.5-15.5) % Plt Count (150-450) k/uL MPV Neutrophils % % Lymphocytes % % Monocytes % % Eosinophils % % Basophils % % Neutrophils # (1.3-7.7) k/uL Lymphocytes # (1.0-4.8) k/uL Monocytes # (0-1.0) k/uL Eosinophils # (0-0.7) k/uL Basophils # (0-0.2) k/uL Manual Slide Review Hypochromasia Macrocytosis PT (10.0-12.5) sec INR (<1.2) APTT (22.0-30.0) sec Sodium 137 (137-145) mmol/L Potassium 4.7 (3.5-5.1) mmol/L Chloride 109 H (98-107) mmol/L Carbon Dioxide 18 L (22-30) mmol/L Anion Gap 10 mmol/L BUN 28 H (9-20) mg/dL Creatinine 1.20 (0.66-1.25) mg/dL Est GFR (CKD-EPI)AfAm 66 (>60 ml/min/1.73 sqM) Est GFR (CKD-EPI)NonAf 57 (>60 ml/min/1.73 sqM) Glucose 111 H (74-99) mg/dL POC Glucose (mg/dL) (70-110) mg/dL POC Glu [employer] ID Plasma Lactic Acid [place] 0.8 (0.7-2.0) mmol/L Calcium 8.9 (8.4-10.2) mg/dL Total Bilirubin 0.9 (0.2-1.3) mg/dL AST 41 (17-59) U/L ALT 30 (4-49) U/L Alkaline Phosphatase 59 (38-126) U/L Troponin I 0.012 (0.000-0.034) ng/mL Total Protein 6.9 (6.3-8.2) g/dL Albumin 4.2 (3.5-5.0) g/dL Urine Color Urine Appearance (Clear) Urine pH (5.0-8.0) Ur Specific [place] (1.001-1.035) Urine Protein (Negative) Urine Glucose (UA) (Negative) Urine Ketones (Negative) Urine Blood (Negative) Urine Nitrite (Negative) Urine Bilirubin (Negative) Urine Urobilinogen (<2.0) mg/dL Ur Leukocyte Esterase (Negative) Urine RBC (0-5) /hpf Urine WBC (0-5) /hpf Urine WBC Clumps (None) /hpf Ur Squamous Epith Cells (0-4) /hpf Urine Bacteria (None) /hpf Hyaline Casts (0-2) /lpf Influenza Type A (PCR) (Not Detectd) Influenza Type B (PCR) (Not Detectd) RSV (PCR) (Not Detectd) SARS-CoV-2 (PCR) (Not Detectd) 05/11/24 05/11/24 Range/Units 18:11 19:42 WBC (3.8-10.6) k/uL RBC (4.30-5.90) m/uL Hgb (13.0-17.5) gm/dL Hct (39.0-53.0) % MCV (80.0-100.0) fL MCH (25.0-35.0) pg MCHC (31.0-37.0) g/dL RDW (11.5-15.5) % Plt Count (150-450) k/uL MPV Neutrophils % % Lymphocytes % % Monocytes % % Eosinophils % % Basophils % % Neutrophils # (1.3-7.7) k/uL Lymphocytes # (1.0-4.8) k/uL Monocytes # (0-1.0) k/uL Eosinophils # (0-0.7) k/uL Basophils # (0-0.2) k/uL Manual Slide Review Hypochromasia Macrocytosis PT (10.0-12.5) sec INR (<1.2) APTT (22.0-30.0) sec Sodium (137-145) mmol/L Potassium (3.5-5.1) mmol/L Chloride (98-107) mmol/L Carbon Dioxide (22-30) mmol/L Anion Gap mmol/L BUN (9-20) mg/dL Creatinine (0.66-1.25) mg/dL Est GFR (CKD-EPI)AfAm (>60 ml/min/1.73 sqM) Est GFR (CKD-EPI)NonAf (>60 ml/min/1.73 sqM) Glucose (74-99) mg/dL POC Glucose (mg/dL) (70-110) mg/dL POC Glu [employer] ID Plasma Lactic Acid [place] (0.7-2.0) mmol/L Calcium (8.4-10.2) mg/dL Total Bilirubin (0.2-1.3) mg/dL AST (17-59) U/L ALT (4-49) U/L Alkaline Phosphatase (38-126) U/L Troponin I (0.000-0.034) ng/mL Total Protein (6.3-8.2) g/dL Albumin (3.5-5.0) g/dL Urine Color Yellow Urine Appearance Clear (Clear) Urine pH 5.5 (5.0-8.0) Ur Specific [place] 1.016 (1.001-1.035) Urine Protein Negative (Negative) Urine Glucose (UA) Negative (Negative) Urine Ketones Negative (Negative) Urine Blood Negative (Negative) Urine Nitrite Negative (Negative) Urine Bilirubin Negative (Negative) Urine Urobilinogen <2.0 (<2.0) mg/dL Ur Leukocyte Esterase Moderate H (Negative) Urine RBC <1 (0-5) /hpf Urine WBC 20 H (0-5) /hpf Urine WBC Clumps Occasional H (None) /hpf Ur Squamous Epith Cells 2 (0-4) /hpf Urine Bacteria Many H (None) /hpf Hyaline Casts 3 H (0-2) /lpf Influenza Type A (PCR) Not Detected (Not Detectd) Influenza Type B (PCR) Not Detected (Not Detectd) RSV (PCR) Not Detected (Not Detectd) SARS-CoV-2 (PCR) Not Detected (Not Detectd) Disposition Clinical Impression: UTI (urinary tract infection) Disposition: HOME SELF-CARE Condition: Good Instructions (If sedation given, give patient instructions): Urinary Tract I nfection in Men (ED) Additional Instructions: Increase water and cranberry juice intake. Follow-up with PCP/urology. Prescriptions: Cephalexin [Keflex] 500 mg PO Q8HR 1 Days #30 cap Is patient prescribed a controlled substance at d/c from ED?: No Referrals: Rodolfo Healy MD [Primary Care Provider] - 1-2 days Time of Disposition: 20:40
--- NOTE | 2024-05-11 18:23 | XR ---
EXAMINATION TYPE: XR chest 2V DATE OF EXAM: 05/11/2024 6:17 PM COMPARISON: Chest radiograph 11/27/2023. CLINICAL INDICATION: Male, 78 years old with history of Cough, fever; [facility] TECHNIQUE: XR chest 2V Frontal and lateral views of the chest. FINDINGS: Lungs/Pleura: There is no evidence of pleural effusion, focal consolidation, or pneumothorax. Mild p ulmonary vascular congestion. Pulmonary vascularity: Unremarkable. Heart/mediastinum: Cardiomegaly. Previous aortic valve replacement. Musculoskeletal: No acute osseous pathology. Other findings: None IMPRESSION: Cardiomegaly and mild pulmonary vascular congestion. No sizable pleural effusions. [facility], , 05/11/2024 6:20 PM
[2024-05-11 18:30] LABS: Partial Thromboplastin Time 22.8 sec (22.0-30.0); Prothrombin Time 10.8 sec (10.0-12.5)
[2024-05-11 18:34] LABS: Basophils % (A) 0 %; Eosinophils # (A) 0.1 k/uL (0-0.7); Eosinophils % (A) 1 %; HCT 24.2 % (39.0-53.0); Hypochromasia Slight; Lymphocytes # (A) 2.8 k/uL (1.0-4.8); Lymphocytes % (A) 27 %; MCH 37.9 pg (25.0-35.0); Macrocytosis Marked; Mean Platelet Volume 7.1; Monocytes # (A) 0.6 k/uL (0-1.0); Monocytes % (A) 6 %; Neutrophils # (A) 6.9 k/uL (1.3-7.7); Neutrophils % (A) 66 %; Platelet Count 240 k/uL (150-450); RDW 13.6 % (11.5-15.5); WBC 10.6 k/uL (3.8-10.6)
[2024-05-11 18:37] LABS: ALT 30 U/L (4-49); AST 41 U/L (17-59); African American GFR (CKD) 66 (>60 ml/min/1.73 sqM); Albumin 4.2 g/dL (3.5-5.0); Alkaline Phosphatase 59 U/L (38-126); Anion Gap 10 mmol/L; Blood Urea Nitrogen 28 mg/dL (9-20); Calcium 8.9 mg/dL (8.4-10.2); Carbon Dioxide 18 mmol/L (22-30); Chloride 109 mmol/L (98-107); Glucose 111 mg/dL (74-99); Non-African American GFR(CKD) 57 (>60 ml/min/1.73 sqM); Potassium 4.7 mmol/L (3.5-5.1); Sodium 137 mmol/L (137-145); Total Bilirubin 0.9 mg/dL (0.2-1.3); Total Protein 6.9 g/dL (6.3-8.2)
[2024-05-11 19:02] LABS: Influenza A Not Detected (Not Detectd); Influenza B Not Detected (Not Detectd); RSV Not Detected (Not Detectd)
[2024-05-11 20:24] LABS: Appearance,Urine Clear (Clear); Bacteria,Urine Many /hpf; Bilirubin,Urine Negative (Negative); Blood,Urine Negative (Negative); Color,Urine Yellow; Glucose,Urine (UA) Negative (Negative); Hyaline Casts,Urine 3 /lpf (0-2); Ketones,Urine Negative (Negative); Leukocyte Esterase,Urine Moderate (Negative); Nitrite,Urine Negative (Negative); PH, Urine 5.5 (5.0-8.0); Protein,Urine Negative (Negative); RBC,Urine <1 /hpf (0-5); Specific Gravity,Urine 1.016 (1.001-1.035); Squamous Epithelial Cell,Urine 2 /hpf (0-4); Urobilinogen,Urine <2.0 mg/dL (<2.0); WBC,Urine 20 /hpf (0-5)
[2024-05-11] MEDS: cefTRIAXone IN SWFI 1,000 MG/10 ML SYRINGE IVP STA (21:08)
[2024-05-11] MEDS: CEPHALEXIN 500 MG CAP PO STA (21:08)
[2024-05-11 21:19] VITALS: BP 140/69; PULSE 95; RESP 18; TEMP 97.8
== END 2024-05-11 21:22 | disposition home or self-care (01) ==
LOC: EC 17:02
DX: N39.0 Urinary tract infection, site not specified (principal); I25.10 Atherosclerotic heart disease of native coronary artery without angina pectoris; C92.12 Chronic myeloid leukemia, BCR/ABL-positive, in relapse; Z87.891 Personal history of nicotine dependence
CPT/HCPCS: 36415; 93005; 80053; 83605; 84484; 85025; 85610; 85730; 81001; 87086; 87636; 71046; 99285; 96374; 51701; J0696

== ENCOUNTER → 2024-06-11 | Outpatient (CLI) | payer MEDICARE ==
--- NOTE | 2024-06-11 10:25 | CT ---
EXAMINATION TYPE: CT brain wo con DATE OF EXAM: 06/11/2024 9:58 AM COMPARISON: 06/23/2022 CLINICAL INDICATION: Male, 78 years old with history of S09.90XA INJ TO HEAD S29.9XXA INJURY TO THOR AX SEE ORDER, Head Injury TECHNIQUE: CT of the brain is performed utilizing 3 mm thick sections through the posterior fossa and 3 mm thick sections through the remaining calvarium. Study is performed within 24 hours of arrival to the hospital. Contrast used: mL of , (none if empty) CT DLP: 1073.90 mGycm, Automated exposure control for dose reduction was used. FINDINGS: No abnormal hyperdensity is present to suggest an acute intracranial hemorrhage. No mass lesion is evident. No acute infarcts are evident. Mild periventricular white matter hypodensity is present, likely on th e basis of chronic white matter ischemic changes Ventricles and sulci are mildly prominent for the patient age. Paranasal sinuses and mastoid air cells within the [id number] are clear. Soft tissue swelling is over the right orbit and temporal regions no underlying fracture is identifie d. IMPRESSION: 1. No acute intracranial process. Follow up MRI can be performed as clinically indicated. 2. Chronic appearing periventricular white matter ischemic changes with age-related atrophy. 3. Exam appears stable from comparison [facility], , 06/11/2024 10:22 AM
--- NOTE | 2024-06-11 11:07 | CT ---
EXAMINATION TYPE: CT chest wo con DATE OF EXAM: 06/11/2024 9:58 AM COMPARISON: 04/21/2021 CLINICAL INDICATION: Male, 78 years old with history of S09.90XA INJ TO HEAD S09.90XA INJURY TO THORA X SEE ORDER, Non specific injury to chest TECHNIQUE: Axial images were obtained at 5 mm thick sections. Reconstructed images are reviewed on [employer] computer in the coronal plane. Contrast used: mL of , (none if empty) Oral contrast used: (none if empty) CT DLP: 388.80 mGycm, Automated exposure control for dose reduction was used. FINDINGS: Portion of the thyroid visualized is normal. There is stable 0.8 cm peripheral nodule posterior lateral right lower lung field. Series 4 image 42. Minimal compressive atelectasis may be present within the dependent posterior right apex. No pneumothorax is evident. No displaced rib fractures are identified. Sternum appears intact. No acu te osseous abnormality radiographically apparent. No enlarged mediastinal or hilar adenopathy is evident. The ascending aorta diameter at the level o f the main pulmonary artery is 4.2 cm. The main pulmonary artery diameter at the bifurcation is 3.0 cm. Small to moderate pericardial effusion is present. Severe coronary artery calcifications present. Limited CT sections are obtained through the upper abdomen. There is a 7.4 cm cyst at the inferior le ft kidney. IMPRESSION: 1. Some minimal atelectasis may be in the posterior right apex. 2. Ascending thoracic aortic aneurysm measuring 4.2 cm AP. 3. Small to moderate pericardial effusion. 4. Severe coronary artery calcification. 5. Stable 0.8 cm nodule posterior lateral right peripheral lung [facility], , 06/11/2024 11:05 AM
== END | disposition home or self-care (01) ==
LOC: RADCTMAIN 09:30
PROVIDERS: ATTEND Emergency Medicine
DX: S09.90XA Unspecified injury of head, initial encounter (principal); S29.9XXA Unspecified injury of thorax, initial encounter; I67.82 Cerebral ischemia; R90.82 White matter disease, unspecified; I71.21 Aneurysm of the ascending aorta, without rupture; I31.39 Other pericardial effusion (noninflammatory); I25.10 Atherosclerotic heart disease of native coronary artery without angina pectoris; R91.1 Solitary pulmonary nodule
CPT/HCPCS: 70450; 71250

== ENCOUNTER 2024-08-13 15:10 | Inpatient (IN) | payer MEDICARE ==
--- NOTE | 2024-08-13 16:17 | ED ---
Recheck HPI - General Chief Complaint: Recheck/Abnormal Lab/Rx Stated Complaint: Abn labs Time Seen by Provider: 08/13/24 15:41 Source: patient, RN notes reviewed, old records reviewed Mode of arrival: wheelchair Limitations: no limitations - History of Present Illness Initial Comments: This is a 78-year-old male who is checked in for evaluation regards to low hemoglobin sent to the ER for evaluation for outpatient lab test being well, anemia. 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 Patient feels weak fatigued short of breath and there is family concern for possible infection as he has been not acting himself for the last few days. Patient denies fever MD Complaint: abnormal lab (Anemia) -: days(s) Returns Today for: Called Because of Abnormal Lab/Test Symptoms Since Prior Visit: no new symptoms Context: called for abnormal lab result Associated Symptoms: none Treatments Prior to Arrival: other (0) - Related Data Home Medications Medication Instructions Recorded Confirmed Ascorbic Acid [Vitamin C] 1,000 mg PO DAILY 10/24/18 08/13/24 Aspirin 81 mg PO DAILY 10/24/18 08/13/24 Losartan [Cozaar] 75 mg PO DIRECTED 10/24/18 08/13/24 Nitroglycerin Sl Tabs [Nitrostat] 0.4 mg SL Q5M PRN 10/24/18 08/13/24 Ubidecarenone [Co Q-10] 100 mg PO DAILY 10/24/18 08/13/24 Docusate [Colace] 100 mg PO BID 11/05/20 08/13/24 Albuterol Inhaler [Ventolin Hfa 2 puff INHALATION RT-QID PRN 02/09/22 08/13/24 Inhaler] Fluticasone/Vilanterol [Breo 1 puff INHALATION RT-DAILY PRN 02/09/22 08/13/24 Ellipta 200-25 Mcg Inhaler] Zinc Gluconate [Zinc] 50 mg PO DAILY 02/14/22 08/13/24 Cholecalciferol [Vitamin D3 (125 125 mcg PO DAILY 06/23/22 08/13/24 Mcg = 5000 Iu)] Multivitamin/Iron/Folic Acid 1 tab PO DAILY 11/27/23 08/13/24 [Centrum Adults Tablet] valACYclovir HCL [Valtrex] 500 mg PO TID 11/27/23 08/13/24 Cranberry 450mg 450 mg PO DAILY 08/13/24 08/13/24 Dicyclomine [Bentyl] 10 mg PO TID 08/13/24 08/13/24 Prosynbiotic 1 cap PO BID 08/13/24 08/13/24 Quercetin 800mg 800 mg PO BID 08/13/24 08/13/24 Furosemide [Lasix] 20 mg PO DAILY 08/14/24 08/14/24 Previous Rx's Medication Instructions Recorded Amoxic-Pot Clav 875-125Mg 1 tab PO Q12HR 3 Days #6 tab 08/18/24 [Augmentin 875-125] Metoprolol Tartrate [Lopressor] 25 mg PO DAILY tab 08/18/24 Metoprolol Tartrate [Lopressor] 50 mg PO HS #30 tab 08/18/24 Allergies Allergy/AdvReac Type Severity Reaction Status Date / Time adhesive tape Allergy Rash/Hives,"paper Verified 08/13/24 20:53 tape is ok" amoxicillin [From Augmentin] Allergy Rash/Hives Verified 08/13/24 20:53 clavulanic acid Allergy Rash/Hives Verified 08/13/24 20:53 [From Augmentin] mold Allergy Rash/Hives Verified 08/13/24 20:53 atorvastatin [From Lipitor] AdvReac Muscle Verified 08/13/24 20:53 Aches budesonide [From Symbicort] AdvReac Vision Verified 08/13/24 20:53 issues ciprofloxacin AdvReac Muscle Verified 08/13/24 20:53 aches doxycycline AdvReac Rectal Verified 08/13/24 20:53 Bleeding enalapril AdvReac Cough Verified 08/13/24 20:53 ezetimibe [From Vytorin] AdvReac Muscle Verified 08/13/24 20:53 Aches/Elevated liver enzymes fluticasone AdvReac Irregular Verified 08/13/24 20:53 [From Advair Diskus] heart rate formoterol [From Symbicort] AdvReac Vision Verified 08/13/24 20:53 issues nilotinib [From Tasigna] AdvReac Pancreatiti Verified 08/13/24 20:53 s salmeterol AdvReac Irregular Verified 08/13/24 20:53 [From Advair Diskus] heart rate simvastatin [From Vytorin] AdvReac Muscle Verified 08/13/24 20:53 Aches [id number]-[id number]-YrF Reductase AdvReac Muscle Verified 08/13/24 20:53 Inhibitor aches [Emrsaqf-Oiq-Csl Reductase Inhibitor] Cotton material Allergy itching, Uncoded 05/11/24 17:24 hives dust mites Allergy allergy Uncoded 08/13/24 20:53 test mildew Allergy prosynbioti Uncoded 08/13/24 20:53 c Review of Systems ROS Statement: Those systems with pertinent positive or pertinent negative responses have been documented in the HPI. ROS Other: All systems not noted in ROS Statement are negative. Past Medical History Past Medical History: Coronary Artery Disease (CAD), Cancer, GERD/Reflux, Hypertension, Skin Disorder Additional Past Medical History / Comment(s): Hx. of CML, Hx. of Shingles L eye, Cysts on L kidney. History of Any Multi-Drug Resistant Organisms: None Reported Past Surgical History: Cholecystectomy, Heart Catheterization With Stent, Hernia Repair, Orthopedic Surgery Additional Past Surgical History / Comment(s): Thyroid surgery,Vasectomy, R ankle surgery, Sinus surgery, Basal cell R shoulder, Pyloroplasty & Vagotomy, Hemorrhoidectomy, Cataract surgery & bx. of inner thigh.aortic valve 04/29/22 Past Anesthesia/Blood Transfusion Reactions: No Reported Reaction Date of Last Stent Placement:: 2005 Past Psychological History: No Psychological Hx Reported Smoking Status: Former smoker Past Alcohol Use History: None Reported Past Drug Use History: None Reported - Past Family History Mother Family Medical History: Cancer, Pulmonary Embolus Father Family Medical History: Cancer Brother(s) Family Medical History: Cancer Son(s) Family Medical History: Cancer General Exam Limitations: no limitations General appearance: alert, in no apparent distress Head exam: Present: atraumatic, normocephalic, normal inspection Eye exam: Present: normal appearance, PERRL, EOMI. Absent: scleral icterus, conjunctival injection, periorbital swelling ENT exam: Present: normal exam, mucous membranes moist Neck exam: Present: normal inspection. Absent: tenderness, meningismus, lymphadenopathy Respiratory exam: Present: normal lung sounds bilaterally. Absent: respiratory distress, wheezes, rales, rhonchi, stridor Cardiovascular Exam: Present: regular rate, normal rhythm, normal heart sounds. Absent: systolic murmur, diastolic murmur, rubs, gallop, clicks GI/Abdominal exam: Present: soft, normal bowel sounds. Absent: distended, tenderness, guarding, rebound, rigid Extremities exam: Present: normal inspection, full ROM, normal capillary refill. Absent: tenderness, pedal edema, joint swelling, calf tenderness Back exam: Present: normal inspection Neurological exam: Present: alert, oriented X3, CN II-XII intact Psychiatric exam: Present: normal affect, normal mood Skin exam: Present: warm, dry, intact, normal color. Absent: rash Course Vital Signs 08/13/24 08/13/24 08/13/24 15:12 18:41 20:16 Temperature 98.5 F Pulse Rate 78 82 Respiratory 16 18 16 Rate Blood Pressure 122/55 150/71 O2 Sat by Pulse 99 98 Oximetry 08/13/24 08/13/24 20:40 22:51 Temperature 98.3 F Pulse Rate 98 90 Respiratory 18 20 Rate Blood Pressure 139/73 127/68 O2 Sat by Pulse 95 97 Oximetry - Reevaluation(s) Reevaluation #1: 08/13/24 19:12 Medical records reviewed Reevaluation #2: 08/13/24 19:12 Patient informed of hemoglobin which is unchanged from outpatient testing Spoke with patient in regards to A-fib which he admits to being new not currently on blood thinners Reevaluation #3: 08/13/24 19:12 Patient has no improvement in symptoms still feels weak and fatigued Reevaluation #4: Was pt. sent in by a medical professional or institution (, PA, SEAT TRIMMER, urgent care, hospital, or usp...) When possible be specific @ -no Did you speak to anyone other than the patient for history (EMS, parent, family, police, friend...)? What history was obtained from this source @ -no Did you review nursing and triage notes (agree or disagree)? Why? @ -agree Are old charts reviewed (outside hosp., previous admission, EMS record, old EKG, old radiological studies, urgent care reports/EKG's, usp records)? Report findings @ -yes Differential Diagnosis (chest pain, altered mental status, abdominal pain women, abdominal pain men, vaginal bleeding, weakness, fever, dyspnea, syncope, headache, dizziness, GI bleed, back pain, seizure, CVA, palpatations, mental health, musculoskeletal)? @ -prior EKG interpreted by me (3pts min.). @ -yes X-rays interpreted by me (1pt min.). @ -yes negative for acute disease CT interpreted by me (1pt min.). @ -no U/S interpreted by me (1pt. min.). @ -no What testing was considered but not performed or refused? (CT, X-rays, U/S, labs)? Why? @ -none What meds were considered but not given or refused? Why? @ -none Did you discuss the management of the patient with other professionals (professionals i.e. Dr., PA, SEAT TRIMMER, lab, RT, psych nurse, medical social consultant, resin coater, teacher, booking officer, bilingual case manager)? Give summary @ -no Was smoking cessation discussed for >3mins.? @ -no Was critical care preformed (if so, how long)? @ -no Were there social determinants of health that impacted care today? How? (Homelessness, low income, unemployed, alcoholism, drug addiction, transporta tion, low edu. Level, literacy, decrease access to med. care, fdc, rehab)? @ -none Was there de-escalation of care discussed even if they declined (Discuss DNR or withdrawal of care, Hospice)? DNR status @ -no What co-morbidities impacted this encounter? (DM, HTN, Smoking, COPD, CAD, Cancer, CVA, ARF, Chemo, Hep., AIDS, mental health diagnosis, sleep apnea, morbid obesity)? @ -none Was patient admitted / discharged? Hospital course, mention meds given and route, prescriptions, significant lab abnormalities, going to OR and other pertinent info. @ - 78 male to the ER for evaluation history of a CML in outpatient lab values showing anemia n. Patient has severe weakness here in the ER patient found to have new onset atrial fibrillation anemia acute on chronic and will admit for oncology evaluation cardiology evaluation Admitted Undiagnosed new problem with uncertain prognosis? @ -no Drug Therapy requiring intensive monitoring for toxicity (Heparin, Nitro, Insulin, Cardizem)? @ -no Were any procedures done? @ -no Diagnosis/symptom? @ -New onset atrial fibrillation with significant anemia weakness and history of CML Acute, or Chronic, or Acute on Chronic? @ -Acute Uncomplicated (without systemic symptoms) or Complicated (systemic symptoms)? @ -Complicated Side effects of treatment? @ -no Exacerbation, Progression, or Severe Exacerbation? @ -exacerbation Poses a threat to life or bodily function? How? (Chest pain, [place], [place], pneumonia, PE, COPD, DKA, ARF, appy, cholecystitis, CVA, Diverticulitis, Homicidal, Suicidal, threat to staff... and all critical care pts) @ -yes with arrhythmia Reevaluation #5: Differential Weakness: Hypoglycemia, shock, sepsis, hyponatremia, anemia, infection, [place], ETOH, adverse medicine reaction, overdose, stroke, this is not meant to be an all-inclusive list. - Consultations Consultation #1: Spoke with oliverio who agrees to admit this patient Medical Decision Making - Medical Decision Making 78 male to the ER for evaluation history of a CML in outpatient lab values showing anemia n. Patient has severe weakness here in the ER patient found to have new onset atrial fibrillation anemia acute on chronic and will admit for oncology evaluation cardiology evaluation - Lab Data Result diagrams: 08/18/24 04:27 08/16/24 05:15 Lab Results 08/13/24 08/13/24 08/13/24 Range/Units 15:43 15:43 15:43 WBC 7.33 (4.50-10.00) 10*3/uL RBC 2.07 L (4.40-5.60) 10*6/uL Hgb 7.8 L (13.0-17.0) g/dL Hct 23.4 L (39.6-50.0) % MCV 113.0 H (80.0-97.0) fL MCH 37.7 H (27.0-32.0) pg MCHC 33.3 (32.0-37.0) g/dL Plt Count 218 (140-440) 10*3/uL MPV 9.0 L (9.5-12.2) fL Immature Gran % (Auto) 0.3 % Neutrophils % 62.3 % Lymphocytes % 28.6 % Monocytes % 8.0 % Eosinophils % 0.3 % Basophils % 0.5 % Immature Gran # 0.02 (0.00-0.04) 10*3/uL Neutrophils # 4.56 (1.80-7.70) 10*3/uL Lymphocytes # 2.10 (0.90-5.00) 10*3/uL Monocytes # 0.59 (0.20-1.00) 10*3/uL Eosinophils # 0.02 L (0.04-0.35) 10*3/uL Basophils # 0.04 (0.00-0.10) 10*3/uL Manual Slide Review Performed Polychromasia Present PT 11.4 (10.0-12.5) sec INR 1.0 (<1.2) APTT 22.5 (22.0-30.0) sec Sodium 139 (137-145) mmol/L Potassium 4.7 (3.5-5.1) mmol/L Chloride 108 H (98-107) mmol/L Carbon Dioxide 22 (22-30) mmol/L Anion Gap 9 mmol/L BUN 35 H (9-20) mg/dL Creatinine 1.62 H (0.66-1.25) mg/dL Est GFR (CKD-EPI)AfAm 46 (>60 ml/min/1.73 sqM) Est GFR (CKD-EPI)NonAf 40 (>60 ml/min/1.73 sqM) Glucose 111 H (74-99) mg/dL Calcium 9.3 (8.4-10.2) mg/dL Phosphorus 3.9 (2.5-4.5) mg/dL Magnesium 2.3 (1.6-2.3) mg/dL Total Bilirubin 1.2 (0.2-1.3) mg/dL AST 30 (17-59) U/L ALT 20 (4-49) U/L Alkaline Phosphatase 70 (38-126) U/L Troponin I (0.000-0.034) ng/mL Total Protein 6.9 (6.3-8.2) g/dL Albumin 4.0 (3.5-5.0) g/dL Urine Color Urine Appearance (Clear) Urine pH (5.0-8.0) Ur Specific Patten (1.001-1.035) Urine Protein (Negative) Urine Glucose (UA) (Negative) Urine Ketones (Negative) Urine Blood (Negative) Urine Nitrite (Negative) Urine Bilirubin (Negative) Urine Urobilinogen (<2.0) mg/dL Ur Leukocyte Esterase (Negative) Urine RBC (0-5) /hpf Urine WBC (0-5) /hpf Ur Squamous Epith Cells (0-4) /hpf Urine Bacteria (None) /hpf Influenza Type A (PCR) (Not Detectd) Influenza Type B (PCR) (Not Detectd) Urine Legionella Ag (Negative) RSV (PCR) (Not Detectd) SARS-CoV-2 (PCR) (Not Detectd) Blood Type Blood Type Confirm Blood Type Recheck Bld Type Recheck Status Antibody Screen Crossmatch Spec Expiration Date 08/13/24 08/13/24 08/13/24 Range/Units 15:43 15:43 16:16 WBC (4.50-10.00) 10*3/uL RBC (4.40-5.60) 10*6/uL Hgb (13.0-17.0) g/dL Hct (39.6-50.0) % MCV (80.0-97.0) fL MCH (27.0-32.0) pg MCHC (32.0-37.0) g/dL Plt Count (140-440) 10*3/uL MPV (9.5-12.2) fL Immature Gran % (Auto) % Neutrophils % % Lymphocytes % % Monocytes % % Eosinophils % % Basophils % % Immature Gran # (0.00-0.04) 10*3/uL Neutrophils # (1.80-7.70) 10*3/uL Lymphocytes # (0.90-5.00) 10*3/uL Monocytes # (0.20-1.00) 10*3/uL Eosinophils # (0.04-0.35) 10*3/uL Basophils # (0.00-0.10) 10*3/uL Manual Slide Review Polychromasia PT (10.0-12.5) sec INR (<1.2) APTT (22.0-30.0) sec Sodium (137-145) mmol/L Potassium (3.5-5.1) mmol/L Chloride (98-107) mmol/L Carbon Dioxide (22-30) mmol/L Anion Gap mmol/L BUN (9-20) mg/dL Creatinine (0.66-1.25) mg/dL Est GFR (CKD-EPI)AfAm (>60 ml/min/1.73 sqM) Est GFR (CKD-EPI)NonAf (>60 ml/min/1.73 sqM) Glucose (74-99) mg/dL Calcium (8.4-10.2) mg/dL Phosphorus (2.5-4.5) mg/dL Magnesium (1.6-2.3) mg/dL Total Bilirubin (0.2-1.3) mg/dL AST (17-59) U/L ALT (4-49) U/L Alkaline Phosphatase (38-126) U/L Troponin I <0.012 (0.000-0.034) ng/mL Total Protein (6.3-8.2) g/dL Albumin (3.5-5.0) g/dL Urine Color Urine Appearance (Clear) Urine pH (5.0-8.0) Ur Specific Patten (1.001-1.035) Urine Protein (Negative) Urine Glucose (UA) (Negative) Urine Ketones (Negative) Urine Blood (Negative) Urine Nitrite (Negative) Urine Bilirubin (Negative) Urine Urobilinogen (<2.0) mg/dL Ur Leukocyte Esterase (Negative) Urine RBC (0-5) /hpf Urine WBC (0-5) /hpf Ur Squamous Epith Cells (0-4) /hpf Urine Bacteria (None) /hpf Influenza Type A (PCR) Not Detected (Not Detectd) Influenza Type B (PCR) Not Detected (Not Detectd) Urine Legionella Ag (Negative) RSV (PCR) Not Detected (Not Detectd) SARS-CoV-2 (PCR) Not Detected (Not Detectd) Blood Type O Positive Blood Type Confirm Blood Type Recheck No Previous Record Bld Type Recheck Status CABO Indicated Antibody Screen NEGATIVE Crossmatch See Detail Spec Expiration Date 08/16/2024234208/13/24 08/13/24 08/13/24 Range/Units 16:31 19:00 19:00 WBC (4.50-10.00) 10*3/uL RBC (4.40-5.60) 10*6/uL Hgb (13.0-17.0) g/dL Hct (39.6-50.0) % MCV (80.0-97.0) fL MCH (27.0-32.0) pg MCHC (32.0-37.0) g/dL Plt Count (140-440) 10*3/uL MPV (9.5-12.2) fL Immature Gran % (Auto) % Neutrophils % % Lymphocytes % % Monocytes % % Eosinophils % % Basophils % % Immature Gran # (0.00-0.04) 10*3/uL Neutrophils # (1.80-7.70) 10*3/uL Lymphocytes # (0.90-5.00) 10*3/uL Monocytes # (0.20-1.00) 10*3/uL Eosinophils # (0.04-0.35) 10*3/uL Basophils # (0.00-0.10) 10*3/uL Manual Slide Review Polychromasia PT (10.0-12.5) sec INR (<1.2) APTT (22.0-30.0) sec Sodium (137-145) mmol/L Potassium (3.5-5.1) mmol/L Chloride (98-107) mmol/L Carbon Dioxide (22-30) mmol/L Anion Gap mmol/L BUN (9-20) mg/dL Creatinine (0.66-1.25) mg/dL Est GFR (CKD-EPI)AfAm (>60 ml/min/1.73 sqM) Est GFR (CKD-EPI)NonAf (>60 ml/min/1.73 sqM) Glucose (74-99) mg/dL Calcium (8.4-10.2) mg/dL Phosphorus (2.5-4.5) mg/dL Magnesium (1.6-2.3) mg/dL Total Bilirubin (0.2-1.3) mg/dL AST (17-59) U/L ALT (4-49) U/L Alkaline Phosphatase (38-126) U/L Troponin I (0.000-0.034) ng/mL Total Protein (6.3-8.2) g/dL Albumin (3.5-5.0) g/dL Urine Color Yellow Urine Appearance Clear (Clear) Urine pH 5.5 (5.0-8.0) Ur Specific Patten 1.019 (1.001-1.035) Urine Protein Trace H (Negative) Urine Glucose (UA) Negative (Negative) Urine Ketones Trace H (Negative) Urine Blood Negative (Negative) Urine Nitrite Positive (Negative) Urine Bilirubin Negative (Negative) Urine Urobilinogen <2.0 (<2.0) mg/dL Ur Leukocyte Esterase Large H (Negative) Urine RBC <1 (0-5) /hpf Urine WBC 44 H (0-5) /hpf Ur Squamous Epith Cells <1 (0-4) /hpf Urine Bacteria Many H (None) /hpf Influenza Type A (PCR) (Not Detectd) Influenza Type B (PCR) (Not Detectd) Urine Legionella Ag Negative (Negative) RSV (PCR) (Not Detectd) SARS-CoV-2 (PCR) (Not Detectd) Blood Type Blood Type Confirm O Positive Blood Type Recheck Bld Type Recheck Status Antibody Screen Crossmatch Spec Expiration Date - EKG Data -: EKG Interpreted by Me (EKG is A-fib 86 QRS 108 QTc 390) - Radiology Data Radiology results: report reviewed (Chest x-ray is positive effusion concern pneumonia), image reviewed Disposition Clinical Impression: Pneumonia, CML (chronic myeloid leukemia), New onset atrial fibrillation, Anemia, Weakness Disposition: ADMITTED IP TO THIS HOSP Condition: Stable Is patient prescribed a controlled substance at d/c from ED?: No Time of Disposition: 19:00
[2024-08-13 16:25] LABS: Basophils # (A) 0.04 10*3/uL (0.00-0.10); Basophils % (A) 0.5 %; Eosinophils # (A) 0.02 10*3/uL (0.04-0.35); Eosinophils % (A) 0.3 %; HCT 23.4 % (39.6-50.0); HGB 7.8 g/dL (13.0-17.0); Lymphocytes % (A) 28.6 %; MCH 37.7 pg (27.0-32.0); MCHC 33.3 g/dL (32.0-37.0); Monocytes # (A) 0.59 10*3/uL (0.20-1.00); Neutrophils # (A) 4.56 10*3/uL (1.80-7.70); Neutrophils % (A) 62.3 %; Platelet Count 218 10*3/uL (140-440); RBC 2.07 10*6/uL (4.40-5.60); RDW 14.8 % (11.5-14.5); WBC 7.33 10*3/uL (4.50-10.00)
[2024-08-13 16:43] LABS: ALT 20 U/L (4-49); AST 30 U/L (17-59); African American GFR (CKD) 46 (>60 ml/min/1.73 sqM); Alkaline Phosphatase 70 U/L (38-126); Anion Gap 9 mmol/L; Blood Urea Nitrogen 35 mg/dL (9-20); Calcium 9.3 mg/dL (8.4-10.2); Carbon Dioxide 22 mmol/L (22-30); Chloride 108 mmol/L (98-107); Glucose 111 mg/dL (74-99); Magnesium 2.3 mg/dL (1.6-2.3); Non-African American GFR(CKD) 40 (>60 ml/min/1.73 sqM); Phosphorus 3.9 mg/dL (2.5-4.5); Potassium 4.7 mmol/L (3.5-5.1); Sodium 139 mmol/L (137-145); Total Bilirubin 1.2 mg/dL (0.2-1.3); Total Protein 6.9 g/dL (6.3-8.2)
[2024-08-13 16:58] LABS: Partial Thromboplastin Time 22.5 sec (22.0-30.0); Prothrombin Time 11.4 sec (10.0-12.5)
[2024-08-13 17:13] LABS: Polychromasia Present
[2024-08-13] MEDS: LACTATED RINGERS 1,000 ML IV SCH (17:37)
[2024-08-13 18:26] LABS: Influenza A Not Detected (Not Detectd); Influenza B Not Detected (Not Detectd); RSV Not Detected (Not Detectd)
--- NOTE | 2024-08-13 18:37 | XR ---
EXAMINATION TYPE: XR chest 2V DATE OF EXAM: 08/13/2024 5:07 PM COMPARISON: 05/11/2024 CLINICAL INDICATION: Male, 78 years old with history of weakness, TECHNIQUE: XR chest 2V view(s) obtained. FINDINGS: The heart size is enlarged. The pulmonary vasculature is normal. There is a posterior left pleural effusion.. Left lower lobe infiltrate is present. Correlate for at electasis or pneumonia. IMPRESSION: 1. Left lower lobe infiltrate with a left pleural effusion. Correlate for pneumonia. Follow-up is rec ommended. 2. Cardiomegaly [facility], , 08/13/2024 6:34 PM
[2024-08-13] MEDS ORDERED: MORPHINE SULFATE 4 MG/ML SYRINGE IV PRN (19:08)
[2024-08-13] MEDS ORDERED: NALOXONE 0.4 MG/ML 1 ML VIAL IV PRN (19:08)
[2024-08-13] MEDS ORDERED: ONDANSETRON 4 MG/2 ML VIAL IVP PRN (19:08)
[2024-08-13] MEDS ORDERED: IPRATROPIUM-ALBUTEROL 3 ML NEB INHALATION PRN (19:13)
[2024-08-13] MEDS ORDERED: PNEUMONIA PROTOCOL UTILIZED 1 EACH MISC PO PRN (19:13)
[2024-08-13 19:26] LABS: Appearance,Urine Clear (Clear); Bacteria,Urine Many /hpf; Bilirubin,Urine Negative (Negative); Blood,Urine Negative (Negative); Color,Urine Yellow; Glucose,Urine (UA) Negative (Negative); Ketones,Urine Trace (Negative); Leukocyte Esterase,Urine Large (Negative); Nitrite,Urine Positive (Negative); PH, Urine 5.5 (5.0-8.0); Protein,Urine Trace (Negative); RBC,Urine <1 /hpf (0-5); Specific Gravity,Urine 1.019 (1.001-1.035); Squamous Epithelial Cell,Urine <1 /hpf (0-4); Urobilinogen,Urine <2.0 mg/dL (<2.0); WBC,Urine 44 /hpf (0-5)
[2024-08-13] MEDS: AZITHROMYCIN 500 MG in SODIUM CHLORIDE 0.9% 250 ML IVPB STA (20:36)
--- NOTE | 2024-08-13 21:11 | P.HPIM ---
History of Present Illness H&P Date: 08/13/24 History of present illness; 78-year-old male with PMH of CML currently maintained on oral chemotherapy without any recent change in medications, hypertension, CAD s/p stenting and s/p TAVR for which she follows with doctors at [facility] who [facility] to low hemoglobin noted on blood work done today. He states he feels weak, fatigued and short of breath. Family is concerned that he could possibly have an infection as they feel as though "he has not been acting like himself" for the past couple of days. Patient denies any fever, chills, nausea, vomiting. He follows regularly with Dr. Arellano for his CML [facility] have been tracking his hemoglobin, and have noted it is continuing to decline recently. Additionally, he notes that over the past 2 months or so he has been having increased fatigue and worsening shortness of breath. He self catheterizes, and denies any pain, increase in frequency, change in color or change in odor with his urine Labratory review: - WBC 7.33, hemoglobin 7.8, hematocrit 23.4, MCV 113, platelet 218; sodium 139, potassium 4.7, chloride 108, bicarb 22, BUN 35, creatinine 1.60, calcium 9.3, phosphorus 3.9, magnesium 2.3, total bilirubin 1.2, AST 30, ALT 20, alkaline phosphatase 70 - Troponin <0.012 - Respiratory viral panel all negative - Urinalysis showed trace protein, trace ketones, positive nitrites, large amount of leukocyte Estrace Imaging: - Chest x-ray done in the ER showed left lower lobe infiltrate with left pleural effusion, to be correlated for pneumonia as well as cardiomegaly - EKG done in the ER independently read and interpreted showed heart rate of 86, evidence of atrial fibrillation; QTc 390 Vitals: - Blood pressure 150/71, heart rate 82, respiratory rate 18, SpO2 98% on room air Patient admitted to internal medicine service REVIEW OF SYSTEMS: Pertinent positives and negatives noted in HPI. The rest of the 14-point review of systems is negative. Physical Exam: General: nontoxic, no distress, appears at stated age Derm: warm, dry, intact Head: atraumatic, normocephalic, symmetric Eyes: EOMI, anicteric sclera Mouth: no lip lesion, mucus membranes moist Cardiovascular: Irregularly irregular rhythm Lungs: CTA bilateral, no rales, no accessory muscle use Abdominal: soft, non-tender to palpataion, no appreciable organomegaly Extremities: no gross muscle atrophy; trace pitting edema in the bilateral lower extremities Neuro: Alert, Oriented, CNII-XII grossly intact, gait normal Psych: well appearing, appropriate affect Assessment and plan 78-year-old male with PMH of CML currently maintained on oral chemotherapy without any recent change in medications, hypertension, CAD s/p stenting who presents to the ED [facility] to low hemoglobin noted on blood work done today. #Chronic macrocytic anemia with CML - On arrival hemoglobin 7.8, MCV 113 - Visit from 11/29/2023 showed a vitamin B12 345, RBC folate 921 - He recently underwent iron studies on 07/12/2024 showing iron level of 40, TIBC 308, 12.99% iron saturation, transferrin 220, ferritin 269 - Reticulocyte count, vitamin B12, folate, copper, homocystine and methylmalonic acid levels ordered, currently pending - Pathologist review of CBC peripheral smear ordered, currently pending - Consider bone marrow aspirate - Continue to monitor CBC - Hemoglobin <7, transfuse PRBCs #New onset atrial fibrillation - EKG done in the ER independently read and interpreted showed heart rate of 86, evidence of atrial fibrillation; QTc 390 - [id number] score of 3, indicating high thromboembolism risk; consider initiation with Eliquis 5 mg twice daily - TSH, magnesium, phosphorus ordered, currently pending - Trend troponins: Initial troponin <0.012 - Echocardiogram ordered, currently pending - Cardiology consulted #Possible UTI, with positive urinalysis #Low likelihood of pneumonia, noted possibility on chest x-ray - Chest x-ray done in the ER showed a left lower lobe infiltrate with left pleural effusion, to be correlated for pneumonia - Urinalysis positive nitrites and large amount of leukocyte esterase - Procalcitonin ordered, currently pending - Patient received 2 g of Rocephin and 500 mg azithromycin once in the ED - Discontinue azithromycin, continue with Rocephin 2 g every 24 hours for total of 4 additional days - Blood culture, sputum culture, urinalysis with reflex culture, Legionella antigen ordered, currently pending #NIKITA, likely prerenal, baseline creatinine 1.21.4 - On arrival BUN 35, creatinine 1.62 - Administer 500 cc bolus LR - US kidney/renal and bladder ordered, currently pending - Continue LR at 120 cc/h - Continue to monitor BMP Chronic conditions: - Continue home medications once verified by pharmacy GI prophylaxis: None DVT prophylaxis: Heparin sc 5000 units tid , await cardiology decision regarding Eliquis 5 mg twice daily pending echo The patient is admitted with an anticipated more than than 2 midnight stay for evaluation of acute encephalopathy and possible infection, new onset atrial fibrillation. CODE STATUS: Full code Discussed with: Patient Anticipated discharge place: Home Dictation was produced using [email or web address] dictation software. please excuse any grammatical, word or spelling errors. Michel Holman MD PGY-1 IM I have seen and evaluated the patient today. I Discussed the case with the resident and agree with the resident's findings I edited the assessment and plan as necessary as documented in the resident's note. Past Medical History Past Medical History: Coronary Artery Disease (CAD), Cancer, GERD/Reflux, Hy pertension, Skin Disorder Additional Past Medical History / Comment(s): Hx. of CML, Hx. of Shingles L eye, Cysts on L kidney. History of Any Multi-Drug Resistant Organisms: None Reported Past Surgical History: Cholecystectomy, Heart Catheterization With Stent, Hernia Repair, Orthopedic Surgery Additional Past Surgical History / Comment(s): Thyroid surgery,Vasectomy, R ankle surgery, Sinus surgery, Basal cell R shoulder, Pyloroplasty & Vagotomy, Hemorrhoidectomy, Cataract surgery & bx. of inner thigh.aortic valve 04/29/22 Past Anesthesia/Blood Transfusion Reactions: No Reported Reaction Date of Last Stent Placement:: 2005 Past Psychological History: No Psychological Hx Reported Smoking Status: Former smoker Past Alcohol Use History: None Reported Past Drug Use History: None Reported - Past Family History Mother Family Medical History: Cancer, Pulmonary Embolus Father Family Medical History: Cancer Brother(s) Family Medical History: Cancer Son(s) Family Medical History: Cancer Medications and Allergies Home Medications Medication Instructions Recorded Confirmed Type Ascorbic Acid [Vitamin C] 1,000 mg PO DAILY 10/24/18 08/13/24 History Aspirin 81 mg PO DAILY 10/24/18 08/13/24 History Losartan [Cozaar] 75 mg PO DIRECTED 10/24/18 08/13/24 History Metoprolol Tartrate [Lopressor] 25 mg PO BID 10/24/18 08/13/24 History Nitroglycerin Sl Tabs [Nitrostat] 0.4 mg SL Q5M PRN 10/24/18 08/13/24 History Ubidecarenone [Co Q-10] 100 mg PO DAILY 10/24/18 08/13/24 History Docusate [Colace] 100 mg PO BID 11/05/20 08/13/24 History Albuterol Inhaler [Ventolin Hfa 2 puff INHALATION RT-QID PRN 02/09/22 08/13/24 History Inhaler] Fluticasone/Vilanterol [Breo 1 puff INHALATION RT-DAILY PRN 02/09/22 08/13/24 History Ellipta 200-25 Mcg Inhaler] Zinc Gluconate [Zinc] 50 mg PO DAILY 02/14/22 08/13/24 History Cholecalciferol [Vitamin D3 (125 125 mcg PO DAILY 06/23/22 08/13/24 History Mcg = 5000 Iu)] Dasatinib [Sprycel] 100 mg PO DAILY@0300 06/23/22 08/13/24 History Multivitamin/Iron/Folic Acid 1 tab PO DAILY 11/27/23 08/13/24 History [Centrum Adults Tablet] valACYclovir HCL [Valtrex] 500 mg PO TID 11/27/23 08/13/24 History Cranberry 450mg 450 mg PO DAILY 08/13/24 08/13/24 History Dicyclomine [Bentyl] 10 mg PO TID 08/13/24 08/13/24 History Furosemide [Lasix] 20 mg PO DIRECTED 08/13/24 08/13/24 History Prosynbiotic 1 cap PO BID 08/13/24 08/13/24 History Quercetin 800mg 800 mg PO BID 08/13/24 08/13/24 History Allergies Allergy/AdvReac Type Severity Reaction Status Date / Time adhesive tape Allergy Rash/Hives,"paper Verified 08/13/24 20:53 tape is ok" amoxicillin [From Augmentin] Allergy Rash/Hives Verified 08/13/24 20:53 clavulanic acid Allergy Rash/Hives Verified 08/13/24 20:53 [From Augmentin] mold Allergy Rash/Hives Verified 08/13/24 20:53 atorvastatin [From Lipitor] AdvReac Muscle Verified 08/13/24 20:53 Aches budesonide [From Symbicort] AdvReac Vision Verified 08/13/24 20:53 issues ciprofloxacin AdvReac Muscle Verified 08/13/24 20:53 aches doxycycline AdvReac Rectal Verified 08/13/24 20:53 Bleeding enalapril AdvReac Cough Verified 08/13/24 20:53 ezetimibe [From Vytorin] AdvReac Muscle Verified 08/13/24 20:53 Aches/Elevated liver enzymes fluticasone AdvReac Irregular Verified 08/13/24 20:53 [From Advair Diskus] heart rate formoterol [From Symbicort] AdvReac Vision Verified 08/13/24 20:53 issues nilotinib [From Tasigna] AdvReac Pancreatiti Verified 08/13/24 20:53 s salmeterol AdvReac Irregular Verified 08/13/24 20:53 [From Advair Diskus] heart rate simvastatin [From Vytorin] AdvReac Muscle Verified 08/13/24 20:53 Aches Pravgme-DHA-BwR Reductase AdvReac Muscle Verified 08/13/24 20:53 Inhibitor aches [Zzqxzps-Pik-Eaq Reductase Inhibitor] Cotton material Allergy itching, Uncoded 05/11/24 17:24 hives dust mites Allergy allergy Uncoded 08/13/24 20:53 test mildew Allergy prosynbioti Uncoded 08/13/24 20:53 c Physical Exam Vitals: Vital Signs Temp Pulse Resp BP Pulse Ox 08/13/24 18:41 82 18 150/71 98 08/13/24 15:12 98.5 F 78 16 122/55 99 Intake and Output 08/13/24 08/13/24 08/13/24 06:59 14:59 22:59 Other: Weight 92.986 kg Results CBC & Chem 7: 08/13/24 15:43 08/13/24 15:43 Labs: Abnormal Lab Results - Last 24 Hours (Table) 08/13/24 08/13/24 08/13/24 Range/Units 15:43 15:43 19:00 RBC 2.07 L (4.40-5.60) 10*6/uL Hgb 7.8 L (13.0-17.0) g/dL Hct 23.4 L (39.6-50.0) % MCV 113.0 H (80.0-97.0) fL MCH 37.7 H (27.0-32.0) pg MPV 9.0 L (9.5-12.2) fL Eosinophils # 0.02 L (0.04-0.35) 10*3/uL Chloride 108 H (98-107) mmol/L BUN 35 H (9-20) mg/dL Creatinine 1.62 H (0.66-1.25) mg/dL Glucose 111 H (74-99) mg/dL Urine Protein Trace H (Negative) Urine Ketones Trace H (Negative) Ur Leukocyte Esterase Large H (Negative) Urine WBC 44 H (0-5) /hpf Urine Bacteria Many H (None) /hpf
[2024-08-13] MEDS: SODIUM CHLORIDE 0.9% 1,000 ML IV SCH (21:24)
[2024-08-13] MEDS: LACTATED RINGERS 500 ML IV ONE (21:33)
--- NOTE | 2024-08-13 21:46 | US ---
EXAMINATION TYPE: US kidneys/renal and bladder DATE OF EXAM: 08/13/2024 COMPARISON: US 10/24/22 CLINICAL INDICATION: Male, 78 years old with history of Damian; DAMIAN TECHNIQUE: Grayscale imaging of the bilateral kidneys and urinary bladder: FINDINGS: EXAM MEASUREMENTS: Right Kidney: 8.9 x 5.0 x 4.6 cm Left Kidney: 9.2 x 6.1 x 5.1 cm slightly limited exam due to patient unable to roll lld/rld for imaging. Right Kidney: There is a 2.5 x 2.2 x 2.4cm anechoic appearing area seen within the medial/ inferior a spect of the right kidney Left Kidney: There is a 7.5 x 7.8 x 8.2cm anechoic area seen within the inferior pole of the left kid theo Bladder: wnl Bilateral Jets seen: yes Urinary bladder is sonolucent. Posterior wall is normal. IMPRESSION: 1. Bilateral renal cysts. [facility], , 08/13/2024 9:44 PM
[2024-08-14 06:35] LABS: Basophils # (A) 0.04 10*3/uL (0.00-0.10); Basophils % (A) 0.5 %; Eosinophils # (A) 0.02 10*3/uL (0.04-0.35); Eosinophils % (A) 0.2 %; HCT 21.4 % (39.6-50.0); HGB 7.2 g/dL (13.0-17.0); Lymphocytes # (A) 3.54 10*3/uL (0.90-5.00); Lymphocytes % (A) 43.7 %; MCH 38.3 pg (27.0-32.0); MCHC 33.6 g/dL (32.0-37.0); Mean Platelet Volume 8.9 fL (9.5-12.2); Monocytes # (A) 0.65 10*3/uL (0.20-1.00); Neutrophils # (A) 3.83 10*3/uL (1.80-7.70); Neutrophils % (A) 47.4 %; Platelet Count 178 10*3/uL (140-440); RBC 1.88 10*6/uL (4.40-5.60); RDW 14.8 % (11.5-14.5)
[2024-08-14 06:47] LABS: ALT 16 U/L (4-49); AST 27 U/L (17-59); African American GFR (CKD) 59 (>60 ml/min/1.73 sqM); Albumin 3.5 g/dL (3.5-5.0); Albumin/Globulin Ratio 1.4; Alkaline Phosphatase 62 U/L (38-126); Anion Gap 11 mmol/L; Blood Urea Nitrogen 34 mg/dL (9-20); Calcium 8.8 mg/dL (8.4-10.2); Carbon Dioxide 18 mmol/L (22-30); Chloride 108 mmol/L (98-107); Globulin 2.5 g/dL; Glucose 98 mg/dL (74-99); Magnesium 2.3 mg/dL (1.6-2.3); Non-African American GFR(CKD) 51 (>60 ml/min/1.73 sqM); Phosphorus 3.4 mg/dL (2.5-4.5); Potassium 4.1 mmol/L (3.5-5.1); Sodium 137 mmol/L (137-145); Total Bilirubin 0.7 mg/dL (0.2-1.3)
[2024-08-14 06:54] LABS: MCV 113.8 fL (80.0-97.0)
[2024-08-14] MEDS: LACTATED RINGERS 1,000 ML IV SCH (06:59)
[2024-08-14 07:50] LABS: Anisocytosis (M) Present
--- NOTE | 2024-08-14 08:10 | XR ---
EXAMINATION TYPE: XR chest 1V DATE OF EXAM: 08/14/2024 6:43 AM COMPARISON: Chest radiographs from 08/13/2024. CLINICAL INDICATION: Male, 78 years old with history of sob; PHH TECHNIQUE: XR chest 1V Frontal view of the chest. FINDINGS: Lungs/Pleura: Skinfold over the superior right lung. There is no evidence of pleural effusion, focal consolidation, or pneumothorax. Pulmonary vascularity: Unremarkable. Heart/mediastinum: Cardiomediastinal silhouette is enlarged. Atherosclerotic calcifications are seen in the aorta. Musculoskeletal: No acute osseous pathology. IMPRESSION: No acute cardiopulmonary disease/process. [facility], , 08/14/2024 8:08 AM
[2024-08-14] MEDS ORDERED: AZITHROMYCIN 500 MG TAB PO SCH (09:00)
[2024-08-14 10:26] LABS: Reticulocyte % 3.62 % (0.10-1.80)
[2024-08-14] MEDS: HEPARIN SODIUM,PORCINE 5,000 UNIT/ML 1 ML VIAL SQ SCH (10:38)
[2024-08-14] MEDS: PANTOPRAZOLE 40 MG/10 ML VIAL IV SCH (10:38)
[2024-08-14] MEDS: METOPROLOL TARTRATE 50 MG TAB PO SCH (10:46)
--- NOTE | 2024-08-14 11:38 | P.CRDCN ---
History of Present Illness Consult date: 08/14/24 Requesting physician: Nadeen Melgoza Reason for Consult (text): afib Chief complaint: shortness of breath History of present illness: This is a pleasant 78-year-old male patient of Dr. Wells with past medical history of CML, follows with Dr. Arellano, hypertension, CAD status post stenting x 2, [facility] Presented to the hospital at the advice of the [place]. He had routine blood work drawn there yesterday and was called and advised to go to the emergency department due to low hemoglobin. He does complain of feeling weak, tired and short of breath. According to records the family verbalized concerns as he had not been acting himself recently. The patient himself denies any fever, chills, nausea or vomiting. Denies any cough or chest congestion. We were asked to see the patient in consultation for atrial fibrillation.. Diagnostics -EKG: Sinus mechanism with frequent PACs -Chest x-ray: Left lower lobe infiltrate with a left pleural effusion. Correlate for pneumonia. Follow-up is recommended. Cardiomegaly -Renal ultrasound: Bilateral renal cysts -Laboratory studies: Hemoglobin 7.2, sodium 137, potassium 4.1 BUN 35, creatinine 1.62, down to 1.32 this morning, troponin negative x 3 -Home cardiac medications: Lasix 20 mg p.o. daily, metoprolol tartrate 25 mg p .o. twice daily, losartan 75 mg, aspirin 81 mg daily. -Prior stress test: Not available -Echocardiogram: November 2023 normal biventricular systolic function, trans catheter aortic valve with a mean gradient of 14 mmHg and no regurgitation -Cardiac catheterization: February 2022 40 to 45% circumflex disease in the proximal portion and another 40% in the distal portion, obtuse marginal with 40% narrowing, LAD that was stented before widely patent with good flow and nondominant RCA Review Of Systems: At the time of my exam: CONSTITUTIONAL: Denies fever or chills. HEENT: Denies blurred vision, vision changes. CARDIOVASCULAR: Denies chest pain. Denies orthopnea. Denies PND. Denies palpitations, dizziness, or syncope. RESPIRATORY: Positive shortness of breath. No wheezing, or cough. Denies hemoptysis. GASTROINTESTINAL: Denies abdominal pain. Denies nausea or vomiting. Denies bleeding. HEMATOLOGIC: Denies bleeding disorders. GENITOURINARY: Denies hematuria. SKIN: Denies puritis. Denies rash. PHYSICAL EXAMINATION: This is a 78-year-old male in no apparent distress at the time of my examination. VITAL SIGNS: Reviewed. HEENT: Head is atraumatic, normocephalic. Pupils are equal, round. Sclerae anicteric. Conjunctivae are clear. Mucous membranes of the mouth are moist. Neck is supple. There is no elevated jugular venous pressure. No carotid bruit is heard. CHEST EXAMINATION: Clear to auscultation bilaterally. No wheezes rales or rhonchi. Respirations even and nonlabored. HEART EXAMINATION: Heart regular, positive S1 and S2. No S3. No S4. No clicks, rubs or murmurs. ABDOMEN: Soft, nontender. Bowel sounds are heard. No organomegaly noted. EXTREMITIES: 2+ peripheral pulses with no evidence of peripheral edema and no calf tenderness noted. NEUROLOGIC EXAMINATION: Patient is awake, alert and oriented x3. Assessment: 1. CAD status post stenting in the past 2. Status post TAVR 3. PACs 4. Anemia Plan: From cardiology's perspective EKGs and telemetry rhythm strips were reviewed and there is no evidence of atrial fibrillation. Patient has complaint PACs, asymptomatic. Will obtain a 2D echo with Doppler study. We will increase dose of metoprolol to 50 mg p.o. twice daily. We will continue to follow the patient and provide further recommendations accordingly. Thank you kindly for this consultation. Nurse practitioner note has been reviewed, I agree with documented findings and plan of care. Patient was seen and examined. Past Medical History Past Medical History: Coronary Artery Disease (CAD), Cancer, GERD/Reflux, Hypertension, Skin Disorder Additional Past Medical History / Comment(s): Hx. of CML, Hx. of Shingles L eye, Cysts on L kidney. History of Any Multi-Drug Resistant Organisms: None Reported Past Surgical History: Cholecystectomy, Heart Catheterization With Stent, Hernia Repair, Orthopedic Surgery Additional Past Surgical History / Comment(s): Thyroid surgery,Vasectomy, R ankle surgery, Sinus surgery, Basal cell R shoulder, Pyloroplasty & Vagotomy, Hemorrhoidectomy, Cataract surgery & bx. of inner thigh.aortic valve 04/29/22 Past Anesthesia/Blood Transfusion Reactions: No Reported Reaction Date of Last Stent Placement:: 2005 Past Psychological History: No Psychological Hx Reported Smoking Status: Former smoker Past Alcohol Use History: None Reported Past Drug Use History: None Reported - Past Family History Mother Family Medical History: Cancer, Pulmonary Embolus Father Family Medical History: Cancer Brother(s) Family Medical History: Cancer Son(s) Family Medical History: Cancer Medications and Allergies Home Medications Medication Instructions Recorded Confirmed Type Ascorbic Acid [Vitamin C] 1,000 mg PO DAILY 10/24/18 08/13/24 History Aspirin 81 mg PO DAILY 10/24/18 08/13/24 History Losartan [Cozaar] 75 mg PO DIRECTED 10/24/18 08/13/24 History Metoprolol Tartrate [Lopressor] 25 mg PO BID 10/24/18 08/13/24 History Nitroglycerin Sl Tabs [Nitrostat] 0.4 mg SL Q5M PRN 10/24/18 08/13/24 History Ubidecarenone [Co Q-10] 100 mg PO DAILY 10/24/18 08/13/24 History Docusate [Colace] 100 mg PO BID 11/05/20 08/13/24 History Albuterol Inhaler [Ventolin Hfa 2 puff INHALATION RT-QID PRN 02/09/22 08/13/24 History Inhaler] Fluticasone/Vilanterol [Breo 1 puff INHALATION RT-DAILY PRN 02/09/22 08/13/24 History Ellipta 200-25 Mcg Inhaler] Zinc Gluconate [Zinc] 50 mg PO DAILY 02/14/22 08/13/24 History Cholecalciferol [Vitamin D3 (125 125 mcg PO DAILY 06/23/22 08/13/24 History Mcg = 5000 Iu)] Dasatinib [Sprycel] 100 mg PO DAILY@0300 06/23/22 08/13/24 History Multivitamin/Iron/Folic Acid 1 tab PO DAILY 11/27/23 08/13/24 History [Centrum Adults Tablet] valACYclovir HCL [Valtrex] 500 mg PO TID 11/27/23 08/13/24 History Cranberry 450mg 450 mg PO DAILY 08/13/24 08/13/24 History Dicyclomine [Bentyl] 10 mg PO TID 08/13/24 08/13/24 History Prosynbiotic 1 cap PO BID 08/13/24 08/13/24 History Quercetin 800mg 800 mg PO BID 08/13/24 08/13/24 History Furosemide [Lasix] 20 mg PO DAILY 08/14/24 08/14/24 History Allergies Allergy/AdvReac Type Severity Reaction Status Date / Time adhesive tape Allergy Rash/Hives,"paper Verified 08/13/24 20:53 tape is ok" amoxicillin [From Augmentin] Allergy Rash/Hives Verified 08/13/24 20:53 clavulanic acid Allergy Rash/Hives Verified 08/13/24 20:53 [From Augmentin] mold Allergy Rash/Hives Verified 08/13/24 20:53 atorvastatin [From Lipitor] AdvReac Muscle Verified 08/13/24 20:53 Aches budesonide [From Symbicort] AdvReac Vision Verified 08/13/24 20:53 issues ciprofloxacin AdvReac Muscle Verified 08/13/24 20:53 aches doxycycline AdvReac Rectal Verified 08/13/24 20:53 Bleeding enalapril AdvReac Cough Verified 08/13/24 20:53 ezetimibe [From Vytorin] AdvReac Muscle Verified 08/13/24 20:53 Aches/Elevated liver enzymes fluticasone AdvReac Irregular Verified 08/13/24 20:53 [From Advair Diskus] heart rate formoterol [From Symbicort] AdvReac Vision Verified 08/13/24 20:53 issues nilotinib [From Tasigna] AdvReac Pancreatiti Verified 08/13/24 20:53 s salmeterol AdvReac Irregular Verified 08/13/24 20:53 [From Advair Diskus] heart rate simvastatin [From Vytorin] AdvReac Muscle Verified 08/13/24 20:53 Aches Julrhlb-DHH-EaI Reductase AdvReac Muscle Verified 08/13/24 20:53 Inhibitor aches [Ssnvcxh-Vbu-For Reductase Inhibitor] Cotton material Allergy itching, Uncoded 05/11/24 17:24 hives dust mites Allergy allergy Uncoded 08/13/24 20:53 test mildew Allergy prosynbioti Uncoded 08/13/24 20:53 c Physical Exam Vitals: Vital Signs Temp Pulse Pulse Resp BP BP Pulse Ox 08/14/24 08:00 18 08/14/24 07:26 98.9 F 73 18 118/64 96 08/13/24 23:51 98.0 F 84 16 136/65 97 08/13/24 22:51 98.3 F 90 20 127/68 97 08/13/24 20:40 98 18 139/73 95 08/13/24 20:16 16 08/13/24 18:41 82 18 150/71 98 08/13/24 15:12 98.5 F 78 16 122/55 99 Intake and Output 08/13/24 08/14/24 08/14/24 22:59 06:59 14:59 Other: Voiding Method Self-Catheterization Self-Catheterization # Voids 4 Weight 92.986 kg Results 08/14/24 05:44 08/14/24 05:44 Cardiac Enzymes 08/13/24 08/13/24 08/13/24 Range/Units 15:43 15:43 19:39 AST 30 (17-59) U/L Troponin I <0.012 <0.012 (0.000-0.034) ng/mL 08/13/24 08/14/24 Range/Units 23:34 05:44 AST 27 (17-59) U/L Troponin I 0.013 (0.000-0.034) ng/mL Coagulation 08/13/24 Range/Units 15:43 PT 11.4 (10.0-12.5) sec APTT 22.5 (22.0-30.0) sec CBC 08/13/24 08/14/24 Range/Units 15:43 05:44 WBC 7.33 8.10 (4.50-10.00) 10*3/uL RBC 2.07 L 1.88 L (4.40-5.60) 10*6/uL Hgb 7.8 L 7.2 L (13.0-17.0) g/dL Hct 23.4 L 21.4 L (39.6-50.0) % Plt Count 218 178 (140-440) 10*3/uL Comprehensive Metabolic Panel 08/13/24 08/14/24 Range/Units 15:43 05:44 Sodium 139 137 (137-145) mmol/L Potassium 4.7 4.1 (3.5-5.1) mmol/L Chloride 108 H 108 H (98-107) mmol/L Carbon Dioxide 22 18 L (22-30) mmol/L BUN 35 H 34 H (9-20) mg/dL Creatinine 1.62 H 1.32 H (0.66-1.25) mg/dL Glucose 111 H 98 (74-99) mg/dL Calcium 9.3 8.8 (8.4-10.2) mg/dL AST 30 27 (17-59) U/L ALT 20 16 (4-49) U/L Alkaline Phosphatase 70 62 (38-126) U/L Total Protein 6.9 6.0 L (6.3-8.2) g/dL Albumin 4.0 3.5 (3.5-5.0) g/dL Current Medications Generic Name Dose Route Start Last Admin Trade Name Freq PRN Reason Stop Dose Admin Albuterol/Ipratropium 3 ml 08/13/24 19:13 Ipratropium-Albuterol 3 Ml Neb INHALATION RT-Q4H PRN shortness of breath Heparin Sodium (Porcine) 5,000 unit 08/14/24 08:00 08/14/24 10:38 Heparin Sodium,Porcine 5,000 Unit/Ml 1 Ml Vial SQ 5,000 unit Q8HR JACOB Administration Ceftriaxone Sodium 2 gm/ 50 mls @ 100 mls/hr 08/14/24 09:00 08/14/24 10:38 Sodium Chloride IVPB 08/17/24 09:29 100 mls/hr Q24HR JACOB Administration Protocol Lactated Ringer's 1,000 mls @ 120 mls/hr 08/14/24 06:30 08/14/24 10:38 Lactated Ringers IV 120 mls/hr .Q8H20M JACOB Administration Metoprolol Tartrate 50 mg 08/14/24 10:00 08/14/24 10:46 Metoprolol Tartrate 50 Mg Tab PO 50 mg BID JACOB Administration Miscellaneous Information 1 each 08/13/24 19:13 Pneumonia Protocol Utilized 1 Each Misc PO ONCE PRN Per Protocol Morphine Sulfate 4 mg 08/13/24 19:08 Morphine Sulfate 4 Mg/Ml Syringe IV Q4HR PRN Severe Pain (Scale 7 to 10) Naloxone HCl 0.2 mg 08/13/24 19:08 Naloxone 0.4 Mg/Ml 1 Ml Vial IV Q2M PRN Opioid Reversal Ondansetron HCl 4 mg 08/13/24 19:08 Ondansetron 4 Mg/2 Ml Vial IVP Q8HR PRN Nausea And Vomiting Pantoprazole Sodium 40 mg 08/14/24 09:00 08/14/24 10:38 Pantoprazole 40 Mg/10 Ml Vial IV 40 mg DAILY JACOB Administration Intake and Output 08/13/24 08/14/24 08/14/24 22:59 06:59 14:59 Other: Voiding Method Self-Catheterization Self-Catheterization # Voids 4 Weight 92.986 kg 08/14/24 05:44 08/14/24 05:44
--- NOTE | 2024-08-14 13:46 | CA ---
Transthoracic Echo Report Name: Ventura Miller Age: 78 Gender: M : 1945 Exam Date: 08/14/2024 07:36 Exam Location: [place] [facility] Ht (in): 71 Wt (lb): 205 Ordering Physician: Gallito Holman MD Attending/Referring Phys: [employer] Processing Tech Melo Garrett RDCS Procedure CPT: Indications: a fib Cardiac Hx: Biprosthetic aortic valve, CAD, stents, HTN Technical Quality: Good Contrast 1: Total Dose (mL): Contrast 2: Total Dose (mL): MEASUREMENTS (Male / Female) Normal Values 2D ECHO LV Diastolic Diameter PLAX 5.8 cm 4.2 - 5.9 / 3.9 - 5.3 cm LV Systolic Diameter PLAX 3.5 cm IVS Diastolic Thickness 1.3 cm 0.6 - 1.0 / 0.6 - 0.9 cm LVPW Diastolic Thickness 1.3 cm 0.6 - 1.0 / 0.6 - 0.9 cm LV Relative Wall Thickness 0.4 RV Internal Dim ED PLAX 3.5 cm LVOT Diameter 1.5 cm Aortic Root Diameter 2.3 cm LA Systolic Diameter LX 4.9 cm 3.0 - 4.0 / 2.7 - 3.8 cm LV Diastolic Volume MOD BP 140.4 cm??? 67 - 155 / 56 - 104 cm??? LV Systolic Volume MOD BP 53.6 cm??? 22 - 58 / 19 - 49 cm??? LV Ejection Fraction MOD BP 61.8 % >= 55 % LV Cardiac Index MOD BP 3824.0 cm???/min???m??? LV Diastolic Volume MOD 4C 138.9 cm??? LV Systolic Volume MOD 4C 57.1 cm??? LV Ejection Fraction MOD 4C 58.9 % LV Cardiac Index MOD 4C 3609.6 cm???/min???m??? LV Diastolic Length 4C 9.1 cm LV Systolic Length 4C 8.0 cm LV Diastolic Volume MOD 2C 138.8 cm??? LV Systolic Volume MOD 2C 47.6 cm??? LV Ejection Fraction MOD 2C 65.7 % LV Cardiac Index MOD 2C 4021.8 cm???/min???m??? LV Diastolic Length 2C 8.9 cm LV Systolic Length 2C 7.5 cm DOPPLER AV Peak Velocity 263.7 cm/s AV Peak Gradient 27.8 mmHg AV Mean Velocity 192.4 cm/s AV Mean Gradient 16.9 mmHg AV Velocity Time Integral 55.0 cm MV Peak Velocity 121.5 cm/s MV Peak Gradient 5.9 mmHg MV Mean Velocity 84.4 cm/s MV Mean Gradient 3.2 mmHg MV Velocity Time Integral 42.1 cm Mitral E Point Velocity 107.7 cm/s Mitral A Point Velocity 117.7 cm/s Mitral E to A Ratio 0.9 MV Deceleration Time 283.8 ms MV E' Velocity 6.1 cm/s Mitral E to MV E' Ratio 17.5 TR Peak Velocity 272.6 cm/s TR Peak Gradient 29.7 mmHg Right Atrial Pressure 10.0 mmHg Pulmonary Artery Systolic Pressu 39.7 mmHg Right Ventricular Systolic Press 39.7 mmHg FINDINGS Left Ventricle Left ventricular ejection fraction is estimated at 55-60 %. Mild concentric left ventricular hypertrophy. No obvious regional wall motion abnormalities. Mild left ventricular dilatation. Right Ventricle Normal right ventricular size and function. Mild pulmonary hypertension. Right ventricular systolic pressure estimated at 40 mm hg. Right Atrium Severe right atrial dilatation. Left Atrium Moderately increased left atrial diameter. Mitral Valve Mitral valve thickened. No mitral stenosis. Mild mitral regurgitation. Aortic Valve Bioprosthetic aortic valve. Peak velocity 2.6 m/s, mean gradient is 17 mmHg. No aortic regurgitation. Tricuspid Valve Structurally normal tricuspid valve. No tricuspid stenosis. Mild tricuspid regurgitation. Pulmonic Valve Structurally normal pulmonic valve. No pulmonic stenosis. Trace pulmonic regurgitation. Pericardium Small pericardial effusion. Left pleural effusion. Aorta Aortic annulus normal. CONCLUSIONS 1. Normal left ventricular size and systolic function 2. Mild mitral and tricuspid regurgitation with mild pulmonary hypertension 3. Bioprosthetic aortic valve with a mean gradient of 17 mmHg 4. Small pericardial effusion Previewed by: Dr. Jami Hannon MD (Electronically Signed) Final Date: 14 August 2024 13:45
[2024-08-14] MEDS ORDERED: SYMBICORT 160-4.5 MCG INHALER INHALATION PRN (15:59)
[2024-08-14] MEDS ORDERED: ALBUTEROL NEBULIZED 2.5 MG/3 ML INHALATION PRN (15:59)
--- NOTE | 2024-08-14 16:38 | P.PN ---
Subjective Progress Note Date: 08/14/24 Hospital course:: Patient is a pleasant 78-year-old male with a past medical history of CML fol lows with Dr. Arellano and currently maintained on oral chemotherapy agent, CAD status post stenting, history of aortic valve replacement via TAVR at [facility], hypertension, and asthma/COPD. Patient presented to our facility on 08/13/2024 secondary to reports of abnormal labs. Patient reports was notified by MA that he needed to be evaluated in the emergency department secondary to findings of low hemoglobin. Patient admits to generalized fatigue and weakness and shortness of breath with exertion. Family also reporting concerns over a possible UTI. Upon arrival to our facility, patient underwent evaluation in the emergency department. Vital signs upon arrival show blood pressure 122/55, heart rate 78, respiratory rate 16, temp 98.5 F, and SpO2 of 99% on room air. EKG completed and was low voltage but showing normal sinus rhythm at 86 bpm with frequent PACs upon personal review and interpretation. Chest x-ray completed showing left lower lobe infiltrate with a pleural effusion concerning for pneumonia and cardiomegaly. Labs completed and reviewed. CBC showing macrocytic anemia with hemoglobin of 7.8, MCV of 113.0, and MCH of 37.7. Coagulation profile normal findings. BMP showing hyperchloremia with chloride of 108 and renal function consistent with CKD stage IIIb with BUN of 35, creatinine 1.62, GFR 40, slightly higher than baseline with baseline creatinine of 1.3- 1.4. Blood glucose 111. Calcium 9.3. Magnesium 2.3. Liver profile unremarkable. Troponin was negative at less than 0.012. Patient started on IV antibiotics for treatment of community-acquired pneumonia and admitted under services with consultation to cardiology and hematology/oncology. Troponins were trended resulting at less than 0.012, less than 0.012, and 0.013. Echocardiogram completed showing a preserved EF of 55 to 60% with mild mitral and tricuspid regurgitation, mild pulmonary hypertension, and bioprosthetic aortic valve with a mean gradient of 17 mmHg and small pericardial effusion Physical exam: Patient seen and fully evaluated at bedside this morning. He was sitting on the edge of the bed and reports feeling "all right" this morning. Patient reports he has been experiencing significant fatigue, lack of energy, weakness and shortness of breath with any exertion. Patient reports he is sure he will be short of breath if he simply tries to walk to the bathroom. He denies currently experiencing chest pain, shortness of breath at rest, headache, lightheadedness, dizziness, or experiencing any other complaints at this time. Patient denies having any noted black stools or blood in stools. Vital signs reviewed and stable. General: Nontoxic, no distress and appears stated age. Derm: Skin warm and dry, normal coloration for ethnicity. Head: Atraumatic, normocephalic and symmetric. Eyes: EOM's intact, no lid lag, and anicteric sclera Mouth: no lip lesions, mucus membranes moist Cardiovascular: regular rate and rhythm with normal S1S2, soft systolic murmur, positive posterior tibial pulses bilaterally, and cap refill < 2 seconds. Lungs: Respirations even, regular, and unlabored on room air. Lungs diminished, no rhonchi, no rales, no wheezing, and no accessory muscle usage. Abdominal: soft, nontender to palpation, no guarding, no appreciable organomegaly Ext: ROM intact. No gross muscle atrophy, no edema, no contractures Neuro: Speech clear, face symmetrical and CN II-XII grossly intact with no noted focal neuro deficits Psych: Alert and oriented to person, place, time, and situation. Appropriate and pleasant affect. Assessment and Plan of Care: Chest pain, acute coronary event ruled out Left pleural effusion/infiltrate, rule out community-acquired pneumonia Pericardial effusion -Cardiology following, reviewed documentation in chart -Troponins were trended resulting at less than 0.012, less than 0.012, and 0.013. -Oxygenation to be administered and titrated as needed to maintain SPO2 equal to or greater than 90% -Telemetry monitoring. -Monitor Pulse-oximetry -Duonebs every 4 hours as needed for SOB and/or wheezing -Incentive Spirometry -Antibiotics: Azithromycin 500 mg daily and Rocephin 2 g daily pending further workup and procalcitonin results - Follow-up on blood culture - Echocardiogram completed showing a preserved EF of 55 to 60% with mild mitral and tricuspid regurgitation, mild pulmonary hypertension, and bioprosthetic aort ic valve with a mean gradient of 17 mmHg and small pericardial effusion Abnormal urinalysis, possible UTI NIKITA on CKD stage IIIa, resolved renal function back at baseline - NIKITA resolved with renal function back at baseline with BUN of 34, creatinine 1.32, GFR 51. Blood glucose 98. Magnesium 2.3. - Patient on Rocephin 2 g daily for above, will also provide coverage for UTI CML with chronic macrocytic anemia - Hold Chemotherapeutic agent Dasatinib (Sprycel) pending further workup -Consult placed to hematology/oncology, appreciate recommendations. - Hemoglobin downtrending from 7.8 down to 7.2 this morning. Will repeat hemoglobin levels again this afternoon and tomorrow morning to monitor for any changes, will transfuse as indicated for hemoglobin less than 7. History of CAD status post stenting History of aortic valve replacement via TAVR at [facility] Hypertension Continue cardiac medication regimen with aspirin 81 mg daily, losartan 75 mg daily, metoprolol increased by cardiology to 50 mg twice daily, and Lasix held at this time. Data and imaging reviewed: -Labs completed and reviewed. Troponins were trended resulting at less than 0.012, less than 0.012, and 0.013. CBC showing macrocytic anemia with hemoglobin of 7.2 on MCV 113.8. BMP showing non anion gap metabolic acidosis with chloride of 108, bicarb of 18, and anion gap of 11 with slight improvement of renal function with BUN of 34, creatinine 1.32, GFR 51. Blood glucose 98. Calcium 8.8. Magnesium 2.3. Liver profile remains unremarkable. Vitamin B12 333, folate 19.70, homocysteine was high at 16.90. -Echocardiogram completed showing a preserved EF of 55 to 60% with mild mitral and tricuspid regurgitation, mild pulmonary hypertension, and bioprosthetic aortic valve with a mean gradient of 17 mmHg and small pericardial effusion -Vital signs reviewed. Blood pressure 118/64, heart rate 73, respiratory rate 18, temp 90.9 F, and SpO2 of 96% on room air. CODE STATUS: Full code DVT prophylaxis: VINCENT hose and SCDs, initially placed on heparin for DVT prophylaxis however hemoglobin continues to downtrend from 7.8 down to 7.2 and heparin discontinued and patient to be placed in VINCENT hose and SCDs Anticipated discharge date: Pending clinical course Anticipated discharge place: Pending clinical course Patient was seen independently by Nurse Practitioner. This document was prepared using [employer] dictation software. Please allow for errors in bone char kiln operator while rare they do occur. Burak Sibley NP rendered care for this patient independently, reviewed the findings and plan as documented in the note above and agree with plan. I did not physically speak with or examine the patient on this date. Objective - Vital Signs Vital signs: Vital Signs Temp 98.9 F 08/14/24 07:26 Pulse 73 08/14/24 07:26 Resp 18 08/14/24 07:26 BP 118/64 08/14/24 07:26 Pulse Ox 96 08/14/24 07:26 FiO2 Intake & Output 08/13/24 08/14/24 08/14/24 18:59 06:59 18:59 Weight 92.986 kg 92.986 kg Other: Voiding Method Self-Catheterization # Voids 4 - Labs CBC & Chem 7: 08/14/24 05:44 08/14/24 05:44 Labs: Abnormal Lab Results - Last 24 Hours (Table) 08/13/24 08/13/24 08/13/24 Range/Units 15:43 15:43 19:00 RBC 2.07 L (4.40-5.60) 10*6/uL Hgb 7.8 L (13.0-17.0) g/dL Hct 23.4 L (39.6-50.0) % MCV 113.0 H (80.0-97.0) fL MCH 37.7 H (27.0-32.0) pg RDW (11.5-14.5) % MPV 9.0 L (9.5-12.2) fL Eosinophils # 0.02 L (0.04-0.35) 10*3/uL Chloride 108 H (98-107) mmol/L Carbon Dioxide (22-30) mmol/L BUN 35 H (9-20) mg/dL Creatinine 1.62 H (0.66-1.25) mg/dL Glucose 111 H (74-99) mg/dL Total Protein (6.3-8.2) g/dL Urine Protein Trace H (Negative) Urine Ketones Trace H (Negative) Ur Leukocyte Esterase Large H (Negative) Urine WBC 44 H (0-5) /hpf Urine Bacteria Many H (None) /hpf 08/14/24 08/14/24 Range/Units 05:44 05:44 RBC 1.88 L (4.40-5.60) 10*6/uL Hgb 7.2 L (13.0-17.0) g/dL Hct 21.4 L (39.6-50.0) % MCV 113.8 H (80.0-97.0) fL MCH 38.3 H (27.0-32.0) pg RDW 14.8 H (11.5-14.5) % MPV 8.9 L (9.5-12.2) fL Eosinophils # 0.02 L (0.04-0.35) 10*3/uL Chloride 108 H (98-107) mmol/L Carbon Dioxide 18 L (22-30) mmol/L BUN 34 H (9-20) mg/dL Creatinine 1.32 H (0.66-1.25) mg/dL Glucose (74-99) mg/dL Total Protein 6.0 L (6.3-8.2) g/dL Urine Protein (Negative) Urine Ketones (Negative) Ur Leukocyte Esterase (Negative) Urine WBC (0-5) /hpf Urine Bacteria (None) /hpf
[2024-08-14] MEDS: AZITHROMYCIN 500 MG in SODIUM CHLORIDE 0.9% 250 ML IVPB SCH (17:00)
[2024-08-14] MEDS: valACYclovir HCL 500 MG TAB PO SCH (17:01)
[2024-08-14] MEDS: DICYCLOMINE 10 MG CAP PO SCH (17:01)
[2024-08-14] MEDS: LOSARTAN 25 MG TAB PO SCH (17:01)
[2024-08-14 17:58] LABS: Basophils # (A) 0.03 10*3/uL (0.00-0.10); Basophils % (A) 0.5 %; Eosinophils # (A) 0.04 10*3/uL (0.04-0.35); Eosinophils % (A) 0.6 %; HCT 21.4 % (39.6-50.0); HGB 7.2 g/dL (13.0-17.0); Lymphocytes # (A) 2.58 10*3/uL (0.90-5.00); Lymphocytes % (A) 39.6 %; MCH 38.7 pg (27.0-32.0); MCHC 33.6 g/dL (32.0-37.0); MCV 115.1 fL (80.0-97.0); Mean Platelet Volume 8.9 fL (9.5-12.2); Monocytes # (A) 0.49 10*3/uL (0.20-1.00); Monocytes % (A) 7.5 %; Neutrophils # (A) 3.35 10*3/uL (1.80-7.70); Neutrophils % (A) 51.5 %; Platelet Count 210 10*3/uL (140-440); RBC 1.86 10*6/uL (4.40-5.60); RDW 15.2 % (11.5-14.5); WBC 6.51 10*3/uL (4.50-10.00)
[2024-08-14 18:33] LABS: Polychromasia Present
[2024-08-14] MEDS: DOCUSATE 100 MG CAP PO SCH (22:06)
[2024-08-14] MEDS: LACTOBACILLUS ACIDOPHILUS/PECT 1 EACH CAPSULE PO SCH (22:06)
--- NOTE | 2024-08-14 22:37 | P.CONS ---
History of Present Illness - Reason for Consult Consult date: 08/14/24 anemia, CML Requesting physician: Oswaldo Simpson - Chief Complaint abn lab - History of Present Illness Mr. Miller is a long time pt initially seen at [facility] in 2010 for a mild anemia, Hgb in the 13-14 range, w/u was negative, and he was followed with observation till 09/13, after which he continued f/u with his PCP, Dr Elkins. Since early 2014, it was noted that all his cell lines were showing an increase on serial blood draws. WBC/plt on 02/19/14 were 12.9/257, and on 04/23/14 were 25.3, and 446, Hgb 14-15 range compared to his baseline of 13-13.5. 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 However the increase in counts was too persistent to be explained by the same. His WBC differential had also shown a left shift. He was thus referred to Hematology for further evaluation. 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 BCR-ABL was positive, confirming CML. Started tasigna 06/10/14, but was [facility]14 with pancreatitis, that appeared to be drug induced. Tasigna was stopped, and he improved with conservative management, with discharge on 06/19/14. He continued to have GI discomfort and nausea with slow resolution. H is GI complaints ultimately did resolve. He was started on Sprycel in 08/18. BCR-ABL PCR had shown a slow upward trend early 2015, then stabilized by 02/18. PCR testing was consistently above 1% so, BM Bx done 03/09/16, revealed no evidence of progression. He has remained on sprycel since. He was admitted Feb 2023 for bactremia s/p catherization. He was having some urinary incontinence at that time. He was in ER in Mar for weakness. He had TVAR on clinical trial at [facility] and was in ER in early June, transferred to [facility]. He was seen by Urology for anuria, he has been straight catherizing himself since. Pt was experiencing SOB with activity, had blood work and was contacted to go to ER. Anemia was worked up in July. Denies any bleeding, hematuria, hematochezia or melena. Urine is suspicious. He does straight cath himself 5x/d. Review of Systems 10 point ROS is neg except as stated in HPI Past Medical History Past Medical History: Coronary Artery Disease (CAD), Cancer, GERD/Reflux, Hypertension, Skin Disorder Additional Past Medical History / Comment(s): Hx. of CML, Hx. of Shingles L eye, Cysts on L kidney. History of Any Multi-Drug Resistant Organisms: None Reported Past Surgical History: Cholecystectomy, Heart Catheterization With Stent, Hernia Repair, Orthopedic Surgery Additional Past Surgical History / Comment(s): Thyroid surgery,Vasectomy, R ankle surgery, Sinus surgery, Basal cell R shoulder, Pyloroplasty & Vagotomy, Hemorrhoidectomy, Cataract surgery & bx. of inner thigh.aortic valve 04/29/22 Past Anesthesia/Blood Transfusion Reactions: No Reported Reaction Date of Last Stent Placement:: 2005 Past Psychological History: No Psychological Hx Reported Smoking Status: Former smoker Past Alcohol Use History: None Reported Past Drug Use History: None Reported - Past Family History Mother Family Medical History: Cancer, Pulmonary Embolus Father Family Medical History: Cancer Brother(s) Family Medical History: Cancer Son(s) Family Medical History: Cancer Medications and Allergies Home Medications Medication Instructions Recorded Confirmed Type Ascorbic Acid [Vitamin C] 1,000 mg PO DAILY 10/24/18 08/13/24 History Aspirin 81 mg PO DAILY 10/24/18 08/13/24 History Losartan [Cozaar] 75 mg PO DIRECTED 10/24/18 08/13/24 History Metoprolol Tartrate [Lopressor] 25 mg PO BID 10/24/18 08/13/24 History Nitroglycerin Sl Tabs [Nitrostat] 0.4 mg SL Q5M PRN 10/24/18 08/13/24 History Ubidecarenone [Co Q-10] 100 mg PO DAILY 10/24/18 08/13/24 History Docusate [Colace] 100 mg PO BID 11/05/20 08/13/24 History Albuterol Inhaler [Ventolin Hfa 2 puff INHALATION RT-QID PRN 02/09/22 08/13/24 History Inhaler] Fluticasone/Vilanterol [Breo 1 puff INHALATION RT-DAILY PRN 02/09/22 08/13/24 History Ellipta 200-25 Mcg Inhaler] Zinc Gluconate [Zinc] 50 mg PO DAILY 02/14/22 08/13/24 History Cholecalciferol [Vitamin D3 (125 125 mcg PO DAILY 06/23/22 08/13/24 History Mcg = 5000 Iu)] Dasatinib [Sprycel] 100 mg PO DAILY@0300 06/23/22 08/13/24 History Multivitamin/Iron/Folic Acid 1 tab PO DAILY 11/27/23 08/13/24 History [Centrum Adults Tablet] valACYclovir HCL [Valtrex] 500 mg PO TID 11/27/23 08/13/24 History Cranberry 450mg 450 mg PO DAILY 08/13/24 08/13/24 History Dicyclomine [Bentyl] 10 mg PO TID 08/13/24 08/13/24 History Prosynbiotic 1 cap PO BID 08/13/24 08/13/24 History Quercetin 800mg 800 mg PO BID 08/13/24 08/13/24 History Furosemide [Lasix] 20 mg PO DAILY 08/14/24 08/14/24 History Allergies Allergy/AdvReac Type Severity Reaction Status Date / Time adhesive tape Allergy Rash/Hives,"paper Verified 08/13/24 20:53 tape is ok" amoxicillin [From Augmentin] Allergy Rash/Hives Verified 08/13/24 20:53 clavulanic acid Allergy Rash/Hives Verified 08/13/24 20:53 [From Augmentin] mold Allergy Rash/Hives Verified 08/13/24 20:53 atorvastatin [From Lipitor] AdvReac Muscle Verified 08/13/24 20:53 Aches budesonide [From Symbicort] AdvReac Vision Verified 08/13/24 20:53 issues ciprofloxacin AdvReac Muscle Verified 08/13/24 20:53 aches doxycycline AdvReac Rectal Verified 08/13/24 20:53 Bleeding enalapril AdvReac Cough Verified 08/13/24 20:53 ezetimibe [From Vytorin] AdvReac Muscle Verified 08/13/24 20:53 Aches/Elevated liver enzymes fluticasone AdvReac Irregular Verified 08/13/24 20:53 [From Advair Diskus] heart rate formoterol [From Symbicort] AdvReac Vision Verified 08/13/24 20:53 issues nilotinib [From Tasigna] AdvReac Pancreatiti Verified 08/13/24 20:53 s salmeterol AdvReac Irregular Verified 08/13/24 20:53 [From Advair Diskus] heart rate simvastatin [From Vytorin] AdvReac Muscle Verified 08/13/24 20:53 Aches Oniaglt-LIL-SpL Reductase AdvReac Muscle Verified 08/13/24 20:53 Inhibitor aches [Zahnidh-Hvz-Unq Reductase Inhibitor] Cotton material Allergy itching, Uncoded 05/11/24 17:24 hives dust mites Allergy allergy Uncoded 08/13/24 20:53 test mildew Allergy prosynbioti Uncoded 08/13/24 20:53 c Physical Exam Vitals: Vital Signs Temp Pulse Pulse Resp BP BP Pulse Ox 08/14/24 07:26 98.9 F 73 18 118/64 96 08/13/24 23:51 98.0 F 84 16 136/65 97 08/13/24 22:51 98.3 F 90 20 127/68 97 08/13/24 20:40 98 18 139/73 95 08/13/24 20:16 16 08/13/24 18:41 82 18 150/71 98 08/13/24 15:12 98.5 F 78 16 122/55 99 Intake and Output 08/13/24 08/14/24 08/14/24 22:59 06:59 14:59 Other: Voiding Method Self-Catheterization # Voids 4 Weight 92.986 kg - Constitutional General appearance: average body habitus, cooperative, no acute distress - EENT Eyes: anicteric sclerae, EOMI ENT: hearing grossly normal - Respiratory Respiratory: bilateral: CTA - Cardiovascular Rhythm: irregularly irregular Heart sounds: normal: S1, S2 Abnormal Heart Sounds: no systolic murmur, no diastolic murmur, no rub, no S3 Gallop, no S4 Gallop, no click, no other leg Peripheral Edema: bilateral: Trace - Gastrointestinal General gastrointestinal: soft - Integumentary Integumentary: pale - Neurologic Neurologic: CNII-XII intact - Musculoskeletal Musculoskeletal: strength equal bilaterally - Psychiatric Psychiatric: A&O x's 3, appropriate affect, intact judgment & insight Results CBC & Chem 7: 08/14/24 17:19 08/14/24 05:44 Labs: Abnormal Lab Results - Last 24 Hours (Table) 08/13/24 08/13/24 08/13/24 Range/Units 15:43 15:43 19:00 RBC 2.07 L (4.40-5.60) 10*6/uL Hgb 7.8 L (13.0-17.0) g/dL Hct 23.4 L (39.6-50.0) % MCV 113.0 H (80.0-97.0) fL MCH 37.7 H (27.0-32.0) pg RDW (11.5-14.5) % MPV 9.0 L (9.5-12.2) fL Eosinophils # 0.02 L (0.04-0.35) 10*3/uL Chloride 108 H (98-107) mmol/L Carbon Dioxide (22-30) mmol/L BUN 35 H (9-20) mg/dL Creatinine 1.62 H (0.66-1.25) mg/dL Glucose 111 H (74-99) mg/dL Total Protein (6.3-8.2) g/dL Urine Protein Trace H (Negative) Urine Ketones Trace H (Negative) Ur Leukocyte Esterase Large H (Negative) Urine WBC 44 H (0-5) /hpf Urine Bacteria Many H (None) /hpf 08/14/24 08/14/24 Range/Units 05:44 05:44 RBC 1.88 L (4.40-5.60) 10*6/uL Hgb 7.2 L (13.0-17.0) g/dL Hct 21.4 L (39.6-50.0) % MCV 113.8 H (80.0-97.0) fL MCH 38.3 H (27.0-32.0) pg RDW 14.8 H (11.5-14.5) % MPV 8.9 L (9.5-12.2) fL Eosinophils # 0.02 L (0.04-0.35) 10*3/uL Chloride 108 H (98-107) mmol/L Carbon Dioxide 18 L (22-30) mmol/L BUN 34 H (9-20) mg/dL Creatinine 1.32 H (0.66-1.25) mg/dL Glucose (74-99) mg/dL Total Protein 6.0 L (6.3-8.2) g/dL Urine Protein (Negative) Urine Ketones (Negative) Ur Leukocyte Esterase (Negative) Urine WBC (0-5) /hpf Urine Bacteria (None) /hpf Chest x-ray: report reviewed Assessment and Plan (1) Anemia Current Visit: Yes Status: Chronic Priority: High Code(s): D64.9 - ANEMIA, UNSPECIFIED SNOMED Code(s): 392127047 (2) UTI (urinary tract infection) Current Visit: Yes Status: Acute Priority: High Code(s): N39.0 - URINARY TRACT INFECTION, SITE NOT SPECIFIED SNOMED Code(s): 32599648 (3) CML (chronic myeloid leukemia) Current Visit: No Status: Chronic Priority: Low Code(s): C92.10 - CHRONIC MYELOID LEUK, BCR/ABL-POSITIVE, NOT ACHIEVE REMIS SNOMED Code(s): 60368856 Plan: Macrocytic anemia - Workup was done in the office last month, no paraproteinemia, iron deficiency or other nutritional deficiencies were noted. - [place] may possibly be related to chronic kidney disease. Patient has been referred to Nephrology - Counts can drop further when acutely ill. Patient does have suspect UTI so, Sprycel will be held for now. - Additional workup for anemia can be completed in the outpatient setting as the patient is overall stable Urinary tract infection - Suspected based on urinary analysis, pending culture and sensitivity. - Patient is on empiric antibiotics currently Chronic myeloid leukemia - Diagnosis and treatment as stated in HPI. - Patient's BCR-ABL has been overall stable on Sprycel for many years. -During episodes of acute illness Sprycel will be held Will see how patient's counts improve in the a.m. Additional workup will be ordered outpatient as necessary Attests: I have seen and examined pt, performed H&P, developed impression and plan of care. Discussed with dictator, agree with documentation, dictated as a scribe
--- NOTE | 2024-08-15 08:03 | XR ---
EXAMINATION TYPE: XR chest 1V portable DATE OF EXAM: 08/15/2024 7:40 AM COMPARISON: Chest radiographs from 08/14/2024. CLINICAL INDICATION: Male, 78 years old with history of f/u on Left pleural effusion/infiltrate; [facility] TECHNIQUE: XR chest 1V portable Frontal view of the chest. FINDINGS: Lungs/Pleura: Blunting of the left costophrenic angle. There is no evidence of right pleural effusio n, focal consolidation, or pneumothorax Pulmonary vascularity: Unremarkable. Heart/mediastinum: Cardiomediastinal silhouette is enlarged. Musculoskeletal: No acute osseous pathology. Other findings: None IMPRESSION: Stable exam with prominent interstitial lung markings and possible small left pleural effusion. [facility], , 08/15/2024 8:01 AM
[2024-08-15 08:23] LABS: HCT 22.2 % (39.6-50.0); MCH 36.6 pg (27.0-32.0); MCHC 31.5 g/dL (32.0-37.0); MCV 116.2 FL (80.0-97.0); Mean Platelet Volume 9.3 FL (9.5-12.2); NRBC Per 100 WBC 0 X 10*3/uL (0.00-0.01); Platelet Count 226 X 10*3/uL (140-440); RBC 1.91 X 10*6/uL (4.40-5.60); RDW 15.4 % (11.5-14.5); WBC 5.96 X 10*3/uL (4.50-10.00)
[2024-08-15 08:38] LABS: Magnesium 2.3 mg/dL (1.5-2.4)
[2024-08-15 08:40] LABS: ALT 18 U/L (10-49); AST 39 U/L (14-35); Albumin 3.9 g/dL (3.8-4.9); Albumin/Globulin Ratio 1.62 Ratio (1.60-3.17); Alkaline Phosphatase 60 U/L (41-126); BUN/Creat Ratio 25.25 Ratio (12.00-20.00); Blood Urea Nitrogen 30.3 mg/dL (9.0-27.0); Calcium 8.6 mg/dL (8.7-10.3); Carbon Dioxide 18.3 mmol/L (21.6-31.8); Chloride 109 mmol/L (96-109); Globulin 2.4 g/dL (1.6-3.3); Glucose 100 mg/dL (70-110); Potassium 4.4 mmol/L (3.5-5.5); Sodium 137 mmol/L (135-145); Total Bilirubin 0.5 mg/dL (0.3-1.2); Total Protein 6.3 g/dL (6.2-8.2)
[2024-08-15] MEDS: ASCORBIC ACID 500 MG TAB PO SCH (08:46)
[2024-08-15] MEDS: ASPIRIN 81 MG PO SCH (08:47)
[2024-08-15] MEDS: CHOLECALCIFEROL 125 MCG (5000 IU) TABLET PO SCH (08:47)
[2024-08-15] MEDS: MULTIVITAMINS, THERA 1 EACH TAB PO SCH (08:47)
[2024-08-15] MEDS: ZINC SULFATE 220 MG CAP PO SCH (08:47)
[2024-08-15] MEDS: METOPROLOL TARTRATE 25 MG TAB PO SCH (08:48)
--- NOTE | 2024-08-15 13:29 | P.PN ---
Subjective Progress Note Date: 08/15/24 Reason for Consult (text): afib Chief complaint: shortness of breath History of present illness: This is a pleasant 78-year-old male patient of Dr. Wells with past medical history of CML, follows with Dr. Arellano, hypertension, CAD status post stenting x 2, [facility] Presented to the hospital at the advice of the CT. He had routine blood work drawn there yesterday and was called and advised to go to the emergency department due to low hemoglobin. He does complain of feeling weak, tired and short of breath. According to records the family verbalized concerns as he had not been acting himself recently. The patient himself denies any fever, chills, nausea or vomiting. Denies any cough or chest congestion. We were asked to see the patient in consultation for atrial fibrillation.. Diagnostics -EKG: Sinus mechanism with frequent PACs -Chest x-ray: Left lower lobe infiltrate with a left pleural effusion. Correlate for pneumonia. Follow-up is recommended. Cardiomegaly -Renal ultrasound: Bilateral renal cysts -Laboratory studies: Hemoglobin 7.2, sodium 137, potassium 4.1 BUN 35, creatinine 1.62, down to 1.32 this morning, troponin negative x 3 -Home cardiac medications: Lasix 20 mg p.o. daily, metoprolol tartrate 25 mg p.o. twice daily, losartan 75 mg, aspirin 81 mg daily. -Prior stress test: Not available -Echocardiogram: November 2023 normal biventricular systolic function, trans catheter aortic valve with a mean gradient of 14 mmHg and no regurgitation -Cardiac catheterization: February 2022 40 to 45% circumflex disease in the proximal portion and another 40% in the distal portion, obtuse marginal with 40% narrowing, LAD that was stented before widely patent with good flow and non dominant RCA 08/15/2024 Patient seen and examined. Yesterday metoprolol was increased to 50 mg twice daily. Patient voices concern that he has had that increased in the past but then he became quite dizzy after week and the dose was decreased again. He denies dizziness at this time. No chest pain or chest pressure. He states he is okay with walking and has no symptoms. Blood pressure 123/68, heart rate 69, pulse ox 97% on room air. Repeat blood work reveals hemoglobin 7, BUN 30 creatinine 1.2, potassium 4.4. Echocardiogram reveals EF of 55 to 60%, mild mitral intra cuspid regurgitation with mild pulmonary hypertension. Bioprosthetic aortic valve with mean gradient of 17 mmHg. Small pericardial effusion. PHYSICAL EXAMINATION: This is a 78-year-old male in no apparent distress at the time of my examination. VITAL SIGNS: Reviewed. HEENT: Head is atraumatic, normocephalic. Pupils are equal, round. Sclerae anicteric. Conjunctivae are clear. Mucous membranes of the mouth are moist. Neck is supple. There is no elevated jugular venous pressure. No carotid bruit is heard. CHEST EXAMINATION: Clear to auscultation bilaterally. No wheezes rales or rhonchi. Respirations even and nonlabored. HEART EXAMINATION: Heart regular, positive S1 and S2. No S3. No S4. No clicks, rubs or murmurs. ABDOMEN: Soft, nontender. Bowel sounds are heard. No organomegaly noted. EXTREMITIES: 2+ peripheral pulses with no evidence of peripheral edema and no calf tenderness noted. NEUROLOGIC EXAMINATION: Patient is awake, alert and oriented x3. Assessment: 1. CAD status post stenting in the past 2. Status post TAVR 3. PACs 4. Anemia Plan: From cardiology's perspective EKGs and telemetry rhythm strips were reviewed and there is no evidence of atrial fibrillation. Patient has PACs, asymptomatic. Patient concerned about dosing of metoprolol which we will change to 25 mg in the morning and 50 mg in the evening. He is agreeable to try this. Patient is cleared for discharge from cardiology and may follow-up in the office in 1 to 2 weeks. Cardiology will sign off this case and follow on an as-needed basis. Please reconsult for any new concerns. Patient may follow-up in the office in one to 2 weeks. Nurse practitioner note has been reviewed, I agree with documented findings and plan of care. Patient was seen and examined. Objective - Vital Signs Vital signs: Vital Signs Temp 98.2 F 08/15/24 07:25 Pulse 69 08/15/24 07:25 Resp 16 08/15/24 07:25 BP 123/68 08/15/24 07:25 Pulse Ox 98 08/15/24 07:42 FiO2 Intake & Output 06/11/25 06/12/25 06/12/25 18:59 06:59 18:59 Intake Total 238 118 Balance 238 118 Intake: Oral 238 118 Other: Voiding Method Self-Catheterization Self-Catheterization # Voids 2 - Labs CBC & Chem 7: 08/15/24 05:06 08/15/24 05:06 Labs: Abnormal Lab Results - Last 24 Hours (Table) 08/14/24 08/14/24 08/14/24 Range/Units 05:44 05:44 17:19 RBC 1.86 L (4.40-5.60) 10*6/uL Hgb 7.2 L (13.0-17.0) g/dL Hct 21.4 L (39.6-50.0) % MCV 115.1 H (80.0-97.0) fL MCH 38.7 H (27.0-32.0) pg RDW 15.2 H (11.5-14.5) % MPV 8.9 L (9.5-12.2) fL Retic Count 3.62 H (0.10-1.80) % Homocysteine 16.90 H (4.00-14.00) [facility]/L Microbiology - Last 24 Hours (Table) 08/13/24 19:39 Blood Culture - Preliminary Blood
--- NOTE | 2024-08-15 16:06 | P.PN ---
Subjective Progress Note Date: 08/15/24 78-year-old male with a past medical history of CML follows with Dr. Arellano and currently maintained on oral chemotherapy agent, CAD status post stenting, history of aortic valve replacement via TAVR at [facility], hypertension, and asthma/COPD. Patient presented to our facility on 08/13/2024 secondary to report s of abnormal labs. Patient reports was notified by [place] that he needed to be evaluated in the emergency department secondary to findings of low hemoglobin. Patient admits to generalized fatigue and weakness and shortness of breath with exertion. Family also reporting concerns over a possible UTI. Upon arrival to our facility, patient underwent evaluation in the emergency department. Vital signs upon arrival show blood pressure 122/55, heart rate 78, respiratory rate 16, temp 98.5 F, and SpO2 of 99% on room air. EKG completed and was low voltage but showing normal sinus rhythm at 86 bpm with frequent PACs upon personal review and interpretation. Chest x-ray completed showing left lower lobe infiltrate with a pleural effusion concerning for pneumonia and cardiomegaly. Labs completed and reviewed. CBC showing macrocytic anemia with hemoglobin of 7.8, MCV of 113.0, and MCH of 37.7. Coagulation profile normal findings. BMP showing hyperchloremia with chloride of 108 and renal function consistent with CKD stage IIIb with BUN of 35, creatinine 1.62, GFR 40, slightly higher than baseline with baseline creatinine of 1.3- 1.4. Blood glucose 111. Calcium 9.3. Magnesium 2.3. Liver profile unremarkable. Troponin was negative at less than 0.012. Patient started on IV antibiotics for treatment of community-acquired pneumonia and admitted under services with consultation to ca rdiology and hematology/oncology. Troponins were trended resulting at less than 0.012, less than 0.012, and 0.013. Echocardiogram completed showing a preserved EF of 55 to 60% with mild mitral and tricuspid regurgitation, mild pulmonary hypertension, and bioprosthetic aortic valve with a mean gradient of 17 mmHg and small pericardial effusion. 08/15 Patient was seen and examined. No acute events overnight. CBC significant for RBC 1.91, Hg 7, Hct 22.2, MCV 116.2. CMP significant for bicarb 18.3, BUN 30.3, BUN/Cr 25.25, Ca 8.6, AST 39. Cardiology recommends Metoprolol 25 mg PO QAM + 50 mg PO QHS with no further workup, signed off. Hematology recommends outpatient follow up for additional workup. UCx growing GNB, BCx neg so far. Procal 0.22. General: no distress, appears at stated age Derm: warm, dry Head: atraumatic, normocephalic, symmetric Mouth: no lip lesion, mucus membranes moist Cardiovascular: S1 S2 reg. no murmur. Lungs: Decreased BS bilaterally, no accessory muscle use Ext: no gross muscle atrophy, no edema, no contractures Neuro: No focal neurologic deficits. Psych: Alert and oriented. Based on my assessment of this patient, this patient meets a high complexity level of care. CML with chronic macrocytic anemia: Hold Sprycel. Repeat CBC in the AM. Transfuse if Hg < 7. Heme-Onc recommending outpatient workup. UTI: UCx growing GNB. Continue Rocephin 2g IV QD. Follow UCx. Chest pain: Troponins trended, ACS ruled out. Pro-pamela 0.22, will DC Azithromycin. Cardiology recommending Metoprolol 25 mg PO QAM + 50 mg PO QHS and have signed off with outpatient follow up. Pericardial effusion: Small with no hemodynamic compromise. Cardiology has signed off. CKD stage IIIa: Appears at baseline. History of CAD status post stenting: ASA 81 mg PO QD. Unsure why patient is not in statin, will defer to Cardiology. Metoprolol as above. History of aortic valve replacement via TAVR at [facility] Hypertension: Losartan 75 mg PO QD. Metoprolol as above. Cardiology has signed off. Hg borderline, repeat CBC in the AM. Awaiting UCx. Anticipate DC in 1-2 days. CODE STATUS: FULL CODE DVT Prophylaxis: SCD GI Prophylaxis: Designated medical POA if patient is not able to make medical decisions for themselves: I have reviewed the following [employer] consultant notes: Cardiology. I have reviewed the results of the following tests: CBC, BMP, Procal, UCx. I have ordered the following tests: CBC and BMP in the AM. I have discussed the care of this patient with the following independent historian: STEFANIE. I have independently interpreted the following test below: I have discussed the management of this patient with the following physician: Objective - Vital Signs Vital signs: Vital Signs Temp 97.7 F 08/15/24 14:32 Pulse 61 08/15/24 14:32 Resp 15 08/15/24 14:32 BP 128/64 08/15/24 14:32 Pulse Ox 99 08/15/24 14:32 FiO2 Intake & Output 08/14/24 08/15/24 08/15/24 18:59 06:59 18:59 Intake Total 238 118 398 Balance 238 118 398 Intake: Oral 238 118 398 Other: Voiding Method Self-Catheterization Self-Catheterization Self-Catheterization # Voids 2 - Labs CBC & Chem 7: 08/15/24 05:06 08/15/24 05:06 Labs: Abnormal Lab Results - Last 24 Hours (Table) 08/14/24 08/15/24 08/15/24 Range/Units 17:19 05:06 05:06 RBC 1.86 L 1.91 L (4.40-5.60) 10*6/uL Hgb 7.2 L 7.0 L (13.0-17.0) g/dL Hct 21.4 L 22.2 L (39.6-50.0) % MCV 115.1 H 116.2 H (80.0-97.0) fL MCH 38.7 H 36.6 H (27.0-32.0) pg MCHC 31.5 L (32.0-37.0) g/dL RDW 15.2 H 15.4 H (11.5-14.5) % MPV 8.9 L 9.3 L (9.5-12.2) fL Carbon Dioxide 18.3 L (21.6-31.8) mmol/L BUN 30.3 H (9.0-27.0) mg/dL BUN/Creatinine Ratio 25.25 H (12.00-20.00) Ratio Calcium 8.6 L (8.7-10.3) mg/dL AST 39 H (14-35) U/L Microbiology - Last 24 Hours (Table) 08/13/24 19:00 Urine Culture - Preliminary Urine,Catheterized Gram Neg Bacilli 08/13/24 19:39 Blood Culture - Preliminary Blood
[2024-08-15] MEDS: METOPROLOL TARTRATE 50 MG TAB PO SCH (20:34)
[2024-08-16 06:02] LABS: MCH 37.3 pg (27.0-32.0); Mean Platelet Volume 9.2 fL (9.5-12.2); Platelet Count 222 10*3/uL (140-440); RBC 1.77 10*6/uL (4.40-5.60); RDW 14.8 % (11.5-14.5); WBC 4.96 10*3/uL (4.50-10.00)
[2024-08-16 06:23] LABS: African American GFR (CKD) 82 (>60 ml/min/1.73 sqM); Anion Gap 9 mmol/L; Blood Urea Nitrogen 24 mg/dL (9-20); Calcium 9.2 mg/dL (8.4-10.2); Carbon Dioxide 17 mmol/L (22-30); Chloride 112 mmol/L (98-107); Glucose 103 mg/dL (74-99); Non-African American GFR(CKD) 71 (>60 ml/min/1.73 sqM); Potassium 4.4 mmol/L (3.5-5.1); Sodium 138 mmol/L (137-145)
[2024-08-16 06:31] LABS: HGB 6.6 g/dL (13.0-17.0)
--- NOTE | 2024-08-16 14:33 | P.PN ---
Subjective Progress Note Date: 08/16/24 78-year-old male with a past medical history of CML follows with Dr. Arellano and currently maintained on oral chemotherapy agent, CAD status post stenting, history of aortic valve replacement via TAVR at [facility], hypertension, and asthma/COPD. Patient presented to our facility on 08/13/2024 secondary to report s of abnormal labs. Patient reports was notified by [place] that he needed to be evaluated in the emergency department secondary to findings of low hemoglobin. Patient admits to generalized fatigue and weakness and shortness of breath with exertion. Family also reporting concerns over a possible UTI. Upon arrival to our facility, patient underwent evaluation in the emergency department. Vital signs upon arrival show blood pressure 122/55, heart rate 78, respiratory rate 16, temp 98.5 F, and SpO2 of 99% on room air. EKG completed and was low voltage but showing normal sinus rhythm at 86 bpm with frequent PACs upon personal review and interpretation. Chest x-ray completed showing left lower lobe infiltrate with a pleural effusion concerning for pneumonia and cardiomegaly. Labs completed and reviewed. CBC showing macrocytic anemia with hemoglobin of 7.8, MCV of 113.0, and MCH of 37.7. Coagulation profile normal findings. BMP showing hyperchloremia with chloride of 108 and renal function consistent with CKD stage IIIb with BUN of 35, creatinine 1.62, GFR 40, slightly higher than baseline with baseline creatinine of 1.3- 1.4. Blood glucose 111. Calcium 9.3. Magnesium 2.3. Liver profile unremarkable. Troponin was negative at less than 0.012. Patient started on IV antibiotics for treatment of community-acquired pneumonia and admitted under services with consultation to ca rdiology and hematology/oncology. Troponins were trended resulting at less than 0.012, less than 0.012, and 0.013. Echocardiogram completed showing a preserved EF of 55 to 60% with mild mitral and tricuspid regurgitation, mild pulmonary hypertension, and bioprosthetic aortic valve with a mean gradient of 17 mmHg and small pericardial effusion. 08/15 Patient was seen and examined. No acute events overnight. CBC significant for RBC 1.91, Hg 7, Hct 22.2, MCV 116.2. CMP significant for bicarb 18.3, BUN 30.3, BUN/Cr 25.25, Ca 8.6, AST 39. Cardiology recommends Metoprolol 25 mg PO QAM + 50 mg PO QHS with no further workup, signed off. Hematology recommends outpatient follow up for additional workup. UCx growing GNB, BCx neg so far. Procal 0.22. 08/16 Patient was seen and examined. No acute events overnight. CBC shows RBC 1.77, Hg 6.6, Hct 20, MCV 113. BMP shows Cl 112, bicarb 17, BUN 24, glu 103. Plans tor 1 PRBC today. UCx growing GNB, BCx neg so far. General: no distress, appears at stated age Derm: warm, dry Head: atraumatic, normocephalic, symmetric Mouth: no lip lesion, mucus membranes moist Cardiovascular: S1 S2 reg. no murmur. Lungs: Decreased BS bilaterally, no accessory muscle use Ext: no gross muscle atrophy, no edema, no contractures Neuro: No focal neurologic deficits. Psych: Alert and oriented. Based on my assessment of this patient, this patient meets a high complexity level of care. CML with chronic macrocytic anemia: Hold Sprycel. Repeat CBC in the AM. Plans for 1 PRBC 08/16. Transfuse if Hg < 7. Heme-Onc recommending outpatient workup. UTI: UCx growing GNB. Continue Rocephin 2g IV QD. Follow UCx. Chest pain: Troponins trended, ACS ruled out. Pro-pamela 0.22, will DC Azithromycin. Cardiology recommending Metoprolol 25 mg PO QAM + 50 mg PO QHS and have signed off with outpatient follow up. Pericardial effusion: Small with no hemodynamic compromise. Cardiology has signed off. CKD stage IIIa: Appears at baseline. History of CAD status post stenting: ASA 81 mg PO QD. Unsure why patient is not in statin, will defer to Cardiology. Metoprolol as above. History of aortic valve replacement via TAVR at [facility] Hypertension: Losartan 75 mg PO QD. Metoprolol as above. Cardiology has signed off. Blood transfusion today. Repeat CBC in the AM. Awaiting UCx. Anticipate DC in 1-2 days. CODE STATUS: FULL CODE DVT Prophylaxis: SCD GI Prophylaxis: Designated medical POA if patient is not able to make medical decisions for themselves: I have reviewed the following sales consultant residential manager notes: I have reviewed the results of the following tests: CBC, BMP, UCx, BCx. I have ordered the following tests: CBC and BMP in the AM. I have discussed the care of this patient with the following independent historian: STEFANIE. I have independently interpreted the following test below: I have discussed the management of this patient with the following physician: Objective - Vital Signs Vital signs: Vital Signs Temp 98.1 F 08/16/24 13:00 Pulse 56 L 08/16/24 13:00 Resp 18 08/16/24 13:00 BP 156/75 08/16/24 13:00 Pulse Ox 99 08/16/24 13:00 FiO2 Intake & Output 08/15/24 08/16/24 08/16/24 18:59 06:59 18:59 Intake Total 398 222 428 Balance 398 222 428 Intake: Oral 398 222 118 Blood Product 310 Rc As-1 Unit 310 [id number] Other: Voiding Method Self-Catheterization Self-Catheterization Self-Catheterization # Voids 2 - Labs CBC & Chem 7: 08/16/24 05:15 08/16/24 05:15 Labs: Abnormal Lab Results - Last 24 Hours (Table) 08/13/24 08/15/24 08/16/24 Range/Units 15:43 05:06 05:15 RBC 1.77 L (4.40-5.60) 10*6/uL Hgb 6.6 L* (13.0-17.0) g/dL Hct 20.0 L (39.6-50.0) % MCV 113.0 H (80.0-97.0) fL MCH 37.3 H (27.0-32.0) pg RDW 14.8 H (11.5-14.5) % MPV 9.2 L (9.5-12.2) fL Chloride (98-107) mmol/L Carbon Dioxide (22-30) mmol/L BUN (9-20) mg/dL Glucose (74-99) mg/dL Erythropoietin 53.21 H (2.00-30.00) mIU/mL Crossmatch See Detail 08/16/24 Range/Units 05:15 RBC (4.40-5.60) 10*6/uL Hgb (13.0-17.0) g/dL Hct (39.6-50.0) % MCV (80.0-97.0) fL MCH (27.0-32.0) pg RDW (11.5-14.5) % MPV (9.5-12.2) fL Chloride 112 H (98-107) mmol/L Carbon Dioxide 17 L (22-30) mmol/L BUN 24 H (9-20) mg/dL Glucose 103 H (74-99) mg/dL Erythropoietin (2.00-30.00) mIU/mL Crossmatch Microbiology - Last 24 Hours (Table) 08/13/24 19:39 Blood Culture - Preliminary Blood 08/13/24 19:00 Urine Culture - Preliminary Urine,Catheterized Gram Neg Bacilli
[2024-08-17 06:28] LABS: HCT 20.7 % (39.6-50.0); MCH 35.6 pg (27.0-32.0); MCHC 32.9 g/dL (32.0-37.0); Mean Platelet Volume 8.9 fL (9.5-12.2); Platelet Count 191 10*3/uL (140-440); RBC 1.91 10*6/uL (4.40-5.60); RDW 19.7 % (11.5-14.5); WBC 4.58 10*3/uL (4.50-10.00)
[2024-08-17 06:32] LABS: HGB 6.8 g/dL (13.0-17.0)
[2024-08-17 06:33] LABS: MCV 108.4 fL (80.0-97.0)
--- NOTE | 2024-08-17 12:35 | P.PN ---
Subjective Progress Note Date: 08/17/24 78-year-old male with a past medical history of CML follows with Dr. Arellano and currently maintained on oral chemotherapy agent, CAD status post stenting, history of aortic valve replacement via TAVR at [facility], hypertension, and asthma/COPD. Patient presented to our facility on 08/13/2024 secondary to report s of abnormal labs. Patient reports was notified by [place] that he needed to be evaluated in the emergency department secondary to findings of low hemoglobin. Patient admits to generalized fatigue and weakness and shortness of breath with exertion. Family also reporting concerns over a possible UTI. Upon arrival to our facility, patient underwent evaluation in the emergency department. Vital signs upon arrival show blood pressure 122/55, heart rate 78, respiratory rate 16, temp 98.5 F, and SpO2 of 99% on room air. EKG completed and was low voltage but showing normal sinus rhythm at 86 bpm with frequent PACs upon personal review and interpretation. Chest x-ray completed showing left lower lobe infiltrate with a pleural effusion concerning for pneumonia and cardiomegaly. Labs completed and reviewed. CBC showing macrocytic anemia with hemoglobin of 7.8, MCV of 113.0, and MCH of 37.7. Coagulation profile normal findings. BMP showing hyperchloremia with chloride of 108 and renal function consistent with CKD stage IIIb with BUN of 35, creatinine 1.62, GFR 40, slightly higher than baseline with baseline creatinine of 1.3- 1.4. Blood glucose 111. Calcium 9.3. Magnesium 2.3. Liver profile unremarkable. Troponin was negative at less than 0.012. Patient started on IV antibiotics for treatment of community-acquired pneumonia and admitted under services with consultation to ca rdiology and hematology/oncology. Troponins were trended resulting at less than 0.012, less than 0.012, and 0.013. Echocardiogram completed showing a preserved EF of 55 to 60% with mild mitral and tricuspid regurgitation, mild pulmonary hypertension, and bioprosthetic aortic valve with a mean gradient of 17 mmHg and small pericardial effusion. 08/15 Patient was seen and examined. No acute events overnight. CBC significant for RBC 1.91, Hg 7, Hct 22.2, MCV 116.2. CMP significant for bicarb 18.3, BUN 30.3, BUN/Cr 25.25, Ca 8.6, AST 39. Cardiology recommends Metoprolol 25 mg PO QAM + 50 mg PO QHS with no further workup, signed off. Hematology recommends outpatient follow up for additional workup. UCx growing GNB, BCx neg so far. Procal 0.22. 08/16 Patient was seen and examined. No acute events overnight. CBC shows RBC 1.77, Hg 6.6, Hct 20, MCV 113. BMP shows Cl 112, bicarb 17, BUN 24, glu 103. Plans tor 1 PRBC today. UCx growing GNB, BCx neg so far. 08/17 Patient was seen and examined. No acute events overnight. Repeat CBC this morning shows RBC 1.91, Hg 6.8, Hct 20.7, MCV 108.4. Plans to transfuse an additional PRBC. UCx growing GNB, BCx neg so far. General: no distress, appears at stated age Derm: warm, dry Head: atraumatic, normocephalic, symmetric Mouth: no lip lesion, mucus membranes moist Cardiovascular: S1 S2 reg. no murmur. Lungs: Decreased BS bilaterally, no accessory muscle use Ext: no gross muscle atrophy, no edema, no contractures Neuro: No focal neurologic deficits. Psych: Alert and oriented. Based on my assessment of this patient, this patient meets a high complexity level of care. CML with chronic macrocytic anemia: Hold Sprycel. Repeat CBC in the AM. Plans for 1 PRBC 08/16 + 08/17. Transfuse if Hg < 7. Heme-Onc recommending outpatient workup. UTI: UCx growing GNB. Continue Rocephin 2g IV QD. Follow UCx. Chest pain: Troponins trended, ACS ruled out. Pro-pamela 0.22, will DC Azithromycin. Cardiology recommending Metoprolol 25 mg PO QAM + 50 mg PO QHS and have signed off with outpatient follow up. Pericardial effusion: Small with no hemodynamic compromise. Cardiology has signed off. CKD stage IIIa: Appears at baseline. History of CAD status post stenting: ASA 81 mg PO QD. Unsure why patient is not in statin, will defer to Cardiology. Metoprolol as above. History of aortic valve replacement via TAVR at [facility] Hypertension: Losartan 75 mg PO QD. Metoprolol as above. Blood transfusion today. Repeat CBC in the AM. Awaiting UCx. Anticipate DC in 1- 2 days. CODE STATUS: FULL CODE DVT Prophylaxis: SCD GI Prophylaxis: Designated medical POA if patient is not able to make medical decisions for themselves: I have reviewed the following solutions consultant notes: I have reviewed the results of the following tests: CBC, UCx, BCx. I have ordered the following tests: CBC and BMP in the AM. I have discussed the care of this patient with the following independent historian: RN. Olmedo. I have independently interpreted the following test below: I have discussed the management of this patient with the following physician: Objective - Vital Signs Vital signs: Vital Signs Temp 97.8 F 08/17/24 11:21 Pulse 53 L 08/17/24 11:21 Resp 18 08/17/24 11:21 BP 157/77 08/17/24 11:21 Pulse Ox 100 08/17/24 11:21 FiO2 Intake & Output 08/16/24 08/17/24 08/17/24 18:59 06:59 18:59 Intake Total 428 0 Balance 428 0 Intake: Oral 118 Blood Product 310 0 Rc As-1 Unit 310 [id number] Rc Pheresis 2 As3 Unit 0 [id number] Other: Voiding Method Self-Catheterization Self-Catheterization Self-Catheterization # Voids 3 2 - Labs CBC & Chem 7: 08/17/24 05:20 08/16/24 05:15 Labs: Abnormal Lab Results - Last 24 Hours (Table) 08/13/24 08/17/24 08/17/24 Range/Units 15:43 05:20 07:48 RBC 1.91 L (4.40-5.60) 10*6/uL Hgb 6.8 L* (13.0-17.0) g/dL Hct 20.7 L (39.6-50.0) % MCV 108.4 H (80.0-97.0) fL MCH 35.6 H (27.0-32.0) pg RDW 19.7 H (11.5-14.5) % MPV 8.9 L (9.5-12.2) fL Crossmatch See Detail See Detail Microbiology - Last 24 Hours (Table) 08/13/24 19:39 Blood Culture - Preliminary Blood
[2024-08-18 04:59] LABS: HCT 23.5 % (39.6-50.0); HGB 7.8 g/dL (13.0-17.0); MCH 34.7 pg (27.0-32.0); MCHC 33.2 g/dL (32.0-37.0); MCV 104.4 fL (80.0-97.0); Mean Platelet Volume 8.8 fL (9.5-12.2); Platelet Count 205 10*3/uL (140-440); RBC 2.25 10*6/uL (4.40-5.60); WBC 5.34 10*3/uL (4.50-10.00)
[2024-08-18 07:21] VITALS: BP 157/78; PULSE 62; TEMP 97.8
[2024-08-18 10:05] VITALS: RESP 16
--- NOTE | 2024-08-18 13:40 | P.DS ---
Providers Date of admission: 08/13/24 19:10 Expected date of discharge: 08/18/24 Attending physician: Nadeen Melgoza MD Consults: 08/13/24 19:08 Consult Physician Routine Consulting Provider: Jami Hannon Consult Reason/Comments: afib Do you want consulting provider notified?: Yes Consult Physician Routine Consulting Provider: Berto Arellano Consult Reason/Comments: anemia Do you want consulting provider notified?: Yes Primary care physician: Rodolfo Modi [facility] Course: 78-year-old male with a past medical history of CML follows with Dr. Arellano and currently maintained on oral chemotherapy agent, CAD status post stenting, history of aortic valve replacement via TAVR at [facility], hypertension, and asthma/COPD. Patient presented to our facility on 08/13/2024 secondary to reports of abnormal labs. [facility] in [facility] department secondary to findings of low hemoglobin. Patient admits to generalized fatigue and weakness and shortness of breath with exertion. Family also reporting concerns over a possible UTI. Upon arrival to our facility, patient underwent evaluation in the emergency department. Vital signs upon arrival show blood pressure 122/55, heart rate 78, respiratory rate 16, temp 98.5 F, and SpO2 of 99% on room air. EKG completed and was low voltage but showing normal sinus rhythm at 86 bpm with frequent PACs upon personal review and interpretation. Chest x-ray completed showing left lower lobe infiltrate with a pleural effusion concerning for pneumonia and cardiomegaly. Labs completed and reviewed. CBC showing macrocytic anemia with hemoglobin of 7.8, MCV of 113.0, and MCH of 37.7. Coagulation profile normal findings. BMP showing hyperchloremia with chloride of 108 and renal function consistent with CKD stage IIIb with BUN of 35, creatinine 1.62, GFR 40, slightly higher than baseline with baseline creatinine of 1.3- 1.4. Blood glucose 111. Calcium 9.3. Magnesium 2.3. Liver profile unremarkable. Troponin was negative at less than 0.012. Patient started on IV antibiotics for treatment of community-acquired pneumonia and admitted under services with consultation to cardiology and hematology/oncology. Troponins were trended resulting at less than 0.012, less than 0.012, and 0.013. Echocardiogram completed showing a preserved EF of 55 to 60% with mild mitral and tricuspid regurgitation, mild pulmonary hypertension, and bioprosthetic aortic valve with a mean gradient of 17 mmHg and small pericardial effusion. 08/15 Patient was seen and examined. No acute events overnight. CBC significant for RBC 1.91, Hg 7, Hct 22.2, MCV 116.2. CMP significant for bicarb 18.3, BUN 30.3, BUN/Cr 25.25, Ca 8.6, AST 39. Cardiology recommends Metoprolol 25 mg PO QAM + 50 mg PO QHS with no further workup, signed off. Hematology recommends outpatient follow up for additional workup. UCx growing GNB, BCx neg so far. Procal 0.22. 08/16 Patient was seen and examined. No acute events overnight. CBC shows RBC 1.77, Hg 6.6, Hct 20, MCV 113. BMP shows Cl 112, bicarb 17, BUN 24, glu 103. Plans tor 1 PRBC today. UCx growing GNB, BCx neg so far. 08/17 Patient was seen and examined. No acute events overnight. Repeat CBC this morning shows RBC 1.91, Hg 6.8, Hct 20.7, MCV 108.4. Plans to transfuse an additional PRBC. UCx growing GNB, BCx neg so far. 08/18 Patient was seen and examined. No acute events overnight. CBC today shows RBC 2.25, Hg 7.8, Hct 28.5, MCV 104.4. Denies dizziness, shortness of breath or chest pain. Discharge Plan: His anemia is likely related to Sprycel which he has been instructed to hold. Follow up with Dr. Arellano on 08/23. Advised close monitoring of Hg. UCx came back + for Klebsiella. He has received 4 days of Rocephin, will prescribe Augmentin x 3 days to complete a total of 7 days antibiotics. New prescription for Metoprolol sent to the pharmacy as well. Follow up with PCP within 1-2 days and Cardiology within 1 week of discharge. General: no distress, appears at stated age Derm: warm, dry Head: atraumatic, normocephalic, symmetric Mouth: no lip lesion, mucus membranes moist Cardiovascular: S1 S2 reg. no murmur. Lungs: Decreased BS bilaterally, no accessory muscle use Ext: no gross muscle atrophy, no edema, no contractures Neuro: No focal neurologic deficits. Psych: Alert and oriented. Discharge Diagnosis: CML with acute on chronic macrocytic anemia UTI Chest pain Pericardial effusion CKD stage IIIa History of CAD status post stenting History of aortic valve replacement via TAVR at [facility] This complex discharge took 35 minutes to complete. Patient Condition at Discharge: Stable Plan - Discharge Summary Discharge Rx Participant: No New Discharge Prescriptions: New Amoxic-Pot Clav 875-125Mg [Augmentin 875-125] 1 tab PO Q12HR 3 Days #6 tab Metoprolol Tartrate [Lopressor] 25 mg PO DAILY tab Metoprolol Tartrate [Lopressor] 50 mg PO HS #30 tab Continue Nitroglycerin Sl Tabs [Nitrostat] 0.4 mg SL Q5M PRN PRN Reason: Pain Losartan [Cozaar] 75 mg PO DIRECTED Aspirin 81 mg PO DAILY Ubidecarenone [Co Q-10] 100 mg PO DAILY Ascorbic Acid [Vitamin C] 1,000 mg PO DAILY valACYclovir HCL [Valtrex] 500 mg PO TID Quercetin 800mg 800 mg PO BID Prosynbiotic 1 cap PO BID Furosemide [Lasix] 20 mg PO DAILY Docusate [Colace] 100 mg PO BID Albuterol Inhaler [Ventolin Hfa Inhaler] 2 puff INHALATION RT-QID PRN PRN Reason: Shortness Of Breath Fluticasone/Vilanterol [Breo Ellipta 200-25 Mcg Inhaler] 1 puff INHALATION RT-DAILY PRN PRN Reason: Shortness Of Breath Zinc Gluconate [Zinc] 50 mg PO DAILY Cholecalciferol [Vitamin D3 (125 Mcg = 5000 Iu)] 125 mcg PO DAILY Multivitamin/Iron/Folic Acid [Centrum Adults Tablet] 1 tab PO DAILY Dicyclomine [Bentyl] 10 mg PO TID Cranberry 450mg 450 mg PO DAILY Discontinued Metoprolol Tartrate [Lopressor] 25 mg PO BID Dasatinib [Sprycel] 100 mg PO DAILY@0300 Discharge Medication List Ascorbic Acid [Vitamin C] 1,000 mg PO DAILY 10/24/18 [History] Aspirin 81 mg PO DAILY 10/24/18 [History] Losartan [Cozaar] 75 mg PO DIRECTED 10/24/18 [History] Nitroglycerin Sl Tabs [Nitrostat] 0.4 mg SL Q5M PRN 10/24/18 [History] Ubidecarenone [Co Q-10] 100 mg PO DAILY 10/24/18 [History] Docusate [Colace] 100 mg PO BID 11/05/20 [History] Albuterol Inhaler [Ventolin Hfa Inhaler] 2 puff INHALATION RT-QID PRN 02/09/22 [History] Fluticasone/Vilanterol [Breo Ellipta 200-25 Mcg Inhaler] 1 puff INHALATION RT- DAILY PRN 02/09/22 [History] Zinc Gluconate [Zinc] 50 mg PO DAILY 02/14/22 [History] Cholecalciferol [Vitamin D3 (125 Mcg = 5000 Iu)] 125 mcg PO DAILY 06/23/22 [History] Multivitamin/Iron/Folic Acid [Centrum Adults Tablet] 1 tab PO DAILY 11/27/23 [History] valACYclovir HCL [Valtrex] 500 mg PO TID 11/27/23 [History] Cranberry 450mg 450 mg PO DAILY 08/13/24 [History] Dicyclomine [Bentyl] 10 mg PO TID 08/13/24 [History] Prosynbiotic 1 cap PO BID 08/13/24 [History] Quercetin 800mg 800 mg PO BID 08/13/24 [History] Furosemide [Lasix] 20 mg PO DAILY 08/14/24 [History] Amoxic-Pot Clav 875-125Mg [Augmentin 875-125] 1 tab PO Q12HR 3 Days #6 tab 08/18/24 [Rx] Metoprolol Tartrate [Lopressor] 25 mg PO DAILY tab 08/18/24 [Rx] Metoprolol Tartrate [Lopressor] 50 mg PO HS #30 tab 08/18/24 [Rx] Follow up Appointment(s)/Referral(s): Berto Arellano [STAFF PHYSICIAN] - 08/23/24 8:45 am Jami Hannon MD [STAFF PHYSICIAN] - 1 Week Rodolfo Healy MD [Primary Care Provider] - 1-2 days Patient Instructions/Handouts: Urinary Tract Infection in Men (DC), Hemolytic Anemia (DC) Discharge Disposition: HOME SELF-CARE
--- NOTE | 2024-08-20 21:16 | CDI ---
Documentation Clarification Form Date: 08/20/2024 09:05:52 PM From: Latoya Ricketts Phone: Admit Date: 08/13/2024 07:10:00 PM Patient Name: Ventura Miller Visit Number: [id number] Discharge Date: 08/18/2024 09:55:00 AM ATTENTION: The Clinical Documentation Specialists (CDI) and [facility] Coding Staff appreciate your assistance in clarifying documentation. Please respond to the clarification below the line at the bottom and electronically sign. The CDI & [facility] Coding staff will review the response and follow-up if needed. Please note: Queries are made part of the Legal Health Record. If you have any questions, please contact the author of this message via ITS. Doctor/Provider: Leigha Gorman Conflicting documentation has been found in the medical record. As attending physician, please provide clarification. CKD Stage 3a per Progress Notes 08/14- 08/17 and DCS CKD Stage 3b per Progress Notes 08/14- 08/17 and DCS History/Risk Factors: 78yo M, CMLwith acute on chronicmacrocytic anemia, gram neg UTI, pericardial effusion, CKDstage III?, CAD w stent, Hx TAVR, HTN Baseline creatinine 1.21.4 Clinical Indicators: BUN: 08/13 35 08/14 34 08/15 30.3 08/16 24 CR: 08/13 1.62 08/14 1.32 08/15 1.2 08/16 1.00 GFR: 08/13 40/46 08/14 51/59 08/15 -/- 08/16 71/82 Treatment: monitored Please clarify which diagnosis is most appropriate: [ x] CKD Stage 3a [ ] CKD Stage 3b [ ] Other (please specify) [ ] Unable to determine (Template Last Revised: May 2020) MTDD
== END 2024-08-18 09:55 | disposition home or self-care (01) | DRG 689 ==
LOC: EC 15:10 → 6NMEDSUR 19:10
PROVIDERS: ADMIT Internal Medicine; ATTEND Internal Medicine
DX: N39.0 Urinary tract infection, site not specified (principal); J18.9 Pneumonia, unspecified organism; I31.39 Other pericardial effusion (noninflammatory); C92.10 Chronic myeloid leukemia, BCR/ABL-positive, not having achieved remission; E87.20 Acidosis, unspecified; J90 Pleural effusion, not elsewhere classified; J44.0 Chronic obstructive pulmonary disease with (acute) lower respiratory infection; I27.22 Pulmonary hypertension due to left heart disease; N18.32 Chronic kidney disease, stage 3b; I13.10 Hypertensive heart and chronic kidney disease without heart failure, with stage 1 through stage 4 chronic kidney disease, or unspecified chronic kidney disease; D53.9 Nutritional anemia, unspecified; I08.1 Rheumatic disorders of both mitral and tricuspid valves; N17.9 Acute kidney failure, unspecified; I48.91 Unspecified atrial fibrillation; N18.31 Chronic kidney disease, stage 3a; E87.8 Other disorders of electrolyte and fluid balance, not elsewhere classified; I25.10 Atherosclerotic heart disease of native coronary artery without angina pectoris; B96.89 Other specified bacterial agents as the cause of diseases classified elsewhere; Z95.3 Presence of xenogenic heart valve; Z79.82 Long term (current) use of aspirin; Z79.899 Other long term (current) drug therapy; Z86.19 Personal history of other infectious and parasitic diseases; Z87.891 Personal history of nicotine dependence; Z95.5 Presence of coronary angioplasty implant and graft; Z87.440 Personal history of urinary (tract) infections
CPT/HCPCS: 36415; 71045; 71046; 76770; 80048; 80053; 81001; 82272; 82525; 82607; 82668; 82746; 83090; 83735; 83921; 84100; 84145; 84484; 85025; 85027; 85045; 85610; 85730; 86850; 86900; 86901; 86920; 87040; 87077; 87086; 87186; 87449; 87636; 93005; 93306; 94760; 96365; 96366; 96367; 99285

== ENCOUNTER → 2024-09-19 | Outpatient (CLI) | payer MEDICARE ==
[2024-09-19 10:11] LABS: Protein/Creatinine Ratio,Urine 0.083
[2024-09-19 15:13] LABS: HCT 33.6 % (39.6-50.0); HGB 10.7 g/dL (13.0-17.0); MCH 34.9 pg (27.0-32.0); MCHC 31.8 g/dL (32.0-37.0); MCV 109.4 FL (80.0-97.0); NRBC Per 100 WBC 0 X 10*3/uL (0.00-0.01); Platelet Count 203 X 10*3/uL (140-440); RBC 3.07 X 10*6/uL (4.40-5.60); RDW 15.3 % (11.5-14.5); WBC 10.59 X 10*3/uL (4.50-10.00)
[2024-09-19 15:19] LABS: ALT 17 U/L (10-49); AST 28 U/L (14-35); Albumin 4.4 g/dL (3.8-4.9); Albumin/Globulin Ratio 1.63 Ratio (1.60-3.17); Alkaline Phosphatase 63 U/L (41-126); Anion Gap 7.60 mmol/L (4.00-12.00); BUN/Creat Ratio 16.62 Ratio (12.00-20.00); Blood Urea Nitrogen 21.6 mg/dL (9.0-27.0); Calcium 9.8 mg/dL (8.7-10.3); Carbon Dioxide 25.4 mmol/L (21.6-31.8); Chloride 103 mmol/L (96-109); Globulin 2.7 g/dL (1.6-3.3); Glucose 100 mg/dL (70-110); Magnesium 2.2 mg/dL (1.5-2.4); Potassium 5.1 mmol/L (3.5-5.5); Sodium 136 mmol/L (135-145); Total Protein 7.1 g/dL (6.2-8.2)
[2024-09-19 16:04] LABS: Basophils # (M) 0.42 X 10*3/uL (0.00-0.10); Eosinophils # (M) 0 X 10*3/uL (0.04-0.35); Lymphocytes # (M) 7.41 X 10*3/uL (0.90-5.00); Monocytes # (M) 0.21 X 10*3/uL (0.20-1.00); Neutrophils # (M) 2.54 X 10*3/uL (1.80-7.70); Neutrophils % (M) 24 %; RBC Morphology Normal (Normal); Smudge Cells Present (Absent)
[2024-09-19 17:43] LABS: Bilirubin,Urine Negative (Negative); Blood,Urine Negative (Negative); Color,Urine Yellow (Yellow); Ketones,Urine Trace (Negative); Nitrite,Urine Negative (Negative); PH, Urine 6.0; Specific Gravity,Urine 1.015 (1.001-1.030); Urobilinogen,Urine 1.0 E.U./DL
[2024-09-19 17:52] LABS: Bacteria,Urine Trace (None Seen)
== END | disposition home or self-care (01) ==
LOC: LABWHC1 09:00
PROVIDERS: ATTEND Internal Medicine
DX: N18.9 Chronic kidney disease, unspecified (principal)
CPT/HCPCS: 36415; 80053; 81001; 82570; 83735; 84100; 84156; 85025